=== PATIENT | female | born 1930 | race Caucasian/White ===

== ENCOUNTER 2018-05-01 13:18 | Observation (INO) | payer MEDICARE ==
[2018-05-01 14:35] LABS: Troponin I Less than 0.010 ng/mL (< 0.028)
[2018-05-01 16:27] VITALS: BMI 22.0
[2018-05-01] MEDS ORDERED: Acetaminophen 325 MG TAB PO PRN (18:21)
[2018-05-01] MEDS: Lisinopril 20 MG TAB PO SCH (20:18)
[2018-05-01] MEDS: cycloSPORINE 0.05% Ophthalmic Droperette EA EYE SCH (20:19)
--- NOTE | 2018-05-01 20:20 | HP ---
DATE OF ADMISSION: 05/01/2018 PRIMARY CARE PHYSICIAN: Dr. Valdez. PRIMARY HAND FLESHER: Dr. Levy. CHIEF COMPLAINT: Syncope with fall at home. HISTORY OF PRESENT ILLNESS: Mrs. Jackson is a pleasant 87-year-old female who has a past medical histo ry of CAD, CHF, hypothyroidism, hypertension, hyperlipidemia, atrial fibrillation, history of tachybr jose syndrome, status post pacemaker placement, dementia, she had presented to the [facility] via EMS from transfer from [place], she had complaints of syncope earlier this mornin g and fall in her bathroom. She states that she was standing on a scale for her weight and that she turned to give her a book to document her weight, she felt dizzy, her legs gave out and she f ell to the ground. She states she landed on her left side, she also developed a skin tear on her rig ht hand. X-rays of her left hand were negative for fractures, she also underwent x-rays of her left humerus which showed no evidence of fracture, and right wrist x-rays showed no acute fracture or disl ocation seen. A pressure dressing was applied and she tolerated well. She underwent CT of her head which was unremarkable. In the ED, it was found that she had an elevated blood pressure of 180/95. EKG was obtained and showed that she was in paced rhythm with a rate of 75, no ST or T-wave changes. She had denied any headache, dizziness, chest pain, shortness of breath or abdominal pain. She had denied any other symptoms at this time. She was admitted to the hospital for observation for workup of syncope. She states on and off for the last several weeks she would feel dizzy; however, if she s at down for a few moments and her symptoms seemed to resolve. She also admits to not taking her morn ing medications which included Lasix, aspirin and metoprolol. She states usually when she forgets to take her home medications, she can tell if that her blood pressure goes up and she feels dizzy. PAST MEDICAL HISTORY: History of CHF, atrial fibrillation, tachybrady syndrome status post pacemaker placement, acute hemorrhagic stroke, hypertension, hyperlipidemia, hypothyroidism, osteoarthritis, d ementia. PAST SURGICAL HISTORY: Thyroidectomy, hysterectomy, bilateral knee replacement, tonsillectomy, right hand surgery, pacemaker, stent x1, bilateral cataract removal with lens implant, bladder suspension. FAMILY HISTORY: The patient reports father has a history of CVA and mother has a history of myocardi al infarction, denies any other significant family history. SOCIAL HISTORY: Denies any tobacco, alcohol or illicit drug use. REVIEW OF SYSTEMS: Constitutional: Denies fever, chills or weakness. Eyes: Denies any eye pain, r edness, blurry vision. ENT: Denies any sinus pressure, sore throat, or trouble swallowing. Cardiov ascular: Denies any chest pain, diaphoresis, palpitations. Respiratory: Denies cough, shortness of breath, wheezing. Gastrointestinal: Denies any abdominal pain, appetite changes, diarrhea, nausea or vomiting. Genitourinary: Denies any frequency, urgency or dysuria. Denies any hematuria. Muscu loskeletal: Denies back pain, does report some left arm and right hand pain status post fall. Skin: Warm and dry, dressing applied to right wrist over the skin tear. Multiple bruising noted upper ex tremities. No rashes or lesions noted. Neurologic: Denies any confusion or dizziness, she reported dizziness this morning; however, this has resolved upon my meeting with her, denies weakness or ment al status changes. Psychiatric: Denies any suicidal or homicidal ideation. ALLERGIES: CEPHALEXIN. HOME MEDICATIONS: 1. Lisinopril 20 mg p.o. b.i.d. 2. Furosemide 40 mg p.o. b.i.d. 3. Metoprolol 50 mg p.o. daily. 4. Colace 100 mg p.o. at bedtime. 5. Aricept 10 mg p.o. at bedtime. 6. Atorvastatin 20 mg p.o. at bedtime. 7. Restasis 1 drop each eye b.i.d. 8. Levothyroxine 75 mcg p.o. daily. 9. Potassium chloride 10 mEq p.o. daily. 10. Vitamin E 40 units p.o. daily. 11. Multivitamin with minerals 1 tablet p.o. daily. 12. Sertraline 50 mg p.o. daily. 13. CoQ10 of 100 mg p.o. daily. PHYSICAL EXAMINATION: VITAL SIGNS: BP 170/92, pulse 75, respirations 16, temperature 98.6, O2 saturations 96% on room air. GENERAL: The patient is lying comfortably in bed, she is alert and oriented x3, no acute distress no adriana. HEENT: Normocephalic, atraumatic. Eyes equal, round, and reactive to light. Extraocular muscles in tact. NECK: Soft, supple, with no masses. CARDIAC: Positive S1, S2 with 2/6 systolic murmur noted. Paced rhythm on the monitor. LUNGS: Clear to auscultation bilaterally. No wheeze, no rales, no rhonchi. ABDOMEN: Soft, nontender, positive bowel sounds. No guarding, no rebound, no rigidity. : No CVA tenderness bilaterally. No suprapubic tenderness. MUSCULOSKELETAL: No calf tenderness bilaterally. Homans sign negative. Moves all extremities equal ly. Strength 5+ bilaterally upper and lower extremities. SKIN: No clubbing, no cyanosis, no edema. Dressing applied to right over skin tear. Diffuse bruisi ng upper extremities noted. PSYCHIATRIC: Appropriate, calm, normal mood and affect, cooperative. NEUROLOGICAL: Alert and oriented x3, answers all questions appropriately. LABORATORY DATA: WBC 4.3, RBC 3.43, hemoglobin 11.7. Sodium 141, potassium 3.9, BUN 24, creatinine 0.93, estimated GFR 57, glucose 92, alkaline phosphatase 69, CK-MB 1.1. BNP 391.3, troponin less susan n 0.010. DIAGNOSTIC IMAGING: CT brain shows no acute intracranial abnormalities, left hand 3-view x-ray shows severe arthritic changes and fairly extensive vascular calcifications, no acute injury noted. Left humerus 2-view x-ray showed no evidence of fracture. Right wrist, 3-view x-ray showed no acute fract ure or dislocation seen. ASSESSMENT AND PLAN: 1. Syncope, uncertain cause. We will check carotid Dopplers and an echocardiogram to rule out cardi ogenic etiology. We will consult Cardiology, Dr. Levy, for further evaluation, patient with rece nt pacemaker placement. Continue home medications. Further adjustments pending the patient's progre ss. 2. Hypertension. Continue home medications, monitor vital signs. Orthostatic vital signs obtained and negative. 3. Congestive heart failure. Monitor the patient's I's and O's. As #1, consult Cardiology for furt her evaluation. Continue with home medications. 4. History of hypothyroidism. Continue levothyroxine. 5. Deep venous thrombosis. With the patient's risk of fall, we will be hesitant to place on antico agulation at this time. We will await further recommendations per Cardiology. 6. GI prophylaxis with Pepcid. 7. Code status will be FULL CODE. Further discussion was made with the patient and she decided to b e full code at this time, her DPOA is her son, Fabian. FINAL DISPOSITION AND FURTHER MANAGEMENT PLAN: Pending patient progress and further recommendations from Cardiology along with workup for syncope.
[2018-05-01] MEDS ORDERED: Docusate 100 MG CAP PO SCH (21:00)
[2018-05-01] MEDS ORDERED: Famotidine 20 MG TAB PO SCH ×2 (21:00)
[2018-05-01] MEDS ORDERED: Atorvastatin Calcium 20 MG TAB PO SCH (21:00)
[2018-05-01] MEDS ORDERED: Donepezil HCl 10 MG TAB PO SCH (21:00)
--- NOTE | 2018-05-01 21:46 | ULT ---
CAROTID DOPPLER ULTRASOUND EVALUATION: 05/01/2018 HISTORY: TECHNIQUE: Multiple longitudinal and transverse images of the carotid arteries are obtained using a Multi-Hertz linear-array transducer. FINDINGS: Real-time, color-flow, and spectral wave-form Doppler analysis demonstrates bilateral proximal ICA ca lcified plaques. These are mild or minimal, resulting in approximately 30% bilateral proximal ICA st enosis at the internal carotid artery origins. No evidence of increased flow velocity is seen. The ICA flow velocity on the right measures 79/21 and on the left measures 67/18 cm per second. The ICA/ CCA ratio on the right measures 1.8 and on the left measures 1.5. No evidence of significant increased flow velocity is seen. Antegrade flow is seen in both vertebral arteries. IMPRESSION: Approximately 30% bilateral proximal internal carotid artery calcified stenosis. POS: [facility]
[2018-05-02 05:10] LABS: #Eosinphils 0.3 thou/uL (0.0-0.7); #Lymphocytes 1.5 thou/uL (1.20-3.40); #Monocytes 0.6 thou/uL (0.11-0.59); #Neutrophils 3.4 thou/uL (1.40-6.50); %Basophils 0.7 % (0.0-1.0); %Eosinophils 5.4 % (0.0-10.0); %Lymphocytes 24.9 % (21.0-51.0); %Monocytes 10.3 % (0.0-10.0); %Neutrophils 58.7 % (42.0-75.0); Hemoglobin 11.7 g/dL (12.0-16.0); Mean Corpuscular HGB CONC 32.2 g/dL (32.0-36.0); Mean Platelet Volume 9.8 fL (7.4-10.4); Platelet Count 92 thou/uL (130-400); RBC Distribution Width 12.8 % (11.5-14.5); Red Blood Cell (RBC) Count 3.45 mill/uL (4.20-5.40); White Blood Cell (WBC) Count 5.8 thou/uL (4.8-10.8)
[2018-05-02 05:13] LABS: Anion Gap 12 mmol/L (10-20); BUN (Urea Nitrogen) 20 mg/dL (9.8-20.1); Calc. Creatinine Clearance 48 mL/min (70-130); Calcium 8.4 mg/dL (7.8-10.44); Carbon Dioxide 29 mmol/L (23-31); Chloride 103 mmol/L (98-107); Estimated GFR-MDRD 62; Glucose 82 mg/dL (83-110); Potassium 3.6 mmol/L (3.5-5.1); Sodium 140 mmol/L (136-145)
[2018-05-02] MEDS: Furosemide 40 MG TAB PO SCH ×2 (06:30→13:47)
[2018-05-02] MEDS: Lisinopril 20 MG TAB PO SCH (08:21)
[2018-05-02] MEDS: cycloSPORINE 0.05% Ophthalmic Droperette EA EYE SCH (08:23)
[2018-05-02] MEDS ORDERED: Potassium Chloride 10 MEQ TAB PO SCH (09:00)
[2018-05-02] MEDS ORDERED: Multivitamin W/ Minerals 1 TAB PO SCH (09:00)
[2018-05-02] MEDS ORDERED: Levothyroxine Sodium 75 MCG TAB PO SCH (09:00)
--- NOTE | 2018-05-02 14:39 | PDOC.PN ---
- Subjective Encounter Start Date: 05/02/18 Encounter Start Time: 09:30 -: f/u on admission for near syncope and collapse, reports fall, has pacemaker -: denies complaints today - Objective Resuscitation Status: Resuscitation Status FULL:Full Resuscitation Vital Signs & Weight: Vital Signs (12 hours) Temp Pulse Resp BP BP BP Pulse Ox 05/02/18 11:29 97.7 F 78 20 136/73 97 05/02/18 08:21 152/87 H 05/02/18 07:08 98.1 F 68 16 152/87 H 96 05/02/18 04:08 98 F 71 16 174/87 H 96 Weight Weight 65.799 kg I&O: 05/01/18 05/02/18 05/03/18 06:59 06:59 06:59 Intake Total 260 240 Output Total 600 Balance -340 240 Result Diagrams: 05/02/18 04:25 05/02/18 04:25 Phys Exam - Physical Examination Constitutional: NAD HEENT: PERRLA, moist MMs Neck: no nodes, no JVD Respiratory: no rales, no rhonchi, clear to auscultation bilateral Cardiovascular: RRR Strong systolic murmur Gastrointestinal: soft, non-tender Musculoskeletal: no edema, pulses present Neurological: non-focal, normal sensation, moves all 4 limbs Lymphatic: no nodes Psychiatric: normal affect, A&O x 3 Skin: no rash, normal turgor, cap refill <2 seconds Dx/Plan (1) Sick sinus syndrome Code(s): I49.5 - SICK SINUS SYNDROME Status: Chronic Comment: Apparent SSS, consideration for PM placement 05/25/16 (2) Syncope Code(s): R55 - SYNCOPE AND COLLAPSE Status: Acute (3) Afib Code(s): I48.91 - UNSPECIFIED ATRIAL FIBRILLATION Status: Chronic Qualifiers: Atrial fibrillation type: chronic Qualified Code(s): I48.2 - Chronic atrial fibrillation Comment: Rate controlled currently, no anticoagulation secondary to ICH (4) Hypertension Code(s): I10 - ESSENTIAL (PRIMARY) HYPERTENSION Status: Chronic Qualifiers: Hypertension type: essential hypertension Qualified Code(s): I10 - Essential (primary) hypertension Comment: Labile, titrate BP regimen (5) Hypothyroid Code(s): E03.9 - HYPOTHYROIDISM, UNSPECIFIED Status: Chronic Comment: Continue Levothyroxine 75mcg daily, Free T4 in am - Plan cont current plan of care, plan discussed w/ family, DVT proph w/SCDs -: Awaiting cardiology consult -: Doppler with 30% stenosis -: Echo is pending -: Continue labs, will continue to monitor * .
--- NOTE | 2018-05-02 16:19 | PDOC.EVN ---
Event Note - Event Note Event Note: pt seen, examined, management reviewed with B Miguel,agree.
[2018-05-02 16:48] VITALS: BP 166/82; TEMP 98.1
--- NOTE | 2018-05-03 03:07 | DIS ---
DATE OF ADMISSION: 05/01/2018 DATE OF DISCHARGE: 05/02/2018 PRIMARY CARE PHYSICIAN: Dr. Whitney Valdez. CONSULTATIONS: None. PROCEDURES: Patient had a carotid Doppler study and an Echocardiogram were performed. IMPRESSION: Approximately 30% bilateral proximal internal carotid artery calcified stenosis. Echocardiogram was performed showed moderate concentric left ventricular hypertrophy, EF visually estimated at 50%-55%. Pacer wire visualized in right ventricle, left atrium is [id number] markedly enlarged right atrium size, severe mitral regurgitation, severe aortic stenosis is present. Moderate aortic regurgitation is noted. Severe tricuspid regurgitation. DISCHARGE DIAGNOSES: 1. Presyncopal with fall. 2. Hypertension. 3. Congestive heart failure. 4. Hypothyroidism. HOSPITAL COURSE: Ms. Jackson is an 87-year-old female who was brought to the emergency room in [place] yesterday with complaints of presyncope, reports that she was standing on her scale for her weight turned to give her a book when she felt dizzy, legs gave out, and she fell to the ground. Reports that she landed on her left side, developed a skin tear on her right hand. X- rays were obtained and her left hand which were negative for fractures. She had x-rays of her left humerus, which is also negative for fracture and right wrist x-rays, which were also displayed no acute fracture. Patient had a brain CT of her head in the ER [place], which was unremarkable. In the ER [place], she had an elevated blood pressure of 180/95. EKG was obtained which showed a paced rhythm with a rate of 75. No ST or T-wave changes. She has denied any headache, dizziness, chest pain, shortness of breath. She also denies all of those today during my exam. She has denied syncope, denies passing out, denies any loss of consciousness. She reports dizziness on and off for the last several weeks and also admitted to not taking her morning medications including Lasix, aspirin, and metoprolol. She reports that she can usually tell when she forgets to take it as blood pressure increases and she begins to feel dizzy. On hospital stay, Carotid Doppler and Echo were performed, patient felt much better and with discussion with Dr. Hyde, patient was sent home. REVIEW OF SYSTEMS: Constitutional: Patient denies any fever, chills, or weakness. Eyes: Denies any eye pain, redness, or blurry vision. ENT: Patient denies any pressure to sinuses, sore throat, or trouble swallowing. Cardiovascular: Denies any chest pain, diaphoresis, palpitations. Respiratory : Denies any cough, shortness of breath, wheezing. Gastrointestinal: Denies any abdominal pain, diarrhea, nausea, or vomiting. Genitourinary: Denies any frequency, urgency or dysuria. Musculoskeletal: Denies any back pain. Does report some left arm, right hand after her fall yesterday. She does have a bandage to her right wrist. No bleeding. She does have a skin tear. Otherwise , skin is warm, dry, and intact. Multiple bruising is noted to upper extremities. Neurologic: Patient denies any confusion or dizziness today. Did report dizziness yesterday. Psych: Denies any suicidal or homicidal ideation. PHYSICAL EXAMINATION: VITAL SIGNS: Temperature 98.9, pulse 81, respiratory 18, blood pressure 126/68. GENERAL: Patient is lying comfortably in bed, alert, oriented x3, no acute distress. HEENT: Normocephalic, atraumatic head. Eyes are equal, round, and reactive to light. Extraocular muscles are intact. NECK: Soft, supple. No JVD. CARDIAC: Positive S1, S2 with a 2/6 systolic murmur. Paced rhythm on the monitor. LUNGS: Clear to auscultation bilaterally. No wheeze, rales, or rhonchi. ABDOMEN: Soft, nontender, positive bowel sounds. No guarding or rebound. : No CVA tenderness bilaterally. No suprapubic tenderness. MUSCULOSKELETAL: No calf tenderness bilaterally. NEUROLOGIC: Strength is 5+ bilaterally in upper and lower extremities. SKIN: Dressing is applied to right wrist over skin tear. Diffuse bruising on upper extremities. PSYCHIATRIC: Appropriate, calm. Normal mood, normal affect, cooperative. NEUROLOGIC: Patient is alert and oriented x3, answers all questions appropriately. DISCHARGE MEDICATIONS: Patient will be discharged to home and resumed on all her home medications including Colace 100 mg p.o. at bedtime, levothyroxine 75 mcg p.o. daily, multivitamin 1 tab p.o. daily, potassium chloride 10 mEq p.o. daily, Restasis 0.4 mL each eye b.i.d., Zoloft 50 mg p.o. daily, coenzyme Q 100 mg p.o. daily, vitamin E 400 units p.o. daily, Lipitor 20 mg p.o. at bedtime, Aricept 10 mg p.o. at bedtime, Lasix 40 mg p.o. b.i.d., Zestril 20 mg p.o. b.i.d., and Toprol-XL 50 mg p.o. daily. Patient is allergic to CEPHALEXIN. Discharged home in stable condition. Should follow up with Dr. Valdez in 1 week and follow up with Dr. Levy in 2-3 weeks. [facility]
== END 2018-05-02 17:19 | disposition home or self-care (01) ==
LOC: ERS 13:18 → 2SW 14:00
PROVIDERS: ADMIT Internal Medicine Infectious Disease; ATTEND Internal Medicine Infectious Disease
DX: R55 Syncope and collapse (principal); I11.0 Hypertensive heart disease with heart failure; I50.9 Heart failure, unspecified; E89.0 Postprocedural hypothyroidism; I25.10 Atherosclerotic heart disease of native coronary artery without angina pectoris; E78.5 Hyperlipidemia, unspecified; F03.90 Unspecified dementia, unspecified severity, without behavioral disturbance, psychotic disturbance, mood disturbance, and anxiety; M19.90 Unspecified osteoarthritis, unspecified site; I49.5 Sick sinus syndrome; I48.2 Chronic atrial fibrillation; I08.3 Combined rheumatic disorders of mitral, aortic and tricuspid valves; I65.23 Occlusion and stenosis of bilateral carotid arteries; Z86.73 Personal history of transient ischemic attack (TIA), and cerebral infarction without residual deficits; Z79.899 Other long term (current) drug therapy; Z88.1 Allergy status to other antibiotic agents; Z95.0 Presence of cardiac pacemaker; Z95.5 Presence of coronary angioplasty implant and graft; W19.XXXA Unspecified fall, initial encounter; Y92.002 Bathroom of unspecified non-institutional (private) residence as the place of occurrence of the external cause
CPT/HCPCS: 80048; 84484; 85025; 93005; 93306; 93880; 99285; G0378 ×2; 36415

== ENCOUNTER 2018-06-28 19:20 | Inpatient (IN) | payer MEDICARE, BC ==
[~2018-06-28 19:20] MED LIST: ISOVUE-370 76%-LOCM 1 ML ONE
[2018-06-28 19:49] LABS: #Eosinphils 0.1 thou/uL (0.0-0.7); #Lymphocytes 1.6 thou/uL (1.20-3.40); #Monocytes 0.8 thou/uL (0.11-0.59); #Neutrophils 6.6 thou/uL (1.40-6.50); %Basophils 0.2 % (0.0-1.0); %Eosinophils 0.6 % (0.0-10.0); %Lymphocytes 17.7 % (21.0-51.0); %Monocytes 9.2 % (0.0-10.0); %Neutrophils 72.4 % (42.0-75.0); Hemoglobin 14.2 g/dL (12.0-16.0); Mean Corpuscular HGB CONC 32.8 g/dL (32.0-36.0); Mean Corpuscular Hemoglobin 34.2 pg (27.0-31.0); Mean Platelet Volume 9.8 fL (7.4-10.4); Platelet Count 100 thou/uL (130-400); RBC Distribution Width 12.7 % (11.5-14.5); Red Blood Cell (RBC) Count 4.16 mill/uL (4.20-5.40); White Blood Cell (WBC) Count 9.2 thou/uL (4.8-10.8)
[2018-06-28 19:58] LABS: ALT (SGPT) 55 U/L (8-55); AST (SGOT) 102 U/L (5-34); Alkaline Phosphatase 65 U/L (40-150); Anion Gap 18 mmol/L (10-20); BUN (Urea Nitrogen) 26 mg/dL (9.8-20.1); Bilirubin, Total 1.5 mg/dL (0.2-1.2); Calc. Creatinine Clearance 0 mL/min (70-130); Calcium 9.4 mg/dL (7.8-10.44); Carbon Dioxide 28 mmol/L (23-31); Chloride 100 mmol/L (98-107); Estimated GFR-MDRD 41; Globulin 3.7 g/dL (2.4-3.5); Glucose 137 mg/dL (83-110); Potassium 4.4 mmol/L (3.5-5.1); Protein, Total 7.7 g/dL (6.0-8.3); Sodium 142 mmol/L (136-145)
[2018-06-28 20:01] LABS: MDiff Complete? YES; Macrocytosis SLIGHT = 6-15 cells (100X) (0-5/hpf); Ovalocytes SLIGHT = 2-5 cells (100X) (0-1/hpf); Platelet Morphology Comment Appears Decreased
[2018-06-28 20:02] LABS: CKMB 1.7 ng/mL (0-6.6); Troponin I 0.021 ng/mL (< 0.028)
[2018-06-28 20:03] LABS: Prothrombin Time 15.9 SEC (12.0-14.7)
[2018-06-28 20:04] LABS: PTT 30.8 SEC (22.9-36.1)
[2018-06-28 20:05] LABS: INR-International Normal Ratio 1.3
[2018-06-28 20:05] LABS: Base Excess-Venous 6.1 mmol/L (0 (+/- 2.5)); Bicarbonate (HCO3v) 32.3 mmol/L (22.0-29.0); CO2 Tension (PvCO2) 51.2 mmHg (41.0-51.0); Calcium, Ionized 1.04 mmol/L (1.12-1.32); Hemoglobin - Calc 15.1 g/dL (12.0-18.0); O2 Tension (PvO2) 31.7 mmHg (35.0-45.0); Potassium 3.8 mmol/L (3.4-4.7); T. Carbon Dioxide 33.9 mmol/L (1.0-85.0); pH (Venous) 7.408 (7.35-7.45); vO2 Saturation-calc 60.3 % (94-98)
[2018-06-28 20:13] LABS: Bilirubin Negative (Negative); Blood, Urine Small (Negative); Clarity CLEAR (Clear); Glucose, Urine (Dipstick) Negative (Negative); Leukocyte Negative (Negative); Nitrite Negative (Negative); Protein, Urine (Dipstick) 100 mg/dL (Neg-Trace); Specific Gravity, Urine 1.036 (1.002-1.036); Urobilinogen 0.2 mg/dL (0.2-1.0)
[2018-06-28] MEDS ORDERED: Acetaminophen 500 MG TAB ONE (20:13)
[2018-06-28 20:16] LABS: Bacteria/HPF None Seen HPF (None Seen); Hyaline Casts/LPF 0-3 HYALINE CAST LPF (0-3 Hyaline); Pathc Cast-AUWi Flag 0.14 (0-2.49); RBC/HPF 0-3 HPF (0-3); Squamous Epithelial 0-3 HPF (0-3); WBC/HPF 0-3 HPF (0-3)
--- NOTE | 2018-06-28 20:16 | RAD ---
CHEST ONE VIEW: 06/28/18 HISTORY: 87-year-old female with history of left sided weakness and expressive aphasia. Minimal cardiomegaly w ith left ICD. Monitor leads overlie the chest. There is some bilateral vascular congestion. No conflu ent pneumonia or overt edema. IMPRESSION: Cardiomegaly with some bilateral vascular congestion without overt confluent pneumonia or acute edema . POS: [facility]
--- NOTE | 2018-06-28 20:18 | CT ---
BRAIN CT WITHOUT IV CONTRAST: 06/28/18 HISTORY: 87-year-old female with history of stroke, left sided weakness, expressive aphasia. COMPARISON: 05/01/18, bilateral atrophy and chronic white matter ischemic changes. No mass or bleed or other signi ficant acute process. IMPRESSION: No significant acute intracranial process. No mass or bleed. Atrophy and chronic white matter ischem ic changes. Findings discussed with Dr. Miguel at 7:30 p.m. Code CR POS: [facility]
--- NOTE | 2018-06-28 21:32 | CT ---
HEAD CT ANGIOGRAM WITH 3D RENDERING: NECK CT ANGIOGRAM WITH 3D RENDERIN06/28/18 HISTORY: 87-year-old female with history of left sided weakness, expressive aphasia, stroke alert. HEAD CTA WITH 3D RENDERING: There is no evidence for major branch occlusion. M1 segments are patent bilaterally. There are some i ntracranial internal carotid atherosclerotic calcific changes as well as some calcific changes involv ing the vertebral arteries. No evidence for an aneurysm. Small incidental left frontal sinus osteoma . Anterior cerebral, posterior cerebral, and vertebrobasilar arteries show no significant stenosis or occlusion. IMPRESSION: No evidence for significant intracranial stenotic or occlusive disease. M1 segments are patent bilate rally. Arterial vascular calcification. Evidence for atherosclerotic vascular disease. NECK CTA WITH 3D RENDERING: There are significant densely calcified plaques at the origins of the right and left internal carotid arteries and distal common carotid artery junctions. Using NASCET criteria, these result in approxi mately 70% stenosis of the origin of the right ICA and approximately 65 to 70% stenosis of the origin of the left ICA. Vertebral arteries are unremarkable bilaterally. IMPRESSION: Significant high grade stenoses of the origins of the right and left internal carotid arteries using NASCET criteria with extensive associated calcified plaques. Unremarkable vertebral arteries bilatera lly. No evidence of other significant acute process. POS: [facility]
[2018-06-28] MEDS ORDERED: Piperacillin/Tazobactam 4.5 GM VIAL ONE (22:29)
[2018-06-28 22:58] LABS: CSF Source CSF; Clarity Clear (Clear); RBC Count - Manual 176 /cumm (None Seen); Tube # 4; WBC/NonHematics Count - Manual 4 /cumm (0-5)
[2018-06-28 23:02] LABS: CSF Source CSF; Clarity Cloudy/Turbid (Clear); Tube # 1
[2018-06-28 23:09] LABS: RBC Count - Manual 4375 /cumm (None Seen); WBC/NonHematics Count - Manual 8 /cumm (0-5)
[2018-06-28 23:10] LABS: CSF, Glucose 80 mg/dl (40-70); CSF, Protein 44 mg/dL (15-40)
[2018-06-28 23:19] LABS: Color Of CSF Supernatant COLORLESS (Colorless); Tube # 2; Unspun CSF Color COLORLESS (Colorless)
[2018-06-28 23:43] LABS: Cell Count Non Hematic 16 %; Lymphocytes 28 %; Segmented Neutrophils 56 %
[2018-06-28 23:53] LABS: Lactic Acid 1.2 mmol/L (0.5-2.2)
[2018-06-28] MEDS ORDERED: Ondansetron ODT 4 MG TAB SL PRN (23:56)
[2018-06-28] MEDS ORDERED: Ondansetron PF 4 MG/2 ML Vial IVP PRN (23:56)
[2018-06-28] MEDS ORDERED: Acetaminophen 325 MG TAB PO PRN (23:56)
[2018-06-29] MEDS ORDERED: Acetaminophen 650 MG Suppository PR PRN (00:14)
[2018-06-29] MEDS ORDERED: Ondansetron ODT 4 MG TAB PO PRN (00:14)
[2018-06-29] MEDS ORDERED: Ondansetron PF 4 MG/2 ML Vial IVP PRN (00:14)
--- NOTE | 2018-06-29 01:08 | HP ---
PRIMARY CARE PHYSICIAN: Dr. Valdez. PRIMARY SEPTIC TANK SERVICER: Dr. Levy. TIME OF SERVICE: 10:30 p.m. CHIEF COMPLAINT: Altered mental status. HISTORY OF PRESENT ILLNESS: Ms. Jackson is an 87-year-old female with a history of dementia, recently admitted here from 05/01 to 05/02 for fall with syncope and with a stroke workup. At that time, she was found to have 30% stenosis of bilateral carotids. Today, she was in a normal state of health and then around 5:00 p.m., she was noted to not be acting herself, seemed to be very weak and was stuttering and mumbling. Her wheeled her into the bathroom on her rolling walker and on trying to transfer her to the toilet use of the facility, she got feces all over the toilet and wall. He called the daughter who was unable to help and so they called EMS for further workup. Per reports, she has reported left-sided facial droop and left-sided weakness, but the family does not recall seeing that. She had no fevers or chills until arrival at the emergency department where she has reportedly had a 101.1 fever. Remainder of the workup appears to be negative other than a CT angiogram of the [place] [facility] [place] that showed high-grade stenosis of the bilateral internal carotid arteries. The patient is awake and alert. She is talking and oriented to x3, but just does not seem her normal usual self. PAST MEDICAL HISTORY: 1. Hypertension. 2. Dementia. 3. Hyperlipidemia. 4. Chronic atrial fibrillation with tachy-daisha syndrome, status post pacemaker placement in April [address] Levy. 5. History of acute hemorrhagic stroke. 6. Essential hypertension. 7. Hypothyroidism. 8. Osteoarthritis. 9. CHF, unknown type. PAST SURGICAL HISTORY: Includes thyroidectomy, hysterectomy, bilateral total knee replacements, right hand surgery, pacemaker placement in April 2016, stent x1 remotely, bilateral cataract removal with intraocular lens placement and bladder suspension. HOME MEDICATIONS: 1. Lisinopril 20 mg p.o. b.i.d. 2. Lasix 40 mg p.o. b.i.d. 3. Metoprolol 50 mg daily. 4. Colace daily. 5. Aricept 10 mg p.o. at bedtime. 6. Atorvastatin 20 mg p.o. at bedtime. 7. Restasis one drop each eye b.i.d. 8. Levothyroxine 75 mcg daily. 9. Potassium chloride 10 mEq daily. 10. Vitamin E 400 units daily. 11. Multivitamin with minerals one tablet daily. 12. Sertraline 50 mg daily. 13. CoQ10, 100 mg daily. ALLERGIES: CEPHALEXIN. FAMILY HISTORY: Negative for clotting or bleeding disorders. No immune dysfunction. SOCIAL HISTORY: Negative habits x3. She is , lives with her and usually fairly independent. REVIEW OF SYSTEMS: Review of system was attempted. The patient although is awake, alert, and oriented x3. She is very sleepy and not answering questions well. PHYSICAL EXAMINATION: VITAL SIGNS: Temperature in the emergency department initially 101.0, blood pressure 192/114, respiratory rate 16, heart rate in the 70s. GENERAL: She is sleepy, but arousable. She awakens and is alert, oriented to person, place, and time. NECK: Supple. She has no lymphadenopathy or JVD. She had bilateral carotid bruits that are faint. CARDIOVASCULAR: Normal S1, S2. No S3 or S4. LUNGS: Clear to auscultation bilaterally without wheezes, rales, or rhonchi. ABDOMEN: Soft, nontender, nondistended. She has good bowel sounds in all four quadrants. EXTREMITIES: No cyanosis, clubbing, or edema. SKIN: SKIN: Warm, moist, and well perfused without any rash or lesions. MUSCULOSKELETAL: Normal to inspection. Large joints appear normal. Bilateral TKAs without inflammation. NEUROLOGIC: Cranial nerves 2 through 12 are grossly intact. She has bilateral intraocular lenses. She has no focal deficits and a normal speech pattern, although she is acting very weak. She has 5/5 strength in her left upper and lower extremities. She has 3 to 4/5 strength at her left lower extremity. There is no facial droop. ASSESSMENT/PLAN: 1. Possible ischemic stroke versus transient ischemic attack. Place her in observation on the stroke unit. She just had a large workup done two months ago. She had a pacemaker placed in April 2016. We will check and see if this is an MRI friendly pacemaker or not, but a CT angio if not ordered any further workup. PT/ OT has to see her and may need a Neurology consult. I will continue her on daily aspirin. 2. Hypertension. 3. Hyperlipidemia. Continue home medications. Job ID: [id number] [facility]
[2018-06-29 01:37] VITALS: BMI 20.5
[2018-06-29 05:17] LABS: #Lymphocytes 1.6 thou/uL (1.20-3.40); #Monocytes 1.1 thou/uL (0.11-0.59); #Neutrophils 7.8 thou/uL (1.40-6.50); %Basophils 0.3 % (0.0-1.0); %Eosinophils 0.1 % (0.0-10.0); %Lymphocytes 14.8 % (21.0-51.0); %Monocytes 10.6 % (0.0-10.0); %Neutrophils 74.1 % (42.0-75.0); Hemoglobin 13.3 g/dL (12.0-16.0); Mean Corpuscular HGB CONC 33.7 g/dL (32.0-36.0); Mean Corpuscular Hemoglobin 34.8 pg (27.0-31.0); Mean Platelet Volume 9.4 fL (7.4-10.4); Platelet Count 88 thou/uL (130-400); RBC Distribution Width 12.6 % (11.5-14.5); Red Blood Cell (RBC) Count 3.82 mill/uL (4.20-5.40); White Blood Cell (WBC) Count 10.5 thou/uL (4.8-10.8)
[2018-06-29 05:31] LABS: Anion Gap 14 mmol/L (10-20); BUN (Urea Nitrogen) 24 mg/dL (9.8-20.1); Calc. Creatinine Clearance 35 mL/min (70-130); Calcium 8.8 mg/dL (7.8-10.44); Carbon Dioxide 31 mmol/L (23-31); Chloride 100 mmol/L (98-107); Estimated GFR-MDRD 46; Glucose 134 mg/dL (83-110); Potassium 3.7 mmol/L (3.5-5.1); Sodium 141 mmol/L (136-145)
[2018-06-29] MEDS: Famotidine 20 MG TAB PO SCH (10:17)
[2018-06-29] MEDS ORDERED: Furosemide 40 MG/4 ML VIAL SLOW IVP SCH (11:30)
--- NOTE | 2018-06-29 12:26 | RAD ---
PORTABLE CHES 1 VIEW: Date: 06/29/18 Time: 1147 hours HISTORY: Cough, rhonchi. FINDINGS: Comparison made with exam of 06/28/18. The heart is enlarged. Left-sided pacemaker device remains in place. Aorta is tortuous. Lungs are wel l expanded without focal areas of consolidation, pneumothoraces, radha pulmonary edema, or pleural ef fusions. IMPRESSION: No acute process. POS: [facility]
--- NOTE | 2018-06-29 13:24 | PRG ---
DATE OF SERVICE: 06/29/2018 SUBJECTIVE: Reviewed the case with Vivien, reviewed the record and examined the patient. The patient has reported a cough for several days and while in the middle of our exam, the patient coughed and expectorated significant brownish thick sputum. Her lung exam reveals some persistent rales, which may be tracheal secretion in nature, but otherwise moving fair amount of air. Her heart exam reveals significant murmur at the upper precordium consistent with aortic stenosis. Her echocardiogram from early April revealed an ejection fraction of 50% to 55%, pace wires in place, severe mitral regurgitation, severe aortic stenosis with moderate aortic regurgitation, and severe tricuspid regurgitation. At this point, I believe the patient likely does have bronchitis accounting for her initial fever and some of her respiratory issues. We will go ahead and continue to cover her with some antibiotics for that. Also concerned about her cardiac situation potentially being the source of her TIA symptoms and what may be vertigo, although, the patient's history on that is fairly vague. Also, the patient has some evidence of carotid stenosis on CT angiogram with 65% to 70% stenosis bilaterally. We will await Cardiology's input to determine if we need to have CV surgery evaluate her for those as well. Job ID: [id number] [facility]TDD
--- NOTE | 2018-06-29 13:58 | PDOC.PN ---
- Subjective Encounter Start Date: 06/29/18 Encounter Start Time: 10:00 Subjective: Patient with productive wet cough, reports mild SOB -: Reports dizziness at home but none while here -: Denies numbness/tingling/weakness to extremities - Objective Resuscitation Status - Order Detail: 06/28/18 22:32 Resuscitation Status Routine Resuscitation Status: DNAR: NO Resuscitation Vital Signs & Weight: Vital Signs (12 hours) Temp Pulse Pulse Pulse Resp BP BP 06/29/18 11:57 98.2 F 64 16 06/29/18 10:10 77 140/78 06/29/18 09:00 65 90 152/81 H 152/85 H 06/29/18 07:53 97.6 F 61 18 06/29/18 04:00 98.4 F 65 18 BP Pulse Ox Pulse Ox Pulse Ox 06/29/18 11:57 140/68 96 06/29/18 10:10 06/29/18 09:00 90 L 90 L 06/29/18 07:53 164/78 H 92 L 06/29/18 04:00 155/78 H 91 L Weight Admit Weight 61.371 kg Weight 61.371 kg Result Diagrams: 06/29/18 04:30 06/29/18 04:30 Additional Labs: Accuchecks 06/28/18 19:25 POC Glucose 128 H Phys Exam - Physical Examination HEENT: PERRLA, moist MMs Neck: no nodes, no JVD scattered rhonchi in all lobes, wet productive cough Loud murmur heard near sternal border Gastrointestinal: soft, non-tender Musculoskeletal: no edema, pulses present Neurological: non-focal, normal sensation, moves all 4 limbs Lymphatic: no nodes Psychiatric: normal affect Deviation from normal: Patient with hx of dementia, alert, oriented x2 Skin: no rash, normal turgor Dx/Plan (1) Bronchitis Code(s): J40 - BRONCHITIS, NOT SPECIFIED ACUTE OR CHRONIC Status: Acute (2) Pre-syncope Status: Chronic (3) Afib Code(s): I48.91 - UNSPECIFIED ATRIAL FIBRILLATION Status: Chronic Qualifiers: Atrial fibrillation type: chronic Qualified Code(s): I48.2 - Chronic atrial fibrillation Comment: Rate controlled currently, no anticoagulation secondary to ICH (4) Hypertension Code(s): I10 - ESSENTIAL (PRIMARY) HYPERTENSION Status: Chronic Qualifiers: Hypertension type: essential hypertension Qualified Code(s): I10 - Essential (primary) hypertension Comment: Labile, titrate BP regimen (5) Hypothyroid Code(s): E03.9 - HYPOTHYROIDISM, UNSPECIFIED Status: Chronic Comment: Continue Levothyroxine 75mcg daily, Free T4 in am - Plan cont current plan of care, respiratory therapy, incentive spirometry Dizziness w/ aortic stenosis, carotid stenosis -: Productive cough, CXR with no evidence of acute process on rpt -: Added ABX for bronchitis, restarted home meds -: Asked Cardiology for their input, may need CV consult for Carotid stenosis * .
[2018-06-29] MEDS ORDERED: Azithromycin 500 MG in Sodium Chloride 0.9% 250 ML 250 ML IVPB SCH (14:00)
[2018-06-29] MEDS: Donepezil HCl 5 MG TAB PO SCH (20:42)
[2018-06-29] MEDS: Furosemide 40 MG TAB PO SCH (20:42)
[2018-06-29] MEDS: Atorvastatin Calcium 20 MG TAB PO SCH (20:42)
[2018-06-29] MEDS ORDERED: Albuterol Sulfate 2.5 mg/3 ml Neb NEB PRN (22:33)
[2018-06-29] MEDS ORDERED: guaiFENesin ER 600 MG TAB PO SCH (22:45)
--- NOTE | 2018-06-30 01:25 | CON ---
DATE OF CONSULTATION: 06/29/2018 HISTORY OF PRESENT ILLNESS: Galilea Jackson is an 87-year-old white female, who was initially evaluated in June 2000 for new onset atrial fibrillation. She has always been somewhat of a difficult historian and at that time stated that she had "bronchial pneumonia" in 1959, but did not have any further problems until June 2000. She felt weak, wheezing as well as cough with clear sputum. She had chest tightness along with some shortness of breath, but it was unclear how long the chest tightness lasted. The following day, she saw Dr. Conn. Her CK was negative. EKG revealed atrial fibrillation. She did have expiratory wheezing, as well as 2+ peripheral edema at this time. She was placed on Coumadin and Combivent inhaler. Echo revealed left atrial enlargement, ejection fraction of 60% to 65%, ttskeftc-si-sxacar mitral regurgitation, leowrvim-lx-[id number] tricuspid regurgitation, mild pulmonic insufficiency, and a patent foramen ovale. Lotrel dose was increased to 5/20 and also the decision was made to place her on amiodarone. In August 2000, when she returned, she was still in atrial fibrillation and had 2 + lower extremity edema. Lotrel was discontinued. She was placed on Zestoretic 20/25 q.a.m. and Zestril 20 q.p.m. Her INR had fallen to 1.4, when she presented for electrical cardioversion. She underwent transesophageal echo, which revealed no evidence of thrombus and on KIKO, she only had mild mitral regurgitation, mild tricuspid regurgitation. She was placed on Lovenox, underwent cardioversion with 200 joules and returned to sinus rhythm. Following day, she underwent adenosine Cardiolite testing which revealed septal and anterior wall dyskinesis with ejection fraction of 51%. There was a fixed defect in the anterior wall. It was felt best to keep her anticoagulated for 1 month and then have her return for catheterization. In September 2000, she had increased energy level after returning to sinus rhythm. Blood pressure was 180/80. Norvasc 2.5 daily was added. She had rare episodes of shortness of breath. No chest discomfort. She did complain of shakiness and the amiodarone dose was reduced to 200 mg daily. Coumadin was discontinued and she underwent cardiac catheterization in November 2000, which revealed ejection fraction of 60% to 65%. There was 30% mid LAD, 30% ostial RCA, 30% mid RCA lesions. At this time, decision was made to have her stay off Coumadin and just treat her with ecotrin. She continued to remain in sinus rhythm, but had problems with peripheral edema. In February 2004, hydrochlorothiazide was discontinued. She was placed on Lasix 40 daily. In November 2004, echo revealed ejection fraction of 55% to 60% with yidstcjm-yk-[id number] mitral regurgitation, severe tricuspid regurgitation. She was placed on support hose and peripheral edema improved. She continued to have mildly elevated LDL and Zocor 20 at bedtime was added. She would not take that but continued to have elevated LDL and finally, I convinced her to take it. LDL continued to be elevated on the Zocor and ultimately, she was placed on Vytorin 10/40. In February 2007, she complained of tremor and the amiodarone dose was reduced to one-half tablet daily. The tremor did not seem to improve with reduction of the amiodarone. In May 2008, she underwent adenosine Cardiolite testing which was normal without evidence of ischemia or fixed defect. She continued to do well with compression stockings for her venous insufficiency and would not have any leg pain unless she did not wear the stockings. In January 2010, her tremor did not improve on reduction of the amiodarone dose, but she was found to be in atrial fibrillation. She was placed back on Coumadin. Amiodarone was increased to 200 mg b.i.d. and it was recommended that she see a neurologist for tremor, however, she never did pursue that. Later in January 2010, she had an episode of chest discomfort, went to the emergency room in [place]. Later in January 2010, she underwent transesophageal echo followed by cardioversion. Transesophageal echo revealed only moderate mitral regurgitation. There was no intracardiac thrombus and with 200 joules, she converted back to atrial flutter and with 300 joules, she converted to sinus rhythm with first- degree AV block. She did have long first-degree AV block with episodes of type 1 second-degree AV block (Wenckebach). This seemed to resolve and she did not have any further episodes for 24 hours prior to discharge. She had one short episode of atrial flutter on the floor, which spontaneously converted. She had problems with wheezing in the morning after cardioversion and with significantly elevated blood pressure at that time was systolic 200. She was given intravenous Lasix and her hydralazine was increased and her breathing improved. In November 2011, she again was found to be in atrial fibrillation. She had fallen 4 days previously and had several falls and it was felt that she was not a candidate to restart Coumadin. Amiodarone was then discontinued due to recurrence of atrial fibrillation. In June 2012, she began to notice increased dyspnea and chest tightness. In August 2012, she states she gets tightness in her chest with walking and bending over, relieved in 5 minutes, associated with shortness of breath. Previously, she had undergone Holter monitoring for episodes of chest tightness. She was neither bradycardic nor tachycardiac and the chest tightness did not seem to be related to her heart rate with the atrial fibrillation. Echo revealed ejection fraction of 60% to 65% with right atrial enlargement, moderate mitral regurgitation, mild aortic stenosis, severe tricuspid regurgitation, and mild mitral regurgitation with a patent foramen ovale. She underwent Lexiscan Cardiolite testing, which revealed no evidence of ischemia or fixed defect. However, she did develop 1-[address]-segment depression in II, III , and F. Pulmonary function test revealed an FEV1 of 1.32 L (68%). There was improvement with inhaled bronchodilators. It was felt that she had mild obstructive pulmonary defect with improvement with inhaled bronchodilators, however, she has always been somewhat noncompliant with using them. She returned to the office for review of those studies but during the interim, developed increased dyspnea and increased leg edema. She woke at 3:00 a.m. with increased shortness of breath, went to the emergency room in [place], was given intravenous Lasix and transferred here. Ultimately, she underwent cardiac catheterization. Wedge pressure was 15. Cardiac output 4.63 L/minute. Ejection fraction was 60% to 65% with mild mitral regurgitation. Left main was normal. There was 50% mid LAD. Circumflex was normal. The right coronary artery had a 30% ostial stenosis and an 80% mid RCA stenosis. She underwent placement of Vision 3.0 x 18 mm stent in the mid right coronary artery, which was post dilated with a 3.5 x 15 mm balloon. She underwent flow wire measurement of the LAD, 50% lesion and FFR was 0.93, and no further treatment was warranted. It was felt that on admission that she had acute on chronic diastolic failure. Blood pressure was difficult to control. She was placed on carvedilol 6.25 b.i.d. and discharged. She was admitted 4 days later with blood pressure in the 70s and mid 80s systolic. She was given intravenous fluids. It was felt that her hypotension was probably due to Imdur and that was stopped. The dose of carvedilol was reduced from 6.25 b.i.d. to 3.125 b.i.d. Due to her falls, it was felt that she was not a candidate for anticoagulation with her atrial fibrillation. She then was admitted in September 2013 with central chest tightness that was somewhat sharp and pleuritic. This lasted over 24 hours. It was felt that this was not due to myocardial ischemia. 2D echo showed normal ejection fraction and diastolic dysfunction. Chest CTA did not show any pulmonary emboli. She was admitted soon thereafter in early October 2013. She had a fall 2 weeks prior to that and then another one that prompted that admission. She remembers with both episodes falling and hitting the floor. She had heart rates in the mid 50s. She did have orthostatic hypotension. She was again admitted in November 2013, with left anterior chest pain worse with a deep breath that was continuous. She was found to have pleural rub. CTA of the chest was negative for pulmonary emboli. She was placed on Levaquin for bronchitis and discharged. 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 She was again admitted several days later with heart rates in the 30s. She underwent single pacemaker placement in April 2016. She most recently was admitted in April 2018 with presyncope with a fall. She had 30% bilateral proximal internal carotid artery calcified stenosis. Echo revealed ejection fraction of 50% to 55% with moderate concentric left ventricular hypertrophy, left atrial enlargement, markedly enlarged right atrium, severe mitral regurgitation, severe aortic stenosis which she has been known to have for some time, moderate aortic regurgitation, severe tricuspid regurgitation. She was most recently seen in the office in June 17, 2018, and at that time did not complain of any lightheadedness, shortness of breath or chest discomfort. Again, it was felt that she was not anticoagulation candidate due to frequent falls and history of intracranial hemorrhage. She now was admitted when the family noted around 5:00 p.m. that she was very weak, stuttering, and mumbling. tried to help her with bowel movement and she got feces all over the toilet and the wall. She had some fever up to 99 at home and in the emergency room, reportedly was 101.1. She also has complained of cough productive of elise sputum for the last 3 days. She has chest soreness when she coughs. She otherwise denies any chest discomfort. PAST MEDICAL HISTORY: Hypertension, hyperlipidemia, chronic atrial fibrillation , frequent falls, history of intracranial hemorrhage, minimal coronary artery disease in 2000, stent placement in the mid right coronary artery in 2012, urinary incontinence, dementia, tachy-daisha syndrome, hypothyroidism, osteoarthritis, diastolic CHF. OPERATIONS: Pacemaker placement, thyroidectomy, hysterectomy, bilateral total knee replacements, right hand surgery, mid right coronary artery stent placement, bilateral cataract removal, and bladder suspension. MEDICATIONS: 1. Lisinopril 5 mg b.i.d. 2. Lasix 40 b.i.d. 3. Metoprolol 50 daily. 4. Colace one daily. 5. Aricept 10 mg at bedtime. 6. Atorvastatin 20 mg at bedtime. 7. Restasis one drop each side b.i.d. 8. Levothyroxine 75 mcg daily. 9. KCl 10 mEq daily. 10. Sertraline 50 daily. 11. CoQ10 of 100 mg daily. 12. Zetia 10 mg daily. ALLERGIES: CEPHALEXIN. SOCIAL HISTORY: She does not smoke or drink. Although on very rare occasion, she may have a beer. FAMILY HISTORY: Mother at age 73. Father has stroke and one year later. No family history of coronary artery disease. REVIEW OF SYSTEMS: A 12-point review of systems is unremarkable except as noted above. PHYSICAL EXAMINATION: VITAL SIGNS: Blood pressure 138/72, pulse of 83. HEENT: PERRL. NECK: Supple. CHEST: Reveals expiratory wheezing bilaterally. CARDIOVASCULAR: S1 and S2 normal without any S3 or S4. There is a 2/6 systolic ejection murmur along the left sternal border. ABDOMEN: Normal bowel sounds without tenderness or organomegaly. EXTREMITIES: Revealed no clubbing, cyanosis, or edema. NEUROLOGIC: Grossly intact. SKIN: Warm and dry. LABORATORY DATA: EKG revealed atrial fibrillation with left axis deviation, poor R-wave progression, nonspecific T-wave changes. Hemoglobin 13.3, hematocrit 39.5, white count 10,500, and platelets 88,000. INR 1.3. Sodium 141, potassium 3.7, chloride 100, carbon dioxide 31, BUN 24, creatinine 1.12. Troponin I is normal. ALT 55, AST 102. Brain CT revealed no significant acute intracranial process. Chest x-ray revealed bilateral pulmonary vascular congestion. CT [facility] revealed significant high-grade stenosis of the origin of the right and left internal carotid arteries, unremarkable vertebral arteries. IMPRESSION: 1. Mental status changes possibly due to transient ischemic attack versus stroke versus encephalopathy from possible pneumonia. 2. Cough with increased sputum production, IV antibiotics at this time. 3. Status post coronary artery stent placement in the mid right coronary artery. 4. Chronic atrial fibrillation, not anticoagulation candidate due to frequent falls as well as history of intracranial hemorrhage. 5. Single-chamber pacemaker. 6. Severe aortic stenosis. However, I have not been convinced that she is symptomatic from this. 7. Hypercholesterolemia. 8. Hypertension. 9. Benign essential tremor. 10. Hypothyroidism. 11. History of spinal stenosis. PLAN: The patient will be continued on her usual medications. She has been treated with IV antibiotics. As noted above, she is not a candidate for anticoagulation due to history of intracranial hemorrhages as well as frequent falls. Job ID: [id number] [facility]
[2018-06-30] MEDS: Levothyroxine Sodium 100 MCG TAB PO SCH (05:05)
[2018-06-30 05:26] LABS: #Eosinphils 0.1 thou/uL (0.0-0.7); #Lymphocytes 1.7 thou/uL (1.20-3.40); #Monocytes 0.8 thou/uL (0.11-0.59); #Neutrophils 5.4 thou/uL (1.40-6.50); %Basophils 0.3 % (0.0-1.0); %Lymphocytes 21.1 % (21.0-51.0); %Monocytes 10.5 % (0.0-10.0); %Neutrophils 67.1 % (42.0-75.0); Mean Corpuscular HGB CONC 33.6 g/dL (32.0-36.0); Mean Corpuscular Hemoglobin 34.7 pg (27.0-31.0); Mean Platelet Volume 9.8 fL (7.4-10.4); Platelet Count 78 thou/uL (130-400); RBC Distribution Width 12.5 % (11.5-14.5); Red Blood Cell (RBC) Count 3.73 mill/uL (4.20-5.40); White Blood Cell (WBC) Count 8.1 thou/uL (4.8-10.8)
[2018-06-30 05:45] LABS: ALT (SGPT) 59 U/L (8-55); AST (SGOT) 120 U/L (5-34); Albumin 3.3 g/dL (3.4-4.8); Alkaline Phosphatase 57 U/L (40-150); Anion Gap 13 mmol/L (10-20); BUN (Urea Nitrogen) 21 mg/dL (9.8-20.1); Bilirubin, Total 1.5 mg/dL (0.2-1.2); Calc. Creatinine Clearance 43 mL/min (70-130); Calcium 8.4 mg/dL (7.8-10.44); Carbon Dioxide 31 mmol/L (23-31); Chloride 99 mmol/L (98-107); Estimated GFR-MDRD 59; Glucose 99 mg/dL (83-110); Potassium 3.2 mmol/L (3.5-5.1); Protein, Total 6.3 g/dL (6.0-8.3); Sodium 140 mmol/L (136-145)
[2018-06-30] MEDS: Ubidecarenone 50 MG CAP PO SCH (08:51)
[2018-06-30] MEDS: Fish Oil 1,000 MG CAP PO SCH (08:51)
[2018-06-30] MEDS: Furosemide 40 MG TAB PO SCH ×2 (08:52→20:50)
[2018-06-30] MEDS: Famotidine 20 MG TAB PO SCH (08:52)
[2018-06-30] MEDS: guaiFENesin ER 600 MG TAB PO SCH ×2 (08:52→20:50)
[2018-06-30] MEDS ORDERED: Non-Formulary Item 1 EACH (Potassium Chloride [Potassium Chloride] 10 MEQ) PO SCH (09:00)
[2018-06-30] MEDS ORDERED: Levothyroxine Sodium 75 MCG TAB PO SCH (09:00)
[2018-06-30] MEDS ORDERED: Non-Formulary Item 1 EACH (Ubidecarenone [Co Q-10] 100 MG) PO SCH (09:00)
[2018-06-30] MEDS ORDERED: Potassium Chloride 10 MEQ TAB PO SCH (09:00)
[2018-06-30] MEDS: Atorvastatin Calcium 20 MG TAB PO SCH (20:49)
[2018-06-30] MEDS: Donepezil HCl 5 MG TAB PO SCH (20:49)
[2018-06-30] MEDS: Diabetic Tussin 200 MG/10 ML UDCUP PO PRN (20:50)
[2018-07-01] MEDS: Acetaminophen 325 MG TAB PO PRN (02:33)
[2018-07-01] MEDS: Levothyroxine Sodium 100 MCG TAB PO SCH (06:06)
[2018-07-01 06:14] LABS: #Eosinphils 0.1 thou/uL (0.0-0.7); #Lymphocytes 1.4 thou/uL (1.20-3.40); #Monocytes 0.9 thou/uL (0.11-0.59); #Neutrophils 5.7 thou/uL (1.40-6.50); %Eosinophils 1.2 % (0.0-10.0); %Lymphocytes 16.8 % (21.0-51.0); %Monocytes 10.8 % (0.0-10.0); %Neutrophils 71.1 % (42.0-75.0); Hemoglobin 13.5 g/dL (12.0-16.0); Mean Corpuscular HGB CONC 33.8 g/dL (32.0-36.0); Mean Corpuscular Hemoglobin 34.8 pg (27.0-31.0); Mean Platelet Volume 9.5 fL (7.4-10.4); Platelet Count 93 thou/uL (130-400); RBC Distribution Width 12.3 % (11.5-14.5); Red Blood Cell (RBC) Count 3.88 mill/uL (4.20-5.40); White Blood Cell (WBC) Count 8.1 thou/uL (4.8-10.8)
[2018-07-01 06:30] LABS: ALT (SGPT) 67 U/L (8-55); AST (SGOT) 135 U/L (5-34); Albumin 3.5 g/dL (3.4-4.8); Alkaline Phosphatase 62 U/L (40-150); Anion Gap 14 mmol/L (10-20); BUN (Urea Nitrogen) 16 mg/dL (9.8-20.1); Bilirubin, Total 1.8 mg/dL (0.2-1.2); Calc. Creatinine Clearance 36 mL/min (70-130); Calcium 8.9 mg/dL (7.8-10.44); Carbon Dioxide 32 mmol/L (23-31); Chloride 98 mmol/L (98-107); Estimated GFR-MDRD 48; Globulin 3.3 g/dL (2.4-3.5); Glucose 96 mg/dL (83-110); Potassium 3.1 mmol/L (3.5-5.1); Protein, Total 6.8 g/dL (6.0-8.3); Sodium 141 mmol/L (136-145)
--- NOTE | 2018-07-01 08:00 | PDOC.PN ---
- Subjective Encounter Start Date: 06/30/18 Encounter Start Time: 09:00 Subjective: Patient sitting up in bed, finished breakfast -: Reports a productive cough, otherwise feels better today - Objective Resuscitation Status - Order Detail: 06/28/18 22:32 Resuscitation Status Routine Resuscitation Status: DNAR: NO Resuscitation Vital Signs & Weight: Vital Signs (12 hours) Temp Pulse Resp BP Pulse Ox 07/01/18 07:44 98.2 F 104 H 18 184/98 H 94 L 07/01/18 07:26 86 18 93 L 07/01/18 04:00 98.5 F 79 19 142/77 H 93 L 07/01/18 00:19 81 18 94 L 07/01/18 00:00 98.3 F 75 19 159/77 H 93 L 06/30/18 20:00 99.4 F 84 19 170/85 H 95 Weight Admit Weight 61.371 kg Weight 61.371 kg I&O: 06/30/18 07/01/18 07/02/18 06:59 06:59 06:59 Intake Total 750 360 Output Total 500 500 Balance 250 -140 Result Diagrams: 07/01/18 05:41 07/01/18 05:41 Phys Exam - Physical Examination HEENT: PERRLA, moist MMs Neck: no nodes, no JVD diffuse rhonchi Cardiovascular: RRR, no significant murmur Gastrointestinal: soft, non-tender Musculoskeletal: no edema, pulses present Neurological: non-focal, normal sensation Lymphatic: no nodes Psychiatric: normal affect, A&O x 3 Skin: no rash, normal turgor Dx/Plan (1) Bronchitis Code(s): J40 - BRONCHITIS, NOT SPECIFIED ACUTE OR CHRONIC Status: Acute (2) Pre-syncope Status: Chronic (3) Afib Code(s): I48.91 - UNSPECIFIED ATRIAL FIBRILLATION Status: Chronic Qualifiers: Atrial fibrillation type: chronic Qualified Code(s): I48.2 - Chronic atrial fibrillation Comment: Rate controlled currently, no anticoagulation secondary to ICH (4) Hypertension Code(s): I10 - ESSENTIAL (PRIMARY) HYPERTENSION Status: Chronic Qualifiers: Hypertension type: essential hypertension Qualified Code(s): I10 - Essential (primary) hypertension Comment: Labile, titrate BP regimen (5) Hypothyroid Code(s): E03.9 - HYPOTHYROIDISM, UNSPECIFIED Status: Chronic Comment: Continue Levothyroxine 75mcg daily, Free T4 in am - Plan cont current plan of care, continue antibiotics -: Patient feeling better, temp of 100.4 overnight -: Will consider sending home on 07/01/2018 if she continues to improve -: Will monitor VS, labs * .
[2018-07-01] MEDS: Azithromycin 250 MG TAB PO SCH (09:12)
[2018-07-01] MEDS: Fish Oil 1,000 MG CAP PO SCH (09:12)
[2018-07-01] MEDS: Diabetic Tussin 200 MG/10 ML UDCUP PO PRN ×2 (09:12→17:26)
[2018-07-01] MEDS: Potassium Chloride 20 MEQ TAB PO SCH (09:12)
[2018-07-01] MEDS: guaiFENesin ER 600 MG TAB PO SCH ×2 (09:13→22:31)
[2018-07-01] MEDS: Famotidine 20 MG TAB PO SCH (09:13)
[2018-07-01] MEDS: Furosemide 40 MG TAB PO SCH ×2 (09:13→22:31)
[2018-07-01] MEDS: Ubidecarenone 50 MG CAP PO SCH (09:13)
--- NOTE | 2018-07-01 09:27 | ULT ---
SONOGRAM RIGHT UPPER QUADRANT: Date: 07/01/18 HISTORY: Right upper quadrant pain. Abnormal liver function tests. FINDINGS: Gallbladder is not visualized. Common duct is 0.4 cm. Liver is unremarkable without focal mass or int rahepatic biliary dilatation. No free fluid. Incidental note of a small cyst at the superior pole of right kidney. IMPRESSION: Nonvisualization of gallbladder. Consider prior cholecystectomy. No evidence of biliary obstruction. POS: [facility]
--- NOTE | 2018-07-01 13:00 | CT ---
BRAIN CT WITHOUT IV CONTRAST: HISTORY: An 87-year-old female with a history of increasing confusion. The patient had slurred speech for 3 d ays which has resolved, but has increased confusion. COMPARISON: 06/28/2018. FINDINGS: Bilateral atrophy and chronic white matter ischemic change. No focal mass or midline shift. No intr a- or extraaxial hemorrhage. No evidence for a new infarct by CT. IMPRESSION: Stable-appearing head CT. Atrophy and chronic white matter ischemic change. No mass or bleed. POS: [facility]
--- NOTE | 2018-07-01 14:14 | PDOC.CTH ---
Cardiology Progress Note - Subjective The pt seen and examined. No overnight events. No cardiac complaints. Per family, the pt is still more confused than prior to the admission. Complaining of chronic productive cough. - Objective Vital Signs Temp Pulse Resp BP Pulse Ox 07/01/18 13:46 80 18 07/01/18 11:45 98.7 F 86 17 141/94 H 97 07/01/18 08:23 91 172/97 H 07/01/18 07:44 98.2 F 104 H 18 184/98 H 94 L 07/01/18 07:26 86 18 93 L 07/01/18 04:00 98.5 F 79 19 142/77 H 93 L Admit Weight 135 lb 4.8 oz Weight 135 lb 4.8 oz 06/30/18 07/01/18 07/02/18 06:59 06:59 06:59 Intake Total 750 360 Output Total 500 500 Balance 250 -140 - Physical Examination General/Neuro: other: (confused) Lungs: other: (coarses and diminished at bases) Heart: other: (irreguler) Abdomen: soft Extremities: other: (No edema) - Telemetry Telemetry Rhythm: V paced and Afib - Labs Result Diagrams: 07/01/18 05:41 07/01/18 05:41 Troponin/CKMB CK-MB (CK-2) 1.7 ng/mL (0-6.6) 06/28/18 19:25 Troponin I 0.021 ng/mL (< 0.028) 06/28/18 19:25 - Assessment/Plan 1. Chronic Afib - Controlled rate with Metoprolol; Not on AOC or ASA due to low platelet level and abnormal LFT level; cont. to monitor on tele 2. CAD with hx of stent in RCA in 2012 - stable; on BBlocker; Stop Statin for now for abnormal LFTs 3. Hx of PM placement - V paced; 4. Elevated LFT - U/S showed WNL 5. Chronic diastolic HF - stable with Lasix PO and BBlocker. will resume Lisinopril 5mg BID from tonight 6. HTN - will resume Lisinopril 5mg PO BID from tonight. 7. Hypothyroidism - managed by PCP MAR reviewed Review of Systems - Review of Systems Constitutional: reports: no symptoms reported EENTM: reports: no symptoms reported Respiratory: reports: no symptoms reported Cardiac (ROS): reports: no symptoms reported ABD/GI: reports: no symptoms reported
--- NOTE | 2018-07-01 19:15 | PDOC.PN ---
- Subjective Encounter Start Date: 07/01/18 Encounter Start Time: 10:30 Subjective: Patient is more confused today, is able to ambulate with assistance -: Daughter is very worried about change in mental status -: Patient still has productive cough - Objective Resuscitation Status - Order Detail: 06/28/18 22:32 Resuscitation Status Routine Resuscitation Status: DNAR: NO Resuscitation Vital Signs & Weight: Vital Signs (12 hours) Temp Pulse Pulse Resp BP BP Pulse Ox 07/01/18 19:08 94 L 07/01/18 15:33 98.1 F 92 17 122/74 92 L 07/01/18 14:03 69 158/90 H 07/01/18 13:46 80 18 07/01/18 11:45 98.7 F 86 17 141/94 H 97 07/01/18 08:23 91 172/97 H 07/01/18 07:44 98.2 F 104 H 18 184/98 H 94 L 07/01/18 07:26 86 18 93 L Weight Admit Weight 61.371 kg Weight 61.371 kg I&O: 06/30/18 07/01/18 07/02/18 06:59 06:59 06:59 Intake Total 750 360 500 Output Total 500 500 Balance 250 -140 500 Result Diagrams: 07/01/18 05:41 07/01/18 05:41 Phys Exam - Physical Examination HEENT: PERRLA, moist MMs Neck: no nodes, no JVD Respiratory: wheezing present diffuse rhonchi, productive cough Cardiovascular: RRR Gastrointestinal: soft, non-tender Musculoskeletal: no edema, pulses present Neurological: non-focal, normal sensation, moves all 4 limbs Patient is more confused today, worse from baseline per daughter No focal sensory or motor deficits Deviation from normal: pleasantly confused Skin: no rash, normal turgor Dx/Plan (1) Bronchitis Code(s): J40 - BRONCHITIS, NOT SPECIFIED ACUTE OR CHRONIC Status: Acute (2) Pre-syncope Status: Chronic (3) Afib Code(s): I48.91 - UNSPECIFIED ATRIAL FIBRILLATION Status: Chronic Qualifiers: Atrial fibrillation type: chronic Qualified Code(s): I48.2 - Chronic atrial fibrillation Comment: Rate controlled currently, no anticoagulation secondary to ICH (4) Hypertension Code(s): I10 - ESSENTIAL (PRIMARY) HYPERTENSION Status: Chronic Qualifiers: Hypertension type: essential hypertension Qualified Code(s): I10 - Essential (primary) hypertension Comment: Labile, titrate BP regimen (5) Hypothyroid Code(s): E03.9 - HYPOTHYROIDISM, UNSPECIFIED Status: Chronic Comment: Continue Levothyroxine 75mcg daily, Free T4 in am (6) Dementia Code(s): F03.90 - UNSPECIFIED DEMENTIA WITHOUT BEHAVIORAL DISTURBANCE Status: Chronic - Plan Long discussion with daughter about incr in confusion/dc disposition -: Rpt CT brain ordered and is NAD -: Liver enzymes are increased, RUQ U/S negative for stones in CBD -: CM/INP Rehab screening order placed. -: Daughter Galilea updated this evening on results and plan for INP Rehab * .
[2018-07-01] MEDS: Donepezil HCl 5 MG TAB PO SCH (22:30)
[2018-07-01] MEDS: Lisinopril 5 MG TAB PO SCH (22:31)
--- NOTE | 2018-07-02 00:42 | CON ---
DATE OF CONSULTATION: 07/01/2018 CHIEF COMPLAINT: Altered mental status. HISTORY OF PRESENT ILLNESS: History was obtained from daughter and also from medical record. The patient was unable to give much history. She kept saying she had a gallbladder resection yesterday, which was not true. The patient is an 87-year-old lady who has had cough since s evening. She was weak, could not respond. She was in the toilet seat and made a mess per chart and they found that she was mumbling and incoherent and she had left-sided weakness. The daughter is not sure that the patient had left-sided weakness, and the daughter also said she talked to her over the phone around and she had incoherent speech, thought process, and she is currently still hallucinating, she thinks there is woman in wedding gown on the terrace right next to her window and they burning wedding gown. She also saw kids and is afraid that they are going to fall down. She thinks her is still at work, but he is retired long time ago. The patient has history of dementia given to her by Dr. Powell and they have not had regular Neurology followup. The patient leaves burners on the cook-top and tends to cook at nighttime and the patient's daughter is concerned she might burn down the house one day. The patient felt weak and was stuttering, but now her weakness has improved. PAST MEDICAL HISTORY: She has dementia, congestive heart failure, atrial fibrillation. She had a pacemaker implantation in 04/2016. PAST SURGICAL HISTORY: Thyroidectomy, pacemaker implantation, and coronary artery disease with stent. FAMILY HISTORY: Most of her family members in their 70s too earlier. Father of stroke in his 70s. Mother of VT at 74. Sister has memory problems and during a procedure for gastrointestinal tract investigation and she had VT at the time of her . Brother also has dementia and cancer. Another brother had an VT. REVIEW OF SYSTEMS: Unreliable. LABORATORY WORKUP: White count 8.1, hemoglobin 13.5, hematocrit 39.9, and platelet count 93. Chemistry; sodium 141, potassium 3.1, chloride 98, bicarb 32, BUN 16, and creatinine 1.08. Bilirubin 1.8, AST 135, ALT 67. IMAGING STUDIES: She is unable to obtain CT MRI due to her pacemaker. The brain CT scan showed stable appearing head CT compared to before and she has atrophy, chronic white matter ischemic changes. No bleed was noted. She has CT angiography which showed significant high-grade stenosis of the origins of right and left internal carotid artery with calcified blocks and using NASCET criteria, these are about 70% stenosis in the right ICA and 65% to 75% in the left ICA. PHYSICAL EXAMINATION: VITAL SIGNS: Blood pressure 158/90, pulse 69, and temperature 98.7. GENERAL APPEARANCE: A well-built, well-nourished, very pleasant lady who is very cooperative. CHEST: Shows bilateral rhonchi and wheeze. CARDIOVASCULAR: S1, S2 heard. No murmurs. ABDOMEN: Soft. NEUROLOGIC: She is oriented to month, year, and birthday, knows her name. She knows she is at [facility]. Cranial nerve examination; normal extraocular movements. No facial asymmetry noted. Tongue midline. Normal sensation of face. Normal hearing. Normal elevation of palate bilaterally. Motor exam; bulk normal, tone normal. Strength 5/5 throughout in upper and lower extremities in iliopsoas, hamstrings, quadriceps, ankle dorsiflexion, plantar flexion, deltoid, biceps, triceps, wrist extension flexion, finger extension and flexion bilaterally. Involuntary movement; she has bilateral upper extremity tremor, 2+ severity. Sensory, normal to touch bilaterally. Cerebellar, normal [id number], [id number]-[id number]. IMPRESSION: The patient is an 87-year-old lady with history of altered mental status and left-sided weakness, which was transient. Her left-sided weakness has resolved and there is difficulty obtaining MRI of the brain due to presence of pacemaker. There is strong family history of stroke, myocardial infarction as well as dementia. Her examination shows some confusion and delirium. She also has bilateral upper extremity tremor. This could be combination of sleep deprivation as well as recent bronchitis/pre-existing dementia. At this time, her most concern is bilateral carotid artery stenosis, which could also be contributing to decreased vascular flow and causing intermittent confusion or episodes of syncope. TREATMENT PLAN: 1. Please consult Vascular Surgery regarding her carotid artery stenosis, so this can be studied further and see if there is any collateral supply to the brain. She will probably need a formal angiogram. 2. I will start her on Seroquel to help with the hallucinations and delirium for now. 3. She will need a Neurology followup as outpatient and I have discussed the Neurology followup and need for continued care with her daughter. Job ID: [id number]
[2018-07-02] MEDS: Levothyroxine Sodium 100 MCG TAB PO SCH (06:39)
[2018-07-02] MEDS: Potassium Chloride 20 MEQ TAB PO SCH (09:04)
[2018-07-02] MEDS: Diabetic Tussin 200 MG/10 ML UDCUP PO PRN (09:05)
[2018-07-02] MEDS: Fish Oil 1,000 MG CAP PO SCH (09:05)
[2018-07-02] MEDS: Acetaminophen 325 MG TAB PO PRN (09:05)
[2018-07-02] MEDS: guaiFENesin ER 600 MG TAB PO SCH ×2 (09:06→21:21)
[2018-07-02] MEDS: Furosemide 40 MG TAB PO SCH ×2 (09:06→21:21)
[2018-07-02] MEDS: Lisinopril 5 MG TAB PO SCH (09:06)
[2018-07-02] MEDS: Azithromycin 250 MG TAB PO SCH (09:06)
[2018-07-02] MEDS: Ubidecarenone 50 MG CAP PO SCH (09:06)
[2018-07-02] MEDS: Famotidine 20 MG TAB PO SCH (09:11)
--- NOTE | 2018-07-02 10:10 | PDOC.CTH ---
Cardiology Progress Note - Subjective The pt seen and examined. No overnight events. No cardiac complaints. Still confused. Still coughing hard with white sputum. - Objective Vital Signs Temp Pulse Resp BP Pulse Ox 07/02/18 09:06 105 H 07/02/18 08:16 105 H 20 93 L 07/02/18 08:00 97.5 F L 79 20 159/90 H 93 L 07/02/18 07:47 97.5 F L 79 20 159/90 H 93 L 07/02/18 04:00 98.8 F 91 19 166/88 H 93 L 07/02/18 01:15 94 L 07/02/18 00:00 98.6 F 111 H 19 143/89 H 92 L 07/01/18 22:31 92 Admit Weight 135 lb 4.8 oz Weight 135 lb 4.8 oz 07/01/18 07/02/18 07/03/18 06:59 06:59 06:59 Intake Total 360 500 Output Total 500 Balance -140 500 - Physical Examination Lungs: other: (coarses and diminished at bases) Heart: other: (irreuglar and V paced) Abdomen: soft Extremities: other: (No edema) - Telemetry Telemetry Rhythm: V paced - Labs Result Diagrams: 07/01/18 05:41 07/01/18 05:41 Troponin/CKMB CK-MB (CK-2) 1.7 ng/mL (0-6.6) 06/28/18 19:25 Troponin I 0.021 ng/mL (< 0.028) 06/28/18 19:25 - Assessment/Plan 1. Chronic Afib - Controlled rate with Metoprolol; Not on AOC or ASA due to low platelet level and abnormal LFT level; cont. to monitor on tele 2. CAD with hx of stent in RCA in 2012 - stable; on BBlocker; Stop Statin for now for abnormal LFTs 3. Hx of PM placement - V paced; 4. Elevated LFT - U/S showed WNL 5. Chronic diastolic HF - stable with Lasix PO and BBlocker. will resume Lisinopril 5mg BID from tonight 6. HTN - will increase Lisinopril from 5mg to 10mg PO BID today. 7. Hypothyroidism - managed by PCP MAR reviewed Review of Systems - Review of Systems Constitutional: reports: no symptoms reported EENTM: reports: no symptoms reported Respiratory: reports: no symptoms reported Cardiac (ROS): reports: no symptoms reported ABD/GI: reports: no symptoms reported : reports: no symptoms reported Musculoskeletal: reports: no symptoms reported
[2018-07-02] MEDS ORDERED: Lisinopril 5 MG TAB PO SCH ×2 (10:45→11:00)
--- NOTE | 2018-07-02 11:30 | PDOC.PN ---
- Subjective Encounter Start Date: 07/02/18 Encounter Start Time: 10:45 Subjective: Patient examined, is alert, oriented x3, appears less confused today -: Reports cough improved, generally feels better. Denies complaints -: Has some hoareness to her voice, denies a sore throat - Objective Resuscitation Status - Order Detail: 06/28/18 22:32 Resuscitation Status Routine Resuscitation Status: DNAR: NO Resuscitation Vital Signs & Weight: Vital Signs (12 hours) Temp Pulse Resp BP Pulse Ox 07/02/18 10:57 105 H 07/02/18 09:06 105 H 07/02/18 08:16 105 H 20 93 L 07/02/18 08:00 97.5 F L 79 20 159/90 H 93 L 07/02/18 07:47 97.5 F L 79 20 159/90 H 93 L 07/02/18 04:00 98.8 F 91 19 166/88 H 93 L 07/02/18 01:15 94 L 07/02/18 00:00 98.6 F 111 H 19 143/89 H 92 L Weight Admit Weight 61.371 kg Weight 61.371 kg I&O: 07/01/18 07/02/18 07/03/18 06:59 06:59 06:59 Intake Total 360 500 Output Total 500 Balance -140 500 Result Diagrams: 07/02/18 12:15 07/02/18 12:15 Phys Exam - Physical Examination HEENT: PERRLA, moist MMs hoarse today Neck: no nodes, no JVD Respiratory: no wheezing scant rhonchi today, clears with cough Cardiovascular: RRR Gastrointestinal: soft, non-tender Musculoskeletal: no edema, pulses present Neurological: non-focal, normal sensation confused at times but is oriented and conversant Psychiatric: normal affect, A&O x 3 Skin: no rash, normal turgor Dx/Plan (1) Bronchitis Code(s): J40 - BRONCHITIS, NOT SPECIFIED ACUTE OR CHRONIC Status: Acute Plan: Improving, cough is less often and less productive (2) Pre-syncope Status: Chronic (3) Afib Code(s): I48.91 - UNSPECIFIED ATRIAL FIBRILLATION Status: Chronic Qualifiers: Atrial fibrillation type: chronic Qualified Code(s): I48.2 - Chronic atrial fibrillation Comment: Rate controlled currently, no anticoagulation secondary to ICH (4) Hypertension Code(s): I10 - ESSENTIAL (PRIMARY) HYPERTENSION Status: Chronic Qualifiers: Hypertension type: essential hypertension Qualified Code(s): I10 - Essential (primary) hypertension Comment: Labile, titrate BP regimen (5) Hypothyroid Code(s): E03.9 - HYPOTHYROIDISM, UNSPECIFIED Status: Chronic Comment: Continue Levothyroxine 75mcg daily, Free T4 in am (6) Dementia Code(s): F03.90 - UNSPECIFIED DEMENTIA WITHOUT BEHAVIORAL DISTURBANCE Status: Chronic - Plan cont current plan of care, continue antibiotics Patient is being screened for INP rehab, we will await approval -: Rehab approved, will go tomorrow am. -: Neuro consulted yesterday, added seroquel -: Cardiology has been following, restarted lisinopril -: Monitor labs in am * .
[2018-07-02 12:26] LABS: #Eosinphils 0.1 thou/uL (0.0-0.7); #Lymphocytes 1.2 thou/uL (1.20-3.40); #Monocytes 0.7 thou/uL (0.11-0.59); #Neutrophils 4.5 thou/uL (1.40-6.50); %Basophils 0.4 % (0.0-1.0); %Lymphocytes 18.3 % (21.0-51.0); %Monocytes 11.1 % (0.0-10.0); %Neutrophils 68.2 % (42.0-75.0); Hemoglobin 13.6 g/dL (12.0-16.0); Mean Corpuscular HGB CONC 33.6 g/dL (32.0-36.0); Mean Corpuscular Hemoglobin 34.6 pg (27.0-31.0); Mean Platelet Volume 9.4 fL (7.4-10.4); Platelet Count 115 thou/uL (130-400); RBC Distribution Width 12.4 % (11.5-14.5); Red Blood Cell (RBC) Count 3.93 mill/uL (4.20-5.40); White Blood Cell (WBC) Count 6.6 thou/uL (4.8-10.8)
[2018-07-02 12:39] LABS: ALT (SGPT) 82 U/L (8-55); AST (SGOT) 159 U/L (5-34); Albumin 3.5 g/dL (3.4-4.8); Alkaline Phosphatase 65 U/L (40-150); Anion Gap 17 mmol/L (10-20); BUN (Urea Nitrogen) 21 mg/dL (9.8-20.1); Bilirubin, Total 1.2 mg/dL (0.2-1.2); Calc. Creatinine Clearance 31 mL/min (70-130); Calcium 8.9 mg/dL (7.8-10.44); Carbon Dioxide 28 mmol/L (23-31); Chloride 101 mmol/L (98-107); Estimated GFR-MDRD 40; Globulin 3.4 g/dL (2.4-3.5); Glucose 105 mg/dL (83-110); Potassium 3.6 mmol/L (3.5-5.1); Protein, Total 6.9 g/dL (6.0-8.3); Sodium 142 mmol/L (136-145)
[2018-07-02] MEDS: Donepezil HCl 5 MG TAB PO SCH (21:21)
[2018-07-02] MEDS: Lisinopril 10 MG TAB PO SCH (21:21)
[2018-07-03] MEDS: Levothyroxine Sodium 100 MCG TAB PO SCH (06:19)
[2018-07-03 07:10] LABS: #Eosinphils 0.4 thou/uL (0.0-0.7); #Lymphocytes 1.8 thou/uL (1.20-3.40); #Monocytes 0.7 thou/uL (0.11-0.59); %Basophils 0.4 % (0.0-1.0); %Eosinophils 5.4 % (0.0-10.0); %Monocytes 10.5 % (0.0-10.0); %Neutrophils 57.7 % (42.0-75.0); Hemoglobin 13.6 g/dL (12.0-16.0); Mean Corpuscular HGB CONC 32.7 g/dL (32.0-36.0); Mean Platelet Volume 9.7 fL (7.4-10.4); Platelet Count 124 thou/uL (130-400); RBC Distribution Width 12.3 % (11.5-14.5); Red Blood Cell (RBC) Count 3.99 mill/uL (4.20-5.40); White Blood Cell (WBC) Count 6.8 thou/uL (4.8-10.8)
[2018-07-03 07:15] LABS: ALT (SGPT) 69 U/L (8-55); AST (SGOT) 130 U/L (5-34); Albumin 3.4 g/dL (3.4-4.8); Alkaline Phosphatase 61 U/L (40-150); Anion Gap 17 mmol/L (10-20); BUN (Urea Nitrogen) 23 mg/dL (9.8-20.1); Bilirubin, Total 1.2 mg/dL (0.2-1.2); Calc. Creatinine Clearance 32 mL/min (70-130); Calcium 8.9 mg/dL (7.8-10.44); Carbon Dioxide 31 mmol/L (23-31); Chloride 100 mmol/L (98-107); Estimated GFR-MDRD 42; Globulin 3.5 g/dL (2.4-3.5); Glucose 75 mg/dL (83-110); Potassium 3.7 mmol/L (3.5-5.1); Protein, Total 6.9 g/dL (6.0-8.3); Sodium 144 mmol/L (136-145)
[2018-07-03] MEDS: Potassium Chloride 20 MEQ TAB PO SCH (08:59)
[2018-07-03] MEDS: Fish Oil 1,000 MG CAP PO SCH (09:00)
[2018-07-03] MEDS: Ubidecarenone 50 MG CAP PO SCH (09:00)
[2018-07-03] MEDS: guaiFENesin ER 600 MG TAB PO SCH (09:00)
[2018-07-03] MEDS: Furosemide 40 MG TAB PO SCH (09:01)
[2018-07-03] MEDS: Lisinopril 10 MG TAB PO SCH (09:01)
[2018-07-03] MEDS: Azithromycin 250 MG TAB PO SCH (09:01)
[2018-07-03] MEDS: Famotidine 20 MG TAB PO SCH (09:01)
--- NOTE | 2018-07-03 10:36 | PDOC.PN ---
- Subjective Encounter Start Date: 07/03/18 Encounter Start Time: 10:34 Patient sitting up in bed eating breakfast. She reports feeling better today. Still with cough present, however seems improved today. She is complaining of left sided rib pain that has improved as well. She denies n/v/d. Dr Watson recommending CV surgery consult for carotid stenosis. - Objective Resuscitation Status - Order Detail: 06/28/18 22:32 Resuscitation Status Routine Resuscitation Status: DNAR: NO Resuscitation MAR Reviewed: Yes Vital Signs & Weight: Vital Signs (12 hours) Temp Pulse Resp BP BP Pulse Ox 07/03/18 09:01 152/90 H 07/03/18 08:59 97.3 F L 72 16 152/90 H 94 L 07/03/18 07:24 77 20 94 L 07/03/18 04:00 98.2 F 91 16 126/90 95 07/03/18 00:44 60 20 97 07/03/18 00:00 97.9 F 68 16 159/80 H 94 L Weight Admit Weight 135 lb 4.8 oz Weight 135 lb 4.8 oz I&O: 07/02/18 07/03/18 07/04/18 06:59 06:59 06:59 Intake Total 500 Balance 500 Result Diagrams: 07/03/18 05:48 07/03/18 05:48 Radiology Reviewed by me: Yes Phys Exam - Physical Examination Constitutional: NAD HEENT: PERRLA, moist MMs, oral pharynx no lesions Neck: no nodes, no JVD, supple Coarse breath sounds noted Cardiovascular: no significant murmur, no rub V paced Gastrointestinal: soft, non-tender, no distention, positive bowel sounds Musculoskeletal: no edema, pulses present Neurological: non-focal, normal sensation, moves all 4 limbs Lymphatic: no nodes Psychiatric: normal affect, A&O x 3 Skin: no rash, normal turgor, cap refill <2 seconds Dx/Plan (1) Carotid stenosis Code(s): I65.29 - OCCLUSION AND STENOSIS OF UNSPECIFIED CAROTID ARTERY Status : Acute (2) Elevated LFTs Code(s): R94.5 - ABNORMAL RESULTS OF LIVER FUNCTION STUDIES Status: Acute (3) Bronchitis Code(s): J40 - BRONCHITIS, NOT SPECIFIED ACUTE OR CHRONIC Status: Acute (4) Dementia Code(s): F03.90 - UNSPECIFIED DEMENTIA WITHOUT BEHAVIORAL DISTURBANCE Status: Chronic (5) Hypertension Code(s): I10 - ESSENTIAL (PRIMARY) HYPERTENSION Status: Chronic Qualifiers: Hypertension type: essential hypertension Qualified Code(s): I10 - Essential (primary) hypertension Comment: Labile, titrate BP regimen (6) Syncope Code(s): R55 - SYNCOPE AND COLLAPSE Status: Acute (7) Afib Code(s): I48.91 - UNSPECIFIED ATRIAL FIBRILLATION Status: Chronic Qualifiers: Atrial fibrillation type: chronic Qualified Code(s): I48.2 - Chronic atrial fibrillation Comment: Rate controlled currently, no anticoagulation secondary to ICH - Plan cont current plan of care, continue antibiotics, PT/OT, DVT proph w/SCDs * Continue on medical management with lisinopril, BB, lasix per cardiology * Statin on hold due to elevated LFTs * CVS consult placed for carotid stenosis and appreciate further recommendations * No anticoagulation due to risk of falls and hx of ICH * Recheck BMP and monitor FADUMO, Cr trending down 1.2 * PT/OT * Plan to transfer to rehab once stable
--- NOTE | 2018-07-03 12:19 | PDOC.CTH ---
Cardiology Progress Note - Subjective The pt seen and examined. No overnight events. No cardiac complaints. Still coughing, but less frequent now. - Objective Vital Signs Temp Pulse Resp BP BP Pulse Ox 07/03/18 11:53 97.4 F L 86 16 110/87 96 07/03/18 09:01 152/90 H 07/03/18 08:59 97.3 F L 72 16 152/90 H 94 L 07/03/18 07:24 77 20 94 L 07/03/18 04:00 98.2 F 91 16 126/90 95 07/03/18 00:44 60 20 97 Admit Weight 135 lb 4.8 oz Weight 135 lb 4.8 oz 07/02/18 07/03/18 07/04/18 06:59 06:59 06:59 Intake Total 500 Balance 500 - Physical Examination Neck: carotid US brisk Lungs: other: (coarses and diminished at bases) Heart: RRR Abdomen: soft Extremities: other: (No edema) - Telemetry Telemetry Rhythm: V paced - Labs Result Diagrams: 07/03/18 05:48 07/03/18 05:48 Troponin/CKMB CK-MB (CK-2) 1.7 ng/mL (0-6.6) 06/28/18 19:25 Troponin I 0.021 ng/mL (< 0.028) 06/28/18 19:25 - Assessment/Plan 1. Chronic Afib - Controlled rate with Metoprolol; Not on AOC or ASA due to low platelet level and abnormal LFT level; cont. to monitor on tele 2. CAD with hx of stent in RCA in 2012 - stable; on BBlocker; Stop Statin for now for abnormal LFTs 3. Hx of PM placement - V paced; 4. Elevated LFT - U/S showed WNL 5. Chronic diastolic HF - stable with Lasix PO and BBlocker. will resume Lisinopril 5mg BID from tonight 6. HTN - will increase Lisinopril from 5mg to 10mg PO BID today. 7. Hypothyroidism - managed by PCP CAROL moody 8. Bilateral carotid artery stenosis. Poor candidate for surgical correction.Could be further evaluated as an outpt. 9. severe . * Dr Levy's pt Pt. seen and eval. by me. I agree with the A/P by the PUBLIC WEIGHER. Chest clear, RRR- pacing. Okay to transfer to Rehab. Review of Systems - Review of Systems Constitutional: reports: no symptoms reported EENTM: reports: no symptoms reported Respiratory: reports: see HPI Cardiac (ROS): reports: no symptoms reported ABD/GI: reports: no symptoms reported : reports: no symptoms reported
[2018-07-03] MEDS ORDERED: Aspirin 81 mg Enteric Coated Tablet PO SCH (15:30)
--- NOTE | 2018-07-03 15:46 | CON ---
DATE OF CONSULTATION: 07/03/2018 REQUESTING PROVIDER: KOREY Clinton with the hospitalist service at the recommendation of Dr. Lori Watson with Neurology. CONSULTING BUTCHER ALL ROUND: Dr. Bishnu Levy. PRIMARY CARE PHYSICIAN: Whitney Valdez DO CHIEF COMPLAINT: Altered mental status. HISTORY OF PRESENT ILLNESS: The patient is an 87-year-old woman with dementia, who along with her elderly struggling to maintain their independence. She had been having some low-grade fever and productive cough at home. She was quite weak and starting to have problems with stuttering and mumbling, was weak to the point that her was not able to help her adequately when she needed to go to the bathroom to have a bowel movement. They called her daughter, who came over to help and at that time, the daughter found her mother to be quite weak, unable to follow commands, and unable to communicate effectively, although the emergency room sheet documents that the family reported findings consistent with an expressive aphasia and left-sided weakness. In my conversations with the daughter and apparently with other people's conversations with the daughter, those observations were denied. The patient was febrile in the emergency room and other examiners have reported that the patient was delirious to the point of having visual hallucinations that were rather vivid including seeing a woman on the terrace with a burning wedding gown on. PAST MEDICAL HISTORY: The patient's past medical history is significant for hypertension, hyperlipidemia, chronic atrial fibrillation, coronary artery disease, tachy-daisha syndrome, hypothyroidism, and a previous intracranial hemorrhage. She has undergone thyroidectomy, single-chamber pacemaker implantation, total knee replacements, cataract extractions, and right coronary stenting. MEDICATIONS: Her home medications include; 1. Lisinopril 5 mg b.i.d. 2. Lasix 40 mg b.i.d. 3. Metoprolol 50 mg a day. 4. Aricept 10 mg at bedtime. 5. Lipitor 20 mg at bedtime. 6. Synthroid 75 mcg a day. 7. Sertraline 50 mg a day. 8. Zetia 10 mg a day. 9. Colace. 10. Co-enzyme Q10. ALLERGIES: SHE REPORTEDLY HAS AN ALLERGY TO KEFLEX. SOCIAL HISTORY: She does not smoke or drink on a regular basis. FAMILY HISTORY: Significant for coronary and cerebral vascular disease and dementia. REVIEW OF SYSTEMS: Most notable for her gradually declining ability to live independently with gradual worsening of her forgetfulness. In early April of 2018, she was admitted with syncope. PHYSICAL EXAMINATION: VITAL SIGNS: In the emergency room, her heart rate was 106, blood pressure 192/114, respirations were 16, temperature was 100.9, and on room air O2 saturations were 88%. Her temperature currently is 97.4 and her maximum temperature since about 4 o'clock in the morning of the has been 99.2 with Zithromax having been added to her regimen. Her room air O2 saturations are now 96%. Heart rate is in 70s to 80s. Blood pressure 110/87. GENERAL: She is in no distress, appears reasonably lucid and is cooperative with exam. NECK: She has no JVD. No carotid bruits. CHEST: Clear to auscultation. 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 NEUROLOGIC: She grossly has symmetric upper and lower extremity strength and grossly intact cranial nerves 2 through 12. LABORATORY DATA: Her laboratory exam showed a white count is mostly been in the 8 to 10 range, hemoglobins in the 13s, and platelet counts in the 90s to low 100s. Her MCV is 104. Her electrolytes have been normal. Glucose on presentation was 137, calcium was 9.4 with an albumin of 4.0. Blood cultures and urine cultures have not shown any growth and so far, neither has a lumbar puncture, which showed no organisms, although "wbc's seen"and also says "rbc's present" with no quantification of either. Her chest x-ray shows bilateral hilar fluffiness and cardiomegaly and a single-chamber pacemaker. There is no obvious focal infiltrate. Her CT scan of the brain described atrophic and chronic white matter ischemic changes. No acute intracranial process appreciated. The CTA of her carotids and intracranial vessels reportedly is described as having bilateral 70% internal carotid stenoses. On my review of the CT scan; however, I find that difficult to support. She does indeed have heavy calcifications and there is some superimposed measurement markers on the films available to me that make it somewhat difficult to interpret those particular areas on the axial films on the right side. Those marker seem to be superimposed on the splay at the crotch of where the carotid bifurcates rather than on the carotid itself. On the sagittal view of the left carotid, I can even tell what it is. They are trying to measure. On the sagittal reconstructions, the left side looks like it might perhaps be about 30% stenotic. There is some luminal irregularity on the right side. It is hard to quantify. In April she had a carotid ultrasound that showed normal velocities in the internal carotids. The common carotid had a low enough velocities that resulted in a relatively high ratio 2.13 on the right and 2.49 on the left. On the right side, the peak internal carotid velocities documented over 79 cm/second and peak common of 43. On the left, peak internal carotid velocities were 67 cm/second and peak common carotid velocities were 45. While on the left carotid system, there is certainly some prominent calcification of plaquing and on the right side at least the pictures that show some complexity to the plaque in the bulb. There is not really much in the way of spectral broadening and there is some tortuosity of the vessels particularly on the left. IMPRESSION AND RECOMMENDATIONS: The symptoms described are not focal, they are more global in nature. Even if one wants to give credence to the history documented on the ER sheet of aphasia and left-sided weakness, this is extremely unlikely to be limited to one hemisphere. The history that I am able to obtain and that others have obtained since speaks more to the global nature of her status and may simply reflect the advanced nature of her dementia that are relatively minor febrile illness was able to taper into such significant decompensation. I am not as impressed with the severity of carotid stenosis on the CTA as described in the report and think that it is a problem more on the order of the estimates based on architectural findings on the ultrasound from about 2 months ago. Clearly, this woman is not a candidate for carotid endarterectomy in the asymptomatic setting, even if she did have a high-grade stenosis, it would be somewhat debatable about whether she would even be a candidate, if she had a symptomatic high-grade stenosis and I would not pursue this any further. Job ID: [id number]
[2018-07-03 15:48] VITALS: BP 121/78; TEMP 98.5
--- NOTE | 2018-07-03 15:59 | PRG ---
DATE OF SERVICE: 07/03/2018 SUBJECTIVE: The patient is still having some cough, but it is less productive. Her daughter is present, believes her mental status is substantially better today. I would certainly concur with that based on my previous interaction with the patient. She has no other complaints. OBJECTIVE: VITAL SIGNS: Temperature 97.4, pulse 86 to 63, respirations 16 to 20, O2 saturation 96% on room air, and BP 110/87. GENERAL APPEARANCE: Age-appropriate female, she is in no distress. She is sitting up in bed. She is eating and having a little bit of cough with that. She appears to be on a pureed consistency type diet. NEUROLOGIC: The patient is moving all extremities spontaneously. She is interactive. She is appropriate. She is alert. She appears to have no significant focal deficits at the moment. HEART: Regular with no murmurs. LUNGS: Have some scattered upper tracheal secretion noise, but otherwise relatively clear. IMPRESSION AND PLAN: 1. Transient ischemic attack. The patient has resolved her symptoms generally. She has been evaluated by Neurology. She appears she has not been on statin because of some elevated liver enzymes, although that was part of her normal regimen in the past. Apparently, we will go ahead and resume the statin. At this point, as I believe the benefit outweighs the risk and she will need to have her liver enzymes monitored in a few days. Hopefully, it can be done in rehab. We will also resume aspirin 81 mg daily. The patient has not been on more aggressive anticoagulation because of her history of falls. 2. Bilateral carotid stenosis. The patient is at very high risk for any intervention given the bilateral nature of the carotid stenosis as well as her aortic valve stenosis, which is severe. I discussed with the patient and her daughter. The daughter seems to fully understand that the patient is high risk in choosing not to do any interventions may be the best option. The patient is generally amenable to whatever decision we make regarding that. Neurology has recommended the CV Surgery evaluation, which that order has been placed; however , that needs to occur in follow up after rehab, but believes that is perfectly reasonable. 3. History of atrial fibrillation. The patient is not on anticoagulation because of the high risk of falls. 4. Elevated liver enzymes. This appeared to be stable. It had been elevated in the past or slightly higher now than they have been previously. Ultrasound of liver failed to demonstrate any significant pathology. Continue to monitor. 5. Dementia. The patient appears to be having a very good day today both by my assessment and her daughters. This appears to be chronic. 6. Hypertension, stable. 7. Bronchitis. The patient continues on p.o. azithromycin. 8. Hypothyroidism. Continue with Synthroid. 9. Disposition. The patient has apparently been accepted to rehab and we will get her there as soon as I can confirm some stability of her renal function. 10. Mild acute renal insufficiency. The patient's creatinine has bumped up over the last few days by about 30% slightly better today. Anticipate rechecking in the morning. If that looks good, can anticipate discharging to rehab. 11. Aortic stenosis and regurg. The patient had severe and moderate AR on echo. Cardiology is following. Dr. Levy did not feel that the patient was symptomatic from the . Given the combination of advanced age, bilateral carotid disease and severe , the patient would high risk for any interventions. This was discussed with the patient and her daughter. Job ID: [id number] [facility]
[2018-07-03] MEDS ORDERED: Atorvastatin Calcium 20 MG TAB PO SCH (21:00)
[2018-07-04] MEDS ORDERED: Aspirin 81 mg Enteric Coated Tablet PO SCH (09:00)
--- NOTE | 2018-07-04 13:45 | DIS ---
DATE OF ADMISSION: 06/29/2018 DATE OF DISCHARGE: 07/03/2018 PRIMARY CARE PHYSICIAN: Whitney Valdez, CONSULTATIONS: Cardiology Services, Dr. Levy; neurologist, Dr. Lori Watson; and Cardiovascular Surgery Services, Dr. Edwin Paige. PROCEDURES: None. DISCHARGE DIAGNOSES: 1. Bronchitis, stable. 2. Dementia, stable. 3. Carotid stenosis, stable. 4. Hypertension, stable. 5. Chronic atrial fibrillation, status post pacemaker, stable. 6. Hypothyroidism, stable. 7. Elevated liver enzymes, stable. LABORATORY DATA: WBC 6.8, RBC 3.99, hemoglobin 13.6, and platelets 124. PT 15.9, INR 1.3, and PTT 30.8. Sodium 144, potassium 3.7, creatinine 1.21, estimated GFR 42, AST 130, and ALT 69. Troponin less than 0.021. Lipase 34. Urinalysis unremarkable. DIAGNOSTIC IMAGING: Ultrasound right upper quadrant showed no evidence of biliary obstruction with prior cholecystectomy. CT brain without contrast showed no significant acute intracranial process. No mass or bleed. Atrophy and chronic white matter ischemic changes noted. CTA head and neck showed significant high-grade stenosis of the origins of the right and left internal carotid arteries with no evidence of other significant acute process. Chest x-ray on admission showed cardiomegaly with some bilateral vascular congestion without overt confluent pneumonia or acute edema, repeat chest x-ray showed no acute process. Repeat CT showed stable appearing head CT, atrophy and chronic white matter ischemic change. No mass or bleed noted. HOSPITAL COURSE: Ms. Jackson is a pleasant 87-year-old female, who had presented to [facility] with an altered mental status, she was admitted under observation, Cardiology Services were consulted due to her history of chronic atrial fibrillation with a pacemaker in place. Due to the patient's risk of falls and history of an intracranial hemorrhage, it was at that time determine the anticoagulation not recommended. There is also concern for possible ischemic stroke versus TIA. Therefore, CT of brain was ordered, it showed chronic ischemic white matter changes; however, no acute changes. CTA head and neck revealed significant stenosis in the internal carotid arteries. Therefore, Neurology Services and Cardiovascular Services were consulted. Dr. Watson with Neurology started the patient on Seroquel to help with her acute hallucinations and delirium. Dr. Watson also recommended a followup with Neurology Services as outpatient in 4 to 6 weeks. Throughout hospital course, while she was continued on Seroquel, her symptoms improved and she had returned to baseline. Upon admission, she had a cough with sputum production, she was placed on IV azithromycin and chest x-ray was obtained, which found vascular congestion. She had been kept on IV antibiotics and chest x-ray was repeated, repeat showed improvement in her vascular congestion. No signs of pneumonia or any further acute edema noted. Dr. Harish Paige came and evaluated the patient for her carotid stenosis; however, it had been determined that she was not a candidate for any surgical intervention. She was also discontinued off statin therapy due to her elevated liver enzymes. It was determined that she would be followed as outpatient and once liver enzymes returned to baseline, she would then be placed back on statin therapy at that time. Due to an elevated blood pressure, her home dose of lisinopril 5 mg twice daily was increased to 10 mg twice daily, she had tolerated this change well and her blood pressure along with other vital signs remained stable for the remainder of hospital course. Prior to discharge, her BP was found to be 121/78, pulse 77, respirations 16, O2 saturations 96% on room air, and she remained afebrile with a temperature of 98.5 degrees Fahrenheit. She was seen and examined with family at bedside. She had no further complaints of chest pain, shortness of breath, or abdominal pain. She had no headache, blurred vision, or dizziness. She had remained at her baseline. PT/OT came and evaluated the patient and also recommended further rehabilitation in an inpatient setting. Customer Service Engineer was consulted to assist in discharge needs. She was approved for a bed at [facility] and was deemed medically stable for transfer over to inpatient rehabilitation center 07/03/2018. DISCHARGE MEDICATIONS: 1. Azithromycin 250 mg oral daily. 2. Seroquel 25 mg oral at bedtime. 3. Lisinopril 10 mg oral twice daily. 4. CoQ10 of 100 mg oral daily. 5. Vitamin E 1000 units oral daily. 6. Potassium chloride 10 mEq oral daily. 7. Levothyroxine 100 mcg oral daily. 8. Aricept 10 mg oral at bedtime. 9. Metoprolol 50 mg oral daily. 10. Furosemide 40 mg oral twice daily. 11. Fish oil 1000 mg oral daily. DISCONTINUED HOME MEDICATIONS: 1. Atorvastatin 20 mg oral at bedtime. 2. Lisinopril 5 mg oral twice daily. FOLLOWUP: The patient was instructed to follow up with her primary care physician, Dr. Whitney Valdez in 1 week. She will also have followup with Dr. Garry Phelan, neurologist in 3 to 4 weeks. CONDITION ON DISCHARGE: Stable. ACTIVITY: As tolerated with assistance with physical therapy and occupational therapy. DIET: Heart healthy. DISPOSITION: Inpatient rehabilitation at [facility] on 07/03/2018. Job ID: [id number]
--- NOTE | 2018-07-09 20:30 | EKG ---
Test Reason : Blood Pressure : / mmHG Vent. Rate : 100 BPM Atrial Rate : 083 BPM P-R Int : 000 ms QRS Dur : 084 ms QT Int : 342 ms P-R-T Axes : 000 -64 255 degrees QTc Int : 441 ms Atrial fibrillation Left axis deviation RSR' or QR pattern in V1 suggests right ventricular conduction delay Inferior infarct , age undetermined Anterior infarct , age undetermined Abnormal ECG Confirmed by ARNOL ORDONEZ, CANDELARIA ([id number]), news videotape editor INDIO GALVIN ([id number]) on 07/09/2018 8:29:52 PM Referred By: Confirmed By:CANDELARIA AMBROSE MD
== END 2018-07-03 16:36 | DRG 202 ==
LOC: ERS 19:20 → 2SE 22:30 → OBSVTOIN 06-29 16:32 → 2SE 07-02 19:51
PROVIDERS: ADMIT Internal Medicine Infectious Disease; ATTEND Internal Medicine Infectious Disease
PROC: 009U3ZX Drainage of Spinal Canal, Percutaneous Approach, Diagnostic (ICD-10-PCS; principal; 2018-06-29)
DX: J20.9 Acute bronchitis, unspecified (principal); I50.32 Chronic diastolic (congestive) heart failure; N17.9 Acute kidney failure, unspecified; I65.23 Occlusion and stenosis of bilateral carotid arteries; I11.0 Hypertensive heart disease with heart failure; E78.5 Hyperlipidemia, unspecified; F03.90 Unspecified dementia, unspecified severity, without behavioral disturbance, psychotic disturbance, mood disturbance, and anxiety; I48.2 Chronic atrial fibrillation; E03.9 Hypothyroidism, unspecified; G25.0 Essential tremor; I25.10 Atherosclerotic heart disease of native coronary artery without angina pectoris; I35.0 Nonrheumatic aortic (valve) stenosis; Z88.1 Allergy status to other antibiotic agents; Z79.899 Other long term (current) drug therapy; Z95.0 Presence of cardiac pacemaker; Z96.653 Presence of artificial knee joint, bilateral; Z95.5 Presence of coronary angioplasty implant and graft
CPT/HCPCS: 36415; 36416; 51701; 62270; 70450; 70496; 70498; 71045; 76705; 80048; 80053; 81003; 81015; 82140; 82330; 82553; 82803; 82945; 83605; 83690; 84157; 84484; 85025; 85060; 85610; 85730; 87040; 87070; 87086; 87205; 87804; 89051; 93005; 94640; 96365; 96367; A4353; J0456; J1956; J2543; J3370; J7050; J7620; Q9966

== ENCOUNTER 2019-04-23 11:08 | Inpatient (IN) | payer MEDICARE, BC ==
[2019-04-23 11:38] LABS: Bilirubin Negative (Negative); Blood, Urine Negative (Negative); Clarity Clear (Clear); Glucose, Urine (Dipstick) Normal (Negative); Leukocyte Negative Leu/uL (Negative); Nitrite Negative (Negative); Protein, Urine (Dipstick) Negative (Neg-Trace); Urobilinogen Normal mg/dL (Less than 2)
[2019-04-23 11:54] LABS: #Lymphocytes 0.7 thou/uL (1.20-3.40); #Monocytes 0.9 thou/uL (0.11-0.59); %Basophils 0.1 % (0.0-1.0); %Eosinophils 0.1 % (0.0-10.0); %Lymphocytes 4.9 % (21.0-51.0); %Monocytes 6.3 % (0.0-10.0); %Neutrophils 88.7 % (42.0-75.0); Hemoglobin 13.2 g/dL (12.0-16.0); MDiff Complete? YES; Macrocytosis SLIGHT = 6-15 cells (100X) (0-5/hpf); Mean Corpuscular HGB CONC 32.2 g/dL (32.0-36.0); Mean Platelet Volume 9.2 fL (7.4-10.4); Platelet Count 124 thou/uL (130-400); Red Blood Cell (RBC) Count 3.89 mill/uL (4.20-5.40); White Blood Cell (WBC) Count 14.6 thou/uL (4.8-10.8)
[2019-04-23 12:06] LABS: ALT (SGPT) 13 U/L (8-55); AST (SGOT) 26 U/L (5-34); Albumin 3.7 g/dL (3.4-4.8); Alkaline Phosphatase 60 U/L (40-110); Anion Gap 13 mmol/L (10-20); BUN (Urea Nitrogen) 24 mg/dL (9.8-20.1); Bilirubin, Total 2.1 mg/dL (0.2-1.2); Calc. Creatinine Clearance 0 mL/min (70-130); Calcium 8.9 mg/dL (7.8-10.44); Carbon Dioxide 31 mmol/L (23-31); Chloride 98 mmol/L (98-107); Estimated GFR-MDRD 37; Globulin 3.2 g/dL (2.4-3.5); Glucose 187 mg/dL (83-110); Potassium 3.6 mmol/L (3.5-5.1); Protein, Total 6.9 g/dL (6.0-8.3); Sodium 138 mmol/L (136-145)
--- NOTE | 2019-04-23 12:17 | RAD ---
PORTABLE CHES 1 VIEW: Date: 04/23/19 Time: 1127 hours HISTORY: Cough. FINDINGS/IMPRESSION: Comparison made with exam of 09/19/18. Left-sided pacemaker device remains in place. The heart is enlarged. The aorta is tortuous. The lungs are well expanded without lobar consolidation, pneumothoraces, radha pulmonary edema, or large effus ions. POS: [facility]
[2019-04-23 15:02] VITALS: BMI 22.9
[2019-04-23] MEDS ORDERED: Acetaminophen 325 MG TAB PO PRN (15:27)
[2019-04-23] MEDS ORDERED: Senokot S 8.6-50 MG TAB PO PRN (15:27)
[2019-04-23] MEDS ORDERED: Sodium Chloride 0.9% 1,000 ML IV SCH (15:30)
[2019-04-23 15:42] LABS: Lactic Acid 2.9 mmol/L (0.5-2.2)
--- NOTE | 2019-04-23 20:12 | HP ---
PRIMARY CARE PHYSICIAN: Benny Morton MD CHIEF COMPLAINT: Cough. HISTORY OF PRESENT ILLNESS: Ms. Jackson is an 88-year-old female, who reported to the emergency room today for semi-productive cough x2 days. Reports subjective fever, some nausea. Denies hemoptysis, vomiting, diarrhea, abdominal pain, chest pain, urinary problems, or symptoms. Denies recent hospitalization for current or recent antibiotic use. Lives at the [place] and has since February. Has a history of COPD, has home nebulizer, and has had one neb treatment today. EMS reports that she has an [id number] DNR. Chest x-ray was negative for pneumonia. The patient did have a white blood cell count of 14.6, hemoglobin 13.2, hematocrit 41.1, platelets 124. Sodium 138, potassium 3.6, BUN 24, creatinine is 1.35, which is slight change from when we saw her in December she was 1.12. Estimated GFR is 37, glucose is 187. Lactic acid was 3.1 initially and then with fluids came down to 2.9. Total bilirubin is 2.1. The remaining liver enzymes are unremarkable. Urine is negative. The patient was given a dose of Levaquin and vancomycin in the emergency room and then admitted to medical floor for further management. REVIEW OF SYSTEMS: Reports fever. Denies chills. Reports cough. Reports sputum. Denies any palpitations. Denies any shortness of breath, abdominal pain, nausea, vomiting, or diarrhea. No edema. All review of systems are negative unless mentioned in HPI. PAST MEDICAL HISTORY: Pertinent for hypothyroidism, coronary artery disease, hypertension, CHF, dementia, tremor, venous insufficiency, atrial fibrillation, osteoarthritis, COPD, hyperlipidemia, subintracranial hemorrhage, stage 3 CKD, frequent falls, constipation, and has had a TIA. PAST SURGICAL HISTORY: Thyroidectomy, bladder suspension, hysterectomy, bilateral knee replacement, tonsillectomy, right hand surgery, pacemaker, stent x1, bilateral cataract, left hand surgery, skin tags, skin cancer removal, and right leg vein stripping. PSYCHIATRIC HISTORY: None. Does have some dementia. SOCIAL HISTORY: Lives at the [place]. Has no smoking history or alcohol use. Denies drug use. KNOWN ALLERGIES: Cephalexin causes a rash. HOME MEDICATIONS: 1. Aspirin 325 mg p.o. b.i.d. 2. Vitamin D 1000 units p.o. daily. 3. Docusate 100 mg p.o. daily. 4. Zetia 10 mg p.o. daily. 5. Fish oil 1000 mg p.o. daily. 6. Furosemide 20 mg Wednesday through and 40 mg on Wednesday, Wednesday, Wednesday, Wednesday, Wednesday. 7. DuoNeb neb t.i.d. as needed. 8. Levothyroxine 88 mcg p.o. daily. 9. Zestril 5 mg p.o. daily. 10. Multivitamin one tablet p.o. daily. 11. Potassium 10 mEq p.o. daily. 12. Seroquel half of a 25 mg p.o. h.s. 13. Coenzyme Q 100 mg p.o. daily. 14. Aricept 10 mg p.o. h.s. 15. Toprol-XL 50 mg p.o. daily. PHYSICAL EXAMINATION: VITAL SIGNS: Blood pressure 105/55, pulse 64, respirations are 20, O2 saturations are 100% on room air, temperature 99.2 rectally. CONSTITUTIONAL: The patient appears in no distress. She is alert and oriented to person, place, and time. HEENT: Head is atraumatic and normocephalic. Eyes, pupils are equally round and reactive to light. Extraocular muscles are intact. ENT; mouth exam is normal. Mucous membranes are moist. NECK: Normal range of motion. Trachea is midline. RESPIRATORY/CHEST: Breath sounds with wheezing to bilateral upper lobes. Chest expansion is equal. CARDIOVASCULAR: Heart sounds with systolic heart murmur. Regular rate and rhythm. Trace edema in bilateral lower extremity. ABDOMEN: Nontender. Bowel sounds are heard. BACK: Normal range of motion. No tenderness. EXTREMITIES: Upper extremity; normal inspection, normal range of motion. Radial pulses are normal. Lower extremity; normal range of motion. Inspection is normal. Pedal pulses are normal. Trace edema noted to bilateral lower extremities. NEUROLOGIC: The patient is oriented to person, place, time. Speech is normal. No focal motor or sensory deficits. SKIN: Warm, dry, and normal in color. LYMPHATIC: Normal. PSYCHIATRIC: Oriented to person, place, and time. Normal affect. LABORATORY DATA: EKG in the emergency room shows normal sinus rhythm, beats per minute 91, has an electronic ventricular pacemaker. PLAN/ASSESSMENT: 1. Cough started 2 days with subjective fever, elevated white blood cell count, although chest x-ray did not show any infiltrates. The patient clinically could have certainly qualified for pneumonia with wheezing also probably overlying with a chronic obstructive pulmonary disease exacerbation. The patient was given DuoNeb and Levaquin and vancomycin in the emergency room. We will continue the DuoNeb q.6 while awake. Just a little bit of Solu-Medrol 20 mg q.8. Continue Levaquin. 2. History of congestive heart failure. There was no edema, but fluid overload noted. There was no vascular congestion on the x-ray. We will continue the Lasix. We will monitor. 3. History of hypothyroidism. We will restart home medications. 4. Chronic kidney disease appears acute on chronic. We will hold the lisinopril for now. We will recheck her kidney function in the a.m. We may have to adjust her Lasix doses. 5. History of dementia. We will restart her home medications. 6. Gastrointestinal and deep venous thrombosis prophylaxis has been started. 7. Per the patient, she is a DNR. They have been [id number] DNR. They have asked Palliative Care to consult to help us with goals of care and resuscitation status to ensure this is correct in the setting of some dementia. 8. Hypertension. We will restart home medications. We will trend. 9. Hospital course is dependent on clinical findings. Job ID: [id number]
[2019-04-23] MEDS: methylPREDNISolone Sod Succ 40 MG VIAL IVP SCH (21:00)
[2019-04-23] MEDS ORDERED: Famotidine 20 MG TAB PO SCH (21:00)
[2019-04-23] MEDS: Donepezil HCl 10 MG TAB PO SCH (21:00)
[2019-04-24] MEDS: Levothyroxine Sodium 88 MCG TAB PO SCH (05:17)
[2019-04-24] MEDS: methylPREDNISolone Sod Succ 40 MG VIAL IVP SCH ×3 (05:17→21:10)
[2019-04-24 06:04] LABS: #Lymphocytes 0.6 thou/uL (1.20-3.40); #Monocytes 0.2 thou/uL (0.11-0.59); #Neutrophils 7.8 thou/uL (1.40-6.50); %Eosinophils 0.1 % (0.0-10.0); %Lymphocytes 7.1 % (21.0-51.0); %Monocytes 2.4 % (0.0-10.0); %Neutrophils 90.4 % (42.0-75.0); Hemoglobin 11.9 g/dL (12.0-16.0); Mean Corpuscular HGB CONC 32.3 g/dL (32.0-36.0); Mean Corpuscular Hemoglobin 34.2 pg (27.0-31.0); Mean Platelet Volume 9.1 fL (7.4-10.4); Platelet Count 96 thou/uL (130-400); Platelet Morphology Comment Appears Decreased; RBC Distribution Width 12.8 % (11.5-14.5); White Blood Cell (WBC) Count 8.6 thou/uL (4.8-10.8)
[2019-04-24 06:05] LABS: ALT (SGPT) 13 U/L (8-55); AST (SGOT) 23 U/L (5-34); Alkaline Phosphatase 46 U/L (40-110); Anion Gap 12 mmol/L (10-20); BUN (Urea Nitrogen) 29 mg/dL (9.8-20.1); Bilirubin, Total 1.7 mg/dL (0.2-1.2); Calc. Creatinine Clearance 38 mL/min (70-130); Calcium 8.4 mg/dL (7.8-10.44); Carbon Dioxide 27 mmol/L (23-31); Chloride 103 mmol/L (98-107); Estimated GFR-MDRD 50; Globulin 2.9 g/dL (2.4-3.5); Glucose 125 mg/dL (83-110); Potassium 4.2 mmol/L (3.5-5.1); Protein, Total 5.9 g/dL (6.0-8.3); Sodium 138 mmol/L (136-145)
[2019-04-24] MEDS: Multivitamin W/ Minerals 1 TAB PO SCH (08:47)
[2019-04-24] MEDS: [UNRECOGNIZED DRUG - OTHER] PO SCH (08:47)
[2019-04-24] MEDS: Docusate 100 MG CAP PO SCH (08:47)
[2019-04-24] MEDS: Ezetimibe 10 MG TAB PO SCH (08:47)
[2019-04-24] MEDS: Fish Oil 1,000 MG CAP PO SCH (08:47)
[2019-04-24] MEDS: Ubidecarenone 50 MG CAP PO SCH (08:48)
[2019-04-24] MEDS ORDERED: Furosemide 20 MG TAB PO SCH (09:00)
[2019-04-24] MEDS ORDERED: Lisinopril 5 MG TAB PO SCH (09:00)
--- NOTE | 2019-04-24 20:29 | PDOC.HOSPP ---
- Subjective Encounter Date: 04/24/19 Encounter Time: 11:30 Subjective: Patient seen and examined for Sepsis. Feeling better. Cough with mild production. No CP. No other complaints. No overnight events - Objective Vital Signs & Weight: Vital Signs (12 hours) Temp Pulse Resp BP BP Pulse Ox 04/24/19 19:40 96 04/24/19 19:29 98.5 F 78 20 119/74 96 04/24/19 18:25 96 12 99 04/24/19 16:00 98.2 F 97 16 136/74 98 04/24/19 14:28 71 16 04/24/19 12:00 97.9 F 69 16 117/69 96 04/24/19 10:37 61 16 96 04/24/19 08:42 97 Weight Weight 138 lb I&O: 04/23/19 04/24/19 04/25/19 06:59 06:59 06:59 Intake Total 1380 1020 Balance 1380 1020 Result Diagrams: 04/24/19 05:20 04/24/19 05:20 Radiology Reviewed by me: Yes (CXR - ? infiltrate at Rt base) Hospitalist ROS - Review of Systems Respiratory: reports: cough, SOB with excertion, sputum Cardiovascular: denies: chest pain, palpitations, orthopnea, paroxysmal noc. dyspnea, edema, light headedness, other Gastrointestinal: denies: nausea, vomiting, abdominal pain, diarrhea, constipation, melena, hematochezia, other - Medication Medications: Active Medications Generic Name Dose Route Start Last Admin Trade Name Freq PRN Reason Stop Dose Admin Albuterol/Ipratropium 3 ml 04/23/19 19:00 04/24/19 18:25 Duoneb NEB 3 ml [id number] JOSE Administration Aspirin 325 mg 04/24/19 09:00 04/24/19 08:47 Aspirin PO 325 mg DAILY JOSE Administration Coenzyme Q10 100 mg 04/24/19 09:00 04/24/19 08:48 Coenzyme Q10 PO 100 mg DAILY JOSE Administration Docusate Sodium 100 mg 04/24/19 09:00 04/24/19 08:47 Colace PO 100 mg DAILY JOSE Administration Donepezil HCl 10 mg 04/23/19 21:00 04/23/19 21:00 Aricept PO 10 mg HS JOSE Administration Ezetimibe 10 mg 04/24/19 09:00 04/24/19 08:47 Zetia PO 10 mg DAILY JOSE Administration Fish Oil 1,000 mg 04/24/19 09:00 04/24/19 08:47 Fish Oil PO 1,000 mg DAILY JOSE Administration Furosemide 20 mg 04/24/19 09:00 04/24/19 08:47 Lasix PO 20 mg MoTh@0900 JOSE Administration Levofloxacin 500 mg/ Device 100 mls @ 100 mls/hr 04/24/19 15:00 04/24/19 15: 02 IVPB 100 mls Q24HR JOSE Administration Iron/Minerals/Multivitamins 1 tab 04/24/19 09:00 04/24/19 08:47 Theragran M PO 1 tab DAILY JOSE Administration Levothyroxine Sodium 88 mcg 04/24/19 06:00 04/24/19 05:17 Synthroid PO 88 mcg 0600 JOSE Administration Methylprednisolone Sodium Succinate 20 mg 04/23/19 22:00 04/24/19 13:33 Solu-Medrol IVP 20 mg Q8HR JOSE Administration Metoprolol Succinate 50 mg 04/24/19 09:00 04/24/19 08:47 Toprol Xl PO 50 mg DAILY JOSE Administration Quetiapine Fumarate 12.5 mg 04/23/19 21:00 04/23/19 21:00 Seroquel PO 12.5 mg HS JOSE Administration Sodium Chloride 10 ml 04/23/19 15:27 04/24/19 15:03 Flush - Normal Saline IVF 10 ml PRN PRN Administration Saline Flush - Exam General Appearance: NAD Neck: supple, no JVD, no carotid bruit Heart: RRR, no gallops, no rubs Heart - other findings: no heaves Respiratory: normal chest expansion, rales (at Rt base), rhonchi, wheezes Gastrointestinal: soft, non-tender, non-distended, normal bowel sounds Extremities: no cyanosis, no clubbing, no edema Neurological: no new deficit Psychiatric: normal affect, A&O x 3 Hosp A/P - Plan DVT proph w/SCDs Severe Sepsis due to suspected Rt sided Pneumonia ?Pneumococcal COPD Exacerbation FADUMO on CKD 3 Lactic acidosis Par Afib - not on anticoag due to bleeding in the past Abn LFTs PLAN: Cont IV Steroids Cont IV Levaquin AM labs Cont PT/OT Cont O2/Nebs DC IVF Cont other meds
[2019-04-24] MEDS: Famotidine 20 MG TAB PO SCH (21:10)
[2019-04-24] MEDS: Donepezil HCl 10 MG TAB PO SCH (21:10)
[2019-04-25 04:48] LABS: #Lymphocytes 0.7 thou/uL (1.20-3.40); #Monocytes 0.3 thou/uL (0.11-0.59); #Neutrophils 10.9 thou/uL (1.40-6.50); %Eosinophils 0.1 % (0.0-10.0); %Lymphocytes 6.2 % (21.0-51.0); %Monocytes 2.6 % (0.0-10.0); %Neutrophils 91.1 % (42.0-75.0); Mean Corpuscular HGB CONC 33.1 g/dL (32.0-36.0); Mean Corpuscular Hemoglobin 35.4 pg (27.0-31.0); Platelet Count 126 thou/uL (130-400); RBC Distribution Width 12.8 % (11.5-14.5); Red Blood Cell (RBC) Count 3.66 mill/uL (4.20-5.40); White Blood Cell (WBC) Count 11.9 thou/uL (4.8-10.8)
[2019-04-25 05:00] LABS: Lactic Acid 3.8 mmol/L (0.5-2.2)
[2019-04-25] MEDS: methylPREDNISolone Sod Succ 40 MG VIAL IVP SCH (05:12)
[2019-04-25] MEDS: Levothyroxine Sodium 88 MCG TAB PO SCH (05:12)
[2019-04-25 05:13] LABS: ALT (SGPT) 21 U/L (8-55); AST (SGOT) 32 U/L (5-34); Albumin 3.6 g/dL (3.4-4.8); Alkaline Phosphatase 62 U/L (40-110); Anion Gap 14 mmol/L (10-20); BUN (Urea Nitrogen) 38 mg/dL (9.8-20.1); Bilirubin, Total 1.3 mg/dL (0.2-1.2); Calc. Creatinine Clearance 32 mL/min (70-130); Calcium 9.1 mg/dL (7.8-10.44); Carbon Dioxide 28 mmol/L (23-31); Chloride 99 mmol/L (98-107); Estimated GFR-MDRD 42; Globulin 3.4 g/dL (2.4-3.5); Glucose 154 mg/dL (83-110); Potassium 4.2 mmol/L (3.5-5.1); Sodium 137 mmol/L (136-145)
[2019-04-25] MEDS: Ezetimibe 10 MG TAB PO SCH (08:23)
[2019-04-25] MEDS: Ubidecarenone 50 MG CAP PO SCH (08:23)
[2019-04-25] MEDS: Multivitamin W/ Minerals 1 TAB PO SCH (08:24)
[2019-04-25] MEDS: Docusate 100 MG CAP PO SCH (08:24)
[2019-04-25] MEDS: Fish Oil 1,000 MG CAP PO SCH (08:24)
[2019-04-25] MEDS: [UNRECOGNIZED DRUG - OTHER] PO SCH (08:24)
[2019-04-25] MEDS ORDERED: Furosemide 40 MG TAB PO SCH (09:00)
[2019-04-25] MEDS ORDERED: Sodium Chloride 0.9% 1,000 ML IV SCH (09:45)
[2019-04-25] MEDS ORDERED: Lisinopril 10 MG TAB PO SCH (14:00)
--- NOTE | 2019-04-25 14:14 | PDOC.HOSPP ---
- Subjective Encounter Date: 04/25/19 Encounter Time: 13:00 Subjective: Patient seen and examined for Sepsis. Feeling better. Cough improving. No new complaints. No overnight events - Objective Vital Signs & Weight: Vital Signs (12 hours) Temp Pulse Resp BP Pulse Ox 04/25/19 11:05 86 20 98 04/25/19 08:24 97 04/25/19 08:00 98.8 F 86 20 165/82 H 98 04/25/19 07:49 78 16 96 Weight Weight 138 lb I&O: 04/24/19 04/25/19 04/26/19 06:59 06:59 06:59 Intake Total 1380 1500 Balance 1380 1500 Result Diagrams: 04/25/19 04:30 04/25/19 04:30 Hospitalist ROS - Review of Systems Respiratory: reports: cough, dry. denies: shortness of breath, hemoptysis, SOB with excertion, pleuritic pain, sputum, wheezing, other Cardiovascular: denies: chest pain, palpitations, orthopnea, paroxysmal noc. dyspnea, edema, light headedness, other Gastrointestinal: denies: nausea, vomiting, abdominal pain, diarrhea, constipation, melena, hematochezia, other - Medication Medications: Active Medications Generic Name Dose Route Start Last Admin Trade Name Freq PRN Reason Stop Dose Admin Albuterol/Ipratropium 3 ml 04/23/19 19:00 04/25/19 11:05 Duoneb NEB 3 ml [id number] JOSE Administration Aspirin 325 mg 04/24/19 09:00 04/25/19 08:24 Aspirin PO 325 mg DAILY JOSE Administration Coenzyme Q10 100 mg 04/24/19 09:00 04/25/19 08:23 Coenzyme Q10 PO 100 mg DAILY JOSE Administration Docusate Sodium 100 mg 04/24/19 09:00 04/25/19 08:24 Colace PO 100 mg DAILY JOSE Administration Donepezil HCl 10 mg 04/23/19 21:00 04/24/19 21:10 Aricept PO 10 mg HS JOSE Administration Ezetimibe 10 mg 04/24/19 09:00 04/25/19 08:23 Zetia PO 10 mg DAILY JOSE Administration Famotidine 20 mg 04/24/19 21:00 04/24/19 21:10 Pepcid PO 20 mg HS JOSE Administration Fish Oil 1,000 mg 04/24/19 09:00 04/25/19 08:24 Fish Oil PO 1,000 mg DAILY JOSE Administration Levofloxacin 500 mg/ Device 100 mls @ 100 mls/hr 04/24/19 15:00 04/24/19 15: 02 IVPB 100 mls Q24HR JOSE Administration Iron/Minerals/Multivitamins 1 tab 04/24/19 09:00 04/25/19 08:24 Theragran M PO 1 tab DAILY JOSE Administration Levothyroxine Sodium 88 mcg 04/24/19 06:00 04/25/19 05:12 Synthroid PO 88 mcg 0600 JOSE Administration Metoprolol Succinate 50 mg 04/24/19 09:00 04/25/19 08:24 Toprol Xl PO 50 mg DAILY JOSE Administration Quetiapine Fumarate 12.5 mg 04/23/19 21:00 04/24/19 21:09 Seroquel PO 12.5 mg HS JOSE Administration Sodium Chloride 10 ml 04/23/19 15:27 04/25/19 08:24 Flush - Normal Saline IVF 10 ml PRN PRN Administration Saline Flush - Exam General Appearance: NAD Heart: RRR, no gallops Respiratory: rales, rhonchi Gastrointestinal: soft, non-tender, non-distended, normal bowel sounds Extremities: no edema Hosp A/P - Plan DVT proph w/lovenox, DVT proph w/SCDs Severe Sepsis due to suspected Rt sided Pneumonia ?Pneumococcal COPD Exacerbation FADUMO on CKD 3 Lactic acidosis Par Afib - not on anticoag due to bleeding in the past Abn LFTs PLAN: Cont O2/Nebs Hold Lasix Gentle hydration Cont IV Steroids/Levaquin Cont other meds Consult Pulmonary AM labs
--- NOTE | 2019-04-25 16:47 | CON ---
DATE OF CONSULTATION: 04/25/2019 SERVICE: Pulmonary Medicine. INTERVAL HISTORY: The patient is doing fine from respiratory standpoint. Breathing comfortably. Denies any current chest discomfort, nausea, vomiting, fevers, or chills. She told me the entire story of why she got to the hospital, which did not seem to corroborate with previous detailed events. No family is here to talk to. Ultimately, she started talking about how her parents were currently alive and living quite well. As such, it is not clear to me how accurate the details of her presentation are. She tells me that everything was fine until she went to latter day. She had a very severe coughing fit that continued for a period of day and a half. It got so bad that her family called 911 and brought her to the emergency department. She indicates that she feels much better compared to when she came into the hospital. She denies having any current fevers, chills, sputum production, night sweats, or wheezing. She does not have any long-term medications other than using DuoNebs at home. She forgot that she lives in an assisted living facility and I reminded her about that. PAST MEDICAL HISTORY: 1. Hypothyroidism. 2. Coronary artery disease. 3. Atrial fibrillation. 4. Chronic diastolic heart failure. 5. Dementia. 6. Venous insufficiency. 7. COPD. 8. Dyslipidemia. 9. History of intracranial hemorrhage. 10. History of TIA. 11. Chronic kidney disease, stage 3. 12. Constipation. PAST SURGICAL HISTORY: 1. Thyroidectomy. 2. Bladder suspension surgery. 3. Hysterectomy. 4. Knee replacement, bilateral. 5. Tonsillectomy. 6. Right hand surgery. 7. Pacemaker placement. 8. Percutaneous coronary intervention. 9. Cataract surgery. 10. Left hand surgery. 11. Excision of skin cancers. 12. Right leg vein stripping. SOCIAL HISTORY: The patient lives at the [place] in assisted living facility. She has no access to alcohol, tobacco, or illicit drugs currently. FAMILY HISTORY: Noncontributory. ALLERGIES: CEPHALEXIN CAUSES A RASH. MEDICATIONS: List of her inpatient medications was reviewed. I have discontinued her IV fluids. REVIEW OF SYSTEMS: According to the patient, her review of systems including general; head, ears, eyes, nose, throat; cardiovascular; respiratory; GI; ; musculoskeletal; neurologic; and skin are negative. That being said, because of cognitive impairment, it is not clear how accurate this is. PHYSICAL EXAMINATION: VITAL SIGNS: Afebrile, pulse 86, blood pressure 165/82, respirations 20, and saturation 97% on room air. GENERAL: The patient is awake and alert, in no apparent distress. LUNGS: Very good air entry. I do not appreciate any prolonged expiratory phase. She has asymmetric crackles, which are very pronounced on the left. I do not hear any crackling with careful auscultation on the right. HEART: Normal rate and regular. ABDOMEN: Soft, nontender, and nondistended. Bowel sounds are positive. MUSCULOSKELETAL: No cyanosis or clubbing. No pitting in the bilateral lower extremities. NEUROLOGIC: Grossly nonfocal. LABORATORY DATA: WBC 11.9, hemoglobin 13.0, platelets 126,000 and improving. Creatinine 1.22. Basic metabolic profile and liver function studies are otherwise unremarkable. Bilirubin is downtrending to 1.3. Urinalysis is unremarkable. Blood cultures x2 and urine culture negative to date. IMAGING: Chest x-ray demonstrates cardiomegaly despite the fact this is an AP film. Cephalization is present. Interstitial fullness is present. I cannot clearly identify any lobar consolidating changes or significant effusions. ASSESSMENT: 1. Community-acquired pneumonia, suspected, but likely atypical given asymmetric crackles. 2. Severe sepsis, improving. 3. Chronic diastolic heart failure. 4. Severe mitral regurgitation. 5. Dementia. DISCUSSION AND PLAN: We will try to keep her blood pressure under decent control while she remains in the hospital. I agree with our current antibiotics selection. I will put a strep Legionella and urine antigen out there, check a TSH with tomorrow morning's laboratory, and a respiratory virus panel. From my perspective, if she continues to do better from a respiratory standpoint, she can be considered for transition out of the hospital tomorrow morning. She should take a 5-day course of prednisone and a 5- to 7-day course of antibiotic, which can be converted over to p.o. as soon as she will take it. It is absolutely unnecessary and possibly impossible for us to verify or refute the idea that she has COPD. She is on DuoNebs at her facility, which can be continued either scheduled 3 times daily or on an as-needed basis. Pulmonary will continue to follow in-house for the time being. 70 minutes have been devoted to this patient in various activities. I personally reviewed all imaging studies and laboratory data noted within this document. For fifty percent of this time, I was interacting with the patient at the bedside or coordinating care with the care team. For the remainder of the time I was immediately available to the patient in the hospital unit. Job ID: [id number] MTDD
[2019-04-25] MEDS: guaiFENesin ER 600 MG TAB PO SCH (20:07)
[2019-04-25] MEDS: Donepezil HCl 10 MG TAB PO SCH (20:07)
[2019-04-25] MEDS: Famotidine 20 MG TAB PO SCH (20:07)
[2019-04-25] MEDS: Diabetic Tussin 200 MG/10 ML UDCUP PO PRN (23:15)
[2019-04-26] MEDS: Phenergan/Codeine 10-6.25mg/5ml UDCUP PO PRN ×3 (03:11→21:22)
[2019-04-26] MEDS: Levothyroxine Sodium 88 MCG TAB PO SCH (05:08)
[2019-04-26 05:45] LABS: #Lymphocytes 1.1 thou/uL (1.20-3.40); #Monocytes 0.8 thou/uL (0.11-0.59); #Neutrophils 7.5 thou/uL (1.40-6.50); %Basophils 0.1 % (0.0-1.0); %Eosinophils 0.1 % (0.0-10.0); %Monocytes 8.6 % (0.0-10.0); %Neutrophils 79.3 % (42.0-75.0); Hemoglobin 11.3 g/dL (12.0-16.0); Mean Corpuscular HGB CONC 33.3 g/dL (32.0-36.0); Platelet Count 119 thou/uL (130-400); RBC Distribution Width 12.6 % (11.5-14.5); Red Blood Cell (RBC) Count 3.22 mill/uL (4.20-5.40); White Blood Cell (WBC) Count 9.5 thou/uL (4.8-10.8)
[2019-04-26 05:55] LABS: ALT (SGPT) 22 U/L (8-55); AST (SGOT) 37 U/L (5-34); Albumin 3.2 g/dL (3.4-4.8); Alkaline Phosphatase 52 U/L (40-110); Anion Gap 13 mmol/L (10-20); BUN (Urea Nitrogen) 32 mg/dL (9.8-20.1); Bilirubin, Total 1.3 mg/dL (0.2-1.2); Calc. Creatinine Clearance 38 mL/min (70-130); Calcium 8.2 mg/dL (7.8-10.44); Carbon Dioxide 28 mmol/L (23-31); Chloride 102 mmol/L (98-107); Estimated GFR-MDRD 50; Globulin 2.6 g/dL (2.4-3.5); Glucose 81 mg/dL (83-110); Potassium 3.6 mmol/L (3.5-5.1); Protein, Total 5.8 g/dL (6.0-8.3); Sodium 139 mmol/L (136-145)
[2019-04-26] MEDS: Ubidecarenone 50 MG CAP PO SCH (08:10)
[2019-04-26] MEDS: Ezetimibe 10 MG TAB PO SCH (08:10)
[2019-04-26] MEDS: Lisinopril 10 MG TAB PO SCH (08:10)
[2019-04-26] MEDS: Docusate 100 MG CAP PO SCH (08:11)
[2019-04-26] MEDS: predniSONE 20 MG TAB PO SCH (08:11)
[2019-04-26] MEDS: Multivitamin W/ Minerals 1 TAB PO SCH (08:11)
[2019-04-26] MEDS: Fish Oil 1,000 MG CAP PO SCH (08:11)
[2019-04-26] MEDS: [UNRECOGNIZED DRUG - OTHER] PO SCH (08:11)
[2019-04-26] MEDS: guaiFENesin ER 600 MG TAB PO SCH ×2 (08:11→21:22)
[2019-04-26] MEDS ORDERED: Furosemide 40 MG/4 ML VIAL SLOW IVP SCH (16:15)
[2019-04-26] MEDS ORDERED: Potassium Chloride 20 MEQ TAB PO SCH (16:15)
--- NOTE | 2019-04-26 16:29 | PRG ---
DATE OF SERVICE: 04/26/2019 SERVICE: Pulmonary Medicine. INTERVAL HISTORY: The patient is doing really well from breathing standpoint. Denies any current chest discomfort, nausea, or vomiting. I find her pleasantly demented. Family is here at bedside. I have updated them. Otherwise, there has been no interval change to her condition. PHYSICAL EXAMINATION: VITAL SIGNS: Afebrile, pulse 73, blood pressure 170/92, respirations 16, and saturation 96% on room air. GENERAL: The patient is awake and alert, in no apparent distress. LUNGS: Good air entry. No prolonged expiratory phase is present. There is dependent crackles bilaterally today. The asymmetry has resolved. HEART: Normal rate. Regular. ABDOMEN: Soft, nontender, and nondistended. Bowel sounds are positive. MUSCULOSKELETAL: No cyanosis or clubbing. Trace 1+ pitting is present in bilateral lower extremities neurologic grossly nonfocal. LABORATORY DATA: WBC 9.5, hemoglobin 11.3, and platelets 119,000 and roughly stable. Creatinine 1.40 and downtrending. Basic metabolic profile and liver function studies otherwise unremarkable. BNP 703, which is in historic high. Respiratory virus panel, blood cultures x2, urine cultures are negative to date. ASSESSMENT: 1. Community-acquired pneumonia, suspected. 2. Severe sepsis, resolved. 3. Chronic diastolic heart failure. 4. Severe mitral regurgitation. 5. Dementia. DISCUSSION AND PLAN: I had increasing suspicion that we could be dealing with a fluid related issue. I will give her a dose of Lasix. I will modify our diet to be low-salt. She needs to go out of the hospital on a low-salt diet. From a respiratory perspective, she is stable for discharge from the hospital, provided that we work through time to control her blood pressure aggressively to mitigate the impact of her mitral regurgitation. At this time, she has no additional need for inpatient pulmonary or critical care opinion and I will sign off. Please call with additional questions or concerns. Job ID: [id number] MTDD
[2019-04-26] MEDS: Famotidine 20 MG TAB PO SCH (21:22)
[2019-04-26] MEDS: Donepezil HCl 10 MG TAB PO SCH (21:22)
--- NOTE | 2019-04-26 23:14 | PDOC.HOSPP ---
- Subjective Encounter Date: 04/26/19 Encounter Time: 10:30 Subjective: Patient seen and examined for Sepsis. Cough/SOB improving. No CP. No other complaints. No overnight events - Objective Vital Signs & Weight: Vital Signs (12 hours) Temp Pulse Resp BP BP Pulse Ox 04/26/19 20:00 98.1 F 74 18 128/75 98 04/26/19 18:39 70 16 97 04/26/19 16:00 98.4 F 70 18 155/74 H 97 04/26/19 14:58 73 16 96 04/26/19 12:00 97.3 F L 62 18 145/74 H 96 Weight Weight 138 lb I&O: 04/25/19 04/26/19 04/27/19 06:59 06:59 06:59 Intake Total 1500 2180 1300 Balance 1500 2180 1300 Result Diagrams: 04/26/19 04:36 04/26/19 04:36 Hospitalist ROS - Review of Systems Constitutional: denies: fever, chills, sweats, weakness, malaise, other Cardiovascular: denies: chest pain, palpitations, orthopnea, paroxysmal noc. dyspnea, edema, light headedness, other - Medication Medications: Active Medications Generic Name Dose Route Start Last Admin Trade Name Freq PRN Reason Stop Dose Admin Albuterol/Ipratropium 3 ml 04/23/19 19:00 04/26/19 18:39 Duoneb NEB 3 ml [id number] JOSE Administration Aspirin 325 mg 04/24/19 09:00 04/26/19 08:11 Aspirin PO 325 mg DAILY JOSE Administration Coenzyme Q10 100 mg 04/24/19 09:00 04/26/19 08:10 Coenzyme Q10 PO 100 mg DAILY JOSE Administration Docusate Sodium 100 mg 04/24/19 09:00 04/26/19 08:11 Colace PO 100 mg DAILY JOSE Administration Donepezil HCl 10 mg 04/23/19 21:00 04/26/19 21:22 Aricept PO 10 mg HS JOSE Administration Ezetimibe 10 mg 04/24/19 09:00 04/26/19 08:10 Zetia PO 10 mg DAILY JOSE Administration Famotidine 20 mg 04/24/19 21:00 04/26/19 21:22 Pepcid PO 20 mg HS JOSE Administration Fish Oil 1,000 mg 04/24/19 09:00 04/26/19 08:11 Fish Oil PO 1,000 mg DAILY JOSE Administration Guaifenesin 600 mg 04/25/19 21:00 04/26/19 21:22 Mucinex PO 600 mg Q12HR JOSE Administration Guaifenesin 200 mg 04/25/19 14:24 04/25/19 23:15 Robitussin Sf PO 200 mg Q4H PRN Administration Cough Iron/Minerals/Multivitamins 1 tab 04/24/19 09:00 04/26/19 08:11 Theragran M PO 1 tab DAILY JOSE Administration Levothyroxine Sodium 88 mcg 04/24/19 06:00 04/26/19 05:08 Synthroid PO 88 mcg 0600 JOSE Administration Lisinopril 10 mg 04/26/19 09:00 04/26/19 08:10 Zestril PO 10 mg DAILY JOSE Administration Metoprolol Succinate 50 mg 04/24/19 09:00 04/26/19 08:10 Toprol Xl PO 50 mg DAILY JOSE Administration Prednisone 40 mg 04/26/19 08:00 04/26/19 08:11 Prednisone PO 04/29/19 08:01 40 mg QAM-WM OJSE Administration Promethazine HCl/Codeine 10 ml 04/26/19 03:04 04/26/19 21:22 Phenergan/Codeine Syrup PO 10 ml Q4H PRN Administration Cough Quetiapine Fumarate 12.5 mg 04/23/19 21:00 04/26/19 21:22 Seroquel PO 12.5 mg HS JOSE Administration Sodium Chloride 10 ml 04/23/19 15:27 04/25/19 14:21 Flush - Normal Saline IVF 10 ml PRN PRN Administration Saline Flush - Exam General Appearance: NAD Neck: supple, no JVD Heart: RRR, no gallops Respiratory: no wheezes, rhonchi Gastrointestinal: soft, non-distended Extremities: no cyanosis, no edema Hosp A/P - Plan DVT proph w/SCDs Severe Sepsis due to suspected Rt sided Pneumonia ?Pneumococcal COPD Exacerbation FADUMO on CKD 3 Lactic acidosis Par Afib - not on anticoag due to bleeding in the past Abn LFTs Chronic diastolic HF PLAN: Cont O2/Nebs Cont Steroids/Levaquin Cont other meds Pulmonary input appreciated Strep Pneumo/Legionella AG pending
[2019-04-27] MEDS: Phenergan/Codeine 10-6.25mg/5ml UDCUP PO PRN (01:37)
[2019-04-27] MEDS: Levothyroxine Sodium 88 MCG TAB PO SCH (05:13)
[2019-04-27] MEDS ORDERED: Furosemide 40 MG/4 ML VIAL SLOW IVP SCH (06:00)
[2019-04-27 07:23] VITALS: TEMP 97.4
[2019-04-27] MEDS: Ezetimibe 10 MG TAB PO SCH (08:22)
[2019-04-27] MEDS: predniSONE 20 MG TAB PO SCH (08:22)
[2019-04-27] MEDS: Fish Oil 1,000 MG CAP PO SCH (08:22)
[2019-04-27] MEDS: Lisinopril 10 MG TAB PO SCH (08:22)
[2019-04-27] MEDS: guaiFENesin ER 600 MG TAB PO SCH (08:22)
[2019-04-27] MEDS: Ubidecarenone 50 MG CAP PO SCH (08:22)
[2019-04-27] MEDS: Multivitamin W/ Minerals 1 TAB PO SCH (08:22)
[2019-04-27] MEDS: [UNRECOGNIZED DRUG - OTHER] PO SCH (08:25)
[2019-04-27] MEDS: Diabetic Tussin 200 MG/10 ML UDCUP PO PRN (08:27)
--- NOTE | 2019-04-27 08:29 | DIS ---
DATE OF ADMISSION: 04/23/2019 DATE OF DISCHARGE: 04/27/2019 DISCHARGE DISPOSITION: The patient is returning to [facility]. ALLERGIES: PATIENT IS ALLERGIC TO KEFLEX. CODE STATUS: Do not resuscitate. This was verified on admission. DISCHARGE MEDICATION: 1. Levaquin 500 mg daily for next 2 more days. 2. Prednisone 40 mg daily for next 2 more days. 3. Mucinex 600 mg b.i.d. for 2 weeks. 4. DuoNebs as needed for shortness of breath. 5. All other home medications were left unchanged. The patient was seen and examined on the day of discharge. Denies any new complaints. No chest pain, shortness of breath, palpitations reported. INPATIENT TOOL MARKER: Pulmonary, Dr. Perez. DIAGNOSTIC TESTS: 1. WBC on admission 14.6, at discharge 9.5; platelet 124. 2. Creatinine at discharge is 1.04. BNP was 703. Total bilirubin on admission was 2.1, at discharge was 1.3. 3. Urinalysis was negative. 4. Respiratory viral panel was negative. 5. Lactic acid on admission was 3.1. 6. Creatinine on admission was 1.35, at discharge was 1.04. 7. Chest x-ray on admission showed increased bronchopulmonary markings. BRIEF HOSPITAL COURSE: The patient is an 88-year-old female with coronary artery disease, chronic diastolic heart failure, severe aortic stenosis, and COPD, presented to the hospital with shortness of breath and productive cough. Workup was consistent with COPD exacerbation with suspected pneumonia. She showed good improvement with steroids and antibiotics. Her lactic acid was also elevated. She was evaluated by Pulmonary, Dr. Perez as well. Dr. Perez has cleared the patient for discharge. The patient is saturating 98% on room air. There is no wheezing on physical examination today. FINAL DIAGNOSES: 1. Severe sepsis due to suspected right-sided pneumonia, questionable pneumococcal. 2. Chronic obstructive pulmonary disease exacerbation. 3. Acute kidney injury on chronic kidney disease stage 3. 4. Lactic acidosis. 5. Chronic diastolic heart failure. 6. Severe aortic stenosis. 7. Abnormal LFTs probably secondary to #1. 8. Paroxysmal atrial fibrillation, not an anticoagulation candidate. 9. History of transient ischemic attack. 10. Hyperlipidemia. 11. Hypothyroidism. 12. Dementia. 13. Chronic venous insufficiency. TIME SPENT: Total time coordinating the discharge of this patient was 34 minutes. Job ID: [id number]
[2019-04-27 08:31] VITALS: BP 170/92
[2019-04-27] MEDS: Docusate 100 MG CAP PO SCH (10:43)
== END 2019-04-27 11:30 | DRG 871 ==
LOC: ERS 11:08 → T4-A 13:20
PROVIDERS: ADMIT Family Medicine; ATTEND Family Medicine
DX: A40.3 Sepsis due to Streptococcus pneumoniae (principal); J13 Pneumonia due to Streptococcus pneumoniae; R65.20 Severe sepsis without septic shock; I13.0 Hypertensive heart and chronic kidney disease with heart failure and stage 1 through stage 4 chronic kidney disease, or unspecified chronic kidney disease; N17.9 Acute kidney failure, unspecified; J44.1 Chronic obstructive pulmonary disease with (acute) exacerbation; E87.2 Acidosis; I50.32 Chronic diastolic (congestive) heart failure; J44.0 Chronic obstructive pulmonary disease with (acute) lower respiratory infection; Z66 Do not resuscitate; N18.3 Chronic kidney disease, stage 3 (moderate); E03.9 Hypothyroidism, unspecified; I25.10 Atherosclerotic heart disease of native coronary artery without angina pectoris; E78.5 Hyperlipidemia, unspecified; F03.90 Unspecified dementia, unspecified severity, without behavioral disturbance, psychotic disturbance, mood disturbance, and anxiety; K59.00 Constipation, unspecified; R29.6 Repeated falls; Z96.653 Presence of artificial knee joint, bilateral; M19.90 Unspecified osteoarthritis, unspecified site; I48.0 Paroxysmal atrial fibrillation; I87.2 Venous insufficiency (chronic) (peripheral); I08.0 Rheumatic disorders of both mitral and aortic valves; Z86.73 Personal history of transient ischemic attack (TIA), and cerebral infarction without residual deficits; Z90.710 Acquired absence of both cervix and uterus; Z95.0 Presence of cardiac pacemaker; Z88.1 Allergy status to other antibiotic agents; Z79.82 Long term (current) use of aspirin; Z79.899 Other long term (current) drug therapy; Z79.51 Long term (current) use of inhaled steroids; Z95.5 Presence of coronary angioplasty implant and graft; Z98.42 Cataract extraction status, left eye; Z98.41 Cataract extraction status, right eye; Z96.1 Presence of intraocular lens; Z85.828 Personal history of other malignant neoplasm of skin
CPT/HCPCS: 36415; 51701; 71045; 80053; 81003; 83605; 83735; 83880; 85025; 87040; 87086; 87633; 87798; 93005; 94640; 94760; 96360; 96365; 96366; A4353; J1940; J1956; J2920; J7512; J7620

== ENCOUNTER 2019-08-14 00:42 | Inpatient (IN) | payer MEDICARE, BC ==
[2019-08-14 02:36] LABS: CKMB 1.3 ng/mL (0-6.6)
[2019-08-14 05:06] LABS: Troponin I 0.119 ng/mL (< 0.028)
[2019-08-14] MEDS ORDERED: Sodium Chloride 0.9% 1,000 ML IV SCH (06:30)
[2019-08-14] MEDS ORDERED: cefTRIAXone\\ROCEPHIN 2 GM in Sodium Chloride 0.9% 100 ML IVPB SCH (07:00)
[2019-08-14 07:45] LABS: Troponin I 0.131 ng/mL (< 0.028)
[2019-08-14] MEDS ORDERED: HYDROcodone/Acetaminophen 5/325 mg Tablet PO PRN (10:47)
[2019-08-14] MEDS ORDERED: Senokot S 8.6-50 MG TAB PO PRN (10:47)
[2019-08-14] MEDS ORDERED: Bisacodyl 10 MG SUPP PR PRN (10:47)
[2019-08-14] MEDS ORDERED: Calcium Carbonate 500 MG ChewTAB PO PRN (10:47)
[2019-08-14] MEDS: Sodium Chloride 0.45% 1,000 ML IV SCH ×2 (11:59→22:46)
--- NOTE | 2019-08-14 13:14 | HP ---
REASON FOR ADMISSION: 1. Acute kidney injury. 2. Urinary tract infection. 3. Metabolic acidosis. 4. Failure to thrive. HISTORY OF PRESENT ILLNESS: The patient was brought to ER as she was not eating or drinking for the last 5 days now. She lives with her . mentions that she was not looking good this morning. He called his son and daughter who in turn called EMS and the patient was brought here. The patient says she has lost appetite and was feeling bad for the whole 3-4 days now. No fever, cough, or expectoration. No urinary frequency or urgency. No complaints of any sore or back pain. No complaints of abdominal pain, nausea, vomiting, or diarrhea. says he got hospitalized and was discharged on Wednesday. Since then, he has not seen her eat or drink well. She has been eating only 1 meal that too very little. The patient also was at [facility] and got discharged on June 20. She was walking with a walker from then on, but not from Wednesday. She is very weak at present. PAST MEDICAL AND SURGICAL HISTORY: 1. Hypertension. 2. Hypothyroidism. 3. History of CVA with right hemiparesis. 4. Dyslipidemia. 5. Dementia. 6. History of CHF. 7. Coronary artery disease. 8. Bilateral knee replacement. 9. CKD stage 3. 10. Thyroidectomy. 11. Bladder suspension surgery. 12. Hysterectomy. 13. Tonsillectomy. 14. Right hand surgery. 15. Pacemaker. 16. Cataract surgery with lens implantation. 17. Left hand surgery. 18. Right leg vein stripping done. CURRENT MEDICATIONS: 1. Seroquel 12.5 mg p.o. at bedtime. 2. Multivitamin 1 tablet once daily. 3. Levothyroxine 88 mcg p.o. daily. 4. Aspirin 325 mg daily. 5. CoQ10 of 200 mg p.o. daily. 6. Fish oil 1000 mg p.o. daily. 7. Crestor unknown dose daily. 8. Lasix 40 mg daily. 9. Losartan unknown dose daily. 10. Metoprolol extended release 50 mg daily. 11. Vitamin D3 of 1000 units p.o. daily. 12. Colace 100 mg p.o. daily. 13. Donepezil 10 mg p.o. at bedtime. 14. Zetia 10 mg p.o. daily. 15. Megace for appetite stimulation. ALLERGIES: ALLERGIC TO KEFLEX. PERSONAL HISTORY: Does not abuse alcohol or drugs. No history of smoking. Lives with her . FAMILY HISTORY: Both parents in their 70s, had a brother who in his 20s from unknown cancer, had an older brother who of leukemia. CODE STATUS: Full. Power of environmental attorney is her . REVIEW OF SYSTEMS: CONSTITUTIONAL: Negative for weight loss or gain, ability to conduct usual activities. SKIN: Negative for rash, itching. EYES: Negative for double vision, pain. ENT/MOUTH: Negative for nose bleeding, neck stiffness, pain, tenderness. CARDIOVASCULAR: Negative for palpitations, dyspnea on exertion, orthopnea. RESPIRATORY: Negative for shortness of breath, wheezing, cough, hemoptysis, fever or night sweats. GASTROINTESTINAL: Negative for poor appetite, abdominal pain, heartburn, nausea, vomiting, constipation, or diarrhea. GENITOURINARY: Negative for urgency, frequency, dysuria, nocturia. MUSCULOSKELETAL: Negative for pain, swelling. NEUROLOGIC/PSYCHIATRIC: Negative for anxiety, depression. ALLERGY/IMMUNOLOGIC: Negative for skin rash, bleeding tendency. PHYSICAL EXAMINATION: GENERAL: The patient is an 88-year-old female, who is currently not in any acute distress. VITAL SIGNS: Blood pressure 159/72, pulse 76 per minute, respiratory rate 20 per minute, temperature 98.5 degrees Fahrenheit, saturating 96% on room air. NECK: Supple. No elevated JVD. EYES: Extraocular muscles intact. Pupils reacting to light. ORAL CAVITY: Mucous membranes are dry. No exudates or congestion. CARDIOVASCULAR SYSTEM: S1, S2 heard. Murmur plus. Regular rhythm. RESPIRATORY SYSTEM: Air entry 1+ bilateral. No rales or rhonchi. ABDOMEN: Soft. Bowel sounds heard. No tenderness, rigidity, or guarding. EXTREMITIES: No peripheral edema or calf tenderness. VASCULAR SYSTEM: Peripheral pulses 1+ bilateral. No ischemic ulcerations or gangrene. CENTRAL NERVOUS SYSTEM: No gross focal deficits noted. The patient is not fully oriented, but responds well to verbal questions and simple answers. PSYCHIATRIC SYSTEM: No obvious hallucinations or delusions. LABORATORY DATA: White count of 9, H and H 13 and 39, platelet count 129 with 65% neutrophils. MCV is 98. CT of the abdomen and pelvis without contrast done shows constipation, otherwise small right pleural effusion. Serum bicarb is 22, BUN 63, creatinine 5.3, serum glucose 113. AST 147, ALT 69, T bilirubin 0.7, troponin I 0.10. CK-MB is 1.3. Albumin is 3.4. UA shows signs of UTI. EKG done shows a paced rhythm at 63 beats per minute, also has underlying atrial fibrillation. CLINICAL IMPRESSION AND PLAN: The patient will be admitted to telemetry for acute kidney injury, severe dehydration, failure to thrive. She will be on half NS at 100 mL/hour. Plan is to gently hydrate her. I have spoken to Dr. Loya for Nephrology consultation. She will be on ceftriaxone for UTI. Blood and urine cultures will be obtained. She has had prior history of loss of appetite and was on Megace previously. We will continue her aspirin, Aricept, Colace, fish oil, dulcolax suppositories for constipation, Synthroid, Toprol-XL, Seroquel as before. Her overall prognosis is guarded. I did discuss code status with the patient and her . They want to be full code for now. Job ID: [id number]
--- NOTE | 2019-08-14 14:20 | CON ---
DATE OF CONSULTATION: CONSULTING PHYSICIAN: Shalini Ray MD REQUESTING PHYSICIAN: Caroline Bales MD REASON FOR CONSULTATION: Acute kidney injury. IMPRESSION: 1. Acute kidney injury, this is likely prerenal in the context of poor p.o. intake compounded by continued use of lisinopril and diuretics. 2. Cytokine-mediated acute kidney injury cannot be completely ruled out in the context of a urinary tract infection. PLAN: 1. I do agree with gentle rehydration of this patient. 2. Hold the lisinopril and Lasix for now. 3. Renally dose all medications and avoid potentially nephrotoxic agents. 4. Further management to be dependent on the clinical course. HISTORY OF PRESENT ILLNESS: History is that of 88-year-old female patient, who was brought in here with failure to thrive and not eating very well and noted with a creatinine of 5.3 on presentation. Few days ago, the patient's creatinine was in the 1 range. The patient also noted with urinary findings highly suggestive of urinary tract infection. As a result of these findings, decision has been taken to involve Renal in the management of this case. PAST MEDICAL HISTORY: Include; 1. Hypertension, for which the patient takes losartan. 2. Hypothyroidism. 3. CVA. 4. Dementia. 5. CHF. 6. Coronary artery disease. 7. Knee replacement. 8. Chronic kidney disease stage 3. 9. Right hand surgery. MEDICATIONS: Reviewed include: 1. Losartan. 2. Lasix. The rest as documented on [employer]. ALLERGIES: TO KEFLEX. SOCIAL HISTORY: No alcohol. No tobacco. No illicit drug use. REVIEW OF SYSTEMS: As documented in the body of the history. All the other systems are reviewed and found not to be significantly related to presenting illness. PHYSICAL EXAMINATION: GENERAL: The patient was found not to be in any obvious distress. VITAL SIGNS: Noted with the following vital signs; afebrile, temperature 97.2, pulse 68, respiratory rate of 16, and O2 saturation are 99% with a blood pressure 143/68. HEENT: Unremarkable. Moist oral mucosa. No conjunctival injection or icterus. NECK: Supple. CARDIOVASCULAR SYSTEM: First and second heart sounds were heard. RESPIRATORY SYSTEM: Clear to auscultation. DIGESTIVE: Revealed a benign abdomen. Positive bowel sounds. EXTREMITIES: No peripheral edema. SKIN: No new gross rash. LYMPHATICS: No peripheral lymphadenopathy. SUMMARY: An 88-year-old female patient, who presented here with failure to thrive, noted with a creatinine of up to 5.3 above the baseline creatinine of 1 in the context of poor p.o. intake and possible urinary tract infection. Thank you for this consultation. We will follow with you. Job ID: [id number]
[2019-08-14 19:44] LABS: Creatinine, Urine 38.44 mg/dL (47-110)
[2019-08-14] MEDS: Donepezil HCl 5 MG TAB PO SCH (20:26)
[2019-08-14] MEDS: Heparin 5,000 UNITS/ML VIAL SC SCH (20:26)
[2019-08-15 04:58] LABS: Albumin 2.7 g/dL (3.4-4.8); Anion Gap 16 mmol/L (10-20); BUN (Urea Nitrogen) 55 mg/dL (9.8-20.1); BUN/Creatinine Ratio 10.98; Calc. Creatinine Clearance 6 mL/min (70-130); Calcium 7.8 mg/dL (7.8-10.44); Carbon Dioxide 18 mmol/L (23-31); Chloride 106 mmol/L (98-107); Estimated GFR-MDRD 8; Glucose 76 mg/dL (83-110); Sodium 137 mmol/L (136-145)
[2019-08-15 05:07] LABS: Potassium 2.6 mmol/L (3.5-5.1)
[2019-08-15] MEDS ORDERED: Potassium Chloride 40 MEQ in Sodium Chloride 0.9% 250 ML 250 ML IVPB SCH ×3 (06:30→14:00)
[2019-08-15 06:47] LABS: #Eosinphils 0.8 thou/uL (0.0-0.7); #Lymphocytes 1.9 thou/uL (1.20-3.40); #Monocytes 1.4 thou/uL (0.11-0.59); #Neutrophils 5.3 thou/uL (1.40-6.50); %Basophils 0.1 % (0.0-1.0); %Lymphocytes 20.4 % (21.0-51.0); %Monocytes 14.6 % (0.0-10.0); %Neutrophils 56.9 % (42.0-75.0); Hemoglobin 12.3 g/dL (12.0-16.0); Mean Corpuscular HGB CONC 34.5 g/dL (32.0-36.0); Mean Platelet Volume 8.8 fL (7.4-10.4); Platelet Count 108 thou/uL (130-400); RBC Distribution Width 12.3 % (11.5-14.5); Red Blood Cell (RBC) Count 3.52 mill/uL (4.20-5.40); White Blood Cell (WBC) Count 9.4 thou/uL (4.8-10.8)
[2019-08-15] MEDS: Sodium Chloride 0.45% 1,000 ML IV SCH ×2 (08:14→17:45)
[2019-08-15] MEDS: cefTRIAXone\\ROCEPHIN 1 GM in Sodium Chloride 0.9% 100 ML IVPB SCH (08:14)
[2019-08-15] MEDS: Docusate 100 MG CAP PO SCH (08:15)
[2019-08-15] MEDS: Aspirin 325 MG TAB PO SCH (08:15)
[2019-08-15] MEDS: Fish Oil 1,000 MG CAP PO SCH (08:15)
[2019-08-15] MEDS: Levothyroxine Sodium 88 MCG TAB PO SCH (08:17)
[2019-08-15] MEDS: Multivitamin W/ Minerals 1 TAB PO SCH (08:17)
[2019-08-15] MEDS: Heparin 5,000 UNITS/ML VIAL SC SCH ×2 (08:18→20:47)
[2019-08-15] MEDS ORDERED: Levothyroxine Sodium 88 MCG TAB PO SCH (09:00)
[2019-08-15] MEDS ORDERED: ASPIRIN PO SCH (09:00)
--- NOTE | 2019-08-15 10:16 | ULT ---
Bilateral renal ultrasound CLINICAL INDICATION: Acute renal insufficiency COMPARISON: Noncontrast CT abdomen on 08/13/2019 FINDINGS: Right kidney: There is an exophytic anechoic structure seen at the junction of the midportion and sup erior pole right kidney measuring 1.6 cm demonstrating sonographic characteristics most compatible with a cyst. No hydronephrosis or renal calculus is seen on the right.The right kidney measures 10.7 cm x 4.8 cm. Left kidney: There are 2 exophytic, anechoic cystic lesions involving the midportion and inferior yvon e left kidney. Largest cystic lesion is seen at the inferior pole left kidney measuring 1.2 cm. There is no evidence of hydronephrosis or renal calculus. The left kidney measures 9.5 cm x 5.4 cm. Urinary bladder: Within normal limits for degree of distention. IMPRESSION: Bilateral renal cysts without hydronephrosis.
--- NOTE | 2019-08-15 17:56 | PRG ---
DATE OF SERVICE: 08/15/2019 SUBJECTIVE: The patient was seen and examined, noted with the following vital signs. OBJECTIVE: VITAL SIGNS: Afebrile, temperature 97.6, pulse 61, respiratory rate of 18, O2 saturations are 99%, and blood pressure 147/70. HEENT: Unremarkable. CARDIOVASCULAR SYSTEM: First and second heart sounds were heard. RESPIRATORY SYSTEM: Clear to auscultation. DIGESTIVE SYSTEM: Revealed a benign abdomen with positive bowel sounds. EXTREMITIES: No peripheral edema. SKIN: No new gross rash. LYMPHATICS: No peripheral lymphadenopathy. LABORATORY INVESTIGATION: Showed a potassium of 2.6, bicarb of 18, BUN of 55 with a creatinine of 5.01. IMPRESSION: 1. Slowly improving acute tubular necrosis. 2. Hypokalemia. 3. Metabolic acidosis in the context of problem #1. PLAN: 1. Continue renal supportive measures. 2. Check magnesium. 3. Renal ultrasound. 4. We will not correct the metabolic acidosis at this point in order not to worsen the hypokalemia. 5. Replete potassium. 6. Further management to be dependent on the clinical course. Job ID: [id number]
[2019-08-15] MEDS: Donepezil HCl 5 MG TAB PO SCH (20:46)
[2019-08-16] MEDS: Sodium Chloride 0.45% 1,000 ML IV SCH ×3 (03:42→23:09)
[2019-08-16 05:23] LABS: Albumin 2.6 g/dL (3.4-4.8); Anion Gap 13 mmol/L (10-20); BUN (Urea Nitrogen) 54 mg/dL (9.8-20.1); BUN/Creatinine Ratio 11.51; Calc. Creatinine Clearance 7 mL/min (70-130); Calcium 7.9 mg/dL (7.8-10.44); Carbon Dioxide 17 mmol/L (23-31); Chloride 112 mmol/L (98-107); Estimated GFR-MDRD 9; Glucose 92 mg/dL (83-110); Phosphorus 3.6 mg/dL (2.3-4.7); Potassium 3.6 mmol/L (3.5-5.1); Sodium 138 mmol/L (136-145)
[2019-08-16] MEDS: cefTRIAXone\\ROCEPHIN 1 GM in Sodium Chloride 0.9% 100 ML IVPB SCH (08:49)
[2019-08-16] MEDS: Multivitamin W/ Minerals 1 TAB PO SCH (08:50)
[2019-08-16] MEDS: Aspirin 325 MG TAB PO SCH (08:50)
[2019-08-16] MEDS: Levothyroxine Sodium 88 MCG TAB PO SCH (08:50)
[2019-08-16] MEDS: Docusate 100 MG CAP PO SCH (08:50)
[2019-08-16] MEDS: Fish Oil 1,000 MG CAP PO SCH (08:50)
[2019-08-16] MEDS: Heparin 5,000 UNITS/ML VIAL SC SCH (09:04)
[2019-08-16] MEDS: Enoxaparin Sodium 30 MG/0.3 ML SYRINGE SC SCH (09:29)
--- NOTE | 2019-08-16 10:52 | PQF ---
CLINICAL DOCUMENTATION IMPROVEMENT CLARIFICATION FORM: ICD-10 Updated PLEASE DO AN ADDENDUM TO THE PROGRESS NOTE WITH ANY DOCUMENTATION UPDATES OR ADDITIONS AND CARRY THROUGH TO DC SUMMARY. THANK YOU. Date: 08/16/19 ATTN: DR. AC Please exercise your independent, professional judgment in responding to the clarification form. Clinical indicators are provided on the bottom of this form for your review Please check appropriate box(s): [ x ] Protein Calorie Malnutrition: [ ] Mild [x ] Moderate [ ] Severe [ ] Other Malnutrition (please specify) __ [ ] Underweight without malnutrition [ ] Cachexia [ ] Other diagnosis [ ] Unable to determine In addition, please specify: Present on Admission (POA): [ x ] Yes [ ] No [ ] Unable to determine CLINICAL INDICATORS - SIGNS / SYMPTOMS / LABS / RESULTS AND LOCATION IN MR DIETARY ASSESSMENT 08/14: "PATIENT'S CAREGIVER HAS BECOME CONCERNED ABOUT PT'S WEIGHT PT HAS BEEN REFUSING FOOD." 19% WT LOSS X 4 MONTH" "MODERATE CLAVICLE WASTING AND MILS TO MODERATE TEMPORALIS MUSCLE WASTING" H&P 08/14: "FAILURE TO THRIVE" BMI 22 ALBUMIN 08/15: 2.7 RISKS: ADVANCED AGE DEMENTIA (ER NOTE) FADUMO (H&P 08/14) TREATMENT: DIETARY CONSULT 08/14 NUTRITIONAL SUPPLEMENTS RECOMMENDED (DIETARY ASSESSMENT 08/14) MEGACE (PER H&P 08/14 / HOME MED LIST) Moderate Malnutrition (in acute illness) [employer] Announcements [employer] Winform ViewerEnergy Intake: <75% of estimated energy requirement for > 7 days Weight Loss: 1-2%/1 week; 5%/ 1 month; 7.5%/3 months Other: mild body fat loss; mild muscle mass loss; mild fluid accumulation; Severe Malnutrition (in acute illness) Energy Intake: < 50% of estimated energy requirement for > 5 days Weight Loss: >1-2%/1 week; >5%/1 month; >7.5%/3 months Other: moderate body fat loss; moderate muscle mass loss; moderate- severe fluid accumulation; measurably reduced clinical academic allergist strength Moderate Malnutrition (in chronic illness) Energy Intake: <75% of estimated energy requirement for >1 month Weight Loss: 5%/1 month; 7.5%/3 months; 10%/6 months; 20%/1 year Other: mild body fat loss; mild muscle mass loss; mild fluid accumulation Severe Malnutrition (in chronic illness) Energy Intake: <75% of estimated energy requirement for >1 month Weight Loss: >5%/1 month; >7.5%/3 months; >10%/6 months; >20%/1 year Other: severe body fat loss; severe muscle mass loss; severe fluid accumulation ; measurably reduced clinical academic allergist strength (This form is maintained as a part of the permanent medical record) 2014 [employer] All Rights Reserved TERESA [email or web address] Office: [phone] [facility] SYSTEM[facility]iona
--- NOTE | 2019-08-16 16:46 | PRG ---
DATE OF SERVICE: 08/16/2019 SUBJECTIVE: The patient is seen and examined, seems to be doing much better, noted with the following vital signs. OBJECTIVE: VITAL SIGNS: Afebrile, temperature 97.6, pulse 64, respiratory rate of 20, and O2 saturation 100% with blood pressure 164/92 to 180/92. HEENT: Unremarkable. CARDIOVASCULAR SYSTEM: First and second heart sounds were heard. RESPIRATORY SYSTEM: Clear to auscultation. DIGESTIVE: Revealed a benign abdomen. Positive bowel sounds. EXTREMITIES: No peripheral edema. SKIN: No new gross rash. LYMPHATICS: No peripheral lymphadenopathy. LABORATORY DATA: Laboratory investigation showed a creatinine down to 4.69. IMPRESSION: 1. Acute on chronic kidney disease in the context of acute tubular necrosis, seems to be showing some marginal improvement. 2. Hypertension, suboptimally controlled. 3. Hypokalemia, resolved. PLAN: 1. Very soon will begin to deescalate the IV fluids. 2. Hopefully, the renal function will continue to maintain sustained clinical improvement. 3. Renally dose all medications and avoid potentially nephrotoxic agents. 4. Further management to be dependent on the clinical course. Job ID: [id number]
--- NOTE | 2019-08-16 17:10 | PDOC.HOSPP ---
- Subjective Encounter Date: 08/16/19 Encounter Time: 12:25 Subjective: no sob or palp feels better says she is eating better - Objective Vital Signs & Weight: Vital Signs (12 hours) Temp Pulse Pulse Pulse Resp BP BP 08/16/19 16:51 08/16/19 15:59 08/16/19 15:50 97.6 F 64 20 08/16/19 11:15 63 60 165/90 H 164/92 H 08/16/19 11:10 97.6 F 60 20 08/16/19 08:00 98.0 F 63 20 BP Pulse Ox Pulse Ox Pulse Ox 08/16/19 16:51 177/80 H 08/16/19 15:59 100 08/16/19 15:50 180/92 H 100 08/16/19 11:15 100 100 08/16/19 11:10 167/76 H 98 08/16/19 08:00 169/81 H 99 Weight Admit Weight 112 lb 3.2 oz Weight 141 lb 9.6 oz I&O: 08/15/19 08/16/19 08/17/19 06:59 06:59 06:59 Intake Total 1800 2360 540 Output Total 1350 Balance 1800 1010 540 Result Diagrams: 08/15/19 04:10 08/16/19 04:21 Hospitalist ROS - Medication Medications: Active Medications Generic Name Dose Route Start Last Admin Trade Name Freq PRN Reason Stop Dose Admin Aspirin 325 mg 08/15/19 09:00 08/16/19 08:50 Aspirin PO 325 mg DAILY JOSE Administration Docusate Sodium 100 mg 08/15/19 09:00 08/16/19 08:50 Colace PO 100 mg DAILY JOSE Administration Donepezil HCl 10 mg 08/14/19 21:00 08/15/19 20:46 Aricept PO 10 mg HS JOSE Administration Enoxaparin Sodium 30 mg 08/16/19 09:00 08/16/19 09:29 Lovenox SC 30 mg 0900 JOSE Administration Fish Oil 1,000 mg 08/15/19 09:00 08/16/19 08:50 Fish Oil PO 1,000 mg DAILY JOSE Administration Ceftriaxone Sodium 1 gm/ 100 mls @ 200 mls/hr 08/15/19 07:00 08/16/19 08:49 Sodium Chloride IVPB 100 mls Q24HR JOSE Administration Sodium Chloride 1,000 mls @ 100 mls/hr 08/14/19 11:45 08/16/19 13:27 1/2 Normal Saline IV 1,000 mls .Q10H JOSE Administration Iron/Minerals/Multivitamins 1 tab 08/15/19 09:00 08/16/19 08:50 Theragran M PO 1 tab DAILY JOSE Administration Levothyroxine Sodium 88 mcg 08/15/19 09:00 08/16/19 08:50 Synthroid PO 88 mcg DAILY JOSE Administration Metoprolol Succinate 50 mg 08/15/19 09:00 08/16/19 08:50 Toprol Xl PO 50 mg DAILY JOSE Administration Quetiapine Fumarate 12.5 mg 08/14/19 21:00 08/15/19 20:47 Seroquel PO 12.5 mg HS JOSE Administration Senna/Docusate Sodium 2 tab 08/14/19 10:47 08/14/19 17:41 Senokot S PO 2 tab BID PRN Administration Constipation Sodium Chloride 10 ml 08/14/19 21:00 08/16/19 08:48 Flush - Normal Saline IVF 10 ml Q12HR JOSE Administration - Exam General Appearance: awake alert Eye: PERRL, anicteric sclera ENT: no oropharyngeal lesions, moist mucosa Neck: supple, no JVD Heart: RRR, no murmur Respiratory: no wheezes, no rales Gastrointestinal: soft, non-tender, non-distended, normal bowel sounds Extremities: no cyanosis, no edema Neurological: cranial nerve grossly intact, no focal deficits Psychiatric: normal affect, A&O x 3 Hosp A/P (1) Acute renal failure Status: Acute Qualifiers: Acute renal failure type: unspecified Qualified Code(s): N17.9 - Acute kidney failure, unspecified (2) Metabolic acidosis Code(s): E87.2 - ACIDOSIS Status: Acute (3) Severe dehydration Code(s): E86.0 - DEHYDRATION Status: Resolved (4) UTI (urinary tract infection) Status: Acute Qualifiers: Urinary tract infection type: acute cystitis Hematuria presence: without hematuria Qualified Code(s): N30.00 - Acute cystitis without hematuria (5) CAD (coronary artery disease) Code(s): I25.10 - ATHSCL HEART DISEASE OF [place] CORONARY ARTERY W/O ANG PCTRS Status: Chronic Qualifiers: Coronary Disease-Associated Artery/Lesion type: [place] artery [place] vs. transplanted heart: [place] heart Associated angina: without angina Qualified Code(s): I25.10 - Atherosclerotic heart disease of [place] coronary artery without angina pectoris (6) FTT (failure to thrive) in adult Status: Acute (7) Afib Code(s): I48.91 - UNSPECIFIED ATRIAL FIBRILLATION Status: Chronic Qualifiers: Atrial fibrillation type: paroxysmal Qualified Code(s): I48.0 - Paroxysmal atrial fibrillation (8) Dementia Code(s): F03.90 - UNSPECIFIED DEMENTIA WITHOUT BEHAVIORAL DISTURBANCE Status: Chronic Qualifiers: Dementia type: Alzheimer's disease (9) Hypertension Code(s): I10 - ESSENTIAL (PRIMARY) HYPERTENSION Status: Chronic Qualifiers: (10) Hypothyroid Code(s): E03.9 - HYPOTHYROIDISM, UNSPECIFIED Status: Chronic Qualifiers: Hypothyroidism type: unspecified Qualified Code(s): E03.9 - Hypothyroidism , unspecified - Plan gentle iv hydration, so far has not had any vol overload echo is pending, likely has aortic stenosis, will f/u creatinine around 4.6 this am will need higher BP for perfusion of her kidneys and to avoid dialysis is on toprol xl, asp, fish oil, synthroid, ceftriaxone, seroquel is DNAR now will add clonidine prn if sbp >190 prognosis guarded encourage po intake and to ambulate as tolerated.
[2019-08-16] MEDS: Donepezil HCl 5 MG TAB PO SCH (20:20)
[2019-08-16] MEDS: hydrALAZINE 25 MG TAB PO SCH (20:21)
[2019-08-16] MEDS: cloNIDine 0.1 MG TAB PO PRN (23:16)
[2019-08-17 05:47] VITALS: BMI 21.4
[2019-08-17] MEDS: cefTRIAXone\\ROCEPHIN 1 GM in Sodium Chloride 0.9% 100 ML IVPB SCH (06:05)
[2019-08-17 06:35] LABS: #Basophils 0.1 thou/uL (0.0-0.2); #Eosinphils 0.7 thou/uL (0.0-0.7); #Lymphocytes 1.8 thou/uL (1.20-3.40); #Monocytes 0.9 thou/uL (0.11-0.59); %Basophils 0.9 % (0.0-1.0); %Eosinophils 9.5 % (0.0-10.0); %Lymphocytes 24.2 % (21.0-51.0); %Monocytes 11.6 % (0.0-10.0); %Neutrophils 53.8 % (42.0-75.0); Hemoglobin 12.1 g/dL (12.0-16.0); Mean Corpuscular HGB CONC 32.9 g/dL (32.0-36.0); Mean Corpuscular Hemoglobin 33.2 pg (27.0-31.0); Mean Platelet Volume 8.8 fL (7.4-10.4); Platelet Count 105 thou/uL (130-400); RBC Distribution Width 12.6 % (11.5-14.5); Red Blood Cell (RBC) Count 3.64 mill/uL (4.20-5.40); White Blood Cell (WBC) Count 7.4 thou/uL (4.8-10.8)
[2019-08-17 06:44] LABS: Albumin 2.5 g/dL (3.4-4.8); Anion Gap 14 mmol/L (10-20); BUN (Urea Nitrogen) 50 mg/dL (9.8-20.1); BUN/Creatinine Ratio 11.06; Calc. Creatinine Clearance 9 mL/min (70-130); Calcium 7.9 mg/dL (7.8-10.44); Carbon Dioxide 19 mmol/L (23-31); Chloride 111 mmol/L (98-107); Estimated GFR-MDRD 9; Glucose 78 mg/dL (83-110); Phosphorus 3.8 mg/dL (2.3-4.7); Potassium 3.8 mmol/L (3.5-5.1); Sodium 140 mmol/L (136-145)
[2019-08-17] MEDS: Levothyroxine Sodium 88 MCG TAB PO SCH (08:54)
[2019-08-17] MEDS: Docusate 100 MG CAP PO SCH (08:54)
[2019-08-17] MEDS: hydrALAZINE 25 MG TAB PO SCH ×2 (08:55→20:55)
[2019-08-17] MEDS: Aspirin 325 MG TAB PO SCH (08:55)
[2019-08-17] MEDS: Fish Oil 1,000 MG CAP PO SCH (08:55)
[2019-08-17] MEDS: Multivitamin W/ Minerals 1 TAB PO SCH (08:56)
[2019-08-17] MEDS: Enoxaparin Sodium 30 MG/0.3 ML SYRINGE SC SCH (08:57)
[2019-08-17] MEDS: Sodium Chloride 0.45% 1,000 ML IV SCH (09:07)
--- NOTE | 2019-08-17 13:19 | PDOC.HOSPP ---
- Subjective Encounter Date: 08/17/19 Encounter Time: 08:50 Subjective: awake, no sob. Says she is eating better now and drinking ensure (will confirm with staff shortly) - Objective Vital Signs & Weight: Vital Signs (12 hours) Temp Pulse Resp BP BP BP Pulse Ox 08/17/19 09:00 96 08/17/19 08:55 62 180/90 H 08/17/19 08:00 97.6 F 62 16 180/90 H 96 08/17/19 03:57 97.5 F L 62 15 158/80 H 99 Weight Admit Weight 112 lb 3.2 oz Weight 141 lb I&O: 08/16/19 08/17/19 08/18/19 06:59 06:59 06:59 Intake Total 2360 1840 Output Total 1350 1200 Balance 1010 640 Result Diagrams: 08/17/19 06:00 08/17/19 06:00 Additional Labs: Accuchecks 08/17/19 08/16/19 03:59 19:46 POC Glucose 88 111 H Hospitalist ROS - Medication Medications: Active Medications Generic Name Dose Route Start Last Admin Trade Name Freq PRN Reason Stop Dose Admin Aspirin 325 mg 08/15/19 09:00 08/17/19 08:55 Aspirin PO 325 mg DAILY JOSE Administration Clonidine 0.1 mg 08/16/19 17:14 08/16/19 23:16 Catapres PO 0.1 mg Q4H PRN Administration sbp>190 Docusate Sodium 100 mg 08/15/19 09:00 08/17/19 08:54 Colace PO 100 mg DAILY JOSE Administration Donepezil HCl 10 mg 08/14/19 21:00 08/16/19 20:20 Aricept PO 10 mg HS JOSE Administration Enoxaparin Sodium 30 mg 08/16/19 09:00 08/17/19 08:57 Lovenox SC 30 mg 0900 JOSE Administration Fish Oil 1,000 mg 08/15/19 09:00 08/17/19 08:55 Fish Oil PO 1,000 mg DAILY JOSE Administration Hydralazine HCl 25 mg 08/16/19 21:00 08/17/19 08:55 Apresoline PO 25 mg BID JOSE Administration Ceftriaxone Sodium 1 gm/ 100 mls @ 200 mls/hr 08/15/19 07:00 02/20/20 06:05 Sodium Chloride IVPB 100 mls Q24HR JOSE Administration Sodium Chloride 1,000 mls @ 100 mls/hr 08/14/19 11:45 08/17/19 09:07 1/2 Normal Saline IV Not Given .Q10H JOSE Iron/Minerals/Multivitamins 1 tab 08/15/19 09:00 08/17/19 08:56 Theragran M PO 1 tab DAILY JOSE Administration Levothyroxine Sodium 88 mcg 08/15/19 09:00 08/17/19 08:54 Synthroid PO 88 mcg DAILY JOSE Administration Metoprolol Succinate 50 mg 08/15/19 09:00 08/17/19 08:56 Toprol Xl PO 50 mg DAILY JOSE Administration Quetiapine Fumarate 12.5 mg 08/14/19 21:00 08/16/19 20:20 Seroquel PO 12.5 mg HS JOSE Administration Senna/Docusate Sodium 2 tab 08/14/19 10:47 08/14/19 17:41 Senokot S PO 2 tab BID PRN Administration Constipation Sodium Chloride 10 ml 08/14/19 21:00 08/17/19 09:06 Flush - Normal Saline IVF Not Given Q12HR JOSE - Exam General Appearance: awake alert Eye: PERRL, anicteric sclera ENT: no oropharyngeal lesions, dry oral mucosa Neck: supple, no JVD Heart: RRR, no murmur Respiratory: no wheezes, no rales Gastrointestinal: soft, non-tender, non-distended, normal bowel sounds Extremities: no cyanosis, no edema Neurological: cranial nerve grossly intact, no focal deficits Hosp A/P (1) Acute renal failure Status: Acute Qualifiers: Acute renal failure type: unspecified Qualified Code(s): N17.9 - Acute kidney failure, unspecified (2) Metabolic acidosis Code(s): E87.2 - ACIDOSIS Status: Resolved (3) Severe dehydration Code(s): E86.0 - DEHYDRATION Status: Resolved (4) UTI (urinary tract infection) Status: Acute Qualifiers: Urinary tract infection type: acute cystitis Hematuria presence: without hematuria Qualified Code(s): N30.00 - Acute cystitis without hematuria (5) CAD (coronary artery disease) Code(s): I25.10 - ATHSCL HEART DISEASE OF [place] CORONARY ARTERY W/O ANG PCTRS Status: Chronic Qualifiers: Coronary Disease-Associated Artery/Lesion type: [place] artery [place] vs. transplanted heart: [place] heart Associated angina: without angina Qualified Code(s): I25.10 - Atherosclerotic heart disease of [place] coronary artery without angina pectoris (6) FTT (failure to thrive) in adult Status: Acute (7) Afib Code(s): I48.91 - UNSPECIFIED ATRIAL FIBRILLATION Status: Chronic Qualifiers: Atrial fibrillation type: paroxysmal Qualified Code(s): I48.0 - Paroxysmal atrial fibrillation (8) Dementia Code(s): F03.90 - UNSPECIFIED DEMENTIA WITHOUT BEHAVIORAL DISTURBANCE Status: Chronic Qualifiers: Dementia type: Alzheimer's disease (9) Hypertension Code(s): I10 - ESSENTIAL (PRIMARY) HYPERTENSION Status: Chronic Qualifiers: (10) Hypothyroid Code(s): E03.9 - HYPOTHYROIDISM, UNSPECIFIED Status: Chronic Qualifiers: Hypothyroidism type: unspecified Qualified Code(s): E03.9 - Hypothyroidism , unspecified - Plan echo results are pending, likely has aortic stenosis, will f/u. No volume overload. DC iv fluids creatinine around 4.5 this am will need higher BP for perfusion of her kidneys and to avoid dialysis is on toprol xl, asp, fish oil, synthroid, ceftriaxone, seroquel is DNAR clonidine prn if sbp >190 prognosis guarded encourage po intake and to ambulate as tolerated.
--- NOTE | 2019-08-17 16:24 | PRG ---
DATE OF SERVICE: 08/17/2019 SUBJECTIVE: The patient is seen and examined, seems to be doing much better, noted with the following vital signs. OBJECTIVE: VITAL SIGNS: Afebrile, temperature 97.5, pulse 66, respiratory rate of 16, O2 saturation of 98% with blood pressure 150/80. HEENT: Unremarkable. CARDIOVASCULAR SYSTEM: First and second heart sounds were heard. RESPIRATORY SYSTEM: Clear to auscultation. DIGESTIVE SYSTEM: Revealed a benign abdomen. Positive bowel sounds. EXTREMITIES: No peripheral edema. SKIN: No new gross rash. LYMPHATICS: No peripheral lymphadenopathy noted. PLAN: 1. Continue with current renal supportive measures. We will likely shut down the IV fluid after 24 hours of more IV fluid. 2. Renally dose medications. 3. Avoid potentially nephrotoxic agents. Job ID: [id number]
[2019-08-17] MEDS: Donepezil HCl 5 MG TAB PO SCH (20:55)
[2019-08-18] MEDS: Guaifenesin DM 100-10/5 ML UDCUP PO PRN (05:05)
[2019-08-18] MEDS: cefTRIAXone\\ROCEPHIN 1 GM in Sodium Chloride 0.9% 100 ML IVPB SCH (06:01)
[2019-08-18 06:08] LABS: Albumin 2.5 g/dL (3.4-4.8); Anion Gap 11 mmol/L (10-20); BUN (Urea Nitrogen) 50 mg/dL (9.8-20.1); BUN/Creatinine Ratio 11.68; Calc. Creatinine Clearance 9 mL/min (70-130); Calcium 7.9 mg/dL (7.8-10.44); Carbon Dioxide 18 mmol/L (23-31); Chloride 113 mmol/L (98-107); Estimated GFR-MDRD 10; Glucose 101 mg/dL (83-110); Phosphorus 3.5 mg/dL (2.3-4.7); Potassium 3.3 mmol/L (3.5-5.1); Sodium 139 mmol/L (136-145)
[2019-08-18] MEDS: Docusate 100 MG CAP PO SCH (08:32)
[2019-08-18] MEDS: Fish Oil 1,000 MG CAP PO SCH (08:32)
[2019-08-18] MEDS: Levothyroxine Sodium 88 MCG TAB PO SCH (08:33)
[2019-08-18] MEDS: hydrALAZINE 25 MG TAB PO SCH ×2 (08:33→21:33)
[2019-08-18] MEDS: Multivitamin W/ Minerals 1 TAB PO SCH (08:33)
[2019-08-18] MEDS: Enoxaparin Sodium 30 MG/0.3 ML SYRINGE SC SCH (08:33)
[2019-08-18] MEDS: Aspirin 325 MG TAB PO SCH (08:33)
[2019-08-18] MEDS ORDERED: Potassium Chloride 20 MEQ TAB PO SCH (12:00)
--- NOTE | 2019-08-18 14:42 | PDOC.HOSPP ---
- Subjective Subjective: Seen and examined on the medical unit. Patient breathing comfortably on room air. Patient surrounded by her family including her and son-in-law. Patient's family tells me that she has poor appetite. Not eating or drinking much. Discussed acute kidney injury on chronic kidney disease. Discussed aortic stenosis. Patient's family have elective for do not resuscitate and do not intubate status. They are not interested in hospice however and would like to continue medical management. - Objective Vital Signs & Weight: Vital Signs (12 hours) Temp Pulse Resp BP BP BP BP 08/18/19 12:00 98.1 F 61 20 130/87 08/18/19 10:09 166/89 H 147/82 H 08/18/19 08:35 08/18/19 08:33 62 178/91 H 08/18/19 07:40 97.2 F L 62 18 178/91 H 08/18/19 04:47 97.5 F L 65 20 164/83 H Pulse Ox 08/18/19 12:00 98 08/18/19 10:09 08/18/19 08:35 100 08/18/19 08:33 08/18/19 07:40 100 08/18/19 04:47 96 Weight Admit Weight 112 lb 3.2 oz Weight 141 lb I&O: 08/17/19 08/18/19 08/19/19 06:59 06:59 06:59 Intake Total 1840 1220 Output Total 1200 450 Balance 640 770 Result Diagrams: 08/17/19 06:00 08/18/19 05:23 Radiology Reviewed by me: Yes Hospitalist ROS - Review of Systems All other systems reviewed; all pertinent +/- noted in HPI/Subj - Medication Medications: Active Medications Generic Name Dose Route Start Last Admin Trade Name Freq PRN Reason Stop Dose Admin Aspirin 325 mg 08/15/19 09:00 08/18/19 08:33 Aspirin PO 325 mg DAILY JOSE Administration Clonidine 0.1 mg 08/16/19 17:14 08/16/19 23:16 Catapres PO 0.1 mg Q4H PRN Administration sbp>190 Docusate Sodium 100 mg 08/15/19 09:00 08/18/19 08:32 Colace PO Not Given DAILY JOSE Donepezil HCl 10 mg 08/14/19 21:00 08/17/19 20:55 Aricept PO 10 mg HS JOSE Administration Enoxaparin Sodium 30 mg 08/16/19 09:00 08/18/19 08:33 Lovenox SC 30 mg 0900 JOSE Administration Fish Oil 1,000 mg 08/15/19 09:00 08/18/19 08:32 Fish Oil PO 1,000 mg DAILY JOSE Administration Guaifenesin/Dextromethorphan 15 ml 08/14/19 10:47 08/18/19 05:05 Robitussin Dm PO 15 ml Q4H PRN Administration Cough Hydralazine HCl 25 mg 08/16/19 21:00 08/18/19 08:33 Apresoline PO 25 mg BID JOSE Administration Ceftriaxone Sodium 1 gm/ 100 mls @ 200 mls/hr 08/15/19 07:00 08/18/19 06:01 Sodium Chloride IVPB 100 mls Q24HR JOSE Administration Iron/Minerals/Multivitamins 1 tab 08/15/19 09:00 08/18/19 08:33 Theragran M PO 1 tab DAILY JOSE Administration Levothyroxine Sodium 88 mcg 08/15/19 09:00 08/18/19 08:33 Synthroid PO 88 mcg DAILY JOSE Administration Metoprolol Succinate 50 mg 08/15/19 09:00 08/18/19 08:32 Toprol Xl PO 50 mg DAILY JOSE Administration Quetiapine Fumarate 12.5 mg 08/14/19 21:00 08/17/19 20:56 Seroquel PO 12.5 mg HS JOSE Administration Senna/Docusate Sodium 2 tab 08/14/19 10:47 08/14/19 17:41 Senokot S PO 2 tab BID PRN Administration Constipation Sodium Chloride 10 ml 08/14/19 21:00 08/18/19 08:37 Flush - Normal Saline IVF 10 ml Q12HR JOSE Administration - Exam General Appearance: NAD Eye: PERRL ENT: normocephalic atraumatic, moist mucosa Neck: supple, symmetric, no lymphadenopathy Heart: no gallops, no rubs, murmur present (Aortic stenosis murmur in moderate intensitiy) Respiratory: no wheezes, no rales, no ronchi Gastrointestinal: soft, non-tender, non-distended, no guarding, no rigidity Extremities: no edema Skin: no lesions, no rashes Neurological: cranial nerve grossly intact, normal sensation to touch, no focal deficits Musculoskeletal: generalized weakness Psychiatric: normal behavior, oriented to person, flat affect Hosp A/P (1) Acute renal failure Status: Acute Qualifiers: Acute renal failure type: unspecified Qualified Code(s): N17.9 - Acute kidney failure, unspecified (2) FTT (failure to thrive) in adult Status: Acute (3) CAD (coronary artery disease) Code(s): I25.10 - ATHSCL HEART DISEASE OF [place] CORONARY ARTERY W/O ANG PCTRS Status: Chronic Qualifiers: Coronary Disease-Associated Artery/Lesion type: [place] artery [place] vs. transplanted heart: [place] heart Associated angina: without angina Qualified Code(s): I25.10 - Atherosclerotic heart disease of [place] coronary artery without angina pectoris (4) Metabolic acidosis Code(s): E87.2 - ACIDOSIS Status: Resolved (5) Severe dehydration Code(s): E86.0 - DEHYDRATION Status: Resolved (6) Bronchitis Code(s): J40 - BRONCHITIS, NOT SPECIFIED ACUTE OR CHRONIC Status: Acute (7) Carotid stenosis Code(s): I65.29 - OCCLUSION AND STENOSIS OF UNSPECIFIED CAROTID ARTERY Status : Acute (8) Elevated LFTs Code(s): R94.5 - ABNORMAL RESULTS OF LIVER FUNCTION STUDIES Status: Acute (9) Hypokalemia Code(s): E87.6 - HYPOKALEMIA Status: Acute (10) Pleurisy with effusion Code(s): J90 - PLEURAL EFFUSION, NOT ELSEWHERE CLASSIFIED Status: Acute (11) Afib Code(s): I48.91 - UNSPECIFIED ATRIAL FIBRILLATION Status: Chronic Qualifiers: Atrial fibrillation type: paroxysmal Qualified Code(s): I48.0 - Paroxysmal atrial fibrillation (12) Dementia Code(s): F03.90 - UNSPECIFIED DEMENTIA WITHOUT BEHAVIORAL DISTURBANCE Status: Chronic Qualifiers: Dementia type: Alzheimer's disease (13) Hypertension Code(s): I10 - ESSENTIAL (PRIMARY) HYPERTENSION Status: Chronic Qualifiers: (14) Hypothyroid Code(s): E03.9 - HYPOTHYROIDISM, UNSPECIFIED Status: Chronic Qualifiers: Hypothyroidism type: unspecified Qualified Code(s): E03.9 - Hypothyroidism , unspecified (15) Pre-syncope Status: Chronic (16) Sick sinus syndrome Code(s): I49.5 - SICK SINUS SYNDROME Status: Chronic (17) Altered mental status Code(s): R41.82 - ALTERED MENTAL STATUS, UNSPECIFIED Status: Resolved - Plan Plan: medical unit cardiology consultation, recommendations appreciated nephrology consultation, recommendations appreciated palliative care consultation, recommendations appreciated echocardiogram with severe aortic stenosis family and patient are deciding about dialysis and whether they would want to pursue that patient and family have elected for a do not resuscitate and do not intubate status they would like to continue with medical management blood pressure control blood sugar control continue other home medications as able replace electrolytes as needed G.I. prophylaxis DVT prophylaxis
--- NOTE | 2019-08-18 14:49 | PDOC.PALCO ---
Palliative Care Consult - Consult Details Requesting Physician: Dr Bales Reason for Consult: goals of care, complex decision-making Family Members Present: Patient and son-in-law - Pertinent HPI 86 year old female who lives at at private residence with her . Home health previously cared for patient, they do have paid caregivers. Patient had transitioned to a skilled facility prior to [place], but was removed from the facility by her and two sons. After returning home daughters report ( and did confirm today) that she has had continued decline since discharge from facility. 3-4 days prior to presentation to the emergency room patient experienced poor appetite with decrease in intake, increase in weakness. EMS was called and patient transported to the emergency room for evaluation. Admitted for dehydration, acute kidney injury, and failure to thrive. At baseline patient requires assistance for ADL's, utilizes walker to ambulate but primarily in bed or recliner. Incontinent of bladder, intermittently bowel. 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 Patient denies difficulty swallowing however, reports "coughing" with meals. - Pertinent PMH Hypertension, hypothyroid, h/O CVA, dyslipidemia, CHF, Dementia, CAD, CKD #, - Social History Smoking Status: Never smoker Smoking: no tobacco exposure Alcohol Use: none Drug Use History: none Living Situation: (Resides at a private home with her and paid caregiver) - Medications MAR Reviewed: Yes - Allergies Allergies/Adverse Reactions: Allergies Allergy/AdvReac Type Severity Reaction Status Date / Time cephalexin [Cephalexin] Allergy Rash Verified 05/19/16 22:28 - Subjective Awake, mild confusion. Fell asleep during encounter intermittently. - ROS Constitutional: weakness Eyes: other ENT: other (denies difficulity swallowing, however states that she "coughs" when eating/drinking) Respiratory: other (Negative for shortness of breath, cough) Gastrointestinal: other (Negative for abdominal pain) Genitourinary: incontinence Musculoskeletal: limited mobility Skin: bruising - Objective Vital Signs: Vital Signs - Most Recent Temp Pulse Resp BP Pulse Ox 98.1 F 61 20 130/87 98 08/18/19 12:00 08/18/19 12:00 08/18/19 12:00 08/18/19 12:00 08/18/19 12:00 Palliative Performance Scale: 50 - Physical Exam Constitutional: confusion, ill appearing HEENT: moist MMs, sclera anicteric Respiratory: clear to auscultation bilateral, unlabored breathing Cardiovascular: RRR Deviation from normal: murmur Gastrointestinal: soft, non-tender Musculoskeletal: no cyanosis, edema present Neurology: moves all 4 limbs Skin: bruising, fragile, friable Psychiatric: normal mood - Problem List (1) Palliative care encounter Code(s): Z51.5 - ENCOUNTER FOR PALLIATIVE CARE Current Visit: Yes Status: Acute (2) Acute renal failure Current Visit: Yes Status: Acute Qualifiers: Acute renal failure type: unspecified Qualified Code(s): N17.9 - Acute kidney failure, unspecified (3) FTT (failure to thrive) in adult Current Visit: Yes Status: Acute (4) UTI (urinary tract infection) Current Visit: Yes Status: Acute (5) CAD (coronary artery disease) Code(s): I25.10 - ATHSCL HEART DISEASE OF [place] CORONARY ARTERY W/O ANG PCTRS Current Visit: Yes Status: Chronic Qualifiers: Coronary Disease-Associated Artery/Lesion type: [place] artery [place] vs. transplanted heart: [place] heart Associated angina: without angina Qualified Code(s): I25.10 - Atherosclerotic heart disease of [place] coronary artery without angina pectoris (6) Dementia Code(s): F03.90 - UNSPECIFIED DEMENTIA WITHOUT BEHAVIORAL DISTURBANCE Current Visit: No Status: Chronic Qualifiers: Dementia type: Alzheimer's disease (7) Altered mental status Code(s): R41.82 - ALTERED MENTAL STATUS, UNSPECIFIED Current Visit: No Status: Resolved - Plan/Recommendations Plan: Miguel Sanford RNcareer representative and myself met with patient, her and son-in- law. Miguel sanford has had extensive conversations with family. Discussed disease trajectory and possible goals of care that would meet patient desire to remain at home. *Home health/hospice/skilled facility. *Paid caregiver already in place. Discussed that greater support may be needed to prevent admissions to hospital and keep patient in home setting *Will continue to facilitate conversations with patient/spouse/family related to disease trajectory and decline *Will assess if Speech therapy involved and if not engage for teaching in relation to aspiration risk Please also refer to Palliative Care RN notes in note section. [75] minutes spent on this encounter with >50% of the time in counseling and coordination of care. Thank you for this very appropriate consult.
--- NOTE | 2019-08-18 16:32 | CON ---
DATE OF CONSULTATION: 08/18/2019 PRIMARY EYEGLASS CUTTER: Dr. Bishnu Levy. REASON FOR CONSULTATION: Aortic stenosis. HISTORY OF PRESENT ILLNESS: Ms. Jackson is a pleasant 88-year-old woman. She was admitted with failure to thrive, lack of appetite, and stopping eating. She does have dementia. She does not report shortness of breath. Palliative consultation was obtained as she do not resuscitate. PAST MEDICAL HISTORY: 1. Hypertension. 2. Pacemaker insertion. 3. Aortic stenosis. MEDICATIONS: At home included: 1. CoQ10. 2. Potassium. 3. Metoprolol. 4. Lasix if needed. 5. Aspirin. 6. Losartan. 7. Rosuvastatin. ALLERGIES: CEPHALEXIN. REVIEW OF SYSTEMS: Really not reliable due to dementia. She does have weight loss and not eating. PHYSICAL EXAMINATION: GENERAL: This is a frail-appearing woman, but she is very pleasant and cooperative. VITAL SIGNS: Blood pressure 130/87 and pulse 61, regular. EYES: Sclerae nonicteric. MOUTH: Mucous membranes moist. NECK: Supple. No lymphadenopathy. LUNGS: Clear. CARDIAC: Normal S1 and normal S2. There is a 3/6 crescendo-decrescendo murmur, harsh left upper sternal border and right upper sternal border. ABDOMEN: Soft and nontender. EXTREMITIES: No edema. Warm and dry. IMAGING: Echocardiogram revealed normal left ventricular function with severe aortic stenosis. ASSESSMENT: 1. Aortic stenosis, severe, but appears asymptomatic. 2. Previous pacemaker insertion with predominantly sensing on the EKG today. 3. One of the EKGs does look like as she is in atrial fibrillation with intermittent ventricular pacing. PLAN: 1. We will discuss with Dr. Levy, would not appear to be a candidate for aortic valve replacement, even transcutaneous aortic valve replacement in view of her being do not resuscitate and having dementia. 2. Consideration for anticoagulation with Eliquis reduced dose, although her creatinine now 4.28. We will hold off anticoagulation for now, but that would need to be considered. Job ID: [id number]
[2019-08-18] MEDS: Sodium Chloride 0.9% 1,000 ML IV SCH (16:54)
--- NOTE | 2019-08-18 20:22 | PRG ---
DATE OF SERVICE: 08/18/2019 SUBJECTIVE: The patient is seen and examined today, seems to be doing marginally better. Noted with the following vital signs. OBJECTIVE: VITAL SIGNS: Afebrile, temperature 97.6, pulse 64, respiratory rate of 20, and O2 saturation of 98% with a blood pressure 149/73. HEENT: Unremarkable. Moist oral mucosa. No conjunctival injection or icterus. NECK: Supple. CARDIOVASCULAR SYSTEM: First and second heart sounds were heard. RESPIRATORY SYSTEM: Clear to auscultation. DIGESTIVE SYSTEM: Revealed a benign abdomen. Positive bowel sounds. EXTREMITIES: No peripheral edema. SKIN: No new gross rash. LYMPHATICS: No peripheral lymphadenopathy. LABORATORY INVESTIGATION: Showed a sodium of 139, potassium 3.3, bicarb of 18, BUN of 50 with a creatinine of 4.38. IMPRESSION: 1. Acute on chronic kidney disease. 2. Advanced chronic kidney disease. 3. Metabolic acidosis. 4. Mild hypokalemia. PLAN: 1. We will continue to renally dose all medications for low GFR. 2. Replete potassium. 3. No need for anymore of IV fluid. 4. Further management to be dependent on the clinical course. Job ID: [id number]
[2019-08-18] MEDS: Donepezil HCl 5 MG TAB PO SCH (21:33)
[2019-08-19] MEDS: cloNIDine 0.1 MG TAB PO PRN (04:40)
[2019-08-19] MEDS: cefTRIAXone\\ROCEPHIN 1 GM in Sodium Chloride 0.9% 100 ML IVPB SCH (06:03)
[2019-08-19] MEDS: Guaifenesin DM 100-10/5 ML UDCUP PO PRN (06:03)
[2019-08-19] MEDS: Sodium Chloride 0.9% 1,000 ML IV SCH ×2 (06:05→20:48)
[2019-08-19 06:48] LABS: Albumin 2.6 g/dL (3.4-4.8); Anion Gap 11 mmol/L (10-20); BUN (Urea Nitrogen) 45 mg/dL (9.8-20.1); BUN/Creatinine Ratio 11.34; Calc. Creatinine Clearance 10 mL/min (70-130); Carbon Dioxide 19 mmol/L (23-31); Chloride 116 mmol/L (98-107); Estimated GFR-MDRD 11; Glucose 92 mg/dL (83-110); Phosphorus 3.1 mg/dL (2.3-4.7); Potassium 3.7 mmol/L (3.5-5.1); Sodium 142 mmol/L (136-145)
[2019-08-19] MEDS: Levothyroxine Sodium 88 MCG TAB PO SCH (08:43)
[2019-08-19] MEDS: Fish Oil 1,000 MG CAP PO SCH (08:43)
[2019-08-19] MEDS: Aspirin 325 MG TAB PO SCH (08:43)
[2019-08-19] MEDS: Multivitamin W/ Minerals 1 TAB PO SCH (08:44)
[2019-08-19] MEDS: hydrALAZINE 25 MG TAB PO SCH ×2 (08:44→20:39)
[2019-08-19] MEDS: Docusate 100 MG CAP PO SCH (08:44)
[2019-08-19] MEDS: Enoxaparin Sodium 30 MG/0.3 ML SYRINGE SC SCH (08:45)
--- NOTE | 2019-08-19 17:00 | PDOC.HOSPP ---
- Subjective Subjective: Clinically doing well. Remains on the medical unit. Saturating well on room air. Patient lunch is sitting next to her and it does not look that she is eaten any of it. Patient endorses low appetite. Time was given for questions, all answered in detail. - Objective Vital Signs & Weight: Vital Signs (12 hours) Temp Pulse Resp BP Pulse Ox 08/19/19 08:44 61 08/19/19 07:18 97.6 F 61 22 H 179/79 H 99 08/19/19 05:56 60 169/73 H Weight Admit Weight 112 lb 3.2 oz Weight 141 lb I&O: 08/18/19 08/19/19 08/20/19 06:59 06:59 06:59 Intake Total 1220 1910 2750 Output Total 450 Balance 770 1910 2750 Result Diagrams: 08/17/19 06:00 08/19/19 06:14 Radiology Reviewed by me: Yes Hospitalist ROS - Review of Systems All other systems reviewed; all pertinent +/- noted in HPI/Subj - Medication Medications: Active Medications Generic Name Dose Route Start Last Admin Trade Name Freq PRN Reason Stop Dose Admin Aspirin 325 mg 08/15/19 09:00 08/19/19 08:43 Aspirin PO 325 mg DAILY JOSE Administration Clonidine 0.1 mg 08/16/19 17:14 08/19/19 04:40 Catapres PO 0.1 mg Q4H PRN Administration sbp>190 Docusate Sodium 100 mg 08/15/19 09:00 08/19/19 08:44 Colace PO 100 mg DAILY JOSE Administration Donepezil HCl 10 mg 08/14/19 21:00 08/18/19 21:33 Aricept PO 10 mg HS JOSE Administration Enoxaparin Sodium 30 mg 08/16/19 09:00 08/19/19 08:45 Lovenox SC 30 mg 0900 JOSE Administration Fish Oil 1,000 mg 08/15/19 09:00 08/19/19 08:43 Fish Oil PO 1,000 mg DAILY JOSE Administration Guaifenesin/Dextromethorphan 15 ml 08/14/19 10:47 08/19/19 06:03 Robitussin Dm PO 15 ml Q4H PRN Administration Cough Hydralazine HCl 25 mg 08/16/19 21:00 08/19/19 08:44 Apresoline PO 25 mg BID JOSE Administration Ceftriaxone Sodium 1 gm/ 100 mls @ 200 mls/hr 08/15/19 07:00 08/19/19 06:03 Sodium Chloride IVPB 100 mls Q24HR JOSE Administration Sodium Chloride 1,000 mls @ 70 mls/hr 08/18/19 16:00 08/19/19 06:05 Normal Saline 0.9% IV 1,000 mls .[id number] JOSE Administration Iron/Minerals/Multivitamins 1 tab 08/15/19 09:00 08/19/19 08:44 Theragran M PO 1 tab DAILY JOSE Administration Levothyroxine Sodium 88 mcg 08/15/19 09:00 08/19/19 08:43 Synthroid PO 88 mcg DAILY JOSE Administration Metoprolol Succinate 50 mg 08/15/19 09:00 08/19/19 08:43 Toprol Xl PO 50 mg DAILY JOSE Administration Quetiapine Fumarate 12.5 mg 08/14/19 21:00 08/18/19 21:33 Seroquel PO 12.5 mg HS JOSE Administration Senna/Docusate Sodium 2 tab 08/14/19 10:47 08/14/19 17:41 Senokot S PO 2 tab BID PRN Administration Constipation Sodium Chloride 10 ml 08/14/19 21:00 08/19/19 08:53 Flush - Normal Saline IVF Not Given Q12HR JOSE - Exam General Appearance: NAD Eye: PERRL, anicteric sclera ENT: normocephalic atraumatic, moist mucosa Neck: supple, symmetric, no thyromegaly Heart: no murmur, no gallops, no rubs Respiratory: CTAB, no wheezes, no rales, no ronchi, no tachypnea Gastrointestinal: soft, non-tender, no guarding, no rigidity Extremities: no edema Skin: no lesions, no rashes Neurological: cranial nerve grossly intact, no focal deficits Musculoskeletal: generalized weakness Psychiatric: normal affect, oriented to person, oriented to place Hosp A/P (1) Acute renal failure Status: Acute Qualifiers: Acute renal failure type: unspecified Qualified Code(s): N17.9 - Acute kidney failure, unspecified (2) FTT (failure to thrive) in adult Status: Acute (3) CAD (coronary artery disease) Code(s): I25.10 - ATHSCL HEART DISEASE OF [place] CORONARY ARTERY W/O ANG PCTRS Status: Chronic Qualifiers: Coronary Disease-Associated Artery/Lesion type: [place] artery [place] vs. transplanted heart: [place] heart Associated angina: without angina Qualified Code(s): I25.10 - Atherosclerotic heart disease of [place] coronary artery without angina pectoris (4) Metabolic acidosis Code(s): E87.2 - ACIDOSIS Status: Resolved (5) Severe dehydration Code(s): E86.0 - DEHYDRATION Status: Resolved (6) Bronchitis Code(s): J40 - BRONCHITIS, NOT SPECIFIED ACUTE OR CHRONIC Status: Acute (7) Carotid stenosis Code(s): I65.29 - OCCLUSION AND STENOSIS OF UNSPECIFIED CAROTID ARTERY Status : Acute (8) Elevated LFTs Code(s): R94.5 - ABNORMAL RESULTS OF LIVER FUNCTION STUDIES Status: Acute (9) Hypokalemia Code(s): E87.6 - HYPOKALEMIA Status: Acute (10) Pleurisy with effusion Code(s): J90 - PLEURAL EFFUSION, NOT ELSEWHERE CLASSIFIED Status: Acute (11) Afib Code(s): I48.91 - UNSPECIFIED ATRIAL FIBRILLATION Status: Chronic Qualifiers: Atrial fibrillation type: paroxysmal Qualified Code(s): I48.0 - Paroxysmal atrial fibrillation (12) Dementia Code(s): F03.90 - UNSPECIFIED DEMENTIA WITHOUT BEHAVIORAL DISTURBANCE Status: Chronic Qualifiers: Dementia type: Alzheimer's disease (13) Hypertension Code(s): I10 - ESSENTIAL (PRIMARY) HYPERTENSION Status: Chronic Qualifiers: (14) Hypothyroid Code(s): E03.9 - HYPOTHYROIDISM, UNSPECIFIED Status: Chronic Qualifiers: Hypothyroidism type: unspecified Qualified Code(s): E03.9 - Hypothyroidism , unspecified (15) Pre-syncope Status: Chronic (16) Sick sinus syndrome Code(s): I49.5 - SICK SINUS SYNDROME Status: Chronic (17) Altered mental status Code(s): R41.82 - ALTERED MENTAL STATUS, UNSPECIFIED Status: Resolved - Plan Plan: medical unit cardiology consultation, recommendations appreciated nephrology consultation, recommendations appreciated palliative care consultation, recommendations appreciated echocardiogram with severe aortic stenosis, poor surgical candidate family and patient are deciding about dialysis patient and family have elected for a do not resuscitate and do not intubate status they would like to continue with medical management, not interested in hospice at this time blood pressure control blood sugar control continue other home medications as able replace electrolytes as needed G.I. prophylaxis DVT prophylaxis
--- NOTE | 2019-08-19 17:32 | PRG ---
DATE OF SERVICE: 08/19/2019 SUBJECTIVE: The patient noted with the following vital signs. OBJECTIVE: VITAL SIGNS: Afebrile, temperature 97.6, pulse 61, respiratory rate of 22, O2 saturation of 99%, and blood pressure 179/79. HEENT: Unremarkable. CARDIOVASCULAR SYSTEM: First and second heart sounds were heard. RESPIRATORY SYSTEM: Clear to auscultation. DIGESTIVE: Revealed a benign abdomen with positive bowel sounds. EXTREMITIES: No peripheral edema. SKIN: No new gross rash. LYMPHATICS: No peripheral lymphadenopathy. LABORATORY INVESTIGATION: Showed a bicarb of 19, BUN of 45 with a creatinine of 3.97, and albumin of 2.6. IMPRESSION: 1. Acute on chronic kidney disease with sustained clinical improvement. 2. Metabolic acidosis, improved. PLAN: Continue current renal supportive measures. Job ID: [id number]
[2019-08-19] MEDS: Donepezil HCl 5 MG TAB PO SCH (20:41)
[2019-08-19] MEDS: Megestrol Acetate 40 MG TAB PO SCH (20:41)
[2019-08-20 06:02] LABS: Albumin 2.5 g/dL (3.4-4.8); Anion Gap 13 mmol/L (10-20); BUN (Urea Nitrogen) 42 mg/dL (9.8-20.1); Calc. Creatinine Clearance 11 mL/min (70-130); Calcium 7.9 mg/dL (7.8-10.44); Carbon Dioxide 16 mmol/L (23-31); Chloride 117 mmol/L (98-107); Estimated GFR-MDRD 12; Glucose 77 mg/dL (83-110); Phosphorus 3.3 mg/dL (2.3-4.7); Potassium 3.6 mmol/L (3.5-5.1); Sodium 142 mmol/L (136-145)
[2019-08-20] MEDS: cefTRIAXone\\ROCEPHIN 1 GM in Sodium Chloride 0.9% 100 ML IVPB SCH (06:04)
[2019-08-20] MEDS: Levothyroxine Sodium 88 MCG TAB PO SCH (09:07)
[2019-08-20] MEDS: Multivitamin W/ Minerals 1 TAB PO SCH (09:07)
[2019-08-20] MEDS: Aspirin 325 MG TAB PO SCH (09:07)
[2019-08-20] MEDS: hydrALAZINE 25 MG TAB PO SCH ×2 (09:07→20:56)
[2019-08-20] MEDS: Megestrol Acetate 40 MG TAB PO SCH ×3 (09:07→20:56)
[2019-08-20] MEDS: Sodium Chloride 0.9% 1,000 ML IV SCH (09:08)
[2019-08-20] MEDS: Fish Oil 1,000 MG CAP PO SCH (09:09)
[2019-08-20] MEDS: Enoxaparin Sodium 30 MG/0.3 ML SYRINGE SC SCH (09:09)
[2019-08-20] MEDS: Docusate 100 MG CAP PO SCH (10:16)
--- NOTE | 2019-08-20 13:33 | PDOC.HOSPP ---
- Subjective Subjective: Seen and examined. Patient continues to do well medically. We've been on IV fluids for several days for renal protection, and her renal function has improved. However now we are getting third spacing of fluid in her hands and arms are swelling. Mild edema and legs. There is no shortness of breath or wheezing or signs of pulmonary edema. I will add a chest x-ray. Patient having good appetite with Megace addition. Discussed rehab vs SNF with patient and family and they are open to this idea, though they would like a little more time to think about it is a family. - Objective Vital Signs & Weight: Vital Signs (12 hours) Temp Pulse Resp BP Pulse Ox 08/20/19 11:30 98.2 F 64 16 161/90 H 98 08/20/19 09:07 78 08/20/19 08:38 98.0 F 78 15 172/85 H 98 Weight Admit Weight 112 lb 3.2 oz Weight 141 lb I&O: 08/19/19 08/20/19 08/21/19 06:59 06:59 06:59 Intake Total 1909 3830 Balance 1910 3830 Result Diagrams: 08/17/19 06:00 08/20/19 05:27 Radiology Reviewed by me: Yes Hospitalist ROS - Review of Systems All other systems reviewed; all pertinent +/- noted in HPI/Subj - Medication Medications: Active Medications Generic Name Dose Route Start Last Admin Trade Name Freq PRN Reason Stop Dose Admin Aspirin 325 mg 08/15/19 09:00 08/20/19 09:07 Aspirin PO 325 mg DAILY JOSE Administration Clonidine 0.1 mg 08/16/19 17:14 08/19/19 04:40 Catapres PO 0.1 mg Q4H PRN Administration sbp>190 Docusate Sodium 100 mg 08/15/19 09:00 08/20/19 10:16 Colace PO Not Given DAILY JOSE Donepezil HCl 10 mg 08/14/19 21:00 08/19/19 20:41 Aricept PO 10 mg HS JOSE Administration Enoxaparin Sodium 30 mg 08/16/19 09:00 08/20/19 09:09 Lovenox SC 30 mg 0900 JOSE Administration Fish Oil 1,000 mg 08/15/19 09:00 08/20/19 09:09 Fish Oil PO 1,000 mg DAILY JOSE Administration Guaifenesin/Dextromethorphan 15 ml 08/14/19 10:47 08/19/19 06:03 Robitussin Dm PO 15 ml Q4H PRN Administration Cough Hydralazine HCl 25 mg 08/16/19 21:00 08/20/19 09:07 Apresoline PO 25 mg BID JOSE Administration Ceftriaxone Sodium 1 gm/ 100 mls @ 200 mls/hr 08/15/19 07:00 08/20/19 06:04 Sodium Chloride IVPB 100 mls Q24HR JOSE Administration Iron/Minerals/Multivitamins 1 tab 08/15/19 09:00 08/20/19 09:07 Theragran M PO 1 tab DAILY JOSE Administration Levothyroxine Sodium 88 mcg 08/15/19 09:00 08/20/19 09:07 Synthroid PO 88 mcg DAILY JOSE Administration Megestrol Acetate 40 mg 08/19/19 21:00 08/20/19 09:07 Megace PO 40 mg TID JOSE Administration Metoprolol Succinate 50 mg 08/15/19 09:00 08/20/19 09:07 Toprol Xl PO 50 mg DAILY JOSE Administration Quetiapine Fumarate 12.5 mg 08/14/19 21:00 08/19/19 20:40 Seroquel PO 12.5 mg HS JOSE Administration Senna/Docusate Sodium 2 tab 08/14/19 10:47 08/14/19 17:41 Senokot S PO 2 tab BID PRN Administration Constipation Sodium Chloride 10 ml 08/14/19 21:00 08/20/19 09:08 Flush - Normal Saline IVF Not Given Q12HR JOSE - Exam General Appearance: NAD, awake alert Eye: anicteric sclera ENT: normocephalic atraumatic, moist mucosa Neck: supple, symmetric, no lymphadenopathy Heart: no murmur, no gallops, no rubs, normal peripheral pulses Respiratory: CTAB, no wheezes, no rales, no ronchi, normal chest expansion Gastrointestinal: soft, non-tender, no guarding, no rigidity Extremities: 1+ LE edema Extremities - other findings: Bilateral UE edema in the hands and arms Skin: no lesions, no rashes Neurological: cranial nerve grossly intact, no focal deficits Musculoskeletal: generalized weakness Psychiatric: oriented to person, oriented to place Hosp A/P (1) Acute renal failure Status: Acute Qualifiers: Acute renal failure type: unspecified Qualified Code(s): N17.9 - Acute kidney failure, unspecified (2) FTT (failure to thrive) in adult Status: Acute (3) CAD (coronary artery disease) Code(s): I25.10 - ATHSCL HEART DISEASE OF [place] CORONARY ARTERY W/O ANG PCTRS Status: Chronic Qualifiers: Coronary Disease-Associated Artery/Lesion type: [place] artery [place] vs. transplanted heart: [place] heart Associated angina: without angina Qualified Code(s): I25.10 - Atherosclerotic heart disease of [place] coronary artery without angina pectoris (4) Metabolic acidosis Code(s): E87.2 - ACIDOSIS Status: Resolved (5) Severe dehydration Code(s): E86.0 - DEHYDRATION Status: Resolved (6) Bronchitis Code(s): J40 - BRONCHITIS, NOT SPECIFIED ACUTE OR CHRONIC Status: Acute (7) Carotid stenosis Code(s): I65.29 - OCCLUSION AND STENOSIS OF UNSPECIFIED CAROTID ARTERY Status : Acute (8) Elevated LFTs Code(s): R94.5 - ABNORMAL RESULTS OF LIVER FUNCTION STUDIES Status: Acute (9) Hypokalemia Code(s): E87.6 - HYPOKALEMIA Status: Acute (10) Pleurisy with effusion Code(s): J90 - PLEURAL EFFUSION, NOT ELSEWHERE CLASSIFIED Status: Acute (11) Afib Code(s): I48.91 - UNSPECIFIED ATRIAL FIBRILLATION Status: Chronic Qualifiers: Atrial fibrillation type: paroxysmal Qualified Code(s): I48.0 - Paroxysmal atrial fibrillation (12) Dementia Code(s): F03.90 - UNSPECIFIED DEMENTIA WITHOUT BEHAVIORAL DISTURBANCE Status: Chronic Qualifiers: Dementia type: Alzheimer's disease (13) Hypertension Code(s): I10 - ESSENTIAL (PRIMARY) HYPERTENSION Status: Chronic Qualifiers: (14) Hypothyroid Code(s): E03.9 - HYPOTHYROIDISM, UNSPECIFIED Status: Chronic Qualifiers: Hypothyroidism type: unspecified Qualified Code(s): E03.9 - Hypothyroidism , unspecified (15) Pre-syncope Status: Chronic (16) Sick sinus syndrome Code(s): I49.5 - SICK SINUS SYNDROME Status: Chronic (17) Altered mental status Code(s): R41.82 - ALTERED MENTAL STATUS, UNSPECIFIED Status: Resolved - Plan Plan: medical unit cardiology consultation, recommendations appreciated nephrology consultation, recommendations appreciated palliative care consultation, recommendations appreciated echocardiogram with severe aortic stenosis, poor surgical candidate family and patient are deciding about dialysis, renal function continues to improve and may not need HD Avoid nephrotoxins as able Stop IV fluids CXR to eval for pulm edema added Elevate hands and legs if swollen Eval for rehab vs SNF placement patient and family have elected for a do not resuscitate and do not intubate status they would like to continue with medical management, not interested in hospice at this time blood pressure control blood sugar control continue other home medications as able replace electrolytes as needed G.I. prophylaxis DVT prophylaxis
--- NOTE | 2019-08-20 14:54 | RAD ---
Exam: Chest one view portable: HISTORY: Shortness of breath, pulmonary edema COMPARISON: 06/10/2019 FINDINGS: Cardiomegaly. Right pleural effusion with minimal parenchymal changes in the right lower lobe which a re more prominent than the prior study possibly representing increasing pleural effusion and/or associated right lower lobe parenchymal change. The upper lung zones are clear. IMPRESSION: Worsening pleural and parenchymal opacity changes in the right base. Cardiomegaly. The remainder of the chest is stable.
[2019-08-20] MEDS: cloNIDine 0.1 MG TAB PO PRN (16:43)
[2019-08-20] MEDS: Donepezil HCl 5 MG TAB PO SCH (20:57)
[2019-08-21] MEDS: cloNIDine 0.1 MG TAB PO PRN (01:48)
[2019-08-21] MEDS ORDERED: hydrALAZINE 20 MG/ML VIAL SLOW IVP PRN (05:25)
[2019-08-21] MEDS: cefTRIAXone\\ROCEPHIN 1 GM in Sodium Chloride 0.9% 100 ML IVPB SCH (06:08)
[2019-08-21 06:15] LABS: Albumin 2.4 g/dL (3.4-4.8); Anion Gap 11 mmol/L (10-20); BUN (Urea Nitrogen) 44 mg/dL (9.8-20.1); BUN/Creatinine Ratio 13.13; Calc. Creatinine Clearance 12 mL/min (70-130); Calcium 7.8 mg/dL (7.8-10.44); Carbon Dioxide 19 mmol/L (23-31); Chloride 115 mmol/L (98-107); Estimated GFR-MDRD 13; Glucose 81 mg/dL (83-110); Phosphorus 3.2 mg/dL (2.3-4.7); Potassium 3.4 mmol/L (3.5-5.1); Sodium 142 mmol/L (136-145)
[2019-08-21] MEDS ORDERED: Potassium Chloride 20 MEQ TAB PO SCH (08:15)
[2019-08-21] MEDS: Fish Oil 1,000 MG CAP PO SCH (08:49)
[2019-08-21] MEDS: Enoxaparin Sodium 30 MG/0.3 ML SYRINGE SC SCH (08:49)
[2019-08-21] MEDS: Acetaminophen 325 MG TAB PO PRN ×2 (08:49→15:11)
[2019-08-21] MEDS: Aspirin 325 MG TAB PO SCH (08:50)
[2019-08-21] MEDS: Levothyroxine Sodium 88 MCG TAB PO SCH (08:50)
[2019-08-21] MEDS: hydrALAZINE 25 MG TAB PO SCH ×3 (08:50→20:55)
[2019-08-21] MEDS: Multivitamin W/ Minerals 1 TAB PO SCH (08:51)
[2019-08-21] MEDS: Docusate 100 MG CAP PO SCH (08:51)
[2019-08-21] MEDS: Megestrol Acetate 40 MG TAB PO SCH ×3 (08:52→20:53)
--- NOTE | 2019-08-21 09:21 | PRG ---
DATE OF SERVICE: SUBJECTIVE: The patient was seen and examined, noted with the following vital signs. OBJECTIVE: VITAL SIGNS: Afebrile, temperature 98.5, pulse 69, respiratory rate of 20, O2 saturation of 97%, blood pressure 180/83, respiratory rate of 16, and O2 saturations of 97%. HEENT: Unremarkable. CARDIOVASCULAR: First and second heart sounds were heard. RESPIRATORY SYSTEM: Clear to auscultation. DIGESTIVE: Revealed a benign abdomen with positive bowel sounds. EXTREMITIES: No peripheral edema. SKIN: No new gross rash. LYMPHATICS: No peripheral lymphadenopathy. LABORATORY INVESTIGATION: Significant for potassium of 3.4, creatinine of 3.35 with BUN of 44. IMPRESSION: 1. Acute on chronic kidney disease, gradually improving. 2. Hypertension, suboptimally controlled. 3. Mild hypokalemia. PLAN: 1. Replete potassium. 2. Adjust antihypertensive medications to optimize the hemodynamics. 3. Further management to be dependent on the clinical course. Job ID: [id number]
[2019-08-21] MEDS ORDERED: Amlodipine 10 MG TAB PO SCH ×2 (09:45)
--- NOTE | 2019-08-21 11:35 | PRG ---
DATE OF SERVICE: 08/20/2019 SUBJECTIVE: The patient is seen and examined, noted with the following vital signs. OBJECTIVE: VITAL SIGNS: Afebrile, temperature 97.3, , blood pressure 178/84, . HEENT: Unremarkable. CARDIOVASCULAR SYSTEM: First and second heart sounds were heard. RESPIRATORY SYSTEM: Clear to auscultation. DIGESTIVE SYSTEM: Revealed a benign abdomen with positive bowel sounds. EXTREMITIES: No peripheral edema. SKIN: No new gross rash. LYMPHATICS: No peripheral lymphadenopathy. IMPRESSION: 1. Acute on chronic kidney disease, which seems to be gradually improving. 2. Hypertension, being suboptimally controlled. PLAN: 1. Discontinue IV fluid. 2. If the patient's blood pressure remains high, we will consider adjusting the patient's antihypertensive medications. 3. Further management to be dependent on the clinical course. Job ID: [id number]
[2019-08-21] MEDS: Donepezil HCl 5 MG TAB PO SCH (20:55)
[2019-08-22] MEDS: cefTRIAXone\\ROCEPHIN 1 GM in Sodium Chloride 0.9% 100 ML IVPB SCH (06:27)
[2019-08-22 06:29] LABS: Albumin 2.5 g/dL (3.4-4.8); Anion Gap 13 mmol/L (10-20); BUN (Urea Nitrogen) 43 mg/dL (9.8-20.1); BUN/Creatinine Ratio 14.48; Calc. Creatinine Clearance 13 mL/min (70-130); Calcium 8.1 mg/dL (7.8-10.44); Carbon Dioxide 18 mmol/L (23-31); Chloride 113 mmol/L (98-107); Estimated GFR-MDRD 15; Glucose 82 mg/dL (83-110); Phosphorus 3.1 mg/dL (2.3-4.7); Potassium 3.5 mmol/L (3.5-5.1); Sodium 140 mmol/L (136-145)
[2019-08-22] MEDS: Acetaminophen 325 MG TAB PO PRN (06:33)
[2019-08-22] MEDS: hydrALAZINE 25 MG TAB PO SCH ×3 (08:34→21:15)
[2019-08-22] MEDS: Aspirin 325 MG TAB PO SCH (08:35)
[2019-08-22] MEDS: Amlodipine 5 MG TAB PO SCH (08:35)
[2019-08-22] MEDS: Enoxaparin Sodium 30 MG/0.3 ML SYRINGE SC SCH (08:35)
[2019-08-22] MEDS: Megestrol Acetate 40 MG TAB PO SCH ×3 (08:35→21:16)
[2019-08-22] MEDS: Multivitamin W/ Minerals 1 TAB PO SCH (08:35)
[2019-08-22] MEDS: Docusate 100 MG CAP PO SCH (08:35)
[2019-08-22] MEDS: Fish Oil 1,000 MG CAP PO SCH (08:35)
[2019-08-22] MEDS: Levothyroxine Sodium 88 MCG TAB PO SCH (08:40)
--- NOTE | 2019-08-22 10:01 | PDOC.HOSPP ---
- Subjective Encounter Date: 08/22/19 Encounter Time: 14:40 Subjective: Patient without complaints. States she is drinking fluids. - Objective Vital Signs & Weight: Vital Signs (12 hours) Temp Pulse Resp BP BP Pulse Ox 08/22/19 08:35 62 178/82 H 08/22/19 08:34 62 178/82 H 08/22/19 08:33 98.1 F 60 20 178/82 H 99 08/22/19 04:00 97.5 F L 64 16 174/97 H 98 08/22/19 00:00 97.4 F L 64 14 160/80 H 98 Weight Admit Weight 112 lb 3.2 oz Weight 141 lb I&O: 08/21/19 08/22/19 08/23/19 06:59 06:59 06:59 Intake Total 2690 1240 Balance 2690 1240 Result Diagrams: 08/17/19 06:00 08/22/19 05:20 Hospitalist ROS - Review of Systems Constitutional: denies: fever, chills Respiratory: denies: cough, shortness of breath Cardiovascular: denies: chest pain, palpitations Gastrointestinal: denies: nausea, vomiting, abdominal pain - Medication Medications: Active Medications Generic Name Dose Route Start Last Admin Trade Name Freq PRN Reason Stop Dose Admin Acetaminophen 650 mg 08/14/19 10:47 08/22/19 06:33 Tylenol PO 650 mg Q4H PRN Administration Headache/Fever/Mild Pain (1-3) Albuterol/Ipratropium 3 ml 08/14/19 10:47 08/20/19 23:31 Duoneb NEB 3 ml QID PRN Administration SOB &/or Wheezing Amlodipine Besylate 5 mg 08/22/19 09:00 08/22/19 08:35 Norvasc PO 5 mg DAILY JOSE Administration Aspirin 325 mg 08/15/19 09:00 08/22/19 08:35 Aspirin PO 325 mg DAILY JOSE Administration Clonidine 0.1 mg 08/16/19 17:14 08/21/19 01:48 Catapres PO 0.1 mg Q4H PRN Administration sbp>190 Docusate Sodium 100 mg 08/15/19 09:00 08/22/19 08:35 Colace PO 100 mg DAILY JOSE Administration Donepezil HCl 10 mg 08/14/19 21:00 08/21/19 20:55 Aricept PO 10 mg HS JOSE Administration Enoxaparin Sodium 30 mg 08/16/19 09:00 08/22/19 08:35 Lovenox SC 30 mg 0900 JOSE Administration Fish Oil 1,000 mg 08/15/19 09:00 08/22/19 08:35 Fish Oil PO 1,000 mg DAILY JOSE Administration Guaifenesin/Dextromethorphan 15 ml 08/14/19 10:47 08/19/19 06:03 Robitussin Dm PO 15 ml Q4H PRN Administration Cough Hydralazine HCl 10 mg 08/21/19 05:25 08/21/19 06:06 Apresoline SLOW IVP 10 mg Q4H PRN Administration SBP Greater Than 170 Hydralazine HCl 50 mg 08/22/19 09:00 08/22/19 08:34 Apresoline PO 50 mg TID JOSE Administration Ceftriaxone Sodium 1 gm/ 100 mls @ 200 mls/hr 08/15/19 07:00 08/22/19 06:27 Sodium Chloride IVPB 100 mls Q24HR JOSE Administration Iron/Minerals/Multivitamins 1 tab 08/15/19 09:00 08/22/19 08:35 Theragran M PO 1 tab DAILY JOSE Administration Levothyroxine Sodium 88 mcg 08/15/19 09:00 08/22/19 08:40 Synthroid PO 88 mcg DAILY JOSE Administration Megestrol Acetate 40 mg 08/19/19 21:00 08/22/19 08:35 Megace PO 40 mg TID JOSE Administration Metoprolol Succinate 100 mg 08/22/19 09:00 08/22/19 08:35 Toprol Xl PO 100 mg DAILY JOSE Administration Quetiapine Fumarate 12.5 mg 08/14/19 21:00 08/21/19 20:55 Seroquel PO 12.5 mg HS JOSE Administration Senna/Docusate Sodium 2 tab 08/14/19 10:47 08/14/19 17:41 Senokot S PO 2 tab BID PRN Administration Constipation Sodium Chloride 10 ml 08/14/19 21:00 08/22/19 08:36 Flush - Normal Saline IVF 10 ml Q12HR JOSE Administration - Exam General Appearance: NAD, awake alert ENT: moist mucosa Heart: RRR, no gallops, no rubs, murmur present, II/IV Respiratory: CTAB, no wheezes, no rales, no ronchi Gastrointestinal: soft, non-tender, non-distended, normal bowel sounds Psychiatric: normal affect, normal behavior, oriented to person Hosp A/P (1) Acute renal failure Status: Acute Qualifiers: Acute renal failure type: unspecified Qualified Code(s): N17.9 - Acute kidney failure, unspecified (2) FTT (failure to thrive) in adult Status: Acute (3) CAD (coronary artery disease) Code(s): I25.10 - ATHSCL HEART DISEASE OF [place] CORONARY ARTERY W/O ANG PCTRS Status: Chronic Qualifiers: Coronary Disease-Associated Artery/Lesion type: [place] artery [place] vs. transplanted heart: [place] heart Associated angina: without angina Qualified Code(s): I25.10 - Atherosclerotic heart disease of [place] coronary artery without angina pectoris (4) Carotid stenosis Code(s): I65.29 - OCCLUSION AND STENOSIS OF UNSPECIFIED CAROTID ARTERY Status : Chronic (5) Cerebrovascular accident, hemorrhagic Code(s): I61.9 - NONTRAUMATIC INTRACEREBRAL HEMORRHAGE, UNSPECIFIED Status: Chronic (6) Hypokalemia Code(s): E87.6 - HYPOKALEMIA Status: Acute (7) Afib Code(s): I48.91 - UNSPECIFIED ATRIAL FIBRILLATION Status: Chronic Qualifiers: Atrial fibrillation type: paroxysmal Qualified Code(s): I48.0 - Paroxysmal atrial fibrillation (8) Dementia Code(s): F03.90 - UNSPECIFIED DEMENTIA WITHOUT BEHAVIORAL DISTURBANCE Status: Chronic Qualifiers: Dementia type: Alzheimer's disease (9) Hypertension Code(s): I10 - ESSENTIAL (PRIMARY) HYPERTENSION Status: Chronic Qualifiers: (10) Hypothyroid Code(s): E03.9 - HYPOTHYROIDISM, UNSPECIFIED Status: Chronic Qualifiers: Hypothyroidism type: unspecified Qualified Code(s): E03.9 - Hypothyroidism , unspecified (11) Severe aortic stenosis Code(s): I35.0 - NONRHEUMATIC AORTIC (VALVE) STENOSIS Status: Acute - Plan Creatinine improved Will need SNF placement when ok with nephrology Severe aortic stenosis but not a surgical candidate DNAR
[2019-08-22] MEDS: Donepezil HCl 5 MG TAB PO SCH (21:16)
[2019-08-23] MEDS: cloNIDine 0.1 MG TAB PO PRN (00:27)
[2019-08-23] MEDS: cefTRIAXone\\ROCEPHIN 1 GM in Sodium Chloride 0.9% 100 ML IVPB SCH (06:34)
[2019-08-23] MEDS: Acetaminophen 325 MG TAB PO PRN (06:37)
[2019-08-23 06:42] LABS: Albumin 2.5 g/dL (3.4-4.8); Anion Gap 15 mmol/L (10-20); BUN (Urea Nitrogen) 37 mg/dL (9.8-20.1); BUN/Creatinine Ratio 14.51; Calc. Creatinine Clearance 16 mL/min (70-130); Calcium 8.1 mg/dL (7.8-10.44); Carbon Dioxide 15 mmol/L (23-31); Chloride 114 mmol/L (98-107); Estimated GFR-MDRD 18; Glucose 74 mg/dL (83-110); Phosphorus 3.3 mg/dL (2.3-4.7); Potassium 3.9 mmol/L (3.5-5.1); Sodium 140 mmol/L (136-145)
--- NOTE | 2019-08-23 09:33 | PDOC.HOSPP ---
- Subjective Encounter Date: 08/23/19 Encounter Time: 14:30 Subjective: Patient doing well. Up to chair. No complaints. Taking oral fluids. - Objective Vital Signs & Weight: Vital Signs (12 hours) Temp Pulse Resp BP BP BP Pulse Ox 08/23/19 07:54 98.0 F 79 22 H 145/81 H 98 08/23/19 04:00 98.6 F 71 16 157/72 H 98 08/23/19 00:32 98.1 F 70 16 199/78 H 99 08/23/19 00:27 199/78 H Weight Admit Weight 112 lb 3.2 oz Weight 141 lb I&O: 08/22/19 08/23/19 08/24/19 06:59 06:59 06:59 Intake Total 1240 1400 Balance 1240 1400 Result Diagrams: 08/17/19 06:00 08/23/19 05:30 Hospitalist ROS - Review of Systems Constitutional: denies: fever, chills Respiratory: denies: cough, shortness of breath Cardiovascular: denies: chest pain, palpitations Gastrointestinal: denies: nausea, vomiting, abdominal pain - Medication Medications: Active Medications Generic Name Dose Route Start Last Admin Trade Name Freq PRN Reason Stop Dose Admin Acetaminophen 650 mg 08/14/19 10:47 08/23/19 06:37 Tylenol PO 650 mg Q4H PRN Administration Headache/Fever/Mild Pain (1-3) Albuterol/Ipratropium 3 ml 08/14/19 10:47 08/20/19 23:31 Duoneb NEB 3 ml QID PRN Administration SOB &/or Wheezing Amlodipine Besylate 5 mg 08/22/19 09:00 08/22/19 08:35 Norvasc PO 5 mg DAILY JOSE Administration Aspirin 325 mg 08/15/19 09:00 08/22/19 08:35 Aspirin PO 325 mg DAILY JOSE Administration Clonidine 0.1 mg 08/16/19 17:14 08/23/19 00:27 Catapres PO 0.1 mg Q4H PRN Administration sbp>190 Docusate Sodium 100 mg 08/15/19 09:00 08/22/19 08:35 Colace PO 100 mg DAILY JOSE Administration Donepezil HCl 10 mg 08/14/19 21:00 08/22/19 21:16 Aricept PO 10 mg HS JOSE Administration Enoxaparin Sodium 30 mg 08/16/19 09:00 08/22/19 08:35 Lovenox SC 30 mg 0900 JOSE Administration Fish Oil 1,000 mg 08/15/19 09:00 08/22/19 08:35 Fish Oil PO 1,000 mg DAILY JOSE Administration Guaifenesin/Dextromethorphan 15 ml 08/14/19 10:47 08/19/19 06:03 Robitussin Dm PO 15 ml Q4H PRN Administration Cough Hydralazine HCl 10 mg 08/21/19 05:25 08/21/19 06:06 Apresoline SLOW IVP 10 mg Q4H PRN Administration SBP Greater Than 170 Ceftriaxone Sodium 1 gm/ 100 mls @ 200 mls/hr 08/15/19 07:00 08/23/19 06:34 Sodium Chloride IVPB 100 mls Q24HR JOSE Administration Iron/Minerals/Multivitamins 1 tab 08/15/19 09:00 08/22/19 08:35 Theragran M PO 1 tab DAILY JOSE Administration Levothyroxine Sodium 88 mcg 08/15/19 09:00 08/22/19 08:40 Synthroid PO 88 mcg DAILY JOSE Administration Megestrol Acetate 40 mg 08/19/19 21:00 08/22/19 21:16 Megace PO 40 mg TID JOSE Administration Quetiapine Fumarate 12.5 mg 08/14/19 21:00 08/22/19 21:16 Seroquel PO 12.5 mg HS JOSE Administration Senna/Docusate Sodium 2 tab 08/14/19 10:47 08/14/19 17:41 Senokot S PO 2 tab BID PRN Administration Constipation Sodium Chloride 10 ml 08/14/19 21:00 08/22/19 21:17 Flush - Normal Saline IVF 10 ml Q12HR JOSE Administration - Exam General Appearance: NAD, awake alert ENT: moist mucosa Heart: RRR, no murmur, no gallops, no rubs Respiratory: CTAB, no wheezes, no rales, no ronchi Gastrointestinal: soft, non-tender, non-distended, normal bowel sounds Psychiatric: normal affect, normal behavior Hosp A/P (1) Acute renal failure Status: Acute Qualifiers: Acute renal failure type: unspecified Qualified Code(s): N17.9 - Acute kidney failure, unspecified (2) FTT (failure to thrive) in adult Status: Acute (3) CAD (coronary artery disease) Code(s): I25.10 - ATHSCL HEART DISEASE OF [place] CORONARY ARTERY W/O ANG PCTRS Status: Chronic Qualifiers: Coronary Disease-Associated Artery/Lesion type: [place] artery [place] vs. transplanted heart: [place] heart Associated angina: without angina Qualified Code(s): I25.10 - Atherosclerotic heart disease of [place] coronary artery without angina pectoris (4) Carotid stenosis Code(s): I65.29 - OCCLUSION AND STENOSIS OF UNSPECIFIED CAROTID ARTERY Status : Chronic (5) Cerebrovascular accident, hemorrhagic Code(s): I61.9 - NONTRAUMATIC INTRACEREBRAL HEMORRHAGE, UNSPECIFIED Status: Chronic (6) Hypokalemia Code(s): E87.6 - HYPOKALEMIA Status: Acute (7) Afib Code(s): I48.91 - UNSPECIFIED ATRIAL FIBRILLATION Status: Chronic Qualifiers: Atrial fibrillation type: paroxysmal Qualified Code(s): I48.0 - Paroxysmal atrial fibrillation (8) Dementia Code(s): F03.90 - UNSPECIFIED DEMENTIA WITHOUT BEHAVIORAL DISTURBANCE Status: Chronic Qualifiers: Dementia type: Alzheimer's disease (9) Hypertension Code(s): I10 - ESSENTIAL (PRIMARY) HYPERTENSION Status: Chronic Qualifiers: (10) Hypothyroid Code(s): E03.9 - HYPOTHYROIDISM, UNSPECIFIED Status: Chronic Qualifiers: Hypothyroidism type: unspecified Qualified Code(s): E03.9 - Hypothyroidism , unspecified (11) Severe aortic stenosis Code(s): I35.0 - NONRHEUMATIC AORTIC (VALVE) STENOSIS Status: Acute - Plan Creatinine continues to improve off IV fluids Spoke with Dr. Loya and he has cleared her to discharge to SNF Severe aortic stenosis but not a surgical candidate DNAR D/c to SNF as soon as approved.
[2019-08-23] MEDS: Aspirin 325 MG TAB PO SCH (09:44)
[2019-08-23] MEDS: Multivitamin W/ Minerals 1 TAB PO SCH (09:45)
[2019-08-23] MEDS: hydrALAZINE 25 MG TAB PO SCH ×3 (09:45→20:15)
[2019-08-23] MEDS: Megestrol Acetate 40 MG TAB PO SCH ×3 (09:45→19:42)
[2019-08-23] MEDS: Fish Oil 1,000 MG CAP PO SCH (09:45)
[2019-08-23] MEDS: Docusate 100 MG CAP PO SCH (09:46)
[2019-08-23] MEDS: Amlodipine 5 MG TAB PO SCH (09:46)
[2019-08-23] MEDS: Enoxaparin Sodium 30 MG/0.3 ML SYRINGE SC SCH (09:46)
[2019-08-23] MEDS: Levothyroxine Sodium 88 MCG TAB PO SCH (09:51)
--- NOTE | 2019-08-23 18:29 | PRG ---
DATE OF SERVICE: 08/23/2019 SUBJECTIVE: The patient is seen and examined, noted with the following vital signs. OBJECTIVE: VITAL SIGNS: Afebrile, temperature 98, pulse 79, respiratory rate of 22, and blood pressure 145/81. HEENT: Unremarkable. CARDIOVASCULAR SYSTEM: First and second heart sounds were heard. RESPIRATORY SYSTEM: Clear to auscultation. DIGESTIVE SYSTEM: Revealed a benign abdomen with positive bowel sounds. EXTREMITIES: No peripheral edema. SKIN: No new gross rash. LYMPHATICS: No peripheral lymphadenopathy. LABORATORY INVESTIGATION: Showed a creatinine down to 2.55, BUN of 37, and bicarb of 15. IMPRESSION: 1. Acute on chronic kidney disease, which continues to maintain sustained clinical improvement. 2. Metabolic acidosis. PLAN: 1. Continue current renal supportive measures. 2. Outpatient Nephrology followup, status post discharge strongly recommended. Job ID: [id number]
[2019-08-23] MEDS: Donepezil HCl 5 MG TAB PO SCH (19:42)
[2019-08-23 19:47] VITALS: TEMP 98.6
[2019-08-23 20:16] VITALS: BP 138/94
--- NOTE | 2019-08-24 02:19 | PQF ---
[facility] Clinical Laboratory Scientist Crystal Reports JUNIOR Olson BREANA RAY U [id number] [facility]-256 [id number] CLINICAL DOCUMENTATION CLARIFICATION FORM: POST DISCHARGE Addendum to original discharge summary date: ____ Late entry note date: __ DATE: 08/24/19 ATTN:Breana Ray Please exercise your independent, professional judgment in responding to the clarification form. Clinical indicators are provided on the bottom of this form for your review Can you please further clarify if Acute Tubular Necrosis is ruled in or ruled out? ATN [ ] Ruled in diagnosis [ ] Continue to treat [ ] Resolved [ ] Ruled out diagnosis [ ] Cannot rule out diagnosis [ ] Other diagnosis [ ] Unable to determine In addition, please specify: Present on Admission (POA): [ ] Yes [ ] No [ ] Unable to determine For continuity of documentation, please document condition throughout progress notes and discharge summary. Thank You. CLINICAL INDICATORS - SIGNS / SYMPTOMS / LABS H and P pg.1- Reason for admission FADUMO, UTI, Metabolic acidosis H and P pg.1- She is very weak at present PN 2/ pg.1- Slow improving acute tubular necrosis PN 08/16 pg.1- Acute on chronic kidney disease in the context of acute tubular necrosis, seems to be showing some marginal improvement Laboratory- Creatinine: 5.01, 4.69, 4.52, 4.25, 3.97, 3.53H RISK FACTORS HTN- H and P pg.1 Hypothyroidism- H and P pg.1 CHF-H and P pg.1 CKD stage 3-H and P pg.1 Dementia- H and P pg.1 UTI- H and P pg.1 88 years old- H and P pg.1 TREATMENTS Nephrology Consult 08/14 Dr. Ray IV fluids- MAR Creatinine Monitoring- Laboratory Renal dose medication for low GFR- PN pg.1 (This form is maintained as a part of the permanent medical record) 2014 [employer] All Rights Reserved [email or web address]
--- NOTE | 2019-08-24 09:05 | DIS ---
DATE OF ADMISSION: 08/14/2019 DATE OF DISCHARGE: 08/23/2019 PRIMARY CARE PHYSICIAN: Dr. Morton. REASON FOR ADMISSION: Acute kidney failure and urinary tract infection. DIAGNOSES AT DISCHARGE: 1. Acute kidney failure, improved. 2. Urinary tract infection with Escherichia coli, resolved. 3. Failure to thrive in adult. 4. Coronary artery disease. 5. Severe aortic stenosis, nonoperable. 6. Carotid stenosis. 7. History of hemorrhagic cerebrovascular accident. 8. Dementia. 9. Atrial fibrillation. 10. Hypertension. 11. Hypothyroidism. PROCEDURES: 1. Echocardiogram showing an ejection fraction of 55% to 60% and severe aortic stenosis. 2. Renal ultrasound showing bilateral renal cysts without hydronephrosis. CONSULTATIONS: 1. Nephrology, Dr. Loya. 2. Palliative Care consult. 3. Cardiology, Dr. Song for Dr. Levy. SUMMARY OF HOSPITAL COURSE: This is an 88-year-old white female with a known history of previous hemorrhagic CVA as well as some dementia. She was brought to an outside emergency room by her family, who noted she has lost her appetite, was feeling bad for 3-4 days, was also very weak. She was found to have a urinary tract infection in [place] along with acute kidney failure and metabolic acidosis. She was admitted to the hospital here, was put on Rocephin. She did grow back E coli which is pansensitive and she completed a 9-day course of IV antibiotics today. The patient had significant acute kidney injury. She had gentle IV hydration with care due to her history of severe aortic stenosis, and she had slow improvement in both her mental status and her energy as well as her creatinine. The patient was eventually able to be weaned off IV fluids a couple of days ago. She has been able to take oral fluids with encouragement and her creatinine continues to improve, so she has been cleared for discharge from a Nephrology standpoint. Dr. Song was consulted when the ultrasound did show aortic stenosis and determined that the aortic stenosis seemed to be asymptomatic and the patient was not a surgical candidate. Dr. Levy continued her care. The patient's blood pressure did elevate after her fluid resuscitation and so, Dr. Levy has been slowly increasing her medications to keep the blood pressure under control. The patient was not an anticoagulation candidate due to her history of previous hemorrhagic stroke along with her propensity to fall. On the day of discharge, the patient was doing well and is being discharged to shelter facility in [place]. DISCHARGE MANAGEMENT: Discharged to snf Facility. ACTIVITY: As tolerated. DIET: Healthy heart, low-sodium diet with supplemental Ensure t.i.d. with meals. THERAPY: Occupational and physical therapy. TREATMENTS: Nebulizer treatments as needed. FOLLOWUP: Follow up with Dr. Loya in 2 to [address] Benny Morton for repeat basic metabolic panel in [address] Levy in one month. DISCHARGE MEDICATIONS: 1. Acetaminophen as needed. 2. Amlodipine 5 mg daily. 3. Aspirin 325 mg daily. 4. Dulcolax 10 mg per rectum as needed. 5. Tums 1000 mg q.4 hours as needed. 6. Clonidine 0.1 mg q.4 hours as needed. 7. Docusate sodium 100 mg daily as needed for constipation. 8. Aricept 10 mg at night. 9. Fish oil 1000 mg daily. 10. Robitussin DM as needed for cough. 11. Hydralazine 75 mg 3 times a day. 12. DuoNeb q.i.d. as needed for shortness of breath, coughing, or wheezing. 13. Levothyroxine 88 mcg daily. 14. Megace 40 mg t.i.d. 15. Metoprolol succinate 150 mg daily. 16. Multivitamin daily. 17. Seroquel 12.5 mg at night. 18. Senokot-S 2 tabs twice a day as needed. 19. Vitamin D3 of 1000 units daily. 20. Zetia 10 mg at night. 21. Crestor 40 mg daily. 22. CoQ10 of 200 mg daily. TIME SPENT: Details of this discharge took 35 minutes. Job ID: [id number]
--- NOTE | 2019-08-24 23:18 | PQF ---
[facility] Grove Worker Crystal Reports Winform Viewer JUNIOR PEARSON KATE DUTTA MD [id number] [facility]256 [id number] CLINICAL DOCUMENTATION CLARIFICATION FORM: POST DISCHARGE Addendum to original discharge summary date: ____ Late entry note date: __ DATE: 08/24/19 ATTN:Kate Dutta Please exercise your independent, professional judgment in responding to the clarification form. Clinical indicators are provided on the bottom of this form for your review Can you please further clarify the diagnosis of the patient? Please check appropriate box(s): [ X ] Encephalopathy: Type: [ X ] Acute [ ] Subacute [ ] Chronic Etiology: [ ] Hypertensive [ X ] Metabolic [ ] Toxic [ ] Unspecified [ ] in the setting of underlying dementia [ ] Other (please specify) [ ] Transient Alteration of Awareness [ ] Other diagnosis [ ] Unable to determine In addition, please specify: Present on Admission (POA): [ X ] Yes [ ] No [ ] Unable to determine For continuity of documentation, please document condition throughout progress notes and discharge summary. Thank You. CLINICAL INDICATORS - SIGNS / SYMPTOMS / LABS PN pg7 08/18- "Altered mental status" PN pg1 08/18- "metabolic acidosis" PN pg1 08/18- "PN pg1 08/18" PN 08/15 pg.1- "Slow improving acute tubular necrosis" PN pg6 08/19- "Dementia, Alzheimer's disease" RISK FACTORS UTI- DS pg.1 FADUMO- DS pg.1 HTN- H and P pg.1 Hypothyroidism- H and P pg.1 CHF-H and P pg.1 CKD stage 3-H and P pg.1 Dementia- H and P pg.1 TREATMENTS: IV Antibiotics- [facility] Nephrology Consult 08/14 Dr. Ray IV fluids- [facility] Creatinine Monitoring- Laboratory Renal dose medication for low GFR- PN pg.1 (This form is maintained as a part of the permanent medical record) 2014 [employer] All Rights Reserved [email or web address]
== END 2019-08-23 20:20 | disposition swing bed (61) | DRG 682 ==
LOC: ERS 00:42 → 2NO 02:17 → T4-A 08-16 15:32
PROVIDERS: ADMIT Internal Medicine; ATTEND Emergency Medicine
DX: N17.9 Acute kidney failure, unspecified (principal); G93.41 Metabolic encephalopathy; N30.00 Acute cystitis without hematuria; I13.0 Hypertensive heart and chronic kidney disease with heart failure and stage 1 through stage 4 chronic kidney disease, or unspecified chronic kidney disease; E87.2 Acidosis; I69.351 Hemiplegia and hemiparesis following cerebral infarction affecting right dominant side; E44.0 Moderate protein-calorie malnutrition; J90 Pleural effusion, not elsewhere classified; Z66 Do not resuscitate; E03.9 Hypothyroidism, unspecified; I25.10 Atherosclerotic heart disease of native coronary artery without angina pectoris; I50.9 Heart failure, unspecified; N18.3 Chronic kidney disease, stage 3 (moderate); M19.90 Unspecified osteoarthritis, unspecified site; J44.9 Chronic obstructive pulmonary disease, unspecified; E78.5 Hyperlipidemia, unspecified; R29.6 Repeated falls; K59.00 Constipation, unspecified; E87.6 Hypokalemia; I48.0 Paroxysmal atrial fibrillation; G30.9 Alzheimer's disease, unspecified; F02.80 Dementia in other diseases classified elsewhere, unspecified severity, without behavioral disturbance, psychotic disturbance, mood disturbance, and anxiety; I49.5 Sick sinus syndrome; E86.0 Dehydration; Z96.653 Presence of artificial knee joint, bilateral; I35.0 Nonrheumatic aortic (valve) stenosis; I65.29 Occlusion and stenosis of unspecified carotid artery; B96.20 Unspecified Escherichia coli [E. coli] as the cause of diseases classified elsewhere; J20.9 Acute bronchitis, unspecified; Z90.710 Acquired absence of both cervix and uterus; Z95.0 Presence of cardiac pacemaker; Z88.1 Allergy status to other antibiotic agents; Z79.890 Hormone replacement therapy; Z79.82 Long term (current) use of aspirin; Z79.51 Long term (current) use of inhaled steroids; Z79.899 Other long term (current) drug therapy; Z68.21 Body mass index [BMI] 21.0-21.9, adult
CPT/HCPCS: 36415; 36416; 71045; 76770; 80069; 82553; 82570; 83735; 84300; 84484; 85025; 93005; 93306; 94640; 96360; 96361; J0360; J0696; J1644; J1650; J3480; J3490; J7050; J7620; S0179

== ENCOUNTER 2019-09-07 11:35 | Observation (INO) | payer MEDICARE, BC ==
[2019-09-07 12:14] LABS: #Basophils 0.1 thou/uL (0.0-0.2); #Eosinphils 0.4 thou/uL (0.0-0.7); #Lymphocytes 1.6 thou/uL (1.20-3.40); #Monocytes 0.9 thou/uL (0.11-0.59); #Neutrophils 4.1 thou/uL (1.40-6.50); %Basophils 0.8 % (0.0-1.0); %Lymphocytes 22.6 % (21.0-51.0); %Monocytes 12.6 % (0.0-10.0); %Neutrophils 58.1 % (42.0-75.0); Hemoglobin 10.1 g/dL (12.0-16.0); Mean Corpuscular HGB CONC 32.7 g/dL (32.0-36.0); Mean Platelet Volume 9.2 fL (7.4-10.4); Platelet Count 194 thou/uL (130-400); RBC Distribution Width 14.1 % (11.5-14.5); Red Blood Cell (RBC) Count 2.96 mill/uL (4.20-5.40); White Blood Cell (WBC) Count 7.1 thou/uL (4.8-10.8)
[2019-09-07 12:22] LABS: INR-International Normal Ratio 1.2; Prothrombin Time 15.4 SEC (12.0-14.7)
[2019-09-07 12:23] LABS: PTT 30.2 SEC (22.9-36.1)
--- NOTE | 2019-09-07 12:24 | RAD ---
CHEST 1 VIEW PORTABLE: HISTORY: Dyspnea on exertion. Weight gain. History of congestive heart failure. COMPARISON: 08/20/2019. FINDINGS: Left ICD. Cardiomegaly. Bilateral pleural effusions, greater on the right side. No evidence for ov ert acute edema or confluent edema. IMPRESSION: Stable bilateral pleural effusions greater on the right side with cardiomegaly. No confluent pneumon ia or overt edema. POS: TPC
[2019-09-07 12:51] LABS: ALT (SGPT) 23 U/L (8-55); AST (SGOT) 58 U/L (5-34); Albumin 2.9 g/dL (3.4-4.8); Alkaline Phosphatase 51 U/L (40-110); Anion Gap 14 mmol/L (10-20); BUN (Urea Nitrogen) 27 mg/dL (9.8-20.1); Bilirubin, Total 0.7 mg/dL (0.2-1.2); CK (CPK) 106 U/L (29-168); Calc. Creatinine Clearance 0 mL/min (70-130); Carbon Dioxide 24 mmol/L (23-31); Chloride 106 mmol/L (98-107); Estimated GFR-MDRD 29; Globulin 4.1 g/dL (2.4-3.5); Glucose 112 mg/dL (83-110); Lipase 59 U/L (8-78); Potassium 5.3 mmol/L (3.5-5.1); Sodium 139 mmol/L (136-145)
[2019-09-07] MEDS ORDERED: Aspirin Chewable 81 MG TAB ONE (13:38)
[2019-09-07] MEDS ORDERED: Nitroglycerin 0.4 MG TAB 1 EACH ONE (14:17)
[2019-09-07 15:56] LABS: Troponin I 0.079 ng/mL (< 0.028)
[2019-09-07 16:41] VITALS: BMI 20.6
[2019-09-07] MEDS ORDERED: Acetaminophen 325 MG TAB PO PRN (18:01)
[2019-09-07 18:28] LABS: Troponin I 0.071 ng/mL (< 0.028)
[2019-09-07] MEDS ORDERED: Furosemide 40 MG/4 ML VIAL SLOW IVP SCH (19:00)
[2019-09-07] MEDS: Famotidine 20 MG TAB PO SCH (20:04)
[2019-09-07] MEDS: Heparin 5,000 UNITS/ML VIAL SC SCH (20:05)
--- NOTE | 2019-09-07 22:42 | HP ---
PRIMARY CARE PHYSICIAN: Benny Morton MD CHIEF COMPLAINT: Shortness of breath and left arm swelling. HISTORY OF PRESENT ILLNESS: Taken primarily from the patient's grandson, who is at the bedside as the patient has degree of dementia and unable to really give me much history, that history is actually limited as well. The patient apparently was recently released from the hospital on September 01 after she was treated for acute kidney injury and severe deconditioning and was found to also have urinary tract infection. She also has a history of severe aortic stenosis and she was deemed not to be a good surgical candidate. She was released home and she was visited by the home health nurse, who noticed swelling in her left upper extremity as well as her ankles and the patient began complaining of some shortness of breath as well. For this reason, they felt it was best that she come to the ER for evaluation. The patient says that she has not had any chest pain. She denies any nausea. No vomiting, no fevers, no chills. She says she has maintained a good appetite and currently, she is lying flat in bed. She appears to be in no acute distress and is breathing comfortably. REVIEW OF SYSTEMS: This is unobtainable due to the patient's dementia. PAST MEDICAL HISTORY: Significant for hypertension, hypothyroidism, dyslipidemia, dementia, coronary artery disease, and bilateral total knee replacement as well as severe aortic stenosis. ALLERGIES: KEFLEX. PAST SURGICAL HISTORY: She has had a hysterectomy, tonsillectomy, pacemaker, thyroidectomy, right leg vein stripping. SOCIAL HISTORY: She is . She is a nonsmoker and nondrinker. Code status is full code. FAMILY HISTORY: Significant for heart disease. MEDICATIONS: We are in the process of determining her medications. Her grandson says that she goes to [facility] in [place]. On her discharge from the [facility], she was listed as being on: 1. Tylenol 650 q.4. 2. DuoNeb p.r.n. 3. Aspirin 325 mg daily. 4. Calcium carbonate 1000 mg q.4 hours as needed. 5. Cholecalciferol 1000 units daily. 6. CoQ10 of 200 mg daily. 7. Docusate sodium 100 mg as needed. 8. Donepezil 10 mg at bedtime. 9. Zetia 10 mg at bedtime. 10. Fish oil 1000 mg p.o. daily. 11. Lasix 20 mg daily. 12. Robitussin q.4 as needed. 13. Hydralazine 50 mg t.i.d. 14. Theragran-M one tablet daily. 15. Levothyroxine 88 mcg p.o. daily. 16. Megace 40 mg t.i.d. 17. Metoprolol succinate 150 mg daily. 18. Potassium chloride 20 mEq daily. 19. Seroquel 12.5 mg at bedtime. 20. Crestor 10 mg daily. 21. Senokot twice a day. PHYSICAL EXAMINATION: GENERAL: She is alert to person only. She is well developed and well nourished. She does not appear to be in any distress. VITAL SIGNS: Blood pressure was 147/72, heart rate 84, respiratory rate of 16, temperature is 97.9, and O2 saturation is 98% on room air. HEENT: Pupils are equal, round, and reactive. Extraocular muscles are intact. Her sclerae are anicteric. Throat, no erythema, no exudates. NECK: No adenopathy. No bruits. LUNGS: Essentially clear to auscultation. There was some decreased breath sounds at the bases and occasional rhonchi. CARDIOVASCULAR: She has a normal S1, S2. There was a grade 2/6 systolic murmur. ABDOMEN: Soft. It is nontender and nondistended. Positive for bowel sounds. No rebound. No guarding. No organomegaly. EXTREMITIES: She has 2+ pitting edema on both ankles and swelling 1 to 2+ in the left upper extremity. NEUROLOGIC: She is neurologically intact. Moving all extremities. SKIN AND INTEGUMENT: She has some bruising, but otherwise no other skin changes. LABORATORY RESULTS: Sodium is 139, potassium 5.3, chloride is 106, CO2 is 24, BUN of 27, creatinine 1.65, glucose is 112. BNP was 642, troponin 0.71. White blood cell count 7.1, hemoglobin 10.1, hematocrit is 30.8, and platelet count is 194. INR is 1.2. EKG, ventricular paced rhythm with heart rate in the 80s. Chest x-ray, heart size is normal. She had some blunting of both of the costophrenic angles, possibly indicating pleural effusion as well as some chronic changes at the right base. This is by my reading. ASSESSMENT: 1. This is a pleasant 88-year-old female, who presents with shortness of breath and increased edema. This is likely related to diastolic heart failure due to valvular heart disease i.e. her aortic stenosis. Her symptoms appear to be mild. She has responded well to Nitrostat given in the ER and likely would benefit from a short stay in the hospital for IV Lasix. I suspect that with a couple of doses of IV Lasix, she should be stabilized enough to go home. 2. Hypertension. Her blood pressure appears to be well controlled. We will need to reconcile and restart her home medications. 3. Hypothyroidism. Again reconcile and restart home medications and once again, I suspect she likely will be capable for discharge tomorrow. Job ID: [id number]
[2019-09-08] MEDS: hydrALAZINE 20 MG/ML VIAL SLOW IVP PRN (04:21)
[2019-09-08 05:07] LABS: #Eosinphils 0.7 thou/uL (0.0-0.7); #Lymphocytes 2.7 thou/uL (1.20-3.40); #Monocytes 0.9 thou/uL (0.11-0.59); #Neutrophils 3.2 thou/uL (1.40-6.50); %Basophils 0.2 % (0.0-1.0); %Eosinophils 9.7 % (0.0-10.0); %Lymphocytes 35.4 % (21.0-51.0); %Monocytes 11.4 % (0.0-10.0); %Neutrophils 43.2 % (42.0-75.0); Hemoglobin 10.8 g/dL (12.0-16.0); Mean Corpuscular HGB CONC 33.2 g/dL (32.0-36.0); Mean Corpuscular Hemoglobin 34.6 pg (27.0-31.0); Mean Platelet Volume 8.3 fL (7.4-10.4); Platelet Count 178 thou/uL (130-400); RBC Distribution Width 14.2 % (11.5-14.5); Red Blood Cell (RBC) Count 3.12 mill/uL (4.20-5.40); White Blood Cell (WBC) Count 7.5 thou/uL (4.8-10.8)
[2019-09-08 05:29] LABS: Anion Gap 12 mmol/L (10-20); BUN (Urea Nitrogen) 30 mg/dL (9.8-20.1); Calc. Creatinine Clearance 24 mL/min (70-130); Calcium 8.1 mg/dL (7.8-10.44); Carbon Dioxide 26 mmol/L (23-31); Chloride 106 mmol/L (98-107); Estimated GFR-MDRD 26; Glucose 80 mg/dL (83-110); Potassium 4.3 mmol/L (3.5-5.1); Sodium 140 mmol/L (136-145)
[2019-09-08] MEDS: Furosemide 40 MG/4 ML VIAL SLOW IVP SCH ×2 (05:54→15:13)
[2019-09-08] MEDS: Potassium Chloride 20 MEQ TAB PO SCH (09:10)
[2019-09-08] MEDS: hydrALAZINE 25 MG TAB PO SCH ×3 (09:10→20:20)
[2019-09-08] MEDS: Heparin 5,000 UNITS/ML VIAL SC SCH ×3 (09:10→20:23)
--- NOTE | 2019-09-08 14:29 | PDOC.HOSPP ---
- Subjective Encounter Date: 09/08/19 Encounter Time: 14:26 Subjective: Ms. Jackson was seen today in follow-up of CHF exacerbation. She saysshe feels a little better. Her nurse notes that she got very weak when she was up to the bedside commode. - Objective Vital Signs & Weight: Vital Signs (12 hours) Temp Pulse Resp BP BP Pulse Ox 09/08/19 11:10 97.7 F 66 16 139/62 99 09/08/19 09:10 61 09/08/19 07:52 97.9 F 61 18 131/63 97 09/08/19 05:13 64 136/64 09/08/19 04:20 98.1 F 67 20 187/86 H 98 Weight Weight 150 lb I&O: 09/07/19 09/08/19 09/09/19 06:59 06:59 06:59 Intake Total 548 Output Total 0 550 Balance -1502 -550 Result Diagrams: 09/08/19 04:47 09/08/19 04:47 Hospitalist ROS - Medication Medications: Active Medications Generic Name Dose Route Start Last Admin Trade Name Freq PRN Reason Stop Dose Admin Famotidine 20 mg 09/07/19 21:00 09/07/19 20:04 Pepcid PO 20 mg QPM JOSE Administration Furosemide 40 mg 09/08/19 06:00 09/08/19 05:54 Lasix SLOW IVP 40 mg 0600,1400 JOSE Administration Heparin Sodium (Porcine) 5,000 units 09/07/19 21:00 09/08/19 09:10 Heparin SC 5,000 units TID JOSE Administration Hydralazine HCl 10 mg 09/07/19 18:01 09/08/19 04:21 Apresoline SLOW IVP 10 mg Q4H PRN Administration SBP > 180 and HR < 70 Hydralazine HCl 50 mg 09/08/19 09:00 09/08/19 09:10 Apresoline PO 50 mg TID JOSE Administration Metoprolol Succinate 100 mg 09/08/19 09:00 09/08/19 09:10 Toprol Xl PO 100 mg DAILY JOSE Administration Potassium Chloride 20 meq 09/08/19 08:00 09/08/19 09:10 K-Dur PO 20 meq QAM-WM JOSE Administration Sodium Chloride 10 ml 09/08/19 09:00 09/08/19 09:17 Flush - Normal Saline IVF 10 ml Q12HR JOSE Administration Sodium Chloride 10 ml 09/08/19 03:53 09/08/19 05:54 Flush - Normal Saline IVF 10 ml PRN PRN Administration Saline Flush - Exam Eye: PERRL Heart: RRR, no murmur, no gallops, no rubs, normal peripheral pulses Respiratory: CTAB (+ except some rhonchi at the bases) Gastrointestinal: soft, non-tender, non-distended, normal bowel sounds Extremities: no cyanosis Hosp A/P (1) Cerebrovascular accident, hemorrhagic Code(s): I61.9 - NONTRAUMATIC INTRACEREBRAL HEMORRHAGE, UNSPECIFIED Status: Chronic (2) Dementia Code(s): F03.90 - UNSPECIFIED DEMENTIA WITHOUT BEHAVIORAL DISTURBANCE Status: Chronic Qualifiers: Dementia type: Alzheimer's disease (3) Hypertension Code(s): I10 - ESSENTIAL (PRIMARY) HYPERTENSION Status: Chronic Qualifiers: (4) Hypothyroid Code(s): E03.9 - HYPOTHYROIDISM, UNSPECIFIED Status: Chronic Qualifiers: Hypothyroidism type: unspecified Qualified Code(s): E03.9 - Hypothyroidism , unspecified - Plan * Acute on chronic heart failure with preserved EF- will change to Lasix p.o. * Severe - she is not an operative candidate * deconditioning- the family is concerned for the patient going home. They says she lives alone with her elderly . They had a provider, but she no longer comes. Will consult case management for possible shelter- preferable [facility] in [place] * HTN- blood pressure is stable * Hypothyroidism- clinically euthyroid- continue home medications * PT/OT
[2019-09-08] MEDS ORDERED: Senokot S 8.6-50 MG TAB PO PRN (14:35)
[2019-09-08] MEDS ORDERED: Furosemide 20 MG TAB PO SCH (14:45)
[2019-09-08] MEDS: Megestrol Acetate 40 MG TAB PO SCH ×2 (16:49→20:22)
[2019-09-08] MEDS: Donepezil HCl 5 MG TAB PO SCH (20:21)
[2019-09-08] MEDS: Rosuvastatin 10 MG TAB PO SCH (20:21)
[2019-09-08] MEDS: Famotidine 20 MG TAB PO SCH (20:22)
[2019-09-08] MEDS: Ezetimibe 10 MG TAB PO SCH (20:22)
[2019-09-09] MEDS: Levothyroxine Sodium 88 MCG TAB PO SCH (05:21)
[2019-09-09] MEDS: Potassium Chloride 20 MEQ TAB PO SCH (08:19)
[2019-09-09] MEDS: Fish Oil 1,000 MG CAP PO SCH (08:19)
[2019-09-09] MEDS: Furosemide 20 MG TAB PO SCH (08:20)
[2019-09-09] MEDS: Megestrol Acetate 40 MG TAB PO SCH ×3 (08:20→20:04)
[2019-09-09] MEDS: hydrALAZINE 25 MG TAB PO SCH ×3 (08:20→20:03)
[2019-09-09] MEDS: Losartan 25 MG TAB PO SCH (08:20)
[2019-09-09] MEDS: Heparin 5,000 UNITS/ML VIAL SC SCH ×3 (08:21→20:05)
--- NOTE | 2019-09-09 12:17 | PDOC.HOSPP ---
- Subjective Encounter Date: 09/09/19 Encounter Time: 10:15 Subjective: breathing better, ate her breakfast says she slept well last night has no complaints is mobilizing to bedside commode with staff - Objective Vital Signs & Weight: Vital Signs (12 hours) Temp Pulse Resp BP BP Pulse Ox 09/09/19 11:28 97.4 F L 60 16 123/58 L 97 09/09/19 08:20 63 191/83 H 09/09/19 07:54 97.3 F L 63 18 191/83 H 98 09/09/19 03:20 97.5 F L 67 18 169/95 H 96 Weight Weight 145 lb 1.6 oz I&O: 09/08/19 09/09/19 09/10/19 06:59 06:59 06:59 Intake Total 548 1380 Output Total 2039 4897 Balance -1135 -3224 Result Diagrams: 09/08/19 04:47 09/08/19 04:47 Hospitalist ROS - Medication Medications: Active Medications Generic Name Dose Route Start Last Admin Trade Name Freq PRN Reason Stop Dose Admin Donepezil HCl 10 mg 09/08/19 21:00 09/08/19 20:21 Aricept PO 10 mg HS JOSE Administration Ezetimibe 10 mg 09/08/19 21:00 09/08/19 20:22 Zetia PO 10 mg HS JOSE Administration Famotidine 20 mg 09/07/19 21:00 09/08/19 20:22 Pepcid PO 20 mg QPM JOSE Administration Fish Oil 1,000 mg 09/09/19 09:00 09/09/19 08:19 Fish Oil PO 1,000 mg DAILY JOSE Administration Furosemide 20 mg 09/09/19 09:00 09/09/19 08:20 Lasix PO 20 mg DAILY JOSE Administration Heparin Sodium (Porcine) 5,000 units 09/07/19 21:00 09/09/19 08:21 Heparin SC 5,000 units TID JOSE Administration Hydralazine HCl 10 mg 09/07/19 18:01 09/08/19 04:21 Apresoline SLOW IVP 10 mg Q4H PRN Administration SBP > 180 and HR < 70 Hydralazine HCl 50 mg 09/08/19 09:00 09/09/19 08:20 Apresoline PO 50 mg TID JOSE Administration Levothyroxine Sodium 88 mcg 09/09/19 06:00 09/09/19 05:21 Synthroid PO 88 mcg 0600 JOSE Administration Losartan Potassium 25 mg 09/09/19 09:00 09/09/19 08:20 Cozaar PO 25 mg DAILY JOSE Administration Megestrol Acetate 40 mg 09/08/19 15:00 09/09/19 08:20 Megace PO 40 mg TID JOSE Administration Metoprolol Succinate 150 mg 09/09/19 09:00 09/09/19 08:20 Toprol Xl PO 150 mg DAILY JOSE Administration Potassium Chloride 20 meq 09/08/19 08:00 09/09/19 08:19 K-Dur PO 20 meq QAM-WM JOSE Administration Quetiapine Fumarate 12.5 mg 09/08/19 21:00 09/08/19 20:20 Seroquel PO 12.5 mg HS JOSE Administration Rosuvastatin Calcium 10 mg 09/08/19 21:00 09/08/19 20:21 Crestor PO 10 mg HS JOSE Administration Sodium Chloride 10 ml 09/08/19 09:00 09/09/19 08:21 Flush - Normal Saline IVF 10 ml Q12HR JOSE Administration Sodium Chloride 10 ml 09/08/19 03:53 09/08/19 05:54 Flush - Normal Saline IVF 10 ml PRN PRN Administration Saline Flush - Exam General Appearance: awake alert Eye: PERRL, anicteric sclera ENT: no oropharyngeal lesions, moist mucosa Neck: supple, no JVD Heart: RRR, no murmur Respiratory: no wheezes, no rales, no ronchi Gastrointestinal: soft, non-tender, non-distended, normal bowel sounds Extremities: no cyanosis, no edema Neurological: cranial nerve grossly intact, no focal deficits Psychiatric: A&O x 3 Hosp A/P (1) Acute exacerbation of CHF (congestive heart failure) Code(s): I50.9 - HEART FAILURE, UNSPECIFIED Status: Acute Qualifiers: Heart failure type: diastolic Qualified Code(s): I50.33 - Acute on chronic diastolic (congestive) heart failure (2) Chronic anemia Code(s): D64.9 - ANEMIA, UNSPECIFIED Status: Chronic (3) Elevated LFTs Code(s): R94.5 - ABNORMAL RESULTS OF LIVER FUNCTION STUDIES Status: Acute (4) Afib Code(s): I48.91 - UNSPECIFIED ATRIAL FIBRILLATION Status: Chronic Qualifiers: Atrial fibrillation type: paroxysmal Qualified Code(s): I48.0 - Paroxysmal atrial fibrillation (5) CAD (coronary artery disease) Code(s): I25.10 - ATHSCL HEART DISEASE OF [place] CORONARY ARTERY W/O ANG PCTRS Status: Chronic Qualifiers: Coronary Disease-Associated Artery/Lesion type: [place] artery [place] vs. transplanted heart: [place] heart Associated angina: without angina Qualified Code(s): I25.10 - Atherosclerotic heart disease of [place] coronary artery without angina pectoris (6) Carotid stenosis Code(s): I65.29 - OCCLUSION AND STENOSIS OF UNSPECIFIED CAROTID ARTERY Status : Chronic Qualifiers: Laterality: unspecified laterality Qualified Code(s): I65.29 - Occlusion and stenosis of unspecified carotid artery (7) Cerebrovascular accident, hemorrhagic Code(s): I61.9 - NONTRAUMATIC INTRACEREBRAL HEMORRHAGE, UNSPECIFIED Status: Chronic Qualifiers: Intracerebral hemorrhage etiology: nontraumatic (8) Dementia Code(s): F03.90 - UNSPECIFIED DEMENTIA WITHOUT BEHAVIORAL DISTURBANCE Status: Chronic Qualifiers: Dementia type: Alzheimer's disease (9) Hypertension Code(s): I10 - ESSENTIAL (PRIMARY) HYPERTENSION Status: Chronic Qualifiers: (10) Hypothyroid Code(s): E03.9 - HYPOTHYROIDISM, UNSPECIFIED Status: Chronic Qualifiers: Hypothyroidism type: unspecified Qualified Code(s): E03.9 - Hypothyroidism , unspecified (11) Moderate protein malnutrition Code(s): E44.0 - MODERATE PROTEIN-CALORIE MALNUTRITION Status: Chronic - Plan labs in am is awaiting placement in [place] has deconditioning with advanced age and multiple medical issues on oral lasix, hydralazine, cozaar, toprol xl high dose of 150mg, crestor, aricept, zetia, synthroid and seroquel hemostable may dc anytime placement is ready
--- NOTE | 2019-09-09 16:24 | EKG ---
Test Reason : Blood Pressure : / mmHG Vent. Rate : 072 BPM Atrial Rate : 288 BPM P-R Int : 000 ms QRS Dur : 156 ms QT Int : 448 ms P-R-T Axes : 000 -69 079 degrees QTc Int : 490 ms Ventricular-paced rhythm with occasional Premature ventricular complexes Abnormal ECG Confirmed by NIKHIL ARRINGTON M.D. ([id number]), senior technical editor COLLEEN ROBBINS ([id number]) on 09/09/2019 4:24:16 PM Referred By: Confirmed By:NIKHIL ARRINGTON M.D.
[2019-09-09] MEDS: Ezetimibe 10 MG TAB PO SCH (20:03)
[2019-09-09] MEDS: Rosuvastatin 10 MG TAB PO SCH (20:03)
[2019-09-09] MEDS: Donepezil HCl 5 MG TAB PO SCH (20:03)
[2019-09-09] MEDS: Famotidine 20 MG TAB PO SCH (20:04)
[2019-09-10 04:55] LABS: #Eosinphils 0.5 thou/uL (0.0-0.7); #Lymphocytes 2.4 thou/uL (1.20-3.40); #Monocytes 0.8 thou/uL (0.11-0.59); #Neutrophils 2.7 thou/uL (1.40-6.50); %Basophils 0.8 % (0.0-1.0); %Eosinophils 7.1 % (0.0-10.0); %Lymphocytes 36.9 % (21.0-51.0); %Monocytes 12.7 % (0.0-10.0); %Neutrophils 42.6 % (42.0-75.0); Hemoglobin 10.5 g/dL (12.0-16.0); Mean Corpuscular HGB CONC 32.8 g/dL (32.0-36.0); Mean Corpuscular Hemoglobin 34.2 pg (27.0-31.0); Mean Platelet Volume 8.1 fL (7.4-10.4); Platelet Count 182 thou/uL (130-400); Red Blood Cell (RBC) Count 3.06 mill/uL (4.20-5.40); White Blood Cell (WBC) Count 6.4 thou/uL (4.8-10.8)
[2019-09-10 05:16] LABS: Anion Gap 12 mmol/L (10-20); BUN (Urea Nitrogen) 26 mg/dL (9.8-20.1); Calc. Creatinine Clearance 27 mL/min (70-130); Calcium 8.2 mg/dL (7.8-10.44); Carbon Dioxide 26 mmol/L (23-31); Chloride 104 mmol/L (98-107); Estimated GFR-MDRD 33; Glucose 77 mg/dL (83-110); Sodium 138 mmol/L (136-145)
[2019-09-10] MEDS: Levothyroxine Sodium 88 MCG TAB PO SCH (06:04)
[2019-09-10] MEDS: Fish Oil 1,000 MG CAP PO SCH (08:21)
[2019-09-10] MEDS: Potassium Chloride 20 MEQ TAB PO SCH (08:24)
[2019-09-10] MEDS: hydrALAZINE 25 MG TAB PO SCH ×3 (08:24→20:02)
[2019-09-10] MEDS: Megestrol Acetate 40 MG TAB PO SCH ×3 (08:25→20:03)
[2019-09-10] MEDS: Furosemide 20 MG TAB PO SCH (08:25)
[2019-09-10] MEDS: Losartan 25 MG TAB PO SCH (08:25)
[2019-09-10] MEDS: Heparin 5,000 UNITS/ML VIAL SC SCH ×3 (08:25→19:59)
--- NOTE | 2019-09-10 11:58 | PDOC.HOSPP ---
- Subjective Encounter Date: 09/10/19 Encounter Time: 09:45 Subjective: no sob or chest pain or palp family at bedside - Objective Vital Signs & Weight: Vital Signs (12 hours) Temp Pulse Resp BP BP Pulse Ox 09/10/19 08:24 60 193/79 H 09/10/19 08:00 98.3 F 60 16 193/79 H 97 09/10/19 04:46 97 09/10/19 03:03 97.8 F 72 18 166/91 H 97 Weight Weight 143 lb 8 oz I&O: 09/09/19 09/10/19 09/11/19 06:59 06:59 06:59 Intake Total 1380 240 Output Total 3150 1500 Balance -1770 -1260 Result Diagrams: 09/10/19 04:36 09/10/19 04:36 Hospitalist ROS - Medication Medications: Active Medications Generic Name Dose Route Start Last Admin Trade Name Freq PRN Reason Stop Dose Admin Donepezil HCl 10 mg 09/08/19 21:00 09/09/19 20:03 Aricept PO 10 mg HS JOSE Administration Ezetimibe 10 mg 09/08/19 21:00 09/09/19 20:03 Zetia PO 10 mg HS JOSE Administration Famotidine 20 mg 09/07/19 21:00 09/09/19 20:04 Pepcid PO 20 mg QPM JOSE Administration Fish Oil 1,000 mg 09/09/19 09:00 09/10/19 08:21 Fish Oil PO 1,000 mg DAILY JOSE Administration Furosemide 20 mg 09/09/19 09:00 09/10/19 08:25 Lasix PO 20 mg DAILY JOSE Administration Heparin Sodium (Porcine) 5,000 units 09/07/19 21:00 09/10/19 08:25 Heparin SC 5,000 units TID JOSE Administration Hydralazine HCl 10 mg 09/07/19 18:01 09/08/19 04:21 Apresoline SLOW IVP 10 mg Q4H PRN Administration SBP > 180 and HR < 70 Hydralazine HCl 50 mg 09/08/19 09:00 09/10/19 08:24 Apresoline PO 50 mg TID JOSE Administration Levothyroxine Sodium 88 mcg 09/09/19 06:00 09/10/19 06:04 Synthroid PO 88 mcg 0600 JOSE Administration Losartan Potassium 25 mg 09/09/19 09:00 09/10/19 08:25 Cozaar PO 25 mg DAILY JOSE Administration Megestrol Acetate 40 mg 09/08/19 15:00 09/10/19 08:25 Megace PO 40 mg TID JOSE Administration Metoprolol Succinate 150 mg 09/09/19 09:00 09/10/19 08:21 Toprol Xl PO 150 mg DAILY JOSE Administration Potassium Chloride 20 meq 09/08/19 08:00 09/10/19 08:24 K-Dur PO 20 meq QAM-WM JOSE Administration Quetiapine Fumarate 12.5 mg 09/08/19 21:00 09/09/19 20:04 Seroquel PO 12.5 mg HS JOSE Administration Rosuvastatin Calcium 10 mg 09/08/19 21:00 09/09/19 20:03 Crestor PO 10 mg HS JOSE Administration Senna/Docusate Sodium 2 tab 09/08/19 14:35 09/10/19 08:25 Senokot S PO 2 tab BIDPRN PRN Administration Constipation Sodium Chloride 10 ml 09/08/19 09:00 09/10/19 08:26 Flush - Normal Saline IVF 10 ml Q12HR JOSE Administration Sodium Chloride 10 ml 09/08/19 03:53 09/08/19 05:54 Flush - Normal Saline IVF 10 ml PRN PRN Administration Saline Flush - Exam General Appearance: awake alert Eye: PERRL, anicteric sclera ENT: no oropharyngeal lesions, moist mucosa Neck: supple, no JVD Heart: RRR, no murmur Respiratory: no wheezes, no rales Gastrointestinal: soft, non-tender, non-distended, normal bowel sounds Extremities: no cyanosis, no edema Neurological: cranial nerve grossly intact, no focal deficits Psychiatric: A&O x 3 Hosp A/P (1) Acute exacerbation of CHF (congestive heart failure) Code(s): I50.9 - HEART FAILURE, UNSPECIFIED Status: Acute Qualifiers: Heart failure type: diastolic Qualified Code(s): I50.33 - Acute on chronic diastolic (congestive) heart failure (2) Chronic anemia Code(s): D64.9 - ANEMIA, UNSPECIFIED Status: Chronic (3) Elevated LFTs Code(s): R94.5 - ABNORMAL RESULTS OF LIVER FUNCTION STUDIES Status: Acute (4) Afib Code(s): I48.91 - UNSPECIFIED ATRIAL FIBRILLATION Status: Chronic Qualifiers: Atrial fibrillation type: paroxysmal Qualified Code(s): I48.0 - Paroxysmal atrial fibrillation (5) CAD (coronary artery disease) Code(s): I25.10 - ATHSCL HEART DISEASE OF [place] CORONARY ARTERY W/O ANG PCTRS Status: Chronic Qualifiers: Coronary Disease-Associated Artery/Lesion type: [place] artery [place] vs. transplanted heart: [place] heart Associated angina: without angina Qualified Code(s): I25.10 - Atherosclerotic heart disease of [place] coronary artery without angina pectoris (6) Carotid stenosis Code(s): I65.29 - OCCLUSION AND STENOSIS OF UNSPECIFIED CAROTID ARTERY Status : Chronic Qualifiers: Laterality: unspecified laterality Qualified Code(s): I65.29 - Occlusion and stenosis of unspecified carotid artery (7) Cerebrovascular accident, hemorrhagic Code(s): I61.9 - NONTRAUMATIC INTRACEREBRAL HEMORRHAGE, UNSPECIFIED Status: Chronic Qualifiers: Intracerebral hemorrhage etiology: nontraumatic (8) Dementia Code(s): F03.90 - UNSPECIFIED DEMENTIA WITHOUT BEHAVIORAL DISTURBANCE Status: Chronic Qualifiers: Dementia type: Alzheimer's disease (9) Hypertension Code(s): I10 - ESSENTIAL (PRIMARY) HYPERTENSION Status: Chronic Qualifiers: (10) Hypothyroid Code(s): E03.9 - HYPOTHYROIDISM, UNSPECIFIED Status: Chronic Qualifiers: Hypothyroidism type: unspecified Qualified Code(s): E03.9 - Hypothyroidism , unspecified (11) Moderate protein malnutrition Code(s): E44.0 - MODERATE PROTEIN-CALORIE MALNUTRITION Status: Chronic - Plan is awaiting placement in [place] has deconditioning with advanced age and multiple medical issues on oral lasix, hydralazine, cozaar, toprol xl high dose of 150mg, crestor, aricept, zetia, synthroid and seroquel hemostable may dc anytime placement is ready she needs to work with PT/cardiac rehab and mobilize more. Gave updates to son/son in law at bedside
[2019-09-10] MEDS: Rosuvastatin 10 MG TAB PO SCH (20:01)
[2019-09-10] MEDS: Famotidine 20 MG TAB PO SCH (20:02)
[2019-09-10] MEDS: Ezetimibe 10 MG TAB PO SCH (20:02)
[2019-09-10] MEDS: Donepezil HCl 5 MG TAB PO SCH (20:02)
[2019-09-11] MEDS: hydrALAZINE 20 MG/ML VIAL SLOW IVP PRN (01:27)
[2019-09-11] MEDS: Levothyroxine Sodium 88 MCG TAB PO SCH (05:48)
[2019-09-11] MEDS: hydrALAZINE 25 MG TAB PO SCH (08:44)
[2019-09-11] MEDS: Furosemide 20 MG TAB PO SCH (08:44)
[2019-09-11] MEDS: Heparin 5,000 UNITS/ML VIAL SC SCH (08:44)
[2019-09-11] MEDS: Potassium Chloride 20 MEQ TAB PO SCH (08:44)
[2019-09-11] MEDS: Fish Oil 1,000 MG CAP PO SCH (08:44)
[2019-09-11] MEDS: Megestrol Acetate 40 MG TAB PO SCH (08:45)
[2019-09-11] MEDS: Losartan 25 MG TAB PO SCH (08:45)
[2019-09-11 12:00] VITALS: BP 142/67; TEMP 98.5
--- NOTE | 2019-09-11 13:35 | DIS ---
DATE OF ADMISSION: 09/07/2019 DATE OF DISCHARGE: 09/11/2019 DISCHARGE DISPOSITION: [facility]. PRIMARY DISCHARGE DIAGNOSES: 1. Acute exacerbation of congestive heart failure with diastolic dysfunction. 2. Chronic anemia. 3. Deconditioning. 4. Elevated LFTs due to congestive heart failure. 5. Chronic atrial fibrillation, which is paroxysmal. 6. Coronary artery disease. 7. History of carotid stenosis. 8. History of hemorrhagic cerebrovascular accident. 9. Dementia. 10. Hypertension. 11. Hypothyroidism. 12. Moderate protein malnutrition. PROCEDURES DONE DURING HOSPITALIZATION: Chest x-ray done on the day of admission showed stable bilateral pleural effusions with cardiomegaly. No infiltrate was noted. H and H 10 and 32. Platelet count 182. MCV is 104. White count of 6.4. BUN 26. Creatinine 1.4. BNP 603. Albumin 2.9. DISCHARGE MEDICATIONS: 1. Aspirin 325 mg p.o. daily. 2. Vitamin D3 1000 units p.o. daily. 3. Colace 100 mg p.o. daily. 4. Zetia 10 mg p.o. nightly. 5. Fish oil 1000 mg p.o. daily. 6. Levothyroxine 88 mcg p.o. daily. 7. Losartan 25 mg p.o. daily. 8. Multivitamin one tablet once daily. 9. Seroquel 12.5 mg p.o. nightly. 10. CoQ10 200 mg p.o. daily. 11. Donepezil 10 mg p.o. nightly. 12. Lasix 20 mg daily. 13. Hydralazine 50 mg 3 times daily. 14. DuoNebs four times daily p.r.n. 15. Megace 40 mg 3 times daily. 16. Toprol-XL 150 mg daily. 17. K-Dur 20 mEq p.o. daily. 18. Crestor 10 mg p.o. nightly. ALLERGIES: ALLERGIC TO KEFLEX. DISCHARGE PLAN: The patient to follow up with her primary care physician, Dr. Valdez in 1 week. BRIEF COURSE DURING HOSPITALIZATION: The patient initially came to the ER with complaints of shortness of breath. She was recently discharged and sent to swing bed in [place]. The patient had deconditioning as well. In view of this history, the patient was placed under observation on telemetry. She has had Case Management consultation as well for help with placement. She has ambulated around 40 feet with a rolling walker with Physical Therapy and is beginning to eat better as well. The patient is 88-year-old and has multiple medical issues. In view of above, she is being discharged to [facility] for further recuperation prior to going home. She is hemodynamically stable. Please note, I have seen and examined the patient on the day of discharge. A total of 40 minutes was spent on discharge plan. Job ID: [id number]
== END 2019-09-11 15:11 ==
LOC: ERS 11:35 → 2SW 15:14
PROVIDERS: ADMIT Internal Medicine; ATTEND Internal Medicine
DX: I35.0 Nonrheumatic aortic (valve) stenosis (principal); I13.0 Hypertensive heart and chronic kidney disease with heart failure and stage 1 through stage 4 chronic kidney disease, or unspecified chronic kidney disease; N18.3 Chronic kidney disease, stage 3 (moderate); I50.33 Acute on chronic diastolic (congestive) heart failure; D63.1 Anemia in chronic kidney disease; R94.5 Abnormal results of liver function studies; I48.0 Paroxysmal atrial fibrillation; I25.10 Atherosclerotic heart disease of native coronary artery without angina pectoris; I65.29 Occlusion and stenosis of unspecified carotid artery; G30.9 Alzheimer's disease, unspecified; F02.80 Dementia in other diseases classified elsewhere, unspecified severity, without behavioral disturbance, psychotic disturbance, mood disturbance, and anxiety; E89.0 Postprocedural hypothyroidism; E78.5 Hyperlipidemia, unspecified; I25.2 Old myocardial infarction; J44.9 Chronic obstructive pulmonary disease, unspecified; M19.90 Unspecified osteoarthritis, unspecified site; E44.0 Moderate protein-calorie malnutrition; Z68.1 Body mass index [BMI] 19.9 or less, adult; Z86.73 Personal history of transient ischemic attack (TIA), and cerebral infarction without residual deficits; Z79.82 Long term (current) use of aspirin; Z79.899 Other long term (current) drug therapy; Z88.1 Allergy status to other antibiotic agents; Z95.0 Presence of cardiac pacemaker
CPT/HCPCS: 71045; 80048 ×2; 80053; 82550; 83605; 83690; 83880 ×2; 84484 ×2; 85025 ×3; 85610; 85730; 93005; 96372 ×5; 96374; 96375; 96376; 97116; 97139 ×3; 97535; 99285; G0378 ×6; 36415; J0360; J1644; J1940; S0179

== ENCOUNTER 2020-01-02 05:44 | Inpatient (IN) | payer MEDICARE, BC, OTHER ==
[2020-01-02 06:05] LABS: #Basophils 0.1 thou/uL (0.0-0.2); #Eosinphils 0.2 thou/uL (0.0-0.7); #Lymphocytes 1.3 thou/uL (1.20-3.40); #Monocytes 0.5 thou/uL (0.11-0.59); #Neutrophils 5.4 thou/uL (1.40-6.50); %Basophils 0.7 % (0.0-1.0); %Eosinophils 2.3 % (0.0-10.0); %Lymphocytes 17.3 % (21.0-51.0); %Monocytes 6.8 % (0.0-10.0); %Neutrophils 72.9 % (42.0-75.0); Hemoglobin 11.7 g/dL (12.0-16.0); Mean Corpuscular HGB CONC 33.1 g/dL (32.0-36.0); Mean Corpuscular Hemoglobin 34.6 pg (27.0-31.0); Mean Platelet Volume 9.8 fL (7.4-10.4); Platelet Count 172 thou/uL (130-400); RBC Distribution Width 12.8 % (11.5-14.5); Red Blood Cell (RBC) Count 3.39 mill/uL (4.20-5.40); White Blood Cell (WBC) Count 7.4 thou/uL (4.8-10.8)
[2020-01-02 06:15] LABS: INR-International Normal Ratio 1.2; PTT 29.5 sec (22.9-36.1); Prothrombin Time 14.9 sec (12.0-14.7)
[2020-01-02 06:27] LABS: ALT (SGPT) 12 U/L (8-55); AST (SGOT) 29 U/L (5-34); Albumin 3.7 g/dL (3.4-4.8); Alkaline Phosphatase 60 U/L (40-110); Anion Gap 16 mmol/L (10-20); BUN (Urea Nitrogen) 15 mg/dL (9.8-20.1); Bilirubin, Total 1.2 mg/dL (0.2-1.2); CK (CPK) 62 U/L (29-168); Calc. Creatinine Clearance 0 mL/min (70-130); Carbon Dioxide 23 mmol/L (23-31); Chloride 105 mmol/L (98-107); Estimated GFR-MDRD 42; Globulin 3.2 g/dL (2.4-3.5); Glucose 91 mg/dL (83-110); Protein, Total 6.9 g/dL (6.0-8.3); Sodium 140 mmol/L (136-145)
[2020-01-02] MEDS ORDERED: Labetalol HCl 100 MG/20 ML VIAL ONE (06:31)
[2020-01-02 06:49] LABS: CKMB 1.7 ng/mL (0-6.6)
--- NOTE | 2020-01-02 07:26 | CT ---
PRELIMINARY REPORT/[facility]/EMERGENCY AFTER HOURS PROCEDURE This report was discussed with EMELIA FRANCE MD by Jas Leger on January 02, 2020 06:36:00 CDT. Addendum electronically signed by Jas Leger on January 02, 2020 6:37:41 AM CDT EXAM: CTA Head and Neck without Intravenous Contrast. CT Head with/without Contrast. CLINICAL HISTORY: Ambulance was called for patient with changes in speech and decreased responsiveness away from her no rmal. She was last seen normal approximately 8 hours ago, at 10 PM. She went to sleep in her normal state of health, but when family tried to awaken her and interact with her, they noted that she only gaze to the left, would not answer them, and will not talk at this time. Patient is awake but not answering any questions and not following any commands at this time. She did not appear to be any acu te distress. No further history is available. TECHNIQUE: Axial CTA images of the head and neck performed without intravenous contrast. MIP reconstructed image s were created and reviewed. Axial computed tomography images of the head/brain performed with/without intravenous contrast. Note: Per PQRS, the description of internal carotid artery percent stenosis, including 0 percent or n ormal exam, is based on [place] Symptomatic Carotid Endarterectomy Trial (NASCET) criteria. CONTRAST: Without COMPARISON: CT - CT BRAIN WO CON - 07/01/2018 12:40 PM AUTOPSY ASSISTANT FINDINGS: CT HEAD: BRAIN: No acute intercurrent hemorrhage. No midline shift or other mass-effect. Periventricular and subcortical white matter hypodensities in bilateral cerebral hemispheres. Ex vacuo dilatation of the ventricles and sulci secondary to cerebral volume loss. Mild loss of the left insular cortical elise-white matter differentiation, which is new compared to pr ior CT head 07/01/2018. VENTRICLES: No hydrocephalus. ORBITS: The orbits are unremarkable. SINUSES AND MASTOIDS: The paranasal sinuses and mastoid air cells are clear. CTA NECK: COMMON CAROTID ARTERIES No significant stenosis. No dissection or occlusion. INTERNAL CAROTID ARTERIES Atherosclerotic calcifications at bilateral carotid bulbs and proximal internal carotid arteries resu lting in approximately 50% stenosis on the right and 40% stenosis on the left at the origin of the internal carotid arteries. VERTEBRAL ARTERIES No significant stenosis. No dissection or occlusion. CTA HEAD: ANTERIOR CEREBRAL ARTERIES No significant stenosis. No occlusion. No aneurysm. MIDDLE CEREBRAL ARTERIES Severe abrupt stenosis at the distal left M1 segment with contrast opacification distally in the norm al-appearing M2 and M3 branches. POSTERIOR CEREBRAL ARTERIES No significant stenosis. No occlusion. No aneurysm. BASILAR ARTERY No significant stenosis. No occlusion. No aneurysm. OTHER: SOFT TISSUES Incomplete the visualized large right pleural effusion and small left pleural effusion. BONES No acute osseous abnormality. Multifocal cervical spondylosis with grade 1 anterolisthesis of C4 on C5. IMPRESSION: 1. No acute intercurrent hemorrhage. 2. Mild loss of the left insular cortical elise-white matter differentiation, which is new compared to prior CT head 07/01/2018. 3. Severe abrupt stenosis at the distal left M1 segment with contrast opacification distally in the n ormal-appearing M2 and M3 branches. Recommend emergent neurology and neurosurgical/endovascular Consultation 4. Atherosclerotic calcifications at bilateral carotid bulbs and proximal internal carotid arteries r esulting in approximately 50% stenosis on the right and 40% stenosis on the left at the origin of the internal carotid arteries. 5. Incomplete the visualized large right pleural effusion and small left pleural effusion. Correlate for acute heart failure and consider CT chest. ELECTRONICALLY SIGNED BY: Wilian Olivo DO January 02, 2020 6:33:43 AM CDT This report is intended for review by the ordering physician only, in accordance of law. If you recei ve this report in error, please call [facility] at [phone]. FINAL REPORT Exam: Head CT without contrast HISTORY: Change in speech. Decreased responsiveness. Altered mental status. COMPARISON: 09/12/2018 FINDINGS: Hemorrhage: No intraparenchymal hemorrhage or extra-axial hematoma. Brain parenchyma: Mild loss of the left insular ribbon sign. No mass effect or midline shift. Basilar cisterns are patent.White matter hypodensities due to chronic small vessel ischemic change, similar to the previous exam. Ventricular system: Ventricles and sulci are patent and symmetric. Calvarium: Intact. 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 This report is in agreement with initial report by [facility]. 2. Mild loss of the left insular ribbon sign. Transcribed Date/Time: 01/02/2020 8:07 AM
--- NOTE | 2020-01-02 07:56 | CT ---
EXAM: CT perfusion study HISTORY: Left MCA occlusion TECHNIQUE: CT perfusion imaging was performed. FINDINGS: There is increased mean transit time in the posterior left MCA distribution. There is preservation of blood volume in the majority of the area of associated brain parenchyma with the exception of a region in the posterior left temporal lobe which doesn't demonstrate decreased blood volume suggestin g completed infarct. IMPRESSION: Increased mean transit time involving the posterior left MCA distribution. There is a significant pen umbra with preserved blood volume. There is a focus of infarct involving the posterior left temporal lobe. Transcribed Date/Time: 01/02/2020 9:17 AM
[2020-01-02] MEDS ORDERED: niCARdipine 20MG In NaCl 20 MG/200 ML BAG ONE (08:25)
[2020-01-02] MEDS ORDERED: Aspirin 300 MG Suppository ONE (08:51)
[2020-01-02] MEDS ORDERED: Iopamidol-370 76% 500 ML 1 ML ONE ×2 (09:26)
[2020-01-02 10:20] VITALS: BMI 21.9
--- NOTE | 2020-01-02 10:57 | PDOC.HHP ---
Hospitalist HPI - History of Present Illness stroke like symptoms History of Present Illness: This is an 89 year old female with hypertension, CHF, hypothyroidism, CAD who presented to the hospital with altered mental status. She was brought in to the ER at 5 am this morning from her group home. She was last known normal last night at 10 pm. She was noted to have right sided weakness and left lateral gaze. She also was having dysarthria. The patient's states that at baseline she is normally able to talk, eat , and walk with a walker. He says that she had no previous focal deficits. He is not sure whether she had any other systemic symptoms since she lives at the group home. She was recently admitted to the hospital and discharged on 09/11/19 for CHF exacerbation. She was discharged on aspirin 325 mg daily. ED Course: When patient presented to the ER, her blood pressure was 196/116. CT head/CTA head and neck/CT perfusion was significant for left M1 occlusion and posterior left temporal lobe infarct. ER nurse reports that she was AOx1 - able to say her own name. However, patient's reports that she was not responding to him in the ER. She was given aspirin 300 rectally, labetalol 10 mg IV. Neurosurgery was consulted and recommended keeping BP around 180, so she was placed on a nicardipine drip in the ER. Hospitalist ROS - Review of Systems ROS unobtainable: due to mental status Hospitalist History - Past Medical History Source: RN notes reviewed Cardiac: reports: AFIB, CAD, CHF, HTN, Hyperlipidemia Pulmonary: reports: COPD, high cholesterol ANNEALING [employer]NA[employer] T[employer]ER: reports: Dementia, TIA Gastrointestinal: reports: Constipation Musculoskeletal: reports: Osteoarthritis Renal/: reports: Acute renal failure Endocrine: reports: Hypothyroidism Other Medical History: Hypothyroidism CAD Hypertension CHF Dementia Venous insufficiency AFib COPD - Past Surgical History Past Surgical History: reports: Cataract Removal, Hysterectomy, Total Knee Replacement, Tonsillectomy, Other Other Surgical History: Thyroidectomy BLadder suspension Hysterectomy Tonsillectomy Right hand surgery Pacemaker placement CABG X 1 Bilateral cataracts Left hand surgery SKin cancer removal Right leg vein stripping CKD - Family History Family History: reports: Other (unknown, unable to obtain) - Social History Smoking Status: Unknown if ever smoked Living Situation: Shelter Activity level: uses cane/walker - Exam General Appearance: NAD, awake alert Eye: PERRL, anicteric sclera Eye - other findings: left lateral gaze ENT: normocephalic atraumatic, no oropharyngeal lesions Neck: supple, symmetric, no JVD Heart: RRR, no gallops, no rubs, normal peripheral pulses, murmur present, II/IV Heart - other findings: systolic murmur heard best over tricuspid valve but heard throughout Respiratory: CTAB, no wheezes, no rales, no ronchi Gastrointestinal: soft, non-tender, non-distended, normal bowel sounds Extremities: no cyanosis, no clubbing, no edema Skin: normal turgor, no lesions, no rashes Neurological - other findings: right sided weakness, right sided neglect. Squeezes on left, barely on righ Musculoskeletal - other findings: patient does not follow commands, diff to assess range of motion Psychiatric: not oriented Hospitalist Results - Labs Result Diagrams: 01/02/20 05:51 01/02/20 05:51 Lab results: WBC 7.4 thou/uL (4.8-10.8) 01/02/20 05:51 Hgb 11.7 g/dL (12.0-16.0) L 01/02/20 05:51 Hct 35.3 % (36.0-47.0) L 01/02/20 05:51 MCV 104.0 fL (78.0-98.0) H 01/02/20 05:51 Plt Count 172 thou/uL (130-400) 01/02/20 05:51 Neutrophils % 72.9 % (42.0-75.0) 01/02/20 05:51 Sodium 140 mmol/L (136-145) 01/02/20 05:51 Potassium 4.0 mmol/L (3.5-5.1) 01/02/20 05:51 Chloride 105 mmol/L (98-107) 01/02/20 05:51 Carbon Dioxide 23 mmol/L (23-31) 01/02/20 05:51 BUN 15 mg/dL (9.8-20.1) 01/02/20 05:51 Creatinine 1.22 mg/dL (0.6-1.1) H 01/02/20 05:51 Glucose 91 mg/dL (83-110) 01/02/20 05:51 Calcium 9.0 mg/dL (7.8-10.44) 01/02/20 05:51 Total Bilirubin 1.2 mg/dL (0.2-1.2) 01/02/20 05:51 AST 29 U/L (5-34) 01/02/20 05:51 ALT 12 U/L (8-55) 01/02/20 05:51 Alkaline Phosphatase 60 U/L (40-110) 01/02/20 05:51 Creatine Kinase 62 U/L (29-168) 01/02/20 05:51 CK-MB (CK-2) 1.7 ng/mL (0-6.6) 01/02/20 05:51 Troponin I 0.061 ng/mL (< 0.028) H 01/02/20 05:51 Serum Total Protein 6.9 g/dL (6.0-8.3) 01/02/20 05:51 Albumin 3.7 g/dL (3.4-4.8) 01/02/20 05:51 - EKG Interpretation EKG: ventricular paced rhythm Hospitalist H&P A/P - Plan Plan: CT brain: no acute hemorrhage. Ex vacuo dilation of ventricles. Mild loss of left insular cortical elise- white matter CTA perfusion : posterior left temporal lobe infarct. CTA head and neck: abrupt stenosis of distal left M1 segment . Right pleural effusion and small left pleural effusion This is a 89 year old female with past medical history of hypertension, COPD who presented with altered mental status, dysarthria and weakness, found to have a stroke Acute left temporal lobe stroke - patient presented with right sided weakness, aphasia, CT head showing left temporal lobe infarct. CTA showed distal left M1 stenosis - neurosurgery consulted, recommended no surgical intervention - neurology consulted, recommended keeping BP > 200/100. IV antihypertensive prn ordered - unable to do MRI since patient has a pacemaker - check ECHO, TSh, A1C - consult PT/OT/speech Hypertension - Hydralazine HCl 10 mg SLOW IVP Q1H PRN for SBP > 200/100 COPD - continue Ipratropium/albuterol sulfate 3 mL NEB QID PRN Constipation - continue Senokot 2 tab PO Q24HR PRN Hyperlipidemia - continue Rosuvastatin 10 mg PO HS Hypothyroidism - continue Levothyroxine 1 tab PO QAM Dementia -Continue Donepezil HCl 10 mg PO HS Congestive heart failure - Obtain echocardiogram Atrial fibrillation - Continue aspirin Stage 3 CKD - Cr improving, continue to monitor DVT prophylaxis: heparin SC TID Code status: DNR/Dni
--- NOTE | 2020-01-02 11:15 | RAD ---
Exam: Chest one view HISTORY:Bilateral pleural effusions noted on recent CT angiogram Comparison: 09/07/2019 FINDINGS: Cardiac silhouette: Cardiomegaly. Stable single lead left-sided transvenous pacemaker Aorta: Atherosclerosis Pulmonary vessels: Prominent Costophrenic angles: Bilateral pleural effusions, right greater than left LUNGS: Parenchymal changes in the right lung base are felt to be chronic. Pneumothorax: None Osseous abnormalities: None IMPRESSION: 1. Bilateral pleural effusions, right greater than left. 2. Right lower lobe opacities are similar to the previous examination and likely chronic. 3. Correlate for congestive failure
[2020-01-02] MEDS: Sodium Chloride 0.9% 1,000 ML IV SCH ×2 (12:17→17:37)
[2020-01-02 12:31] LABS: CKMB 1.7 ng/mL (0-6.6)
[2020-01-02] MEDS: hydrALAZINE 20 MG/ML VIAL SLOW IVP PRN (17:36)
--- NOTE | 2020-01-02 17:48 | CON ---
DATE OF CONSULTATION: HISTORY OF PRESENT ILLNESS: Ms. Jackson is an 89-year-old female who presented to the hospital with left hemiparesis. She is functional last night at 10 o'clock, but awakened this way. CT scanning showed a thrombotic CVA. She is admitted to the critical care unit for initial observation. She is unable to verbalize history. PAST MEDICAL HISTORY: Remarkable for: 1. Atrial fibrillation. 2. History of coronary artery disease. 3. History of cardiomyopathy. 4. Hypertension. 5. Lipid disorder. 6. History of COPD. 7. History of dementia. 8. History of mini strokes in the past. 9. History of hypothyroidism. 10. History of bladder suspension. 11. History of thyroidectomy. 12. Status post hysterectomy. 13. Status post tonsillectomy. 14. History of pacemaker. 15. History of coronary artery bypass grafting in the past. 16. History of cataracts. 17. History of bilateral hand surgeries. 18. History of skin cancer. 19. History of vein stripping in the past. SOCIAL HISTORY: She is a nonsmoker and nondrinker. She lives in a full-time care environment. REVIEW OF SYSTEMS: Not obtainable. PHYSICAL EXAMINATION: VITAL SIGNS: Blood pressure is 194/93, heart rate is in the 70s, respiratory rates in the 20s. GENERAL: She is dysarthric, can barely verbalize one word. She is intermittently looking left. HEENT: Pupils reactive. Sclerae anicteric. NECK: Without lymphadenopathy. LUNGS: Clear. HEART: Regular rhythm. ABDOMEN: Soft. EXTREMITIES: Without asymmetry. She is hemiparetic on the left. LABORATORY DATA: White count 7.4, hemoglobin 11.7, and platelets 172. Electrolytes are normal. Creatinine 1.2. IMPRESSION: Cerebrovascular accident, thrombotic. Her prognosis is guarded. At this point time, she is adequately protecting her airway. She is in the ICU for blood pressure control. TIME SPENT: This is a 70-minute consult, 50% of the time was spent on the unit coordinating care. Job ID: [id number]
--- NOTE | 2020-01-02 18:50 | CON ---
NEUROLOGY CONSULTATION DATE OF CONSULTATION: 01/02/2020 REASON FOR CONSULTATION: Stroke-like symptoms. HISTORY OF PRESENT ILLNESS: Ms. Jackson is an 89-year-old female with history significant for coronary artery disease, hypertension, congestive heart failure, dementia, atrial fibrillation, COPD, hypothyroidism, presented to the hospital with altered mental status. According to the records, she was seen normal around 10 p.m. The patient is unable to provide the history, so history is provided by review of the medical record and talking to the primary attending, Dr. Peters. She was noted to have right-sided weakness and left lateral gaze with dysarthria. When she presented to the emergency room, her blood pressure was 196/116. CT head and neck, perfusion showed left M1 occlusion and a posterior left temporal lobe infarction. She was admitted to CCU for further management. REVIEW OF SYSTEMS: Unobtainable due to mental status. PAST MEDICAL HISTORY: Hypothyroidism, congestive heart failure, hypertension, coronary artery disease, dementia, venous insufficiency, atrial fibrillation, COPD. PAST SURGICAL HISTORY: Thyroidectomy, bladder suspension, hysterectomy, tonsillectomy, right hand surgery, status post pacemaker placement, CABG x1, bilateral cataract surgery, left hand surgery. FAMILY HISTORY: No significant family history. SOCIAL HISTORY: There is no documentation of smoking, alcohol, illegal drug abuse. PHYSICAL EXAMINATION: VITAL SIGNS: Blood pressure 196/100, pulse 60, respiratory rate 18. CVS: Regular rate and rhythm. CHEST: Clear. HEENT: Normocephalic, atraumatic. NECK: Supple. HEART: Regular rate and rhythm. ABDOMEN: Soft. NEUROLOGIC: Mental status, the patient is extremely somnolent. She opens eyes to verbal stimuli. Does not answer questions but follows commands intermittently. Able to squeeze her hand on the left side. Cranial nerves: Pupils round, 4 mm round and reactive to light. Right facial droop. Tongue midline. Moves neck in both directions. Hearing seems to be intact. Motor: Muscle bulk is normal. Muscle tone is decreased in the right upper and lower extremities. Right upper extremity 1/5, right lower extremity 2/5. Spontaneous movement of the left upper and lower extremities seen, 4/5. Sensory, withdraws to nailbed pressure, left upper and lower extremity greater than greater than right lower extremity, minimal withdrawal on the right upper extremity. Cerebellar: Unable to assess secondary to mental status. Gait deferred due to patient's safety reasons. DATA REVIEWED: I reviewed the CT scan which did not reveal any acute hemorrhage. CTA perfusion showed posterior left temporal infarct and CTA of the head and neck shows stenosis of the distal left M1 segment. Rest of the CBC and CMP were essentially unremarkable except hemoglobin of 11.7 and hematocrit of 35.3. Lab results: WBC 7.4 thou/uL (4.8-10.8) 01/02/20 05:51 Hgb 11.7 g/dL (12.0-16.0) L 01/02/20 05:51 Hct 35.3 % (36.0-47.0) L 01/02/20 05:51 MCV 104.0 fL (78.0-98.0) H 01/02/20 05:51 Plt Count 172 thou/uL (130-400) 01/02/20 05:51 Neutrophils % 72.9 % (42.0-75.0) 01/02/20 05:51 Sodium 140 mmol/L (136-145) 01/02/20 05:51 Potassium 4.0 mmol/L (3.5-5.1) 01/02/20 05:51 Chloride 105 mmol/L (98-107) 01/02/20 05:51 Carbon Dioxide 23 mmol/L (23-31) 01/02/20 05:51 BUN 15 mg/dL (9.8-20.1) 01/02/20 05:51 Creatinine 1.22 mg/dL (0.6-1.1) H 01/02/20 05:51 Glucose 91 mg/dL (83-110) 01/02/20 05:51 Calcium 9.0 mg/dL (7.8-10.44) 01/02/20 05:51 Total Bilirubin 1.2 mg/dL (0.2-1.2) 01/02/20 05:51 AST 29 U/L (5-34) 01/02/20 05:51 ALT 12 U/L (8-55) 01/02/20 05:51 Alkaline Phosphatase 60 U/L (40-110) 01/02/20 05:51 Creatine Kinase 62 U/L (29-168) 01/02/20 05:51 CK-MB (CK-2) 1.7 ng/mL (0-6.6) 01/02/20 05:51 Troponin I 0.061 ng/mL (< 0.028) H 01/02/20 05:51 Serum Total Protein 6.9 g/dL (6.0-8.3) 01/02/20 05:51 Albumin 3.7 g/dL (3.4-4.8) 01/02/20 05:51 - EKG Interpretation EKG: ventricular paced rhythm CT brain: no acute hemorrhage. Ex vacuo dilation of ventricles. Mild loss of left insular cortical elise- white matter CTA perfusion : posterior left temporal lobe infarct. CTA head and neck: abrupt stenosis of distal left M1 segment . ASSESSMENT AND PLAN: Ms. Galilea Jackson is consulted for acute stroke. CT perfusion reviewed which showed left temporal lobe infarct. Permissive control of blood pressure at this time. Neuro checks every 2 hours. Consider noncontrast stat head CT if the condition worsened. MRI of the brain not possible secondary to pacemaker. Repeat head CT in 48 hours after symptom onset. Continue aspirin rectal and n.p.o. until cleared by Speech, PT/OT. Continue home medications. Check fasting lipid profile, hemoglobin A1c, TSH, vitamin B12, and folic acid. Continue home medications, continue telemetry. 2D echo to evaluate left ventricular function and to rule out PFO. Continue medical management per primary team. We will recommend EEG since temporal lobe stroke places her at increased risk for seizures. We will continue to follow. Thank you for the consult. Job ID: [id number]
[2020-01-02] MEDS: Heparin 5,000 UNITS/ML VIAL SC SCH (21:10)
[2020-01-03 03:59] LABS: Hemoglobin A1c 5.1 % (4.0-6.0)
[2020-01-03 04:18] LABS: Cardiac Risk 2.2 (Less than 4.5)
[2020-01-03] MEDS: Heparin 5,000 UNITS/ML VIAL SC SCH ×3 (08:34→23:32)
[2020-01-03] MEDS: hydrALAZINE 20 MG/ML VIAL SLOW IVP PRN ×3 (09:53→21:11)
--- NOTE | 2020-01-03 12:46 | PDOC.HOSPP ---
- Subjective Encounter Date: 01/03/20 Encounter Time: 11:00 Subjective: Overnight, patient's BP was up to 213, was given IV hydralazine. Her BP this morning was highest around 200. Repeat Ct head pending Patient is able to spontaneously move her right arm today. She smiles when you call her name, but is not able to answer questions - Objective Vital Signs & Weight: Vital Signs (12 hours) Temp Pulse Resp BP BP Pulse Ox 01/03/20 12:34 91 231/107 H 01/03/20 11:52 97.9 F 86 18 221/93 H 98 01/03/20 10:30 193/92 H 01/03/20 09:53 64 203/112 H 01/03/20 09:00 98.7 F 86 16 221/121 H 98 01/03/20 08:00 98.0 F Weight Weight 139 lb 12.369 oz Most Recent Monitor Data Heart Rate from ECG 80 NIBP 182/94 NIBP BP-Mean 123 Respiration from ECG 24 SpO2 98 I&O: 01/02/20 01/03/20 01/04/20 06:59 06:59 06:59 Intake Total 1986 400 Output Total 1050 200 Balance 936 200 Result Diagrams: 01/02/20 05:51 01/02/20 05:51 Hospitalist ROS - Review of Systems Constitutional: denies: fever, chills - Medication Medications: Active Medications Generic Name Dose Route Start Last Admin Trade Name Freq PRN Reason Stop Dose Admin Heparin Sodium (Porcine) 5,000 units 01/02/20 21:00 01/03/20 08:34 Heparin SC 5,000 units TID JOSE Administration Hydralazine HCl 10 mg 01/02/20 11:10 01/03/20 12:34 Apresoline SLOW IVP 10 mg Q1H PRN Administration Blood Pressure - Exam General Appearance: NAD, awake alert Eye: PERRL, anicteric sclera ENT: normocephalic atraumatic, no oropharyngeal lesions Neck: no JVD Heart: RRR, no murmur, no gallops, no rubs Respiratory: CTAB, no wheezes, no rales, no ronchi Gastrointestinal: soft, non-tender, non-distended, normal bowel sounds Extremities: no cyanosis, no clubbing, no edema Skin: normal turgor, no lesions, no rashes Neurological - other findings: spontaneously moves right arm, not right leg. Squeezes on left side. Musculoskeletal - other findings: withdraws both legs to painful stimuli Hosp A/P - Plan CT brain: no acute hemorrhage. Ex vacuo dilation of ventricles. Mild loss of left insular cortical elise- white matter CTA perfusion : posterior left temporal lobe infarct. CTA head and neck: abrupt stenosis of distal left M1 segment . Right pleural effusion and small left pleural effusion ECHO: EF 60-65%, severe MR, severe , severe TR, mild to moderate pulmonic regurgitation This is a 89 year old female with past medical history of hypertension, COPD who presented with altered mental status, dysarthria and weakness, found to have a stroke Acute left temporal lobe stroke - patient presented with right sided weakness, aphasia, CT head showing left temporal lobe infarct. CTA showed distal left M1 stenosis. Cannot do MRI due to pacemaker - neurosurgery consulted, recommended no surgical intervention - will reduce BP goal to keep between 160-180. Can give IV hydralazine prn and labetalol prn - PT recommends rehab - speech recommended NPO , unable to evaluate today - ECHO shows no thrombus, TSh normal , A1C normal -case management consulted #Severe MR/ Severe /Severe TR #Elevated troponin - troponin peaked at 0.061, CKMB normal. No chest pain . Likely demand ischemia from stroke - noted on ECHO, outpatient management COPD - continue Ipratropium/albuterol sulfate 3 mL NEB QID PRN Constipation - continue Senokot 2 tab PO Q24HR PRN Hyperlipidemia - continue Rosuvastatin 10 mg PO HS Hypothyroidism - continue Levothyroxine 1 tab PO QAM Dementia -Continue Donepezil HCl 10 mg PO HS Congestive heart failure - Obtain echocardiogram Atrial fibrillation - Continue aspirin Stage 3 CKD - Cr improving, continue to monitor
--- NOTE | 2020-01-03 12:50 | CT ---
CT BRAIN WITHOUT CONTRAST: Date: 01/03/2020 HISTORY: Follow-up scan after left temporal lobe infarct. FINDINGS: Comparison made with exam of previous day. Evolutionary changes of a nonhemorrhagic left posterior MCA infarction are seen. The ventricular size is stable. The basilar cisterns are patent. Changes of chronic small vessel ischemic disease and cor tical atrophy are again noted. The bony calvarium is intact. IMPRESSION: Evolutionary changes of an acute left posterior MCA infarction without evidence of hemorrhagic transf ormation. POS: [facility]
--- NOTE | 2020-01-03 12:51 | PDOC.HOSPP ---
- Subjective Encounter Date: 01/03/20 Subjective: NEUROLOGY PROGRESS NOTE Patient more alert today and following commands appropriately. EEG reviewed and negative for seizure activity. - Objective Vital Signs & Weight: Vital Signs (12 hours) Temp Pulse Resp BP BP Pulse Ox 01/03/20 12:34 91 231/107 H 01/03/20 11:52 97.9 F 86 18 221/93 H 98 01/03/20 10:30 193/92 H 01/03/20 09:53 64 203/112 H 01/03/20 09:00 98.7 F 86 16 221/121 H 98 01/03/20 08:00 98.0 F Weight Weight 139 lb 12.369 oz Most Recent Monitor Data Heart Rate from ECG 80 NIBP 182/94 NIBP BP-Mean 123 Respiration from ECG 24 SpO2 98 I&O: 01/02/20 01/03/20 01/04/20 06:59 06:59 06:59 Intake Total 1986 400 Output Total 1050 200 Balance 936 200 Result Diagrams: 01/02/20 05:51 01/02/20 05:51 Radiology Reviewed by me: Yes EKG Reviewed by me: Yes Hospitalist ROS - Review of Systems Constitutional: denies: fever, chills, sweats, weakness, malaise, other Eyes: denies: pain, vision change, conjunctivae inflammation, eyelid inflammation, redness, other ENT: denies: ear pain, ear discharge, nose pain, nose discharge, nose congestion , mouth pain, mouth swelling, throat pain, throat swelling, other Cardiovascular: denies: chest pain, palpitations, orthopnea, paroxysmal noc. dyspnea, edema, light headedness, other Gastrointestinal: denies: nausea, vomiting, abdominal pain, diarrhea, constipation, melena, hematochezia, other Genitourinary: denies: dysuria, frequency, incontinence, hematuria, retention, other Musculoskeletal: denies: neck pain, shoulder pain, arm pain, back pain, hand pain, leg pain, foot pain, other Neurological: reports: weakness, numbness, change in speech - Medication Medications: Active Medications Generic Name Dose Route Start Last Admin Trade Name Freq PRN Reason Stop Dose Admin Heparin Sodium (Porcine) 5,000 units 01/02/20 21:00 01/03/20 08:34 Heparin SC 5,000 units TID [facility] Administration - Exam General Appearance: awake alert Eye: PERRL ENT: normocephalic atraumatic Neck: supple Heart: RRR Respiratory: CTAB Gastrointestinal: soft Extremities: clubbing Skin: normal turgor Neurological: facial droop, hemiplegia, speech deficit Neurological - other findings: Right hemiparesis 3/5 Right facial droop Musculoskeletal: no muscle wasting Psychiatric: oriented to person, oriented to place Hosp A/P (1) CVA (cerebral vascular accident) Code(s): I63.9 - CEREBRAL INFARCTION, UNSPECIFIED Status: Acute (2) Hypertension Code(s): I10 - ESSENTIAL (PRIMARY) HYPERTENSION Status: Acute (3) Acute renal failure Status: Acute Qualifiers: Acute renal failure type: unspecified Qualified Code(s): N17.9 - Acute kidney failure, unspecified (4) Elevated LFTs Code(s): R94.5 - ABNORMAL RESULTS OF LIVER FUNCTION STUDIES Status: Acute (5) Severe aortic stenosis Code(s): I35.0 - NONRHEUMATIC AORTIC (VALVE) STENOSIS Status: Acute (6) UTI (urinary tract infection) Status: Acute Qualifiers: Urinary tract infection type: acute cystitis Hematuria presence: without hematuria Qualified Code(s): N30.00 - Acute cystitis without hematuria (7) Afib Code(s): I48.91 - UNSPECIFIED ATRIAL FIBRILLATION Status: Chronic Qualifiers: Atrial fibrillation type: paroxysmal Qualified Code(s): I48.0 - Paroxysmal atrial fibrillation (8) Hypothyroid Code(s): E03.9 - HYPOTHYROIDISM, UNSPECIFIED Status: Chronic Qualifiers: Hypothyroidism type: unspecified Qualified Code(s): E03.9 - Hypothyroidism , unspecified - Plan PT/OT, speech therapy 89 year old female consulted for right sided weakness, aphasia, Head head showed left temporal lobe infarct. MRI brain not possible due to pacemaker Monitor BP. Goal 160-180. Neurochecks every 4 hours. Continue aspirin for secondary stroke prevention. CTA showed distal left M1 stenosis, neurosurgery recommended no surgical intervention ECHO showed no thrombus or PFO. EEG reviewed and was negative for seizure activity. Telemetry Labs reviewed: TSh and HbA1C within range. NPO till cleared by speech Rehab recommended by PT. Continue medical management per primary team. Case discussed with patient and the primary attending Dr. Olvera.
[2020-01-03] MEDS: Labetalol HCl 100 MG/20 ML VIAL SLOW IVP PRN (13:02)
--- NOTE | 2020-01-03 13:32 | EEG ---
DATE OF SERVICE: 01/02/2020 ATTENDING PHYSICIAN: Fatemeh Purcell MD. This EEG was performed using 24-channel [employer] video digital EEG machine with 24-disk electrodes. This was an extended 2-hour 22-minute of inpatient video EEG recording. Digital analysis of the EEG was done for spike and seizure detection, which revealed no abnormalities. BACKGROUND: The posterior background rhythm was not observed. HYPERVENTILATION: Not performed. PHOTIC STIMULATION: No significant response seen with photic stimulation. SLEEP: No stage change was observed. EEG DIAGNOSES: 1. Intermittent irregular theta activity seen during the recording. 2. Absence of posterior background rhythm. CLINICAL INTERPRETATION: This EEG is consistent with [id number] generalized nonspecific cerebral dysfunction. No ictal or interictal epileptiform abnormalities seen during the recording. Job ID: [id number]
[2020-01-03] MEDS: Nitroglycerin 0.1mg/Hour PATCH TD SCH (14:05)
--- NOTE | 2020-01-03 15:47 | PRG ---
DATE OF SERVICE: 01/03/2020 SUBJECTIVE: Ms. Jackson is having a little left upper extremity and starting to make a few one-word attempts in sentences. Blood pressure was controlled overnight. OBJECTIVE: LUNGS: Clear. HEART: Regular rhythm. ABDOMEN: Soft. She is felt to be stable to move out of the critical care unit. There is no new lab. IMPRESSION: Thrombotic cerebrovascular accident with left hemiparesis and dysarthria. She appears to be stable, protecting her airway. We will sign off. Please call us if any issues develop. Job ID: [id number]
[2020-01-04] MEDS: Labetalol HCl 100 MG/20 ML VIAL SLOW IVP PRN ×3 (03:27→16:39)
[2020-01-04] MEDS: Heparin 5,000 UNITS/ML VIAL SC SCH ×3 (09:47→20:31)
[2020-01-04] MEDS: hydrALAZINE 20 MG/ML VIAL SLOW IVP PRN ×2 (10:48→11:53)
--- NOTE | 2020-01-04 12:40 | PDOC.HOSPP ---
- Subjective Encounter Date: 01/04/20 Subjective: NEUROLOGY PROGRESS NOTE Patient somnolent today but following commands appropriately. Continues to have uncontrolled BP. - Objective Vital Signs & Weight: Vital Signs (12 hours) Temp Pulse Resp BP BP Pulse Ox 01/04/20 12:17 65 192/78 H 01/04/20 12:00 97.6 F 59 L 18 163/77 H 100 01/04/20 11:53 65 194/92 H 01/04/20 11:20 163/77 H 01/04/20 10:48 75 204/90 H 01/04/20 09:53 172/92 H 01/04/20 07:45 97.7 F 61 18 186/83 H 99 01/04/20 03:36 162/78 H 01/04/20 03:27 79 190/92 H 01/04/20 03:14 98.5 F 79 22 H 190/92 H 98 Weight Admit Weight 139 lb 12.369 oz Weight 139 lb 12.369 oz Most Recent Monitor Data Heart Rate from ECG 80 NIBP 182/94 NIBP BP-Mean 123 Respiration from ECG 24 SpO2 98 I&O: 01/03/20 01/04/20 01/05/20 06:59 06:59 06:59 Intake Total 1986 400 Output Total 1050 1300 Balance 936 -900 Result Diagrams: 01/02/20 05:51 01/02/20 05:51 Radiology Reviewed by me: Yes EKG Reviewed by me: Yes Hospitalist ROS - Review of Systems Constitutional: denies: fever, chills, sweats, weakness, malaise, other Eyes: denies: pain, vision change, conjunctivae inflammation, eyelid inflammation, redness, other ENT: denies: ear pain, ear discharge, nose pain, nose discharge, nose congestion , mouth pain, mouth swelling, throat pain, throat swelling, other Cardiovascular: denies: chest pain, palpitations, orthopnea, paroxysmal noc. dyspnea, edema, light headedness, other Gastrointestinal: denies: nausea, vomiting, abdominal pain, diarrhea, constipation, melena, hematochezia, other Genitourinary: denies: dysuria, frequency, incontinence, hematuria, retention, other Musculoskeletal: denies: neck pain, shoulder pain, arm pain, back pain, hand pain, leg pain, foot pain, other Neurological: reports: weakness, numbness, incoordination, change in speech. denies: confusion, seizures, other - Medication Medications: Active Medications Generic Name Dose Route Start Last Admin Trade Name Freq PRN Reason Stop Dose Admin Heparin Sodium (Porcine) 5,000 units 01/02/20 21:00 01/04/20 09:47 Heparin SC 5,000 units TID JOSE Administration Hydralazine HCl 10 mg 01/03/20 12:43 01/04/20 11:53 Apresoline SLOW IVP 10 mg Q1H PRN Administration Blood Pressure Labetalol HCl 20 mg 01/03/20 12:41 01/04/20 12:17 Normodyne SLOW IVP 20 mg Q4H PRN Administration Hypertension Nitroglycerin 1 patch 01/03/20 14:00 01/03/20 14:05 Nitro-Dur 0.1mg/Hr Patch TD 1 patch 1400 JOSE Administration - Exam General - other findings: somnolent Eye: PERRL ENT: normocephalic atraumatic Neck: supple Heart: RRR Gastrointestinal: soft Extremities: no cyanosis Skin: normal turgor Neurological: facial droop, hemiplegia, speech deficit Neurological - other findings: right hemiparesis, right facial droop Musculoskeletal: no muscle wasting Psychiatric: somnolent Hosp A/P (1) CVA (cerebral vascular accident) Code(s): I63.9 - CEREBRAL INFARCTION, UNSPECIFIED Status: Acute (2) Hypertension Code(s): I10 - ESSENTIAL (PRIMARY) HYPERTENSION Status: Acute (3) Acute renal failure Status: Acute Qualifiers: Acute renal failure type: unspecified Qualified Code(s): N17.9 - Acute kidney failure, unspecified (4) Elevated LFTs Code(s): R94.5 - ABNORMAL RESULTS OF LIVER FUNCTION STUDIES Status: Acute (5) Severe aortic stenosis Code(s): I35.0 - NONRHEUMATIC AORTIC (VALVE) STENOSIS Status: Acute (6) UTI (urinary tract infection) Status: Acute Qualifiers: Urinary tract infection type: acute cystitis Hematuria presence: without hematuria Qualified Code(s): N30.00 - Acute cystitis without hematuria (7) Afib Code(s): I48.91 - UNSPECIFIED ATRIAL FIBRILLATION Status: Chronic Qualifiers: Atrial fibrillation type: paroxysmal Qualified Code(s): I48.0 - Paroxysmal atrial fibrillation (8) Hypothyroid Code(s): E03.9 - HYPOTHYROIDISM, UNSPECIFIED Status: Chronic Qualifiers: Hypothyroidism type: unspecified Qualified Code(s): E03.9 - Hypothyroidism , unspecified - Plan PT/OT, speech therapy 89 year old female consulted for right sided weakness, aphasia, Head head showed left temporal lobe infarct. MRI brain not possible due to pacemaker Patient somnolent this morning. Consider repeat Head CT. Continues to have high BP. Prn medications on board. Monitor BP. Goal 160-180. Neurochecks every 4 hours. Continue aspirin for secondary stroke prevention. CTA showed distal left M1 stenosis, neurosurgery recommended no surgical intervention ECHO showed no thrombus or PFO. EEG reviewed and was negative for seizure activity. Telemetry Labs reviewed: TSh and HbA1C within range. NPO till cleared by speech Rehab recommended by PT. Continue medical management per primary team. Case discussed with patient and the ursing staff.
--- NOTE | 2020-01-04 13:52 | PDOC.HOSPP ---
- Objective Vital Signs & Weight: Vital Signs (12 hours) Temp Pulse Resp BP BP Pulse Ox 01/04/20 12:42 164/68 H 01/04/20 12:17 65 192/78 H 01/04/20 12:00 97.6 F 59 L 18 163/77 H 100 01/04/20 11:53 65 194/92 H 01/04/20 11:20 163/77 H 01/04/20 10:48 75 204/90 H 01/04/20 09:53 172/92 H 01/04/20 07:45 97.7 F 61 18 186/83 H 99 01/04/20 03:36 162/78 H 01/04/20 03:27 79 190/92 H 01/04/20 03:14 98.5 F 79 22 H 190/92 H 98 Weight Admit Weight 139 lb 12.369 oz Weight 139 lb 12.369 oz Most Recent Monitor Data Heart Rate from ECG 80 NIBP 182/94 NIBP BP-Mean 123 Respiration from ECG 24 SpO2 98 I&O: 01/03/20 01/04/20 01/05/20 06:59 06:59 06:59 Intake Total 1986 400 Output Total 1050 1300 Balance 936 -900 Result Diagrams: 01/02/20 05:51 01/02/20 05:51 Hospitalist ROS - Medication Medications: Active Medications Generic Name Dose Route Start Last Admin Trade Name Freq PRN Reason Stop Dose Admin Heparin Sodium (Porcine) 5,000 units 01/02/20 21:00 01/04/20 09:47 Heparin SC 5,000 units TID JOSE Administration Hydralazine HCl 10 mg 01/03/20 12:43 01/04/20 11:53 Apresoline SLOW IVP 10 mg Q1H PRN Administration Blood Pressure Labetalol HCl 20 mg 01/03/20 12:41 01/04/20 12:17 Normodyne SLOW IVP 20 mg Q4H PRN Administration Hypertension Nitroglycerin 1 patch 01/03/20 14:00 01/03/20 14:05 Nitro-Dur 0.1mg/Hr Patch TD 1 patch 1400 JOSE Administration Hosp A/P - Plan CT brain: no acute hemorrhage. Ex vacuo dilation of ventricles. Mild loss of left insular cortical elise- white matter CTA perfusion : posterior left temporal lobe infarct. CTA head and neck: abrupt stenosis of distal left M1 segment . Right pleural effusion and small left pleural effusion ECHO: EF 60-65%, severe MR, severe , severe TR, mild to moderate pulmonic regurgitation This is a 89 year old female with past medical history of hypertension, COPD who presented with altered mental status, dysarthria and weakness, found to have a stroke Acute left temporal lobe stroke - patient presented with right sided weakness, aphasia, CT head showing left temporal lobe infarct. CTA showed distal left M1 stenosis. Cannot do MRI due to pacemaker - neurosurgery consulted, recommended no surgical intervention - will reduce BP goal to keep between 160-180. Can give IV hydralazine prn and labetalol prn - PT recommends rehab - speech recommended NPO , unable to evaluate today - ECHO shows no thrombus, TSh normal , A1C normal -case management consulted #Severe MR/ Severe /Severe TR #Elevated troponin - troponin peaked at 0.061, CKMB normal. No chest pain . Likely demand ischemia from stroke - noted on ECHO, outpatient management COPD - continue Ipratropium/albuterol sulfate 3 mL NEB QID PRN Constipation - continue Senokot 2 tab PO Q24HR PRN Hyperlipidemia - continue Rosuvastatin 10 mg PO HS Hypothyroidism - continue Levothyroxine 1 tab PO QAM Dementia -Continue Donepezil HCl 10 mg PO HS Congestive heart failure - Obtain echocardiogram Atrial fibrillation - Continue aspirin Stage 3 CKD - Cr improving, continue to monitor
[2020-01-04] MEDS: Nitroglycerin 0.1mg/Hour PATCH TD SCH (14:29)
--- NOTE | 2020-01-04 17:33 | PDOC.HOSPP ---
- Subjective Encounter Date: 01/04/20 Encounter Time: 09:00 Subjective: The patient says she feels okay. SHe does not express any complaints. SHe said she feels fine. She is able to move her right arm spontaneously still - Objective Vital Signs & Weight: Vital Signs (12 hours) Temp Pulse Pulse Resp BP BP BP 01/04/20 16:53 01/04/20 16:39 62 185/83 H 01/04/20 16:15 01/04/20 15:43 98.6 F 65 18 01/04/20 15:25 73 177/85 H 192/88 H 01/04/20 12:42 01/04/20 12:17 65 192/78 H 01/04/20 12:00 97.6 F 59 L 18 01/04/20 11:53 65 194/92 H 01/04/20 11:20 01/04/20 10:48 75 204/90 H 01/04/20 09:53 01/04/20 07:45 97.7 F 61 18 BP Pulse Ox 01/04/20 16:53 168/81 H 01/04/20 16:39 01/04/20 16:15 170/82 H 01/04/20 15:43 182/83 H 98 01/04/20 15:25 01/04/20 12:42 164/68 H 01/04/20 12:17 01/04/20 12:00 163/77 H 100 01/04/20 11:53 01/04/20 11:20 163/77 H 01/04/20 10:48 01/04/20 09:53 172/92 H 01/04/20 07:45 186/83 H 99 Weight Admit Weight 139 lb 12.369 oz Weight 139 lb 12.369 oz Most Recent Monitor Data Heart Rate from ECG 80 NIBP 182/94 NIBP BP-Mean 123 Respiration from ECG 24 SpO2 98 I&O: 01/03/20 01/04/20 01/05/20 06:59 06:59 06:59 Intake Total 1986 400 Output Total 1050 1300 200 Balance 936 -900 -200 Result Diagrams: 01/02/20 05:51 01/02/20 05:51 Hospitalist ROS - Review of Systems Constitutional: denies: fever, chills - Medication Medications: Active Medications Generic Name Dose Route Start Last Admin Trade Name Freq PRN Reason Stop Dose Admin Heparin Sodium (Porcine) 5,000 units 01/02/20 21:00 01/04/20 14:29 Heparin SC 5,000 units TID JOSE Administration Hydralazine HCl 10 mg 01/03/20 12:43 01/04/20 11:53 Apresoline SLOW IVP 10 mg Q1H PRN Administration Blood Pressure Labetalol HCl 20 mg 01/03/20 12:41 01/04/20 16:39 Normodyne SLOW IVP 20 mg Q4H PRN Administration Hypertension Nitroglycerin 1 patch 01/03/20 14:00 01/04/20 14:29 Nitro-Dur 0.1mg/Hr Patch TD 1 patch 1400 JOSE Administration - Exam General Appearance: NAD, awake alert Eye: PERRL, anicteric sclera ENT: normocephalic atraumatic, no oropharyngeal lesions Neck: supple, no JVD Heart: RRR, no murmur, no gallops, no rubs Respiratory: CTAB, no wheezes, no rales, no ronchi Gastrointestinal: soft, non-tender, non-distended, normal bowel sounds Extremities: no cyanosis, no clubbing, no edema Skin: normal turgor, no lesions, no rashes Neurological: cranial nerve grossly intact, normal sensation to touch, no focal deficits, no new deficit Neurological - other findings: spont moves right arm. Right leg slightly moves to pain, move LL to pain Musculoskeletal: normal tone, normal strength, no muscle wasting Musculoskeletal - other findings: weakness on right leg Psychiatric: normal affect, normal behavior, A&O x 3, oriented to person Psychiatric - other findings: patient smiles more and talks more Hosp A/P - Plan CT brain: no acute hemorrhage. Ex vacuo dilation of ventricles. Mild loss of left insular cortical elise- white matter CTA perfusion : posterior left temporal lobe infarct. CTA head and neck: abrupt stenosis of distal left M1 segment . Right pleural effusion and small left pleural effusion ECHO: EF 60-65%, severe MR, severe , severe TR, mild to moderate pulmonic regurgitation This is a 89 year old female with past medical history of hypertension, COPD who presented with altered mental status, dysarthria and weakness, found to have a stroke Acute left temporal lobe stroke - patient presented with right sided weakness, aphasia, CT head showing left temporal lobe infarct. CTA showed distal left M1 stenosis. Cannot do MRI due to pacemaker - neurosurgery consulted, recommended no surgical intervention - continue nitro patch, BP 160-180 currently. Unable to take po at this time per speech. COntinue IV antihypertensive prn - PT/OT recommend rehab - ECHO shows no thrombus, TSh normal , A1C normal -case management consulted #Severe MR/ Severe /Severe TR #Elevated troponin - troponin peaked at 0.061, CKMB normal. No chest pain . Likely demand ischemia from stroke - noted on ECHO, outpatient management COPD - continue Ipratropium/albuterol sulfate 3 mL NEB QID PRN Constipation - continue Senokot 2 tab PO Q24HR PRN Hyperlipidemia - continue Rosuvastatin 10 mg PO HS Hypothyroidism - continue Levothyroxine 1 tab PO QAM Dementia -Continue Donepezil HCl 10 mg PO HS Congestive heart failure - Obtain echocardiogram Atrial fibrillation - Continue aspirin Stage 3 CKD - Cr improving, continue to monitor
[2020-01-05] MEDS: hydrALAZINE 20 MG/ML VIAL SLOW IVP PRN ×3 (00:20→15:53)
[2020-01-05 05:41] LABS: Hemoglobin 11.8 g/dL (12.0-16.0); Mean Corpuscular HGB CONC 32.2 g/dL (32.0-36.0); Mean Corpuscular Hemoglobin 33.7 pg (27.0-31.0); Mean Platelet Volume 8.9 fL (7.4-10.4); Platelet Count 166 thou/uL (130-400); RBC Distribution Width 12.8 % (11.5-14.5); White Blood Cell (WBC) Count 5.8 thou/uL (4.8-10.8)
[2020-01-05 06:01] LABS: Anion Gap 16 mmol/L (10-20); BUN (Urea Nitrogen) 16 mg/dL (9.8-20.1); Calc. Creatinine Clearance 37 mL/min (70-130); Calcium 8.7 mg/dL (7.8-10.44); Carbon Dioxide 19 mmol/L (23-31); Chloride 107 mmol/L (98-107); Estimated GFR-MDRD 49; Glucose 78 mg/dL (83-110); Potassium 3.9 mmol/L (3.5-5.1); Sodium 138 mmol/L (136-145)
[2020-01-05] MEDS ORDERED: Aspirin 300 MG Suppository PR SCH (09:00)
[2020-01-05] MEDS: Heparin 5,000 UNITS/ML VIAL SC SCH ×3 (09:23→22:08)
[2020-01-05] MEDS: Labetalol HCl 100 MG/20 ML VIAL SLOW IVP PRN (10:51)
--- NOTE | 2020-01-05 11:54 | PDOC.HOSPP ---
- Subjective Encounter Date: 01/05/20 Subjective: NEUROLOGY PROGRESS NOTE Patient awake, alert but continues to be aphasic and has uncontrolled BP. Followed commands intermittently. She is not cleared by speech for oral intake. - Objective Vital Signs & Weight: Vital Signs (12 hours) Temp Pulse Resp BP BP BP Pulse Ox 01/05/20 10:51 75 202/74 H 01/05/20 07:59 98.4 F 64 18 176/81 H 100 01/05/20 05:07 83 180/90 H 01/05/20 04:01 62 01/05/20 04:00 97.8 F 84 16 203/100 H 96 01/05/20 00:20 62 01/05/20 00:00 98.3 F 65 18 188/89 H 95 Weight Admit Weight 139 lb 12.369 oz Weight 139 lb 12.369 oz Most Recent Monitor Data Heart Rate from ECG 80 NIBP 182/94 NIBP BP-Mean 123 Respiration from ECG 24 SpO2 98 I&O: 01/04/20 01/05/20 01/06/20 06:59 06:59 06:59 Intake Total 400 Output Total 1300 200 Balance -900 -200 Result Diagrams: 01/05/20 04:46 01/05/20 04:46 Radiology Reviewed by me: Yes EKG Reviewed by me: Yes Hospitalist ROS - Review of Systems ROS unobtainable: due to mental status (aphasia) - Medication Medications: Active Medications Generic Name Dose Route Start Last Admin Trade Name Freq PRN Reason Stop Dose Admin Aspirin 300 mg 01/05/20 09:00 01/05/20 09:23 Aspirin MT 300 mg DAILY JOSE Administration Heparin Sodium (Porcine) 5,000 units 01/02/20 21:00 01/05/20 09:23 Heparin SC 5,000 units TID JOSE Administration Hydralazine HCl 10 mg 01/03/20 12:43 01/05/20 04:01 Apresoline SLOW IVP 10 mg Q1H PRN Administration Blood Pressure Labetalol HCl 20 mg 01/03/20 12:41 01/05/20 10:51 Normodyne SLOW IVP 20 mg Q4H PRN Administration Hypertension Nitroglycerin 1 patch 01/03/20 14:00 01/04/20 14:29 Nitro-Dur 0.1mg/Hr Patch TD 1 patch 1400 JOSE Administration - Exam General Appearance: awake alert Eye: PERRL ENT: normocephalic atraumatic Neck: supple Heart: RRR Respiratory: CTAB Gastrointestinal: soft Extremities: no cyanosis Skin: normal turgor Neurological: no new deficit, facial droop, hemiplegia, speech deficit Neurological - other findings: Right facial droop, right hemiparesis Musculoskeletal: normal tone, no muscle wasting Psychiatric: normal affect, normal behavior Psychiatric - other findings: aphasic Hosp A/P (1) CVA (cerebral vascular accident) Code(s): I63.9 - CEREBRAL INFARCTION, UNSPECIFIED Status: Acute (2) Hypertension Code(s): I10 - ESSENTIAL (PRIMARY) HYPERTENSION Status: Acute (3) Acute renal failure Status: Acute Qualifiers: Acute renal failure type: unspecified Qualified Code(s): N17.9 - Acute kidney failure, unspecified (4) Elevated LFTs Code(s): R94.5 - ABNORMAL RESULTS OF LIVER FUNCTION STUDIES Status: Acute (5) Severe aortic stenosis Code(s): I35.0 - NONRHEUMATIC AORTIC (VALVE) STENOSIS Status: Acute (6) UTI (urinary tract infection) Status: Acute Qualifiers: Urinary tract infection type: acute cystitis Hematuria presence: without hematuria Qualified Code(s): N30.00 - Acute cystitis without hematuria (7) Afib Code(s): I48.91 - UNSPECIFIED ATRIAL FIBRILLATION Status: Chronic Qualifiers: Atrial fibrillation type: paroxysmal Qualified Code(s): I48.0 - Paroxysmal atrial fibrillation (8) Hypothyroid Code(s): E03.9 - HYPOTHYROIDISM, UNSPECIFIED Status: Chronic Qualifiers: Hypothyroidism type: unspecified Qualified Code(s): E03.9 - Hypothyroidism , unspecified - Plan PT/OT, speech therapy, DVT proph w/SCDs 89 year old female consulted for right sided weakness, aphasia, Head CT showed left temporal lobe infarct. MRI brain not possible due to pacemaker . She continues to have high BP. Monitor BP. Goal 160-180. Neurochecks every 4 hours. Continue aspirin for secondary stroke prevention. CTA showed distal left M1 stenosis, neurosurgery recommended no surgical intervention ECHO showed no thrombus or PFO. EEG reviewed and was negative for seizure activity. Telemetry Labs reviewed: TSh and HbA1C within range. NPO till cleared by speech. She is still not cleared by speech. Consider PEG. Rehab recommended by PT. Continue medical management per primary team. Case discussed with patient and the floor team during stroke rounds.
[2020-01-05] MEDS: Nitroglycerin 0.1mg/Hour PATCH TD SCH (14:04)
--- NOTE | 2020-01-05 17:50 | PDOC.HOSPP ---
- Subjective Encounter Date: 01/05/20 Encounter Time: 07:00 Subjective: The patient is able to respond to name. She states she is doing fine, denies complaints. SHe is unable to give detailed answers to questions - Objective Vital Signs & Weight: Vital Signs (12 hours) Temp Pulse Resp BP BP BP Pulse Ox 01/05/20 16:15 174/90 H 01/05/20 15:53 83 205/98 H 01/05/20 15:19 96.1 F L 68 28 H 205/98 H 93 L 01/05/20 12:18 98.1 F 63 18 174/68 H 99 01/05/20 10:51 75 202/74 H 01/05/20 09:23 100 01/05/20 07:59 98.4 F 64 18 176/81 H 100 Weight Admit Weight 139 lb 12.369 oz Weight 139 lb 12.369 oz Most Recent Monitor Data Heart Rate from ECG 80 NIBP 182/94 NIBP BP-Mean 123 Respiration from ECG 24 SpO2 98 I&O: 01/04/20 01/05/20 01/06/20 06:59 06:59 06:59 Intake Total 400 Output Total 1300 200 150 Balance -900 -200 -150 Result Diagrams: 01/05/20 04:46 01/05/20 04:46 Hospitalist ROS - Review of Systems Constitutional: denies: fever, chills - Medication Medications: Active Medications Generic Name Dose Route Start Last Admin Trade Name Freq PRN Reason Stop Dose Admin Aspirin 300 mg 01/05/20 09:00 01/05/20 09:23 Aspirin IN 300 mg DAILY JOSE Administration Heparin Sodium (Porcine) 5,000 units 01/02/20 21:00 01/05/20 17:16 Heparin SC 5,000 units TID JOSE Administration Hydralazine HCl 10 mg 01/03/20 12:43 01/05/20 15:53 Apresoline SLOW IVP 10 mg Q1H PRN Administration Blood Pressure Labetalol HCl 20 mg 01/03/20 12:41 01/05/20 10:51 Normodyne SLOW IVP 20 mg Q4H PRN Administration Hypertension Nitroglycerin 1 patch 01/03/20 14:00 01/05/20 14:04 Nitro-Dur 0.1mg/Hr Patch TD 1 patch 1400 JOSE Administration - Exam General Appearance: NAD, awake alert Eye: PERRL, anicteric sclera ENT: normocephalic atraumatic, no oropharyngeal lesions Neck: no JVD Heart: RRR, no murmur, no gallops, no rubs, murmur present Respiratory: CTAB, no wheezes, no rales, no ronchi Gastrointestinal: soft, non-tender, non-distended, normal bowel sounds Extremities: no cyanosis, no clubbing, no edema Skin: normal turgor, no lesions, no rashes Neurological: cranial nerve grossly intact, normal sensation to touch, no focal deficits, no new deficit Neurological - other findings: moves left arm and right arm spontaneously. Right and left leg move to pain Musculoskeletal: normal tone, normal strength, no muscle wasting Musculoskeletal - other findings: squeezes hands on both sides, btter on left Psychiatric: normal affect, normal behavior, A&O x 3 Hosp A/P - Plan CT brain: no acute hemorrhage. Ex vacuo dilation of ventricles. Mild loss of left insular cortical elise- white matter CTA perfusion : posterior left temporal lobe infarct. CTA head and neck: abrupt stenosis of distal left M1 segment . Right pleural effusion and small left pleural effusion ECHO: EF 60-65%, severe MR, severe , severe TR, mild to moderate pulmonic regurgitation This is a 89 year old female with past medical history of hypertension, COPD who presented with altered mental status, dysarthria and weakness, found to have a stroke Acute left temporal lobe stroke - patient presented with right sided weakness, aphasia, CT head showing left temporal lobe infarct. CTA showed distal left M1 stenosis. Cannot do MRI due to pacemaker - neurosurgery consulted, recommended no surgical intervention. ECHO negative for thrombus, TSH normal, A1C normal - continue nitro patch. BP goal 160-180. Speech has recommended diet with risk , puree and honey liquids - will try to resume patient's oral meds, lisinopril 10 mg bid and hydralazine 50 mg tid - needs to go to rehab - #Severe MR/ Severe /Severe TR #Elevated troponin - troponin peaked at 0.061, CKMB normal. No chest pain . Likely demand ischemia from stroke - noted on ECHO, outpatient management COPD - continue Ipratropium/albuterol sulfate 3 mL NEB QID PRN Constipation - continue Senokot 2 tab PO Q24HR PRN Hyperlipidemia - continue Rosuvastatin 10 mg PO HS Hypothyroidism - continue Levothyroxine 1 tab PO QAM Dementia -Continue Donepezil HCl 10 mg PO HS Congestive heart failure - Obtain echocardiogram Atrial fibrillation - Continue aspirin Stage 3 CKD - Cr improving, continue to monitor
[2020-01-05] MEDS ORDERED: Nystatin Powder 15 GM BOT TOP PRN (17:51)
[2020-01-05] MEDS ORDERED: Calcium Carbonate 500 MG ChewTAB PO PRN (17:51)
[2020-01-05] MEDS ORDERED: Senokot 8.6 MG TAB PO PRN (17:51)
[2020-01-05] MEDS ORDERED: Loperamide HCl 2 MG CAP PO PRN (17:51)
[2020-01-05] MEDS ORDERED: guaiFENesin 200 MG TAB PO PRN (17:51)
--- NOTE | 2020-01-05 17:59 | PDOC.EVN ---
Event Note - Event Note Event Note: Spoke to the patient's daughter. She states she is okay with diet with risks of aspiration. was unsure about feeding tube and wanted to leave that to medical providers. Discussed that barium swallow can be performed for now and further decision about PEg can be made according to results daughter is agreeable
[2020-01-05] MEDS ORDERED: Lisinopril 10 MG TAB PO SCH (18:30)
--- NOTE | 2020-01-05 18:46 | PDOC.PALFU ---
Palliative Care Follow-up Note Palliative Care has met with , communicated with speech therapy. would like to trial diet with risk this weekend, honey thickened with pureed. He is hopeful for tolerating diet and forgo PEG. He states he will make a decision in relation to PEG/Verses diet with risk after trial. Speech Therapy performed teaching, signage in room. Please also refer to Miguel Bradshaw [employer] transfer operator notes in note section.
[2020-01-05] MEDS ORDERED: Rosuvastatin 10 MG TAB PO SCH (21:00)
[2020-01-05] MEDS: hydrALAZINE 25 MG TAB PO SCH (22:07)
[2020-01-05] MEDS: Megestrol Acetate 40 MG TAB PO SCH (22:07)
[2020-01-05] MEDS: Donepezil HCl 10 MG TAB PO SCH (22:07)
[2020-01-05] MEDS: Acetaminophen 325 MG TAB PO PRN (22:07)
[2020-01-05] MEDS: Ezetimibe 10 MG TAB PO SCH (22:08)
[2020-01-06] MEDS: hydrALAZINE 20 MG/ML VIAL SLOW IVP PRN (05:07)
[2020-01-06] MEDS: Levothyroxine Sodium 88 MCG TAB PO SCH (05:07)
[2020-01-06] MEDS: Cholecalciferol 1,000 UNITS (25 MCG) TAB PO SCH (08:26)
[2020-01-06] MEDS: Heparin 5,000 UNITS/ML VIAL SC SCH ×3 (08:26→20:20)
[2020-01-06] MEDS: Megestrol Acetate 40 MG TAB PO SCH ×2 (08:26→20:21)
[2020-01-06] MEDS: Aspirin 81 mg Enteric Coated Tablet PO SCH (08:26)
[2020-01-06] MEDS: Multivitamin W/ Minerals 1 TAB PO SCH (08:26)
[2020-01-06] MEDS: Lisinopril 10 MG TAB PO SCH ×2 (08:27→20:20)
[2020-01-06] MEDS: hydrALAZINE 25 MG TAB PO SCH ×3 (08:27→20:22)
[2020-01-06] MEDS ORDERED: Amlodipine 10 MG TAB PO SCH (10:00)
[2020-01-06 12:38] LABS: SARS-CoV-2 MS2 Positive; SARS-CoV-2 N Gene Negative; SARS-CoV-2 S Gene Negative; SARS-CoV-2 orf1ab Negative
--- NOTE | 2020-01-06 13:57 | PDOC.HOSPP ---
- Subjective Encounter Date: 01/06/20 Subjective: No new events overnight. - Objective Vital Signs & Weight: Vital Signs (12 hours) Temp Pulse Resp BP BP BP BP 01/06/20 11:32 98.7 F 64 18 01/06/20 11:20 157/74 H 01/06/20 10:09 148/64 H 01/06/20 08:27 195/93 H 01/06/20 07:38 97.9 F 87 20 195/93 H 01/06/20 05:39 170/87 H 01/06/20 05:07 73 01/06/20 04:52 97.2 F L 73 18 198/90 H Pulse Ox 01/06/20 11:32 97 01/06/20 11:20 01/06/20 10:09 01/06/20 08:27 96 01/06/20 07:38 96 01/06/20 05:39 01/06/20 05:07 01/06/20 04:52 98 Weight Admit Weight 139 lb 12.369 oz Weight 139 lb 12.369 oz Most Recent Monitor Data Heart Rate from ECG 80 NIBP 182/94 NIBP BP-Mean 123 Respiration from ECG 24 SpO2 98 I&O: 01/05/20 01/06/20 01/07/20 06:59 06:59 06:59 Output Total 200 150 Balance -200 -150 Result Diagrams: 01/05/20 04:46 01/05/20 04:46 Hospitalist ROS - Medication Medications: Active Medications Generic Name Dose Route Start Last Admin Trade Name Freq PRN Reason Stop Dose Admin Acetaminophen 650 mg 01/05/20 17:51 01/05/20 22:07 Tylenol PO 650 mg Q4H PRN Administration Headache/Fever/Mild Pain (1-3) Aspirin 81 mg 01/06/20 09:00 01/06/20 08:26 Ecotrin PO 81 mg DAILY JOSE Administration Cholecalciferol 1,000 units 01/06/20 09:00 01/06/20 08:26 Vitamin D3 PO 1,000 units DAILY JOSE Administration Donepezil HCl 10 mg 01/05/20 21:00 01/05/20 22:07 Aricept PO 10 mg HS JOSE Administration Ezetimibe 10 mg 01/05/20 21:00 01/05/20 22:08 Zetia PO 10 mg HS JOSE Administration Heparin Sodium (Porcine) 5,000 units 01/02/20 21:00 01/06/20 08:26 Heparin SC 5,000 units TID JOSE Administration Hydralazine HCl 10 mg 01/03/20 12:43 01/06/20 05:07 Apresoline SLOW IVP 10 mg Q1H PRN Administration Blood Pressure Hydralazine HCl 50 mg 01/05/20 21:00 01/06/20 08:27 Apresoline PO 50 mg TID JOSE Administration Iron/Minerals/Multivitamins 1 tab 01/06/20 09:00 01/06/20 08:26 Theragran M PO 1 tab DAILY JOSE Administration Labetalol HCl 20 mg 01/03/20 12:41 01/05/20 10:51 Normodyne SLOW IVP 20 mg Q4H PRN Administration Hypertension Levothyroxine Sodium 88 mcg 01/06/20 06:00 01/06/20 05:07 Synthroid PO 88 mcg 0600 JOSE Administration Lisinopril 10 mg 01/06/20 09:00 01/06/20 08:27 Zestril PO 10 mg BID JOSE Administration Megestrol Acetate 40 mg 01/05/20 21:00 01/06/20 08:26 Megace PO 40 mg BID JOSE Administration Sodium Chloride 10 ml 01/02/20 11:09 01/06/20 05:08 Flush - Normal Saline IVF 10 ml PRN PRN Administration Saline Flush - Exam ENT: normocephalic atraumatic Neck: supple Heart: RRR, no murmur, no gallops, no rubs, normal peripheral pulses Respiratory: normal chest expansion, no tachypnea Gastrointestinal: soft, non-distended Hosp A/P - Plan Acute left temporal lobe stroke - patient presented with right sided weakness, aphasia, CT head showing left temporal lobe infarct. CTA showed distal left M1 stenosis. Cannot do MRI due to pacemaker - neurosurgery consulted, recommended no surgical intervention. ECHO negative for thrombus, TSH normal, A1C normal -The patient was hypotensive this morning with systolic blood pressure greater than 190. Convert Nitropatch to indoor and add amlodipine to the patient's lisinopril and hydralazine. -Increase rosuvastatin to 20 mg orally nightly and continue azithromycin. Patient LDL is at target level. -Awaiting rehab placement. #Severe MR/ Severe /Severe TR #Elevated troponin - troponin peaked at 0.061, CKMB normal. No chest pain . Likely demand ischemia from stroke - noted on ECHO, outpatient management COPD - continue Ipratropium/albuterol sulfate 3 mL NEB QID PRN Constipation - continue Senokot 2 tab PO Q24HR PRN Hyperlipidemia - continue Rosuvastatin 20 mg PO HS Hypothyroidism - continue Levothyroxine 1 tab PO QAM Dementia -Continue Donepezil HCl 10 mg PO HS Congestive heart failure - Obtain echocardiogram Atrial fibrillation - Continue aspirin Stage 3 CKD - Cr improving, continue to monitor
[2020-01-06] MEDS: Ezetimibe 10 MG TAB PO SCH (20:21)
[2020-01-06] MEDS: Donepezil HCl 10 MG TAB PO SCH (20:22)
[2020-01-06] MEDS ORDERED: Rosuvastatin 20 MG TAB PO SCH (21:00)
[2020-01-07 04:58] LABS: #Eosinphils 0.4 thou/uL (0.0-0.7); #Lymphocytes 1.1 thou/uL (1.20-3.40); #Monocytes 0.5 thou/uL (0.11-0.59); #Neutrophils 4.8 thou/uL (1.40-6.50); %Basophils 0.5 % (0.0-1.0); %Eosinophils 5.7 % (0.0-10.0); %Lymphocytes 16.2 % (21.0-51.0); %Monocytes 6.6 % (0.0-10.0); Hemoglobin 11.5 g/dL (12.0-16.0); Mean Corpuscular HGB CONC 33.2 g/dL (32.0-36.0); Mean Corpuscular Hemoglobin 34.8 pg (27.0-31.0); Platelet Count 155 thou/uL (130-400); Red Blood Cell (RBC) Count 3.31 mill/uL (4.20-5.40); White Blood Cell (WBC) Count 6.7 thou/uL (4.8-10.8)
[2020-01-07] MEDS: Levothyroxine Sodium 88 MCG TAB PO SCH (05:13)
[2020-01-07 05:21] LABS: Anion Gap 12 mmol/L (10-20); BUN (Urea Nitrogen) 18 mg/dL (9.8-20.1); Calc. Creatinine Clearance 43 mL/min (70-130); Calcium 8.3 mg/dL (7.8-10.44); Carbon Dioxide 22 mmol/L (23-31); Chloride 111 mmol/L (98-107); Estimated GFR-MDRD 59; Glucose 94 mg/dL (83-110); Potassium 3.5 mmol/L (3.5-5.1); Sodium 141 mmol/L (136-145)
[2020-01-07] MEDS ORDERED: Amlodipine 10 MG TAB PO SCH (09:00)
[2020-01-07] MEDS: Acetaminophen 325 MG TAB PO PRN (10:05)
[2020-01-07] MEDS: Megestrol Acetate 40 MG TAB PO SCH (10:07)
[2020-01-07] MEDS: Lisinopril 10 MG TAB PO SCH (10:07)
[2020-01-07] MEDS: Heparin 5,000 UNITS/ML VIAL SC SCH ×2 (10:08→15:47)
[2020-01-07] MEDS: hydrALAZINE 25 MG TAB PO SCH ×2 (10:08→15:46)
[2020-01-07] MEDS: Aspirin 81 mg Enteric Coated Tablet PO SCH (10:09)
[2020-01-07] MEDS: Cholecalciferol 1,000 UNITS (25 MCG) TAB PO SCH (10:09)
[2020-01-07] MEDS: Multivitamin W/ Minerals 1 TAB PO SCH (10:10)
--- NOTE | 2020-01-07 11:24 | PDOC.HOSPP ---
- Subjective Encounter Date: 01/07/20 non-verbal - Objective Vital Signs & Weight: Vital Signs (12 hours) Temp Pulse Resp BP BP Pulse Ox 01/07/20 07:57 98.1 F 77 22 H 162/79 H 97 01/07/20 04:59 98.5 F 74 20 178/85 H 97 01/07/20 00:00 97.7 F 99 18 157/85 H 97 Weight Admit Weight 139 lb 12.369 oz Weight 139 lb 12.369 oz Most Recent Monitor Data Heart Rate from ECG 80 NIBP 182/94 NIBP BP-Mean 123 Respiration from ECG 24 SpO2 98 I&O: 01/06/20 01/07/20 01/08/20 06:59 06:59 06:59 Intake Total 600 Output Total 150 250 Balance -150 350 Result Diagrams: 01/07/20 04:37 01/07/20 04:37 Hospitalist ROS - Medication Medications: Active Medications Generic Name Dose Route Start Last Admin Trade Name Freq PRN Reason Stop Dose Admin Acetaminophen 650 mg 01/05/20 17:51 01/07/20 10:05 Tylenol PO 650 mg Q4H PRN Administration Headache/Fever/Mild Pain (1-3) Amlodipine Besylate 10 mg 01/07/20 09:00 01/07/20 10:09 Norvasc PO 10 mg DAILY JOSE Administration Aspirin 81 mg 01/06/20 09:00 01/07/20 10:09 Ecotrin PO 81 mg DAILY JOSE Administration Cholecalciferol 1,000 units 01/06/20 09:00 01/07/20 10:09 Vitamin D3 PO 1,000 units DAILY JOSE Administration Donepezil HCl 10 mg 01/05/20 21:00 01/06/20 20:22 Aricept PO 10 mg HS JOSE Administration Ezetimibe 10 mg 01/05/20 21:00 01/06/20 20:21 Zetia PO 10 mg HS JOSE Administration Heparin Sodium (Porcine) 5,000 units 01/02/20 21:00 01/07/20 10:08 Heparin SC 5,000 units TID JOSE Administration Hydralazine HCl 10 mg 01/03/20 12:43 01/06/20 05:07 Apresoline SLOW IVP 10 mg Q1H PRN Administration Blood Pressure Hydralazine HCl 50 mg 01/05/20 21:00 01/07/20 10:08 Apresoline PO 50 mg TID JOSE Administration Iron/Minerals/Multivitamins 1 tab 01/06/20 09:00 01/07/20 10:10 Theragran M PO 1 tab DAILY JOSE Administration Isosorbide Mononitrate 30 mg 01/07/20 09:00 01/07/20 10:08 Imdur Er PO 30 mg DAILY JOSE Administration Labetalol HCl 20 mg 01/03/20 12:41 01/05/20 10:51 Normodyne SLOW IVP 20 mg Q4H PRN Administration Hypertension Levothyroxine Sodium 88 mcg 01/06/20 06:00 01/07/20 05:13 Synthroid PO 88 mcg 0600 JOSE Administration Lisinopril 10 mg 01/06/20 09:00 01/07/20 10:07 Zestril PO 10 mg BID JOSE Administration Megestrol Acetate 40 mg 01/05/20 21:00 01/07/20 10:07 Megace PO 40 mg BID JOSE Administration Rosuvastatin Calcium 20 mg 01/06/20 21:00 01/06/20 20:20 Crestor PO 20 mg HS JOSE Administration Sodium Chloride 10 ml 01/02/20 11:09 01/06/20 05:08 Flush - Normal Saline IVF 10 ml PRN PRN Administration Saline Flush - Exam ENT: normocephalic atraumatic Neck: supple Heart: RRR Respiratory: CTAB, normal chest expansion, no tachypnea Gastrointestinal: soft Hosp A/P - Plan Acute left temporal lobe stroke - patient presented with right sided weakness, aphasia, CT head showing left temporal lobe infarct. CTA showed distal left M1 stenosis. Cannot do MRI due to pacemaker - neurosurgery consulted, recommended no surgical intervention. ECHO negative for thrombus, TSH normal, A1C normal -The patient was hypotensive this morning with systolic blood pressure greater than 190. Convert Nitropatch to indoor and add amlodipine to the patient's lisinopril and hydralazine. -Increase rosuvastatin to 20 mg orally nightly and continue azithromycin. Patient LDL is at target level. -Awaiting rehab placement. #Severe MR/ Severe /Severe TR #Elevated troponin - troponin peaked at 0.061, CKMB normal. No chest pain . Likely demand ischemia from stroke - noted on ECHO, outpatient management COPD - continue Ipratropium/albuterol sulfate 3 mL NEB QID PRN Constipation - continue Senokot 2 tab PO Q24HR PRN Hyperlipidemia - continue Rosuvastatin 20 mg PO HS Hypothyroidism - continue Levothyroxine 1 tab PO QAM Dementia -Continue Donepezil HCl 10 mg PO HS Congestive heart failure - Obtain echocardiogram Atrial fibrillation - Continue aspirin Stage 3 CKD - Cr improving, continue to monitor
[2020-01-07 15:50] VITALS: BP 132/62; TEMP 97.9
--- NOTE | 2020-01-08 08:24 | DIS ---
DATE OF ADMISSION: 01/02/2020 DATE OF DISCHARGE: 01/07/2020 DISCHARGE DIAGNOSES: 1. Acute left temporal lobe stroke. 2. Severe mitral regurgitation. 3. Severe aortic stenosis. 4. Severe tricuspid regurgitation. 5. Elevated troponins, likely due to demand ischemia. 6. Chronic obstructive pulmonary disease. 7. Constipation. 8. Hyperlipidemia. 9. Hyperthyroidism. 10. Dementia. 11. Diastolic congestive heart failure. 12. Atrial fibrillation. 13. Chronic kidney disease, stage 3. DISCHARGE MEDICATIONS: 1. Aspirin 81 mg orally daily. 2. Clopidogrel 75 mg orally daily for 21 days. 3. Calcium carbonate 1000 mg orally q.4 hours as needed for indigestion. 4. Tylenol 650 mg orally q.4 hours. 5. Vitamin D3 1 tab orally daily. 6. Donepezil 10 mg orally nightly. 7. Ezetimibe 10 mg orally nightly. 8. Guaifenesin 400 mg orally q.6 hours as needed for cough. 9. Hydralazine 50 mg orally t.i.d. 10. Levothyroxine 88 mcg orally daily. 11. Loperamide 2 mg orally as needed for loose stools. 12. Megace 40 mg orally twice daily. 13. Nystatin powder topical irritation twice daily as needed. 14. Rosuvastatin 10 mg orally nightly. 15. Sennosides 8.6 mg orally daily as needed for constipation. 16. Amlodipine 5 mg orally daily. 17. Tessalon Perles 100 mg orally q.4 hours as needed for cough. 18. Fish oil 1000 mg orally daily. 19. Furosemide 20 mg orally daily. 20. Imdur 30 mg orally daily. 21. Lisinopril 10 mg orally twice daily. 22. Potassium chloride 20 mEq orally daily. 23. CoQ10 of 200 mg orally daily. HISTORY OF PRESENT ILLNESS AND HOSPITAL COURSE: The patient is an 89-year-old female with history of dementia, CHF, hypertension, hyperlipidemia, hyperthyroidism, coronary artery disease, atrial fibrillation, who was sent to the ER due to altered mental status, difficulty talking, and right-sided weakness. CT scan in the ER revealed left temporal lobe infarct and CTA of the head and neck revealed stenosis of the left M1 segment of the middle cerebral artery. The patient was admitted to the hospital for further evaluation. MRI could not be obtained due to pacemaker. Permissive hypertension was allowed in the first 48 hours and then the blood pressure was gradually brought down with oral antihypertensive medications. The patient was started on aspirin and subsequently Plavix due to large intracranial artery stenosis. Plavix will be continued fo r21 days. Neurosurgery was consulted and no surgical intervention was recommended. Echocardiogram did not show any intracardiac thrombosis or PFO. EEG was negative for seizure activity. TSH and hemoglobin A1c were within range. The patient continued to have some dysphagia. After discussion with Palliative Care team, family decided to pursue diet with risk. The patient's mental status remains abnormal, but this is likely her baseline given her history of dementia and no CVA. Job ID: [id number] MTDD
--- NOTE | 2020-01-08 15:45 | CT ---
PRELIMINARY REPORT/[facility]/EMERGENCY AFTER HOURS PROCEDURE EXAM: CTA Head and Neck without Intravenous Contrast. CT Head with/without Contrast. CLINICAL HISTORY: Ambulance was called for patient with changes in speech and decreased responsiveness away from her no rmal. She was last seen normal approximately 8 hours ago, at 10 PM. She went to sleep in her normal state of health, but when family tried to awaken her and interact with her, they noted that she only gaze to the left, would not answer them, and will not talk at this time. Patient is awake but not answering any questions and not following any commands at this time. She did not appear to be any acu te distress. No further history is available. TECHNIQUE: Axial CTA images of the head and neck performed without intravenous contrast. MIP reconstructed image s were created and reviewed. Axial computed tomography images of the head/brain performed with/without intravenous contrast. Note: Per PQRS, the description of internal carotid artery percent stenosis, including 0 percent or n ormal exam, is based on [place] Symptomatic Carotid Endarterectomy Trial (NASCET) criteria. CONTRAST: Without COMPARISON: CT - CT BRAIN WO CON - 07/01/2018 12:40 PM DISPATCH ASSOCIATE FINDINGS: CT HEAD: BRAIN: No acute intercurrent hemorrhage. No midline shift or other mass-effect. Periventricular and subcortical white matter hypodensities in bilateral cerebral hemispheres. Ex vacuo dilatation of the ventricles and sulci secondary to cerebral volume loss. Mild loss of the left insular cortical elise-white matter differentiation, which is new compared to pr ior CT head 07/01/2018. VENTRICLES: No hydrocephalus. ORBITS: The orbits are unremarkable. SINUSES AND MASTOIDS: The paranasal sinuses and mastoid air cells are clear. CTA NECK: COMMON CAROTID ARTERIES No significant stenosis. No dissection or occlusion. INTERNAL CAROTID ARTERIES Atherosclerotic calcifications at bilateral carotid bulbs and proximal internal carotid arteries resu lting in approximately 50% stenosis on the right and 40% stenosis on the left at the origin of the internal carotid arteries. VERTEBRAL ARTERIES No significant stenosis. No dissection or occlusion. CTA HEAD: ANTERIOR CEREBRAL ARTERIES No significant stenosis. No occlusion. No aneurysm. MIDDLE CEREBRAL ARTERIES Severe abrupt stenosis at the distal left M1 segment with contrast opacification distally in the norm al-appearing M2 and M3 branches. POSTERIOR CEREBRAL ARTERIES No significant stenosis. No occlusion. No aneurysm. BASILAR ARTERY No significant stenosis. No occlusion. No aneurysm. OTHER: SOFT TISSUES Incomplete the visualized large right pleural effusion and small left pleural effusion. BONES No acute osseous abnormality. Multifocal cervical spondylosis with grade 1 anterolisthesis of C4 on C5. IMPRESSION: 1. No acute intercurrent hemorrhage. 2. Mild loss of the left insular cortical elise-white matter differentiation, which is new compared to prior CT head 07/01/2018. 3. Severe abrupt stenosis at the distal left M1 segment with contrast opacification distally in the n ormal-appearing M2 and M3 branches. Recommend emergent neurology and neurosurgical/endovascular Consultation 4. Atherosclerotic calcifications at bilateral carotid bulbs and proximal internal carotid arteries r esulting in approximately 50% stenosis on the right and 40% stenosis on the left at the origin of the internal carotid arteries. 5. Incomplete the visualized large right pleural effusion and small left pleural effusion. Correlate for acute heart failure and consider CT chest. ELECTRONICALLY SIGNED BY: Wilian Olivo DO January 02, 2020 6:33:58 AM CDT This report is intended for review by the ordering physician only, in accordance of law. If you recei ve this report in error, please call [facility] at [phone]. FINAL REPORT EXAM: CT ANGIOGRAM OF THE HEAD AND NECK INDICATION: Wakeup stroke. Decreased responsiveness. Changes in speech. COMPARISON: 06/28/2018 TECHNIQUE: CT angiogram of the head and neck are performed in the axial plane. Three-dimensional refo rmatted images are submitted for interpretation. FINDINGS: CTA OF THE HEAD WITH AND WITHOUT CONTRAST: POSTCONTRAST CT OF BRAIN: Decreased enhancement involving the left insular cortex. Postcontrast soft tissue neck CT: Aerodigestive tract:Aerodigestive tract is patent. No mucosal abnormality. 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 Orbits: Bilateral ocular lenses implants are appropriately located. Both globes are intact. Retrobulb ar fat is preserved. Symmetric attenuation the optic nerves and ocular rectus muscles. Salivary glands:Appropriate attenuation. Diminutive left submandibular gland. Thyroid gland: Diminutive, possibly surgically absent. Lymph nodes: No evidence of lymphadenopathy by size criteria. Paraspinal muscles: Symmetric attenuation of the sternocleidomastoid muscles. Appropriate attenuation of the paraspinal muscles. Cervical spine:Vertebral body height is maintained. No fracture. Varying degrees of central canal mohini nosis or significant neural foraminal narrowing due to degenerative change. Limited evaluation by technique. Upper mediastinum and lung apices: Moderate right and [id number] left pleural effusion. Adjace nt lung parenchymal opacities may represent edema or atelectasis. CTA OF THE NECK WITH CONTRAST: Aorta: Appropriate enhancement and luminal diameter. Common origin of the innominate artery and left common carotid artery Right carotid artery: Appropriate enhancement and luminal diameter of the innominate artery, common c arotid artery, carotid bifurcation and internal carotid artery. No significant stenosis based upon NASCET criteria. Calcified plaque in the right carotid bifurcation and proximal internal carotid melissa ry are noted Left carotid: Appropriate enhancement and luminal diameter of the origin of the left carotid artery, common carotid artery, carotid bifurcation and internal carotid artery. No significant stenosis based upon NASCET criteria. There is calcified plaque in the left carotid bifurcation and proximal in ternal carotid artery. Subclavian arteries:Symmetric and patent Vertebral arteries:Patent throughout their course in the neck and essentially codominant CTA OF THE BRAIN: Intracranial internal carotid arteries:Atherosclerosis of both cavernous and paraclinoid segments Anterior circulation: Abrupt termination of the mid to distal left M1 segment. Decreased branches in the left MCA distribution. Bilateral A1 segments, A2 segments, right M1 segment and proximal right MCA branches have appropriate enhancement and luminal diameter. Intracranial vertebral arteries: Atherosclerosis in the left vertebral artery. No significant stenosi s. Bilateral PICA artery origins have normal enhancement and luminal diameter. Posterior circulation: Both vertebral arteries supply normal caliber basilar artery. Bilateral P1 seg ments have appropriate enhancement and luminal diameter IMPRESSION: 1. This report is in agreement with initial report by [facility] 2. 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 Decreased proximal left MCA branches. Transcribed Date/Time: 01/08/2020 2:20 PM
== END 2020-01-07 18:20 | DRG 65 ==
LOC: ERS 05:44 → CCU 08:53 → 2SE 01-03 09:34
PROVIDERS: ADMIT Internal Medicine; ATTEND Internal Medicine
DX: I63.39 Cerebral infarction due to thrombosis of other cerebral artery (principal); I24.8 Other forms of acute ischemic heart disease; I50.32 Chronic diastolic (congestive) heart failure; Z66 Do not resuscitate; I13.0 Hypertensive heart and chronic kidney disease with heart failure and stage 1 through stage 4 chronic kidney disease, or unspecified chronic kidney disease; G81.94 Hemiplegia, unspecified affecting left nondominant side; I08.3 Combined rheumatic disorders of mitral, aortic and tricuspid valves; J44.9 Chronic obstructive pulmonary disease, unspecified; K59.00 Constipation, unspecified; E78.5 Hyperlipidemia, unspecified; R29.6 Repeated falls; F03.90 Unspecified dementia, unspecified severity, without behavioral disturbance, psychotic disturbance, mood disturbance, and anxiety; I48.91 Unspecified atrial fibrillation; E03.9 Hypothyroidism, unspecified; M19.90 Unspecified osteoarthritis, unspecified site; E05.90 Thyrotoxicosis, unspecified without thyrotoxic crisis or storm; I25.10 Atherosclerotic heart disease of native coronary artery without angina pectoris; R47.1 Dysarthria and anarthria; Z96.653 Presence of artificial knee joint, bilateral; N18.3 Chronic kidney disease, stage 3 (moderate); E78.00 Pure hypercholesterolemia, unspecified; Z86.73 Personal history of transient ischemic attack (TIA), and cerebral infarction without residual deficits; Z79.01 Long term (current) use of anticoagulants; Z90.710 Acquired absence of both cervix and uterus; Z95.0 Presence of cardiac pacemaker; Z95.5 Presence of coronary angioplasty implant and graft; Z95.1 Presence of aortocoronary bypass graft
CPT/HCPCS: 0042T; 36415; 36416; 70450; 70496; 70498; 71045; 80048; 80053; 80061; 82550; 82553; 83036; 84443; 84484; 85025; 85027; 85610; 85730; 87635; 93005; 93306; 95712; 95816; 95819; 95957; J0360; J1644; Q9967; S0179; U0003

== ENCOUNTER 2020-01-21 01:15 | Inpatient (IN) | payer MEDICARE, BC, OTHER ==
[2020-01-21] MEDS ORDERED: Metoprolol Tartrate 5 MG/5 ML VIAL ONE (01:52)
[2020-01-21 01:56] LABS: #Eosinphils 0.2 thou/uL (0.0-0.7); #Lymphocytes 1.8 thou/uL (1.20-3.40); #Monocytes 0.8 thou/uL (0.11-0.59); %Basophils 0.6 % (0.0-1.0); %Eosinophils 2.1 % (0.0-10.0); %Lymphocytes 20.7 % (21.0-51.0); %Monocytes 8.6 % (0.0-10.0); Hemoglobin 13.9 g/dL (12.0-16.0); Mean Corpuscular HGB CONC 32.6 g/dL (32.0-36.0); Mean Corpuscular Hemoglobin 33.6 pg (27.0-31.0); Mean Platelet Volume 8.8 fL (7.4-10.4); Platelet Count 229 thou/uL (130-400); RBC Distribution Width 12.8 % (11.5-14.5); Red Blood Cell (RBC) Count 4.15 mill/uL (4.20-5.40); White Blood Cell (WBC) Count 8.7 thou/uL (4.8-10.8)
[2020-01-21 02:02] LABS: INR-International Normal Ratio 1.1; PTT 43.3 sec (22.9-36.1); Prothrombin Time 14.1 sec (12.0-14.7)
[2020-01-21 02:19] LABS: ALT (SGPT) 17 U/L (8-55); AST (SGOT) 64 U/L (5-34); Albumin 3.7 g/dL (3.4-4.8); Alkaline Phosphatase 64 U/L (40-110); Anion Gap 15 mmol/L (10-20); BUN (Urea Nitrogen) 16 mg/dL (9.8-20.1); CK (CPK) 263 U/L (29-168); Calc. Creatinine Clearance 0 mL/min (70-130); Calcium 9.1 mg/dL (7.8-10.44); Carbon Dioxide 21 mmol/L (23-31); Chloride 104 mmol/L (98-107); Estimated GFR-MDRD 40; Globulin 4.1 g/dL (2.4-3.5); Glucose 95 mg/dL (83-110); Potassium 4.4 mmol/L (3.5-5.1); Protein, Total 7.8 g/dL (6.0-8.3); Sodium 136 mmol/L (136-145)
[2020-01-21] MEDS ORDERED: hydrALAZINE 20 MG/ML VIAL ONE (02:28)
[2020-01-21] MEDS: Sodium Chloride 0.9% 1,000 ML IV SCH ×2 (04:44→19:36)
[2020-01-21 05:15] LABS: Troponin I 0.063 ng/mL (< 0.028)
--- NOTE | 2020-01-21 07:39 | RAD ---
CHEST 1 VIEW: INDICATION: Chest pain. COMPARISON: Prior exam dated 01/02/2020. IMPRESSION: There has been significant improvement in pleural parenchymal opacities involving the right lung base . Small residual pleural effusion remains. Cardiomegaly is stable-appearing. Pulmonary vasculature is within normal limits. There is a single-lead AICD (automatic implantable cardioverter/defibrilla tor) overlying the left chest wall. Chronic osseous changes appear similar to the comparison examina tion. POS: BH
--- NOTE | 2020-01-21 08:00 | HP ---
TIME OF ASSESSMENT: 0300 hours. REASON FOR ADMISSION: ACS rule out. HISTORY OF PRESENT ILLNESS: Ms. Jackson is an 89-year-old woman who has a known history of dementia, brought into the emergency department from [facility] due to presumed chest pain. The patient apparently was pointing to her chest and therefore, brought in for further evaluation. She was given 243 mg of aspirin as well as 1 inch of nitroglycerin paste prior to arrival. She had an elevated blood pressure of 214/108 with EMS. On arrival here, the patient was given hydralazine 10 mg IV and metoprolol 5 mg IV. She had an EKG done showing atrial fibrillation with controlled ventricular response. Heart rate was 79. There were inverted T-waves affecting leads IV, V and . History and review of systems could not be obtained for the patient as she continues to answer "I don't know" to all questions. She is found resting comfortably and denies pain. History obtained from ED notes. LABORATORY DATA: The patient had laboratory studies done, which showed white count of 8.7, hemoglobin 13.9, hematocrit 42.8, and neutrophil 68%. Sodium 136, potassium 4.4, BUN 16, creatinine 1.27, GFR 40. AST 64. LFTs otherwise unremarkable. CK was 263. Initial troponin was indeterminate at 0.062, which is stable from earlier this month and better than July 2019. The patient had a chest x-ray done, which was unremarkable. She is being admitted for ACS rule out. 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 The patient was started on aspirin and Plavix. PAST MEDICAL HISTORY: 1. CKD, stage 3. 2. Atrial fibrillation. 3. Diastolic congestive heart failure. 4. Dementia. 5. Hyperthyroidism. 6. Hyperlipidemia. 7. Constipation. 8. COPD. 9. Severe tricuspid regurgitation. 10. Severe aortic stenosis. 11. Severe mitral regurgitation. 12. 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 13. Hypertension. 14. Hyperlipidemia. 15. History of intracranial hemorrhage. 16. Chronic constipation. PAST SURGICAL HISTORY: 1. Thyroidectomy. 2. Bladder suspension. 3. Hysterectomy. 4. Bilateral knee replacement. 5. Tonsillectomy. 6. Right hand surgery. 7. Pacemaker placement. 8. Stent x1. 9. Bilateral cataract removal with lens implants. 10. Left hand surgery. 11. Skin excision. 12. Right leg vein stripping. FAMILY HISTORY: Noncontributory. SOCIAL HISTORY: No known history of tobacco use, alcohol consumption, or illicit drug use. ALLERGIES: TO CEPHALEXIN. CURRENT MEDICATIONS: 1. Levothyroxine. 2. Aspirin. 3. CoQ10. 4. Fish oil. 5. Lasix. 6. Lisinopril. 7. Metoprolol succinate. 8. Vitamin D3. 9. Colace. 10. Donepezil. 11. Zetia. 12. Albuterol/ipratropium inhaler. 13. Potassium chloride. 14. Quetiapine. 15. Plavix. PHYSICAL EXAMINATION: GENERAL: The patient is found resting comfortably on stretcher, in no acute distress. VITAL SIGNS: Temperature 97.8, pulse 72, blood pressure 164/108, O2 saturation 97% on room air. HEENT: Normocephalic and atraumatic. Pupils are equal, round, reactive to light. Sclerae icterus. Oropharynx is clear. NECK: Supple. LUNGS: Clear bilaterally. CARDIAC: Regular rate. No apparent chest wall tenderness. Audible murmur. Peripheral pulses present and equal bilaterally. ABDOMEN: Soft, mildly distended in the lower abdominal region. No obvious tenderness on palpation. No guarding or rigidity. EXTREMITIES: No lower leg swelling or edema. NEUROLOGIC: Altered mental status. The patient does have a known history of dementia. Unclear what her baseline is. Currently says "I don't know to every question." She is able to follow some commands such as raising her arms. INVESTIGATIONS: As mentioned above in HPI. IMPRESSION AND PLAN: Ms. Jackson is an 89-year-old woman who is being admitted for management of the following. 1. Acute coronary syndrome, rule out. The patient reportedly complained of chest pain by pointing to her chest, though she is nonverbal at baseline. This happened while she was at the care home and therefore, EMS was called. She was given aspirin while en route. The EKG did not show any ST changes. The patient will remain on cardiac monitoring. Initial troponin was indeterminate, but stable compared to most recent troponin. We will continue to trend troponins. Chest x -ray unremarkable. We will check TSH with morning labs. We will check BNP and magnesium as well with morning labs. Lipid panel ordered. 2. Chronic kidney disease. Continue gentle hydration. 3. Altered mental status. The patient with known dementia, but reportedly more communicative than this. She did have suprapubic distention on palpation during examination. We will obtain a bladder scan to assess for any possible retention. We will also obtain a UA, urine culture to assess for possibility of underlying urinary tract infection that could be contributing to her minimally communicative state. 4. Hypertensive urgency. The patient with blood pressure of 215/105. Unable to establish the patient is symptomatic with that. She was given metoprolol as well as hydralazine and blood pressure has improved to 164/108. Continue to monitor blood pressure. Reconcile medications once verified, if appropriate. 5. Hyperthyroidism. As mentioned above, we will check TSH with morning labs. Reconcile home medications once verified. 6. History of congestive heart failure. We will give gentle hydration. We will check BNP with. Morning labs. 7. Deep venous thrombosis prophylaxis with mechanical SCDs. Case discussed with attending, who agrees with plan of care as described above. Job ID: [id number] [id number]
[2020-01-21 08:20] LABS: Troponin I 0.053 ng/mL (< 0.028)
[2020-01-21 11:41] LABS: Bacteria/HPF 4+ HPF (None Seen); Bilirubin Negative (Negative); Blood, Urine 1+ (Negative); Clarity Extra Turbid (Clear); Glucose, Urine (Dipstick) Normal (Negative); Ketone, Urine Negative (Negative); Leukocyte 500 Leu/uL (Negative); Nitrite Negative (Negative); Protein, Urine (Dipstick) 30 mg/dL (Neg-Trace); RBC/HPF 21-50 HPF (0-3); Specific Gravity, Urine 1.013 (1.002-1.036); Squamous Epithelial None Seen HPF (0-3); WBC/HPF Greater than 50 HPF (0-3); pH, Urine 7.5 (5.0-9.0)
[2020-01-21 11:47] LABS: Urine Culture Reflex Yes Yes
[2020-01-21 12:26] LABS: SARS-CoV-2 MS2 Positive; SARS-CoV-2 N Gene Negative; SARS-CoV-2 S Gene Negative; SARS-CoV-2 by NAA Not Detected (NotDetected); SARS-CoV-2 orf1ab Negative
--- NOTE | 2020-01-21 15:34 | PDOC.HOSPP ---
- Subjective Encounter Date: 01/21/20 (f/u chest pain) Encounter Time: 15:33 Subjective: Pt admitted early this morning, no events noted by RN - Objective Vital Signs & Weight: Vital Signs (12 hours) Temp Pulse Resp BP Pulse Ox 01/21/20 11:15 97.8 F 73 16 175/87 H 98 01/21/20 07:31 98.3 F 84 16 150/63 H 97 01/21/20 04:05 97.8 F 93 22 H 180/96 H 98 Weight Weight 137 lb 1.6 oz I&O: 01/20/20 01/21/20 01/22/20 06:59 06:59 06:59 Intake Total 130 Balance 130 Result Diagrams: 01/21/20 01:45 01/21/20 01:45 Additional Labs: UA reviewed and c/w infection EKG Reviewed by me: Yes (tele - a fib with intermittent pacing rate 70') Hospitalist ROS - Medication Medications: Active Medications Generic Name Dose Route Start Last Admin Trade Name Freq PRN Reason Stop Dose Admin Sodium Chloride 1,000 mls @ 65 mls/hr 01/21/20 03:30 01/21/20 04:44 Normal Saline 0.9% IV 1,000 mls .[id number] JOSE Administration - Exam General Appearance: NAD General - other findings: opens eyes, nonsensical speech but clear saying yes and no Heart - other findings: 3/6 holosystolic murmur - harsh Respiratory: CTAB Gastrointestinal: soft, non-tender, non-distended, normal bowel sounds Extremities: no cyanosis, no clubbing, no edema Hosp A/P (1) Chest pain Code(s): R07.9 - CHEST PAIN, UNSPECIFIED Status: Acute Qualifiers: Chest pain type: unspecified Qualified Code(s): R07.9 - Chest pain, unspecified (2) History of recent stroke Code(s): Z86.73 - PRSNL HX OF TIA (TIA), AND CEREB INFRC W/O RESID DEFICITS Status: Acute (3) Severe aortic stenosis Code(s): I35.0 - NONRHEUMATIC AORTIC (VALVE) STENOSIS Status: Chronic (4) UTI (urinary tract infection) Status: Acute Qualifiers: Urinary tract infection type: acute cystitis Hematuria presence: without hematuria Qualified Code(s): N30.00 - Acute cystitis without hematuria (5) CAD (coronary artery disease) Code(s): I25.10 - ATHSCL HEART DISEASE OF [place] CORONARY ARTERY W/O ANG PCTRS Status: Chronic Qualifiers: Coronary Disease-Associated Artery/Lesion type: [place] artery [place] vs. transplanted heart: [place] heart Associated angina: without angina Qualified Code(s): I25.10 - Atherosclerotic heart disease of [place] coronary artery without angina pectoris (6) Dementia Code(s): F03.90 - UNSPECIFIED DEMENTIA WITHOUT BEHAVIORAL DISTURBANCE Status: Chronic Qualifiers: Dementia type: Alzheimer's disease (7) Hypertension Code(s): I10 - ESSENTIAL (PRIMARY) HYPERTENSION Status: Chronic Qualifiers: (8) Hypothyroid Code(s): E03.9 - HYPOTHYROIDISM, UNSPECIFIED Status: Chronic Qualifiers: Hypothyroidism type: unspecified Qualified Code(s): E03.9 - Hypothyroidism , unspecified - Plan Possible chest pain - plan to monitor on telemetry - 3 indeterminant troponins, do not think further workup is indicated UTI - start levaquin with renal dosing, await urine cultue, reviewed most recent cx and e coli that was hdz-sensitive. Due to keflex allergy, unable to use rocephin. Given age, will not use nitrofurantoin or bactrim CAD/a fib/recent stroke - continue home meds CKD stable - monitor renal function dvt prophy - heparin gi prophy - not indicated, will be written for a diet code status - confirmed with paperwork - DNAR
[2020-01-21] MEDS: Heparin 5,000 UNITS/ML VIAL SC SCH ×2 (17:11→22:26)
[2020-01-21] MEDS: Ezetimibe 10 MG TAB PO SCH (22:25)
[2020-01-21] MEDS: Rosuvastatin 10 MG TAB PO SCH (22:25)
[2020-01-21] MEDS: hydrALAZINE 25 MG TAB PO SCH (22:25)
[2020-01-21] MEDS: Donepezil HCl 5 MG TAB PO SCH (22:25)
[2020-01-21] MEDS: Lisinopril 10 MG TAB PO SCH (22:26)
[2020-01-21] MEDS: Megestrol Acetate 40 MG TAB PO SCH (22:26)
[2020-01-22 04:20] LABS: #Eosinphils 0.1 thou/uL (0.0-0.7); #Lymphocytes 1.5 thou/uL (1.20-3.40); #Monocytes 0.5 thou/uL (0.11-0.59); #Neutrophils 4.6 thou/uL (1.40-6.50); %Basophils 0.7 % (0.0-1.0); %Eosinophils 0.8 % (0.0-10.0); %Lymphocytes 22.3 % (21.0-51.0); %Monocytes 7.8 % (0.0-10.0); %Neutrophils 68.4 % (42.0-75.0); Hemoglobin 13.1 g/dL (12.0-16.0); Mean Corpuscular HGB CONC 32.6 g/dL (32.0-36.0); Mean Corpuscular Hemoglobin 33.4 pg (27.0-31.0); Mean Platelet Volume 8.3 fL (7.4-10.4); Platelet Count 200 thou/uL (130-400); RBC Distribution Width 12.8 % (11.5-14.5); Red Blood Cell (RBC) Count 3.93 mill/uL (4.20-5.40); White Blood Cell (WBC) Count 6.7 thou/uL (4.8-10.8)
[2020-01-22 04:45] LABS: Anion Gap 14 mmol/L (10-20); BUN (Urea Nitrogen) 10 mg/dL (9.8-20.1); Calc. Creatinine Clearance 43 mL/min (70-130); Calcium 8.6 mg/dL (7.8-10.44); Carbon Dioxide 20 mmol/L (23-31); Chloride 106 mmol/L (98-107); Estimated GFR-MDRD 60; Glucose 86 mg/dL (83-110); Potassium 3.5 mmol/L (3.5-5.1); Sodium 136 mmol/L (136-145)
[2020-01-22] MEDS: Levothyroxine Sodium 88 MCG TAB PO SCH (07:39)
[2020-01-22] MEDS: Megestrol Acetate 40 MG TAB PO SCH ×2 (08:47→21:42)
[2020-01-22] MEDS: Potassium Chloride 20 MEQ TAB PO SCH (08:47)
[2020-01-22] MEDS: Clopidogrel Bisulfate 75 MG TAB PO SCH (08:47)
[2020-01-22] MEDS: Furosemide 20 MG TAB PO SCH (08:47)
[2020-01-22] MEDS: Lisinopril 10 MG TAB PO SCH (08:47)
[2020-01-22] MEDS: hydrALAZINE 25 MG TAB PO SCH ×3 (08:47→21:41)
[2020-01-22] MEDS: Aspirin 81 mg Enteric Coated Tablet PO SCH (08:47)
[2020-01-22] MEDS: Heparin 5,000 UNITS/ML VIAL SC SCH ×2 (08:48→15:51)
[2020-01-22] MEDS ORDERED: Sodium Chloride 0.9% 250 ML IV SCH (10:15)
[2020-01-22] MEDS ORDERED: hydrALAZINE 25 MG TAB PO SCH ×2 (10:47→11:00)
--- NOTE | 2020-01-22 11:02 | PDOC.HOSPP ---
- Subjective Encounter Date: 01/22/20 (f/u chest pain) Encounter Time: 11:01 Subjective: Informed by pt's nurse that bp was 132/66 at 8:45, pt only took some of her medication in applesauce, and repeate bp at 9:47 was 80's/50's. With trendelenburg it increased to 101/47. Pt currently sleeping, awakens, will look at me and smile. No reported overnight events. - Objective Vital Signs & Weight: Vital Signs (12 hours) Temp Pulse Resp BP Pulse Ox 01/22/20 10:52 97.8 F 66 17 154/83 H 99 01/22/20 08:45 98.6 F 69 14 132/66 99 01/22/20 04:15 97.5 F L 70 14 140/77 97 01/22/20 01:02 97.7 F 77 20 187/88 H 99 Weight Weight 136 lb 12.8 oz I&O: 01/21/20 01/22/20 01/23/20 06:59 06:59 06:59 Intake Total 130 1781 Output Total 1500 Balance 130 281 Result Diagrams: 01/22/20 04:08 01/22/20 04:08 EKG Reviewed by me: Yes (tele - v paced 60's with underlying a fib) Hospitalist ROS - Medication Medications: Active Medications Generic Name Dose Route Start Last Admin Trade Name Freq PRN Reason Stop Dose Admin Aspirin 81 mg 01/22/20 09:00 01/22/20 08:47 Ecotrin PO 81 mg DAILY JOSE Administration Clopidogrel Bisulfate 75 mg 01/22/20 09:00 01/22/20 08:47 Plavix PO 75 mg DAILY JOSE Administration Donepezil HCl 10 mg 01/21/20 21:00 01/21/20 22:25 Aricept PO 10 mg HS JOSE Administration Ezetimibe 10 mg 01/21/20 21:00 01/21/20 22:25 Zetia PO 10 mg HS JOSE Administration Furosemide 20 mg 01/22/20 09:00 01/22/20 08:47 Lasix PO 20 mg DAILY JOSE Administration Heparin Sodium (Porcine) 5,000 units 01/21/20 16:00 01/22/20 08:48 Heparin SC 5,000 units Q8H JOSE Administration Levofloxacin 250 mg 01/21/20 16:00 01/21/20 17:12 Levaquin PO 250 mg 1600 JOSE Administration Levothyroxine Sodium 88 mcg 01/22/20 06:00 01/22/20 07:39 Synthroid PO 88 mcg 0600 JOSE Administration Megestrol Acetate 40 mg 01/21/20 21:00 01/22/20 08:47 Megace PO 40 mg BID JOSE Administration Potassium Chloride 20 meq 01/22/20 08:00 01/22/20 08:47 K-Dur PO 20 meq QAM-WM JOSE Administration Rosuvastatin Calcium 10 mg 01/21/20 21:00 01/21/20 22:25 Crestor PO 10 mg HS JOSE Administration - Exam General Appearance: NAD General - other findings: opens eyes, easily falls asleep Heart - other findings: 3/6 harsh holosystolic murmur Respiratory: no wheezes, no rales, no ronchi Respiratory - other findings: good air movement Gastrointestinal: soft, non-tender, non-distended, normal bowel sounds Extremities: no cyanosis, no clubbing, no edema Skin - other findings: multiple areas of ecchymosis and petechiae on arms/legs Neurological - other findings: unable to assess Psychiatric - other findings: unable to assess Hosp A/P (1) Chest pain Code(s): R07.9 - CHEST PAIN, UNSPECIFIED Status: Resolved Qualifiers: Chest pain type: unspecified Qualified Code(s): R07.9 - Chest pain, unspecified (2) History of recent stroke Code(s): Z86.73 - PRSNL HX OF TIA (TIA), AND CEREB INFRC W/O RESID DEFICITS Status: Acute (3) Severe aortic stenosis Code(s): I35.0 - NONRHEUMATIC AORTIC (VALVE) STENOSIS Status: Chronic (4) UTI (urinary tract infection) Status: Acute Qualifiers: Urinary tract infection type: acute cystitis Hematuria presence: without hematuria Qualified Code(s): N30.00 - Acute cystitis without hematuria (5) CAD (coronary artery disease) Code(s): I25.10 - ATHSCL HEART DISEASE OF [place] CORONARY ARTERY W/O ANG PCTRS Status: Chronic Qualifiers: Coronary Disease-Associated Artery/Lesion type: [place] artery [place] vs. transplanted heart: [place] heart Associated angina: without angina Qualified Code(s): I25.10 - Atherosclerotic heart disease of [place] coronary artery without angina pectoris (6) Dementia Code(s): F03.90 - UNSPECIFIED DEMENTIA WITHOUT BEHAVIORAL DISTURBANCE Status: Chronic Qualifiers: Dementia type: Alzheimer's disease (7) Hypertension Code(s): I10 - ESSENTIAL (PRIMARY) HYPERTENSION Status: Chronic Qualifiers: (8) Hypothyroid Code(s): E03.9 - HYPOTHYROIDISM, UNSPECIFIED Status: Chronic Qualifiers: Hypothyroidism type: unspecified Qualified Code(s): E03.9 - Hypothyroidism , unspecified - Plan Admission was for chest pain - indeterminant trops, rate controlled a fib. Do not think further cardiac eval is warranted UTI - levaquin started yesterday due to keflex allergy. Await cx, pt at high risk of resistant bacteria. Hypotension - pt is on hydralazine, dennis-i, isosorbide. Uncertain of why there was an episode of hypotension today. Monitor. 250 ml NS bolus ordered for which she received about 100 ml, then stopped when bp normalized. - d/c lisinopril for now - lower hydralazine to 25 mg tid - add hold parameters to isosorbide - adjust all as needed pt at significant risk of decompensation given entire clinical picture to include severe aortic stenosis. Will change to inpatient status. Will also consult Palliative care for assistance with goals of care, to include consideration of outpatient palliative or hospice care. Pt is at high risk of recurrent admissions. CAD/a fib/recent stroke - continue home meds CKD stable - monitor renal function dvt prophy - heparin gi prophy - not indicated code status - DNAR
[2020-01-22 11:31] VITALS: BMI 21.4
[2020-01-22] MEDS ORDERED: Prevnar 13-Val Conj/PF 0.5 ML SYRINGE IM ONE (13:15)
[2020-01-22] MEDS: Donepezil HCl 5 MG TAB PO SCH (21:40)
[2020-01-22] MEDS: Ezetimibe 10 MG TAB PO SCH (21:42)
[2020-01-22] MEDS: Rosuvastatin 10 MG TAB PO SCH (21:42)
[2020-01-23] MEDS: Heparin 5,000 UNITS/ML VIAL SC SCH ×3 (00:39→15:36)
[2020-01-23] MEDS: Levothyroxine Sodium 88 MCG TAB PO SCH (05:33)
[2020-01-23] MEDS: Aspirin 81 mg Enteric Coated Tablet PO SCH (08:00)
[2020-01-23] MEDS: Furosemide 20 MG TAB PO SCH (08:00)
[2020-01-23] MEDS: hydrALAZINE 25 MG TAB PO SCH ×3 (08:00→21:34)
[2020-01-23] MEDS: Clopidogrel Bisulfate 75 MG TAB PO SCH (08:00)
[2020-01-23] MEDS: Potassium Chloride 20 MEQ TAB PO SCH (08:00)
[2020-01-23] MEDS: Megestrol Acetate 40 MG TAB PO SCH ×2 (08:01→21:39)
[2020-01-23 21:31] VITALS: TEMP 98.2
[2020-01-23] MEDS: Rosuvastatin 10 MG TAB PO SCH (21:33)
[2020-01-23] MEDS: Ezetimibe 10 MG TAB PO SCH (21:33)
[2020-01-23] MEDS: Donepezil HCl 5 MG TAB PO SCH (21:33)
[2020-01-23 21:44] VITALS: BP 128/60
--- NOTE | 2020-01-24 04:14 | DIS ---
DATE OF ADMISSION: 01/21/2020 DATE OF DISCHARGE: 01/24/2020 DISCHARGE DIAGNOSES: 1. Chest pain. 2. Severe aortic stenosis. 3. Urinary tract infection. 4. History of stroke. 5. Coronary artery disease. 6. Dementia. 7. Hypertension. 8. Hypothyroidism. DISCHARGE MEDICATIONS: 1. Aspirin 81 mg orally daily. 2. Clopidogrel 75 mg orally daily. 3. Donepezil 10 mg orally nightly. 4. Ezetimibe 10 mg orally nightly. 5. Lasix 20 mg orally daily. 6. Heparin 5000 units subcu q.8 hours. 7. Hydralazine 25 mg orally t.i.d. 8. DuoNeb 3 mL q.i.d. as needed for shortness of breath or wheezing. 9. Imdur 30 mg orally daily. 10. Levothyroxine 88 mcg orally daily. 11. Megace 40 mg orally twice daily. 12. Potassium chloride 20 mEq orally daily. 13. Crestor 10 mg orally nightly. 14. Vitamin D3 1000 units orally daily. 15. Levofloxacin 250 mg orally daily for 4 days. 16. Lisinopril 10 mg orally daily. 17. Nystatin 1 application q.12 hours as needed for skin rash or irritation. HISTORY OF PRESENT ILLNESS AND HOSPITAL COURSE: The patient is an 89-year-old female with past medical history of chronic kidney disease stage 3, atrial fibrillation, diastolic congestive heart failure, dementia, hyperthyroidism, hyperlipidemia, COPD, who brought to the emergency department due to presumed chest pain. The patient was given aspirin and nitroglycerin in the ER. She was found to be hypertensive and was started on hydralazine and metoprolol. Her EKG revealed atrial fibrillation with controlled ventricular response. Her troponins were trended and were indeterminate. Her chest pain is likely noncardiac. Urinalysis revealed presence of possible infection. Culture showed growth of Klebsiella sensitive to levofloxacin, which has been used for treatment. The patient had an episode of hypotension, which led to changes to her antihypertensive medications as noted above. Job ID: [id number]
--- NOTE | 2020-01-25 08:09 | PQF ---
Dear : Rose Mary Calderon Date : 01/25/20 Please exercise your independent, professional judgment in responding to the clarification form. Clinical indicators are provided on the bottom of this form for your review Can you please further clarify if Acute coronary syndrome is ruled in or ruled out? ACS [ ] Ruled in diagnosis [ ] Continue to treat [ ] Resolved [ ] Ruled out diagnosis [ ] Improving [ ] Cannot rule out diagnosis [ ] Other diagnosis please specify CHEST PAIN UNLIKELY CARDIAC WAS DOCUMENTED IN THE DC SUMMERY.THIS MEANS NO ACS. [ ] Unable to determine Physician Signature: Date/Time: For continuity of documentation, please document condition throughout progress notes and discharge summary. Thank You. To be completed by CDI/Coding staff for physician review: Present Clinical Indicators - Signs / Symptoms / Labs Results and Location in Medical Record [ x ] Troponin 0.062H, 0.063H, 0.053H Laboratory [ x ] ST segments normal, T waves inverted ED Provider pg.3 [x ] Non specific EKG ED Provider pg.3 [ x ] Acute coronary syndrome rule out H and P pg.3 [ x ] EKG did not shows ant ST changes H and P pg.3 [ x ] Admission was for chest pain- indeterminant trops Hospitalist PN [ x ] Chest pain Is likely noncardiac DS pg.2 Present Risk Factors Results and Location in Medical Record [ x ] CKD 3 H and P pg.1 [ x ] Afib H and P pg.1 [ x ] Diastolic CHF H and P pg.1 [ x ] Hyperlipidemia H and P pg.1 [ x ] COPD H and P pg.1 [ x ] Severe tricuspid regurgitation H and P pg.1 [ x ] HTN H and P pg.1 [ x ] Hypertensive urgency H and P pg.4 [ x ] CAD ED Notes 01/20 [ x ] 89 years old female H and P pg.1 Present Treatments Results and Location in Medical Record [ x ] Chest X ray Chest X ray report [x ] Cardiac Monitoring H and P pg.3 [ x ] EKG ED Provider pg.3 [ x ] IV Fluids MAR [ x ] Heparin 5000 units sc MAR [ x ] Aspirin 81 mg PO MAR CDS/[facility] Checker Signature: Jaya Schumacher Phone #: [phone] Date: 01/25/20 This is a permanent part of the Medical Record [facility]
== END 2020-01-24 00:30 | DRG 690 ==
LOC: ERS 01:15 → OBSVTOIN 03:09 → 2NO 03:09
PROVIDERS: ADMIT Internal Medicine; ATTEND Internal Medicine
DX: N30.00 Acute cystitis without hematuria (principal); I50.32 Chronic diastolic (congestive) heart failure; I69.351 Hemiplegia and hemiparesis following cerebral infarction affecting right dominant side; I13.0 Hypertensive heart and chronic kidney disease with heart failure and stage 1 through stage 4 chronic kidney disease, or unspecified chronic kidney disease; I16.0 Hypertensive urgency; R07.89 Other chest pain; Z20.828 Contact with and (suspected) exposure to other viral communicable diseases; I25.10 Atherosclerotic heart disease of native coronary artery without angina pectoris; F03.90 Unspecified dementia, unspecified severity, without behavioral disturbance, psychotic disturbance, mood disturbance, and anxiety; E03.9 Hypothyroidism, unspecified; K59.00 Constipation, unspecified; I08.3 Combined rheumatic disorders of mitral, aortic and tricuspid valves; Z95.0 Presence of cardiac pacemaker; M19.90 Unspecified osteoarthritis, unspecified site; E78.5 Hyperlipidemia, unspecified; N18.3 Chronic kidney disease, stage 3 (moderate); J44.9 Chronic obstructive pulmonary disease, unspecified; I95.9 Hypotension, unspecified; B96.1 Klebsiella pneumoniae [K. pneumoniae] as the cause of diseases classified elsewhere; Z96.653 Presence of artificial knee joint, bilateral; Z88.1 Allergy status to other antibiotic agents; Z90.710 Acquired absence of both cervix and uterus; Z79.890 Hormone replacement therapy; Z79.01 Long term (current) use of anticoagulants; Z79.82 Long term (current) use of aspirin; Z79.899 Other long term (current) drug therapy
CPT/HCPCS: 36415; 51798; 71045; 80048; 80053; 81001; 82550; 82553; 84484; 85025; 85610; 85730; 87077; 87086; 87186; 87635; 90471; 90670; 93005; 96374; 96375; G0009; G0378; J0360; J1644; J1956; S0179; U0003

== ENCOUNTER 2020-03-05 09:13 | Observation (INO) | payer MEDICARE, BC, OTHER ==
[2020-03-05 10:00] LABS: #Basophils 0.1 thou/uL (0.0-0.2); #Eosinphils 0.2 thou/uL (0.0-0.7); #Lymphocytes 1.4 thou/uL (1.20-3.40); #Monocytes 0.7 thou/uL (0.11-0.59); #Neutrophils 4.5 thou/uL (1.40-6.50); %Basophils 0.9 % (0.0-1.0); %Eosinophils 3.4 % (0.0-10.0); %Lymphocytes 20.6 % (21.0-51.0); %Monocytes 9.9 % (0.0-10.0); %Neutrophils 65.2 % (42.0-75.0); Hemoglobin 12.7 g/dL (12.0-16.0); Mean Corpuscular Hemoglobin 33.7 pg (27.0-31.0); Mean Platelet Volume 8.7 fL (7.4-10.4); Platelet Count 197 thou/uL (130-400); Red Blood Cell (RBC) Count 3.76 mill/uL (4.20-5.40); White Blood Cell (WBC) Count 6.9 thou/uL (4.8-10.8)
--- NOTE | 2020-03-05 10:08 | RAD ---
EXAM: Single view of the chest HISTORY: Syncope COMPARISON: 01/21/2020 FINDINGS: Single view of the chest shows an enlarged but stable cardiomediastinal silhouette. The pa cemaker is unchanged in position. Atherosclerotic calcifications are seen in the aorta. There is no evidence of consolidation, mass, or pleural effusion. No acute osseous abnormality. IMPRESSION: No evidence of acute cardiopulmonary disease
[2020-03-05 10:15] LABS: ALT (SGPT) 11 U/L (8-55); AST (SGOT) 31 U/L (5-34); Albumin 3.7 g/dL (3.4-4.8); Alkaline Phosphatase 63 U/L (40-110); Anion Gap 17 mmol/L (10-20); BUN (Urea Nitrogen) 17 mg/dL (9.8-20.1); Bilirubin, Total 1.7 mg/dL (0.2-1.2); Calc. Creatinine Clearance 0 mL/min (70-130); Calcium 8.6 mg/dL (7.8-10.44); Carbon Dioxide 23 mmol/L (23-31); Chloride 106 mmol/L (98-107); Estimated GFR-MDRD 28; Globulin 3.1 g/dL (2.4-3.5); Glucose 89 mg/dL (83-110); Potassium 4.5 mmol/L (3.5-5.1); Protein, Total 6.8 g/dL (6.0-8.3); Sodium 141 mmol/L (136-145)
[2020-03-05 10:15] LABS: Bilirubin Negative (Negative); Blood, Urine Negative (Negative); Clarity Clear (Clear); Glucose, Urine (Dipstick) Normal (Negative); Ketone, Urine Negative (Negative); Leukocyte Negative Leu/uL (Negative); Nitrite Negative (Negative); Protein, Urine (Dipstick) Negative (Neg-Trace); Specific Gravity, Urine 1.007 (1.002-1.036); Urobilinogen Normal mg/dL (Less than 2); pH, Urine 6.5 (5.0-9.0)
--- NOTE | 2020-03-05 10:17 | CT ---
EXAM: CT brain without contrast HISTORY: Syncope and altered mental status COMPARISON: 01/03/2020 TECHNIQUE: Multiple contiguous axial images were obtained and a CT of the brain without contrast. FINDINGS: There are scattered hypodensities in the subcortical and periventricular white matter consi stent with small vessel ischemic disease. Encephalomalacia has developed in the left MCA distribution where there was prior loss of elise-white matter differentiation. No new large confluent infarction is identified. There is no evidence of hydrocephalus, intracranial hemorrhage, or extra-axial fluid collection. The calvarium and overlying soft tissues are unremarkable. The visualized paranasal sinuses and masto id air cells are well aerated. IMPRESSION: No evidence of acute intracranial abnormality
[2020-03-05 10:38] LABS: CKMB 2.1 ng/mL (0-6.6)
[2020-03-05 14:29] VITALS: BMI 21.3
--- NOTE | 2020-03-05 15:03 | PDOC.FPRHP ---
- History of Present Illness Chief Complaint: syncopal episode History of Present Illness: Patient is a 89 year old female who resides at [facility] with history aphasia, dementia, a fib, CAD, HTN, and HLD is presenting to [facility] due to a syncopal episode reported from [facility]. Per report, patient slumped over in the chair with return to baseline shortly after. Baseline AAOx1 with minimal verbal communication. Patient is not able to communicate and history was reported from [facility] caregiver. - Allergies/Adverse Reactions Allergies Allergy/AdvReac Type Severity Reaction Status Date / Time cephalexin [Cephalexin] Allergy Rash Verified 03/05/20 14:22 - Home Medications Medication Instructions Recorded Confirmed Type Donepezil HCl [Aricept] 10 mg PO HS tab 05/22/16 03/05/20 Rx Cholecalciferol [Vitamin D3] 1,000 unit PO DAILY 04/23/19 03/05/20 History Ezetimibe 10 mg PO HS 04/23/19 03/05/20 History Multivitamin W/ Minerals 1 tab PO DAILY 04/23/19 03/05/20 History [Theragran M] Potassium Chloride [K-Dur] 20 meq PO QAM-WM #30 tab 09/02/19 03/05/20 Rx Rosuvastatin [Crestor] 10 mg PO HS #30 tab 09/02/19 03/05/20 Rx Aspirin [Ecotrin Low Strength] 81 mg PO DAILY 01/02/20 03/05/20 History Megestrol Acetate [Megace] 40 mg PO BID 01/02/20 03/05/20 History Nystatin [Nystatin Powder] 1 applic TOP Q12H PRN 01/02/20 03/05/20 History Clopidogrel Bisulfate [Clopidogrel] 75 mg PO DAILY #21 tablet 01/07/20 03/05/20 Rx Isosorbide Mononitrate [Imdur ER] 30 mg PO DAILY #30 tab 01/07/20 03/05/20 Rx hydrALAZINE [Apresoline] 25 mg PO TID #90 tab 01/23/20 03/05/20 Rx Furosemide [Lasix] 20 mg PO DAILY 03/05/20 03/05/20 History Ipratropium/Albuterol Sulfate 3 ml NEB Q6HR 03/05/20 03/05/20 History [DuoNeb] Levothyroxine Sodium [Levoxyl] 25 mcg PO DAILY 03/05/20 03/05/20 History Lisinopril [Zestril] 10 mg PO BID 03/05/20 03/05/20 History Loperamide HCl [Anti-Diarrheal] 2 mg PO Q4HR PRN 03/05/20 03/05/20 History - History PMHx: paroxysmal atrial fibrillation, CAD, HTN, , HLD, hypothyroidism, GERD, HFrEF, 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 She is AAOx1 at baseline with minimal verbal communication. is her IRIS Jackson - emergency contact [phone] - Review of Systems ROS unobtainable: due to mental status - Vital signs BP: 186/95 HR: 90 RR: 12 Tmax: 97.6 Pox: 98% on RA Wt: 56 kg - Physical Exam Constitutional: NAD HEENT: normocephalic and atraumatic, PERRLA Neck: supple, FROM Heart: no edema -Heart: Irregularly irregular; 4/6 systolic murmur Lungs: CTAB, no respiratory distress Abdomen: soft, non-tender, bowel sounds present, no masses/distention Musculoskeletal: normal structure, normal tone Neurological: no focal deficit, normal sensation Skin: no rash/lesions, no jaundice -Heme/Lymphatic: multiple ecchymoses found on bilateral lower extremities -Psychiatric: AAOx1; limited verbal communication FMR H&P: Results - Labs Result Diagrams: 03/06/20 04:31 03/06/20 04:31 Lab results: WBC 6.9 thou/uL (4.8-10.8) 03/05/20 09:40 Hgb 12.7 g/dL (12.0-16.0) 03/05/20 09:40 Hct 39.5 % (36.0-47.0) 03/05/20 09:40 MCV 105.0 fL (78.0-98.0) H 03/05/20 09:40 Plt Count 197 thou/uL (130-400) 03/05/20 09:40 Neutrophils % 65.2 % (42.0-75.0) 03/05/20 09:40 Sodium 141 mmol/L (136-145) 03/05/20 09:40 Potassium 4.5 mmol/L (3.5-5.1) 03/05/20 09:40 Chloride 106 mmol/L (98-107) 03/05/20 09:40 Carbon Dioxide 23 mmol/L (23-31) 03/05/20 09:40 BUN 17 mg/dL (9.8-20.1) 03/05/20 09:40 Creatinine 1.70 mg/dL (0.6-1.1) H 03/05/20 09:40 Glucose 89 mg/dL (83-110) 03/05/20 09:40 Calcium 8.6 mg/dL (7.8-10.44) 03/05/20 09:40 Total Bilirubin 1.7 mg/dL (0.2-1.2) H 03/05/20 09:40 AST 31 U/L (5-34) 03/05/20 09:40 ALT 11 U/L (8-55) 03/05/20 09:40 Alkaline Phosphatase 63 U/L (40-110) 03/05/20 09:40 CK-MB (CK-2) 2.1 ng/mL (0-6.6) 03/05/20 09:40 Serum Total Protein 6.8 g/dL (6.0-8.3) 03/05/20 09:40 Albumin 3.7 g/dL (3.4-4.8) 03/05/20 09:40 Urine Ketones Negative mg/dL (Negative) 03/05/20 10:03 Urine Blood Negative (Negative) 03/05/20 10:03 Urine Nitrite Negative (Negative) 03/05/20 10:03 Ur Leukocyte Esterase Negative Jimmy/uL (Negative) 03/05/20 10:03 - EKG Interpretation EKG: Afib, rate controlled FMR H&P: A/P - Plan AMS - pt has history of dementia with baseline AAOx1 and aphasia - pt is now back to baseline following likely syncopal episode Aortic Stenosis - severe aortic stenosis - Echo 2019: EF of 60-65% with Severe and Severe MR - Will discuss options with the family tomorrow including replacement and TAVR; if desired, will need to consult cardiology - Will consult palliative care for goals of care FADUMO - s/p 500 ml bolus in ED - will hold lasix - repeat CMP tomorrow Dementia - at baseline - continue home medication HTN - continue home medication PCP: CC Code: DNR PPx: SCDs FMR H&P: Upper Level - Pertinent history 89yo F with advanced dementia and hx of CVA and remote intracerebral hemorrhage presented to ED for AMS. NH staff report pt was in chair and was unarrousable. They called EMS and upon transfer from chair regained normal level of mentation. At baseline she is A&O to self only and minimally verbal. She has hx of severe aortic stenosis with a mean gradient of 56. She also has a hx of afib but is v-paced. No additional hx was obtainable from the pt. ROS: Could not be performed due to essentially non-verbal pt PE: Gen: No acute distress, slightly under weight appearing HEENT: MM mildly dry Neck: Full ROM, no JVD Pulm: Lungs CTAB, shallow breaths Cardiac: 3/5 systolic murmur left parasternal radiating to bilateral carotids Ext: No cyanosis or edema Skin: Senile purpura diffusely, mild skin tenting Neuro: Will say yes and no often inappropriately, does not follow most commands , is awake and alert - Pertinent findings Syncope vs Encephalopathy - Short period of decreased responsiveness that is now resolved, mental status back at baseline - Discussed with daughter, confirmed pt is at baseline currently - Hx of signficant aortic stenosis that could have very well contributed to syncopal episode if that is what happened - Pt also has hx of CVA, most recently 2 mo ago and is medically optimized - Will plan to discuss with daughter and regarding goals of care - Further workup would all likely lead in direction of patient requiring some sort of operative intervention for clinical improvement which family so far has expressed that they don't wish to pursue - will further these conversations FADUMO on CKD - Slightly dry on exam - Received 500ml bolus - Will hold lasix and monitor, encourage PO intake - Trend BMP - Speech consulted to improve PO tolerance Plan: Admit to tele obs. Will monitor and attempt to further medically optimize. Continue discussions regarding goals of care. Pt is currently DNR. We will otherwise resume home meds and prns for chronic conditions See PGY1 note above for further detail Luan Spencer PGY2 - Plan Date/Time: 03/05/20 1722 I, [], have evaluated this patient and agree with findings/plan as outlined by graphic design intern resident. Pertinent changes/additions are listed here. Addendum - Attending - Attending Attestation Date/Time: 03/06/20 1326 I personally evaluated the patient and discussed the management with the team. I agree with the History, Examination, Assessment and Plan documented above with any addition or exceptions noted below. Syncope possibly 2/2 severe . She has essentially end stage dementia. Plan for discussion with family.
[2020-03-05] MEDS ORDERED: Acetaminophen 325 MG TAB PO PRN (15:48)
[2020-03-05] MEDS ORDERED: Loperamide HCl 2 MG CAP PO PRN (15:54)
[2020-03-05] MEDS ORDERED: Nystatin Powder 15 GM BOT TOP PRN (15:54)
[2020-03-05 16:35] LABS: Troponin I 0.062 ng/mL (< 0.028)
[2020-03-05] MEDS ORDERED: hydrALAZINE 25 MG TAB PO SCH (17:00)
[2020-03-05] MEDS: Albuterol 200 PUFF (6.7GM INHALER) INH SCH ×2 (18:55→23:05)
[2020-03-05] MEDS: Lisinopril 10 MG TAB PO SCH (21:38)
[2020-03-05] MEDS: Rosuvastatin 10 MG TAB PO SCH (21:38)
[2020-03-05] MEDS: Donepezil HCl 5 MG TAB PO SCH (21:38)
[2020-03-05] MEDS: hydrALAZINE 25 MG TAB PO SCH (21:38)
[2020-03-05] MEDS: Ezetimibe 10 MG TAB PO SCH (21:38)
[2020-03-05] MEDS: Megestrol Acetate 40 MG TAB PO SCH (21:51)
[2020-03-06 04:39] LABS: #Eosinphils 0.4 thou/uL (0.0-0.7); #Lymphocytes 1.3 thou/uL (1.20-3.40); #Monocytes 0.6 thou/uL (0.11-0.59); #Neutrophils 3.6 thou/uL (1.40-6.50); %Basophils 0.8 % (0.0-1.0); %Lymphocytes 22.1 % (21.0-51.0); %Monocytes 10.7 % (0.0-10.0); %Neutrophils 60.4 % (42.0-75.0); Hemoglobin 11.7 g/dL (12.0-16.0); Mean Corpuscular HGB CONC 33.4 g/dL (32.0-36.0); Mean Corpuscular Hemoglobin 34.3 pg (27.0-31.0); Mean Platelet Volume 8.5 fL (7.4-10.4); Platelet Count 170 thou/uL (130-400); RBC Distribution Width 12.8 % (11.5-14.5); Red Blood Cell (RBC) Count 3.42 mill/uL (4.20-5.40); White Blood Cell (WBC) Count 5.9 thou/uL (4.8-10.8)
[2020-03-06 05:01] LABS: Anion Gap 15 mmol/L (10-20); BUN (Urea Nitrogen) 17 mg/dL (9.8-20.1); Calc. Creatinine Clearance 25 mL/min (70-130); Calcium 7.9 mg/dL (7.8-10.44); Carbon Dioxide 21 mmol/L (23-31); Chloride 109 mmol/L (98-107); Estimated GFR-MDRD 36; Glucose 83 mg/dL (83-110); Sodium 141 mmol/L (136-145)
[2020-03-06] MEDS: Levothyroxine Sodium 25 MCG TAB PO SCH (05:30)
[2020-03-06] MEDS: hydrALAZINE 25 MG TAB PO SCH ×3 (05:36→20:53)
--- NOTE | 2020-03-06 05:47 | PDOC.FM ---
- Subjective Subjective: AAOx1. Per the nurse and night team, elevated BP early this AM. Given home meds - Objective MAR Reviewed: Yes Vital Signs & Weight: Vital Signs (12 hours) Temp Pulse Resp BP Pulse Ox 03/06/20 05:14 97.6 F 76 18 187/92 H 97 03/05/20 20:00 98.7 F 72 18 138/76 98 Weight Weight 56.812 kg I&O: 03/04/20 03/05/20 03/06/20 06:59 06:59 06:59 Intake Total 240 Balance 240 Result Diagrams: 03/06/20 04:31 03/06/20 04:31 EKG Reviewed by me: Yes (Afib/Vpaced) Phys Exam - Physical Examination Constitutional: NAD Respiratory: no wheezing, no rales, no rhonchi Cardiovascular: irregular significant systolic murmur Gastrointestinal: soft, no distention, positive bowel sounds Musculoskeletal: no edema Deviation from normal: AAOx1 Dx/Plan - Plan Plan: Encephalopathy vs. Syncope - at baseline AAOx1 - no signs/symptoms of infection, no electrolyte abnormalities - if syncope, likely 2/2 to severe aortic stenosis Aortic Stenosis - severe aortic stenosis - Echo 2020: EF of 60-65% with Severe and Severe MR - Plan to discuss goals of care with family today; palliative also consulted, will f/u recs FADUMO - s/p 500 ml bolus in ED - will hold lasix - Cr: 1.70 > 1.39 Dementia - at baseline - continue home medication HTN - continue home medication PCP: CC Code: DNR PPx: SCDs Dispo: like dc to senior living today pending discussion with family Addendum - Attending - Attending Attestation Date/Time: 03/06/20 1325 I personally evaluated the patient and discussed the management with the team. I agree with the History, Examination, Assessment and Plan documented above with any addition or exceptions noted below. Await family discussion and cards consultation pending their desire to intervene.
[2020-03-06] MEDS ORDERED: Potassium Chloride 20 MEQ TAB PO SCH (08:00)
[2020-03-06] MEDS: Albuterol 200 PUFF (6.7GM INHALER) INH SCH ×3 (08:13→18:40)
[2020-03-06] MEDS: Lisinopril 10 MG TAB PO SCH ×2 (08:51→20:53)
[2020-03-06] MEDS: Aspirin 81 mg Enteric Coated Tablet PO SCH (08:51)
[2020-03-06] MEDS: Cholecalciferol 1,000 UNITS (25 MCG) TAB PO SCH (08:51)
[2020-03-06] MEDS: Clopidogrel Bisulfate 75 MG TAB PO SCH (08:52)
[2020-03-06] MEDS: Megestrol Acetate 40 MG TAB PO SCH ×2 (08:52→20:52)
[2020-03-06] MEDS: Multivitamin W/ Minerals 1 TAB PO SCH (08:52)
[2020-03-06 13:04] LABS: SARS-CoV-2 MS2 Positive; SARS-CoV-2 N Gene Negative; SARS-CoV-2 S Gene Negative; SARS-CoV-2 by NAA Not Detected (NotDetected); SARS-CoV-2 orf1ab Negative
--- NOTE | 2020-03-06 17:30 | PDOC.PALCO ---
Palliative Care Consult - Consult Details Requesting Physician: Dr Arias Reason for Consult: goals of care, family support, complex decision-making Family Members Present: Spoke with , Left voice message for the daughter - Pertinent HPI Mrs Jackson is well known to the Palliative Care Team. She was a recent resident at a retirement facility, had been on previous hospice with pleasure feeds secondary to continued decline secondary to dementia and multiple morbidities. Total assist for all ADL's, aphagic with dysphagia. Staff at facility report she had a syncopal episode, EMS was called and transferred to the emergency room for further evaluation, subsequent admission. - Pertinent PMH Hypertension, hypothyroid, H/O CVA, CHF, Dementia, CAD, CKD - Social History Smoking Status: Never smoker Smoking: no tobacco exposure Alcohol Use: none Drug Use History: none Living Situation: , residential resident - Medications MAR Reviewed: Yes - Allergies Allergies/Adverse Reactions: Allergies Allergy/AdvReac Type Severity Reaction Status Date / Time cephalexin [Cephalexin] Allergy Rash Verified 03/05/20 14:22 - Subjective Smiles, makes eye contact, aphagic. Unable to follow request for participation during physical assessment. - ROS Non Response: due to mental status - Objective Vital Signs: Vital Signs - Most Recent Temp Pulse Resp BP Pulse Ox 98.2 F 69 21 H 177/83 H 97 03/06/20 16:10 03/06/20 16:10 03/06/20 16:10 03/06/20 16:10 03/06/20 16:10 Palliative Performance Scale: 30 - Physical Exam Constitutional: cachectic, confusion, ill appearing HEENT: EOMI, moist MMs, sclera anicteric Respiratory: no wheezing, unlabored breathing, diminished lung sound Cardiovascular: irregular Deviation from normal: Murmur Gastrointestinal: soft, non-tender, positive bowel sounds, incontinent Genitourinary: incontinent Musculoskeletal: no cyanosis, pulses present, diffuse muscle atrophy Deviation from normal: aphagic, dysphagia Skin: bruising, fragile, friable Deviation from normal: ALert, unable to determine orienatation - Problem List (1) Acute exacerbation of CHF (congestive heart failure) Code(s): I50.9 - HEART FAILURE, UNSPECIFIED Current Visit: No Status: Acute Qualifiers: Heart failure type: diastolic Qualified Code(s): I50.33 - Acute on chronic diastolic (congestive) heart failure (2) FTT (failure to thrive) in adult Current Visit: No Status: Acute (3) Palliative care encounter Code(s): Z51.5 - ENCOUNTER FOR PALLIATIVE CARE Current Visit: No Status: Acute (4) Syncope Code(s): R55 - SYNCOPE AND COLLAPSE Current Visit: No Status: Acute (5) Afib Code(s): I48.91 - UNSPECIFIED ATRIAL FIBRILLATION Current Visit: No Status: Chronic Qualifiers: Atrial fibrillation type: paroxysmal Qualified Code(s): I48.0 - Paroxysmal atrial fibrillation (6) CAD (coronary artery disease) Code(s): I25.10 - ATHSCL HEART DISEASE OF [place] CORONARY ARTERY W/O ANG PCTRS Current Visit: No Status: Chronic Qualifiers: Coronary Disease-Associated Artery/Lesion type: [place] artery [place] vs. transplanted heart: [place] heart Associated angina: without angina Qualified Code(s): I25.10 - Atherosclerotic heart disease of [place] coronary artery without angina pectoris (7) Dementia Code(s): F03.90 - UNSPECIFIED DEMENTIA WITHOUT BEHAVIORAL DISTURBANCE Current Visit: No Status: Chronic Qualifiers: Dementia type: Alzheimer's disease - Plan/Recommendations Plan: Called and left message with patient daughter Galilea. Communicated with patient . He relayed that he did not want to have any procedures/ surgeries for his . [place] it would "cause more harm than care". He requested to have her go back to [facility], revisited having hospice care for her again, discussed management of symptoms optimal care at end of life. Will also attempt to call Mrs Paiz daughter tomorrow to further discuss. Communicated with Dr Arias. Therapeutic listening to Mr Jackson who will turn 89 in May, he revisited [facility] marriage and life together. Emotional support. Goal of Care: No procedures/transfer back to [facility], will revisit resuming Hospice Care again with family and Mr Jackson 03/07/2020 Please also refer to Palliative Care notes in note section. [55] minutes spent on this encounter with >50% of the time in counseling and coordination of care. Thank you for this very appropriate consult.
[2020-03-06] MEDS: Ezetimibe 10 MG TAB PO SCH (20:52)
[2020-03-06] MEDS: Rosuvastatin 10 MG TAB PO SCH (20:52)
[2020-03-06] MEDS: Donepezil HCl 5 MG TAB PO SCH (20:52)
[2020-03-07] MEDS: Albuterol 200 PUFF (6.7GM INHALER) INH SCH ×3 (00:43→12:30)
[2020-03-07] MEDS: Levothyroxine Sodium 25 MCG TAB PO SCH (05:47)
--- NOTE | 2020-03-07 05:50 | PDOC.FM ---
- Subjective Subjective: Sleeping peacefully in bed. No acute events overnight - Objective MAR Reviewed: Yes Vital Signs & Weight: Vital Signs (12 hours) Temp Pulse Resp BP BP Pulse Ox 03/07/20 03:58 98.1 F 65 16 142/73 H 99 03/06/20 20:53 69 120/58 L 03/06/20 20:00 97.8 F 68 12 120/58 L 98 Weight Weight 56.812 kg I&O: 03/05/20 03/06/20 03/07/20 06:59 06:59 06:59 Intake Total 920 490 Output Total 250 Balance 670 490 Result Diagrams: 03/06/20 04:31 03/06/20 04:31 EKG Reviewed by me: Yes (Aflutter/rate controlled) Phys Exam - Physical Examination Constitutional: NAD Respiratory: no wheezing, no rales, no rhonchi, clear to auscultation bilateral Significant systolic murmur Gastrointestinal: soft, no distention Musculoskeletal: no edema Dx/Plan - Plan Plan: Encephalopathy vs. Syncope - at baseline AAOx1 - no signs/symptoms of infection, no electrolyte abnormalities - if syncope, likely 2/2 to severe aortic stenosis Aortic Stenosis - severe aortic stenosis - Echo 2020: EF of 60-65% with Severe and Severe MR - family does not desire surgical/procedural intervention FADUMO - s/p 500 ml bolus in ED - will hold lasix - Cr: 1.70 > 1.39 Dementia - at baseline - continue home medication HTN - continue home medication PCP: CC Code: DNR PPx: SCDs Dispo: will dc to custodial today Addendum - Attending - Attending Attestation Date/Time: 03/07/20 1302 I personally evaluated the patient and discussed the management with Dr. Arias. I agree with the History, Examination, Assessment and Plan documented above with any addition or exceptions noted below. ROS/HPI unable to be obtained 2/2 end stage dementia. Home today with conservative management.
[2020-03-07] MEDS: Aspirin 81 mg Enteric Coated Tablet PO SCH (09:41)
[2020-03-07] MEDS: Clopidogrel Bisulfate 75 MG TAB PO SCH (09:41)
[2020-03-07] MEDS: Multivitamin W/ Minerals 1 TAB PO SCH (09:41)
[2020-03-07] MEDS: Cholecalciferol 1,000 UNITS (25 MCG) TAB PO SCH (09:41)
[2020-03-07] MEDS: Megestrol Acetate 40 MG TAB PO SCH (09:41)
[2020-03-07] MEDS: Lisinopril 10 MG TAB PO SCH (09:41)
[2020-03-07] MEDS: hydrALAZINE 25 MG TAB PO SCH ×2 (09:41→16:02)
--- NOTE | 2020-03-07 11:02 | PDOC.PALPN ---
Palliative Progress Note - Subjective Awake, answers "yes, good" to any question. Smiling, weakness. Not a reliable source for Review of Systems. - Objective Vital Signs: Vital Signs - Most Recent Temp Pulse Resp BP Pulse Ox 97.7 F 73 14 163/81 H 99 03/07/20 07:32 03/07/20 07:32 03/07/20 07:32 03/07/20 07:32 03/07/20 07:32 - Physical Exam Constitutional: cachectic, ill appearing HEENT: EOMI, moist MMs, sclera anicteric Respiratory: no rhonchi, no wheezing, unlabored breathing Cardiovascular: RRR Deviation from normal: pronounced murmur Gastrointestinal: soft, non-tender, positive bowel sounds, incontinent Musculoskeletal: no edema, diffuse muscle atrophy Skin: cap refill <2 seconds, bruising, fragile, friable Deviation from normal: Alert, appears oriented to self. - Assessment (1) Acute exacerbation of CHF (congestive heart failure) Code(s): I50.9 - HEART FAILURE, UNSPECIFIED Current Visit: No Status: Acute Qualifiers: Heart failure type: diastolic Qualified Code(s): I50.33 - Acute on chronic diastolic (congestive) heart failure (2) FTT (failure to thrive) in adult Current Visit: No Status: Acute (3) Palliative care encounter Code(s): Z51.5 - ENCOUNTER FOR PALLIATIVE CARE Current Visit: No Status: Acute (4) Syncope Code(s): R55 - SYNCOPE AND COLLAPSE Current Visit: No Status: Acute (5) Afib Code(s): I48.91 - UNSPECIFIED ATRIAL FIBRILLATION Current Visit: No Status: Chronic Qualifiers: Atrial fibrillation type: paroxysmal Qualified Code(s): I48.0 - Paroxysmal atrial fibrillation (6) CAD (coronary artery disease) Code(s): I25.10 - ATHSCL HEART DISEASE OF [place] CORONARY ARTERY W/O ANG PCTRS Current Visit: No Status: Chronic Qualifiers: Coronary Disease-Associated Artery/Lesion type: [place] artery [place] vs. transplanted heart: [place] heart Associated angina: without angina Qualified Code(s): I25.10 - Atherosclerotic heart disease of [place] coronary artery without angina pectoris (7) Dementia Code(s): F03.90 - UNSPECIFIED DEMENTIA WITHOUT BEHAVIORAL DISTURBANCE Current Visit: No Status: Chronic Qualifiers: Dementia type: Alzheimer's disease - Plan Plan: Palliative care has communicated with the Patient and daughter Galilea again this morning. Confirm that they do not desire any further diagnostics, surgical intervention, or aggressive measures. Confirm return to [facility] where patient had previously resided. Family is going to revisit after transfer back to facility and seek to have hospice services again provide supportive care for Mrs Jackson to manage symptoms related to terminal condition and promote optimal end of life care. DON at [facility] aware of plan and hope for return to hospice, she will follow up with family at patient return. Communicated with Dr Arias. Please also refer to D Vianca Notes in note section. [25] minutes spent on this encounter with >50% of the time in counseling and coordination of care. - ROS Non Response: due to mental status
--- NOTE | 2020-03-07 11:14 | PDOC.FMACP ---
Advance Care Planning - Problem (1) Acute exacerbation of CHF (congestive heart failure) Status: Acute Code(s): I50.9 - HEART FAILURE, UNSPECIFIED Qualifiers: Heart failure type: diastolic Qualified Code(s): I50.33 - Acute on chronic diastolic (congestive) heart failure (2) FTT (failure to thrive) in adult Status: Acute (3) Palliative care encounter Status: Acute Code(s): Z51.5 - ENCOUNTER FOR PALLIATIVE CARE (4) Syncope Status: Acute Code(s): R55 - SYNCOPE AND COLLAPSE (5) Afib Status: Chronic Code(s): I48.91 - UNSPECIFIED ATRIAL FIBRILLATION Qualifiers: Atrial fibrillation type: paroxysmal Qualified Code(s): I48.0 - Paroxysmal atrial fibrillation (6) CAD (coronary artery disease) Status: Chronic Code(s): I25.10 - ATHSCL HEART DISEASE OF [place] CORONARY ARTERY W/O ANG PCTRS Qualifiers: Coronary Disease-Associated Artery/Lesion type: [place] artery [place] vs. transplanted heart: [place] heart Associated angina: without angina Qualified Code(s): I25.10 - Atherosclerotic heart disease of [place] coronary artery without angina pectoris (7) Dementia Status: Chronic Code(s): F03.90 - UNSPECIFIED DEMENTIA WITHOUT BEHAVIORAL DISTURBANCE Qualifiers: Dementia type: Alzheimer's disease - Note Participants: family, surrogate decision-maker, palliative care Summary: Revisited Advanced Care Planning with family. The diagnosis, prognosis and goals of care were discussed. Appropriate forms and documentation to accomplish the goals of care were discussed. All questions were answered. Reviewed the risk verses gain of procedures/TVAR. The patient and children are in agreement to not pursue further treatments/surgical interventions. They wish for Mrs Jackson to return to [facility] secondary to assistnce needed with ADL and family no longer able to provide in the home setting. Family will contact prior hospice used and request evaluation for return to Hospice services to provide management of symptoms related to terminal condition as patient disease trajectory continues to decline. Confirmed DNAR status, OOHDNAR in place. Time Spent (mins): 20
[2020-03-07 16:01] VITALS: BP 136/100; TEMP 97.6
--- NOTE | 2020-03-08 05:42 | DIS ---
DATE OF ADMISSION: 03/05/2020 DATE OF DISCHARGE: 03/07/2020 RESIDENT: Vane Arias MD ADMITTING ATTENDING: Dr. Chinmay Gonzalez DISCHARGE ATTENDING: Dr. Chinmay Gonzalez CONSULTS: Palliative Care. PROCEDURES/IMAGES: 1. Brain CT, no evidence of acute intracranial abnormalities. 2. Chest x-ray, no evidence of acute cardiopulmonary disease. PRIMARY DIAGNOSIS: 1. Syncope secondary to aortic stenosis SECONDARY DIAGNOSES: 1. Aortic stenosis. 2. Acute kidney injury. 3. Dementia. 4. Hypertension. DISCHARGE MEDICATIONS: 1. Donepezil 10 mg p.o. at bedtime. 2. Vitamin D3 1000 units p.o. daily. 3. Ezetimibe 10 mg p.o. at bedtime. 4. Multivitamin 1 tab p.o. daily. 5. Potassium chloride 20 mEq p.o. q.a.m. with meals. 6. Rosuvastatin 10 mg p.o. at bedtime. 7. Nystatin 1 application topical q.12 hours p.r.n. 8. Aspirin 81 mg p.o. daily. 9. Megace 40 mg b.i.d. 10. Isosorbide mononitrate 30 mg p.o. daily. 11. Clopidogrel 75 mg p.o. daily. 12. Hydralazine 25 mg p.o. 3 times a day. 13. Levothyroxine 25 mcg p.o. daily. 14. Lasix 20 mg p.o. daily. 15. Loperamide 2 mg p.o. q.4 hours p.r.n. 16. Lisinopril 10 mg p.o. daily. 17. DuoNeb 3 mL nebulizer q.6 hours. DISCONTINUED MEDICATIONS: None. HISTORY OF PRESENT ILLNESS AND HOSPITAL COURSE: Patient is an 89-year-old female who presented from her care home due to a syncopal episode, resulting in altered mental status. According to the care home, the patient passed over in the chair and was unarousable. She shortly returned to her baseline, which is alert and oriented to person only. The patient was brought to the ED and admitted to the hospital. The patient was found to have severe aortic stenosis, likely leading to syncopal episode. Due to the patient's age, health concern, and extensive dementia, the patient's family was given the option to consult Cardiology for further workup or to return to the care home for potential hospice care. The family including the patient's , who is her medical power of attorney general agreed that it was best that the patient return to her care home. DISCHARGE PLAN: Location: half-way. Activity: As tolerated. Diet: Continue diet per care home. Followup: Follow up with primary care physician, Dr. Moody. Job ID: [id number]
== END 2020-03-07 15:59 ==
LOC: ERS 09:13 → 2NO 12:31
PROVIDERS: ADMIT Family Medicine; ATTEND Family Medicine
DX: I35.0 Nonrheumatic aortic (valve) stenosis (principal); R55 Syncope and collapse; I13.0 Hypertensive heart and chronic kidney disease with heart failure and stage 1 through stage 4 chronic kidney disease, or unspecified chronic kidney disease; N18.3 Chronic kidney disease, stage 3 (moderate); I50.33 Acute on chronic diastolic (congestive) heart failure; N17.9 Acute kidney failure, unspecified; G30.9 Alzheimer's disease, unspecified; F02.80 Dementia in other diseases classified elsewhere, unspecified severity, without behavioral disturbance, psychotic disturbance, mood disturbance, and anxiety; I48.0 Paroxysmal atrial fibrillation; I25.10 Atherosclerotic heart disease of native coronary artery without angina pectoris; E78.5 Hyperlipidemia, unspecified; K21.9 Gastro-esophageal reflux disease without esophagitis; I69.320 Aphasia following cerebral infarction; E89.0 Postprocedural hypothyroidism; R62.7 Adult failure to thrive; Z68.21 Body mass index [BMI] 21.0-21.9, adult; Z51.5 Encounter for palliative care; Z66 Do not resuscitate; Z79.02 Long term (current) use of antithrombotics/antiplatelets; Z79.82 Long term (current) use of aspirin; Z79.899 Other long term (current) drug therapy; Z88.1 Allergy status to other antibiotic agents; Z95.0 Presence of cardiac pacemaker; Z95.1 Presence of aortocoronary bypass graft; Z20.828 Contact with and (suspected) exposure to other viral communicable diseases
CPT/HCPCS: 36600; 51701; 70450; 71045; 80048; 80053; 81003; 82553; 82962; 84484 ×2; 85025 ×2; 93005; 96360; 99285; G0378 ×4; U0003; 36415; 36416; 87635; S0179

== ENCOUNTER 2020-03-31 12:47 | Emergency (ER) | payer MEDICARE, BC | END 2020-03-31 15:55 | LOC: ERS 12:47 | DX: I63.9 Cerebral infarction, unspecified (principal); E03.9 Hypothyroidism, unspecified; I13.0 Hypertensive heart and chronic kidney disease with heart failure and stage 1 through stage 4 chronic kidney disease, or unspecified chronic kidney disease; I50.9 Heart failure, unspecified; N18.30 Chronic kidney disease, stage 3 unspecified; I25.10 Atherosclerotic heart disease of native coronary artery without angina pectoris; I48.91 Unspecified atrial fibrillation; M19.90 Unspecified osteoarthritis, unspecified site; E78.5 Hyperlipidemia, unspecified ==